=== PATIENT | male | born 1940 | race Caucasian/White ===

== ENCOUNTER → 2016-12-03 | Outpatient (CLI) | payer OTHER | END | disposition home or self-care (01) | LOC: C.LABMFLN 08:39 | PROVIDERS: ATTEND Urology | DX: C61 Malignant neoplasm of prostate (principal) ==

== ENCOUNTER → 2017-06-10 | Outpatient (CLI) | payer OTHER | END | disposition home or self-care (01) | LOC: C.LABMFLN 14:51 | PROVIDERS: ATTEND Urology | DX: C61 Malignant neoplasm of prostate (principal) ==

== ENCOUNTER → 2017-09-09 | Outpatient (CLI) | payer OTHER | END | disposition home or self-care (01) | LOC: C.LABMFLN 10:29 | PROVIDERS: ATTEND Urology | DX: C61 Malignant neoplasm of prostate (principal) ==

== ENCOUNTER → 2018-03-05 | Outpatient (CLI) | payer OTHER | END | disposition home or self-care (01) | LOC: C.LABMFLN 13:12 | PROVIDERS: ATTEND Urology | DX: C61 Malignant neoplasm of prostate (principal) ==

== ENCOUNTER → 2018-05-06 | Outpatient (CLI) | payer OTHER ==
[~2018-05-06] MED LIST: GADAVIST IV PRN
--- NOTE | 2018-05-06 15:07 | DIAGNOSTIC IMAGING REPORT ---
PELVIC COMBO CLINICAL HISTORY: 77 years-old Male presenting with NEOPLASM OF PROSTATE, MALIGNANT. PSA 6.36 ng/mL on 03/05/2018. TECHNIQUE: Multisequence, multiplanar MR imaging of the pelvis was performed before and after the administration of intravenous contrast. Additional postprocessing was performed on a separate [employer] workstation by the radiologist for 3-D volumetric segmentation of the prostate and contouring of region(s) of interest (RUPA) for targeting. IV contrast: 9.5 mL of Gadavist. COMPARISON: Bone scan from 04/12/2018. FINDINGS: Prostate: The patient is status post prostatectomy. No asymmetric or suspicious nodular enhancement at the ureteral anastomosis. Bladder: Bladder wall thickening likely indicating prior chronic outlet obstruction. Bowel: Diverticulosis of the sigmoid colon. Peritoneum: No free fluid in the pelvis. Lymph nodes: No lymphadenopathy in the visualized portion of the pelvis. Vasculature: Iliac vessels patent. Abdominal wall: Normal. Osseous structures: Focal T1 hypointense, T2 hyperintense, enhancing lesion in the right aspect of the sacrum (series 4 image 31; series 11 image 31). No focal lesion is identified in the region of the ischial tuberosity though the ischial tuberosities are incompletely visualized. No other osseous lesion is evident. Degenerative changes of the sacroiliac joints. IMPRESSION: 1. Enhancing osseous lesion in the right sacrum is highly suspicious for osseous metastatic disease. Allowing for incomplete visualization of the ischial tuberosities, no lesion in the left ischium. 2. Postsurgical changes of prostatectomy. No evidence of local recurrence at the ureteral anastomosis. No pelvic lymphadenopathy. 3. Diverticulosis. Electronically signed by: Paulo Demarco M.D. 05/06/2018 3:05 PM Dictated Date/Time: 05/06/2018 2:56 PM
== END | disposition home or self-care (01) ==
LOC: C.MRI 13:33
PROVIDERS: ATTEND Urology
DX: C61 Malignant neoplasm of prostate (principal); K57.90 Diverticulosis of intestine, part unspecified, without perforation or abscess without bleeding

== ENCOUNTER → 2018-05-26 | Outpatient (CLI) | payer OTHER ==
[2018-05-26 18:11] LABS: BASO % 0.5 %; BASO ABS # 0.03 K/uL (0-0.2); EOS % 4.4 %; EOS ABS # 0.26 K/uL (0-0.5); HEMATOCRIT 41.1 % (42-52); HEMOGLOBIN 13.5 g/dL (14.0-18.0); IG# 0.01 K/uL (0.00-0.02); LYMPH % 41.7 %; LYMPH ABS # 2.45 K/uL (1.2-3.4); MEAN CELL VOLUME 92.6 fL (80-100); MEAN CORPUSCULAR HEMOGLOBIN 30.4 pg (25-34); MEAN CORPUSCULAR HGB CONC 32.8 g/dl (32-36); MEAN PLATELET VOLUME 10.8 fL (7.4-10.4); MONO % 8.5 %; NEUT % 44.7 %; NEUT ABS # 2.62 K/uL (1.4-6.5); PLATELET COUNT 201 K/uL (130-400); RED CELL DISTRIBUTION WIDTH CV 13.1 % (11.5-14.5); RED CELL DISTRIBUTION WIDTH SD 44.3 fL (36.4-46.3); WHITE BLOOD COUNT 5.87 K/uL (4.8-10.8)
[2018-05-26 18:39] LABS: ALBUMIN 3.6 gm/dl (3.4-5.0); ALKALINE PHOSPHATASE 60 U/L (45-117); ALT/SGPT 22 U/L (12-78); AST/SGOT 22 U/L (15-37); BLOOD UREA NITROGEN 18 mg/dl (7-18); CALCIUM 8.6 mg/dl (8.5-10.1); CARBON DIOXIDE 25 mmol/L (21-32); CREATININE 1.21 mg/dl (0.60-1.40); GLUCOSE 109 mg/dl (70-99); POTASSIUM 4.2 mmol/L (3.5-5.1); SODIUM 140 mmol/L (136-145); TOTAL PROTEIN 7.5 gm/dl (6.4-8.2)
== END | disposition home or self-care (01) ==
LOC: C.LABMFLN 16:09
PROVIDERS: ATTEND Internal Medicine Hematology & Oncology
DX: C61 Malignant neoplasm of prostate (principal)

== ENCOUNTER 2019-02-23 09:14 | Observation (INO) ==
--- NOTE | 2019-02-18 11:50 | Anesthesiology Consultation ---
Date of Service February 18, 2019 Assessment & Plan (1) Encounter for pre-operative examination: PCP Clearance 02/16/19: Reviewed EKG and labs. "Patient's RCRI is 1 based on the fact that it is intrathoracic surgery. Patient is an acceptable candidate for surgery." Chart Review Chart Review: Acceptable Risk for Surgery and Patient NOT seen in Pre Admission Testing History Surgery Operation Date: 02/23/19 10:50 Proposed Procedures p Robotic Laparoscopic Repair of Para-Esophageal Hernie with Fundoplication, - Parish Felix MD, FACS s Intraoperative Esophagogastroduodenoscopy - Parish Felix MD, FACS Height/Weight Height: 5 ft 9 in Weight: 93.416 kg Allergies Allergy/AdvReac Type Severity Reaction Status Date / Time No Known Allergies Allergy Verified 02/18/19 09:59 Medications Home Medications Medication Instructions Recorded Confirmed Last Taken Full Spectrum Extract 0.75 ml PO QAM 02/18/19 02/18/19 Unknown ascorbic acid (vitamin C) [Vitamin 1 tab PO QAM 02/18/19 02/18/19 Unknown C] bicalutamide [Casodex] 50 mg PO QPM 02/18/19 02/18/19 Unknown calcium carbonate [Calcium 500] 500 mg PO QAM 02/18/19 02/18/19 Unknown cholecalciferol (vitamin D3) 2,000 unit PO QAM 02/18/19 02/18/19 Unknown [Vitamin D3] denosumab [Xgeva] 120 mg SUBCUT MONTHLY 02/18/19 02/18/19 Unknown folic acid 0.8 mg PO QAM 02/18/19 02/18/19 Unknown glucosamine-chondroitin 1 tab PO BID 02/18/19 02/18/19 Unknown leuprolide (3 month) [Lupron Depot 1 dose IM UD 02/18/19 02/18/19 Unknown (3 month)] magnesium oxide 400 mg PO QAM 02/18/19 02/18/19 Unknown multivitamin 1 tab PO QAM 02/18/19 02/18/19 Unknown omega 5-qrw-gvf-fish oil [Fish Oil] 1 cap PO QAM 02/18/19 02/18/19 Unknown potassium 99 mg PO QAM 02/18/19 02/18/19 Unknown red yeast rice 600 mg PO QAM 02/18/19 02/18/19 Unknown selenium 200 mcg PO QAM 02/18/19 02/18/19 Unknown vitamin E 1,000 unit PO QAM 02/18/19 02/18/19 Unknown Past Medical History Medical History Cancer PROSTATE CANCER (SURGERY AND RADIATION) METS TO SACRUM. ON LUPRON, AND CASODEX. Osteoarthritis Paraesophageal hernia Past Surgical History Surgical History History of colonoscopy History of herniorrhaphy INGUINAL History of prostatectomy History of tooth extraction Social History Smoking Status: Former smoker tobacco type: cigarettes Do You Dip or Chew Tobacco: No Smoking End Date: QUIT OVER 50 YEARS AGO Hx Alcohol Use: No Hx Substance Use: No substance use type: does not use Testing Electrocardiogram Date: 02/16/19 Findings: + NSR @ (70) Left axis deviation. iRBBB. Septal infarct, age undetermined. Compared to EKG of 12/04/18, rate is slower. Laboratory Results Laboratory Tests 02/16/19 02/16/19 10:23 10:23 WBC 6.25 Hgb 13.4 L Hct 39.5 L Plt Count 212 Sodium 142 Potassium 4.3 Chloride 108 H Carbon Dioxide 31 BUN 20 H Creatinine 1.07 Glucose 95
[~2019-02-23 09:14] MED LIST changes: -GADAVIST IV PRN; +LR 15ML/HR IV SCH
[2019-02-23] MEDS ORDERED: DEXAMETHASONE SOD INJ 4 MG/ML VIAL IV PRN (10:27)
[2019-02-23] MEDS ORDERED: fentaNYL citrate 100 MCG/2 ML VIAL IV PRN (10:27)
[2019-02-23] MEDS ORDERED: ONDANSETRON INJ 2 MG/ML 2 ML VIAL IV PRN (10:27)
[2019-02-23] MEDS ORDERED: ePHEDrine sulfate 50 MG/ML AMP IV PRN (10:27)
[2019-02-23] MEDS ORDERED: HYDROmorphone INJ 1 MG/ML SYRINGE IV PRN (10:27)
[2019-02-23] MEDS ORDERED: ATROPINE SULFATE 0.1 MG/ML 10ML SYR IV PRN (10:27)
--- NOTE | 2019-02-23 10:40 | History & Physical Bridge Note ---
Date of Service February 23, 2019 History & Physical Bridge Note I have examined the patient, reviewed the History & Physical and in the interval since the performance of the History & Physical I have noted the following changes of clinical significance: no changes noted
[2019-02-23] MEDS ORDERED: PROPOFOL IV EMULSION 10 MG/ML 20 ML VIAL IV ONE (10:50)
[2019-02-23] MEDS ORDERED: ROCURONIUM BROMIDE 10 MG/ML 5 ML VIAL ONE ×5 (10:50→14:22)
[2019-02-23] MEDS ORDERED: LIDOCAINE HCL 2% 2 ML VIAL/AMP(20MG/ML) INFIL ONE (10:50)
[2019-02-23] MEDS ORDERED: fentaNYL citrate 100 MCG/2 ML VIAL ONE (10:50)
[2019-02-23] MEDS ORDERED: MIDAZOLAM HCL 1 MG/ML 2ML VIAL ONE (10:51)
[2019-02-23] MEDS ORDERED: ONDANSETRON INJ 2 MG/ML 2 ML VIAL ONE (10:53)
[2019-02-23] MEDS ORDERED: GLYCOPYRROLATE 0.2 MG/ML VIAL ONE ×2 (10:53→12:21)
[2019-02-23] MEDS ORDERED: NEOSTIGMINE METHYLSULFATE 5 MG/5 ML SYR ONE (10:53)
[2019-02-23] MEDS ORDERED: DEXAMETHASONE SOD INJ 4 MG/ML VIAL ONE (10:53)
[2019-02-23] MEDS ORDERED: BUPIVACAINE LIPOSOME 1.3% 266 MG/20 ML VIAL ONE (10:54)
[2019-02-23] MEDS ORDERED: SODIUM CHLORIDE 0.9% PF 50 ML VIAL ONE (10:54)
[2019-02-23] MEDS ORDERED: BUPIVACAINE 0.5 % 5 MG/1 ML MPF 30ML VIAL ONE (10:54)
[2019-02-23] MEDS ORDERED: HYDROmorphone INJ 2 MG/ML SYR/VIAL ONE (11:24)
[2019-02-23] MEDS ORDERED: PHENYLEPHRINE 100MCG/ML 5ML SYR ONE (12:21)
[2019-02-23] MEDS ORDERED: ePHEDrine sulfate 50 MG/ML AMP ONE ×2 (13:54→14:22)
[2019-02-23] MEDS ORDERED: PHENYLEPHRINE HCL 10 MG/ML VIAL ONE (15:20)
--- NOTE | 2019-02-23 15:39 | Post Operative Brief Note ---
Immediate Post Op Note v1 Date of Surgery February 23, 2019 Pre & Post Diagnosis Operation Date: 02/23/19 10:50 Pre-Op Diagnosis: Paraesophageal Hernia Post-Op Diagnosis: Paraesophageal Hernia Procedure Operation Date: 02/23/19 10:50 Actual Procedures p Robotic Laparoscopic Repair of Paraesophageal Hernia with bioprosthetic patch and Razia Fundoplication(Not Applicable) - Parish Felix MD, FACS s Esophagogastroduodenoscopy(Not Applicable) - Parish Felix MD, FACS Surgeon Parish Felix MD, FACS Chemical Worker Erica CUELLAR Estimated Blood Loss 25 Findings Consistent with Post-Op Diagnosis Drains Gramajo Catheter (adhesive sheath non-invasive catheter placed)
[2019-02-23] MEDS ORDERED: METOCLOPRAMIDE HCL INJ 5 MG/ML 2 ML VIAL IV ONE (16:05)
--- NOTE | 2019-02-23 16:13 | XRay Report ---
XR chest 1V portable CLINICAL HISTORY: s/p lesli fundoplication COMPARISON STUDY: No previous studies for comparison. FINDINGS: Lucency under the hemidiaphragms reflects pneumoperitoneum which is not unexpected. Pneumom ediastinum is also noted. There are mild bibasilar opacities. A small right apical pneumothorax with pleural separation of 1.5 cm is noted. There is mild enlargement of the cardiac silhouette without ev idence for pulmonary edema. Possible small left apical pneumothorax is likely artifactual. IMPRESSION: 1. Pneumoperitoneum and pneumomediastinum which are expected in the early postoperative setting. Mild bibasilar opacities. 2. Small right apical pneumothorax. 3. Possible small left apical pneumothorax which is likely artifactual. Electronically signed by: Dustin Swenson M.D. 02/23/2019 4:12 PM
[2019-02-23] MEDS ORDERED: METOCLOPRAMIDE HCL INJ 5 MG/ML 2 ML VIAL ONE (16:16)
--- NOTE | 2019-02-23 16:45 | Anesthesiology Progress Note ---
Date of Service February 23, 2019 Anesthesia Post Procedure Vital Signs Vital Signs: Temp Pulse Pulse Resp BP BP Pulse Ox 02/23/19 16:45 89 16 133/75 95 02/23/19 16:35 36.6 C 85 16 127/63 95 02/23/19 16:25 83 16 120/69 94 02/23/19 16:15 87 18 122/73 94 02/23/19 16:05 79 18 141/85 H 92 02/23/19 15:59 36.4 C L 79 19 141/85 H 93 02/23/19 10:00 36.7 C 72 18 172/99 H 97 Transfer of Care Handoff Completed per policy Notes Mental Status: alert / awake / arousable and participated in evaluation Patient Amnestic to Procedure: Yes Nausea / Vomiting: adequately controlled Pain: adequately controlled Airway Patency, RR, SpO2: stable & adequate BP & HR: stable & adequate Hydration State: stable & adequate Anesthetic Complications: no major complications apparent and Pt Satisfied with anesthetic care
[2019-02-23] MEDS ORDERED: MoRPHine SULFATE 2 MG/ML CARP IV PRN (17:01)
[2019-02-23] MEDS ORDERED: OXYCODONE HCL IR 5 MG TAB (IMMEDIATE RELEASE) PO PRN (17:01)
[2019-02-23] MEDS: D5W AND 1/2NSS 1,000 ML IV SCH (18:08)
[2019-02-23] MEDS: ONDANSETRON INJ 2 MG/ML 2 ML VIAL IV SCH ×2 (18:22→21:59)
[2019-02-23] MEDS: ACETAMINOPHEN 1,000 MG/100 ML VIAL IV SCH (18:23)
[2019-02-23] MEDS: DOCUSATE SODIUM 100 MG CAP PO SCH (20:28)
[2019-02-23] MEDS ORDERED: BICALUTAMIDE 50 MG TAB PO SCH (21:00)
[2019-02-23] MEDS ORDERED: PNEUMOCOCCAL POLYSACCHARIDES 25 MCG/0.5 ML VIAL/SYR IM ONE (21:00)
[2019-02-23] MEDS ORDERED: PNEUMOCOCCAL ADMINISTRATION CHARGE ONE (21:00)
--- NOTE | 2019-02-23 22:41 | Operative Report ---
DATE OF OPERATION: 02/23/2019 PREOPERATIVE DIAGNOSIS: Large hiatal hernia with gastric torsion. POSTOPERATIVE DIAGNOSIS: Large hiatal hernia with gastric torsion. PROCEDURE PERFORMED: 1. Robot-assisted laparoscopic repair of large hiatal hernia. 2. Floppy Razia fundoplication. 3. On-table esophagoscopy. SURGEON: Parish Felix MD DIRECTOR FOR [employer]: POLO Gimenez (Mr. Lynn was present for the entire case). ANESTHESIA: General anesthesia, endotracheal intubation. INDICATION FOR PROCEDURE AND FINDINGS: Adán Marino is a 78-year-old male who has signs and symptoms consistent with intermittent gastric torsion and has a huge hiatal hernia. I saw him recently in the office and was concerned enough that we scheduled him rather quickly. On 02/23/2019,the patient underwent an uncomplicated robot-assisted laparoscopic repair of his hiatal hernia. He had a huge sac but we managed to get this entire sac out. Care was taken to avoid injury to the phrenic nerves. We were able to repair the hiatal defect easily and it really was under no tension, but I did put a nonabsorbable patch to reinforce this repair. We then did a floppy Razia fundoplication. He tolerated it well. DESCRIPTION OF PROCEDURE: The patient was brought to the operating room and laid in supine position. General anesthesia was induced. Endotracheal intubation was performed. He was prepped and draped in the usual sterile fashion, calling appropriate timeout and giving prophylactic antibiotics. An incision was made a few centimeters above the umbilicus. All of our port sites were infiltrated with Exparel 266 mg mixed with 30 mL of 0.5% bupivacaine and 50 mL of normal saline. Upon making the incision in the midline, we placed a 5-mm thoracoscopic port and entered the pleural cavity under guidance with a 5-mm scope. Upon entering the peritoneal cavity, we then insufflated CO2. We were able to see quite nicely and there were no adhesions. Two 8-mm ports were placed in the midclavicular line bilaterally below the costal margin. Two 5-mm ports were placed laterally and inferiorly. The right 5-mm port was placed for the liver retractor and the left 5-mm port was for our 5-mm thoracic grasper for the robot. An assistance port was then placed in the left periumbilical area. We then placed the patient in reverse Trendelenburg and docked the robot. Upon entering it, we had excellent exposure and could see a very large hiatal defect. We started off by taking down all of the short gastrics. There were marked adhesions and the stomach was twisted and we spent some time trying to finally straighten this out. I then scored the peritoneum and I got into a nice avascular plane and removed the entire sac. We had excellent exposure given the large hiatal defect. We identified the esophagus and the esophagus was not shortened at all. Care was taken to avoid injury to the vagus nerves. The sac was peeled down and we were able to see the hiatal defect perfectly. I then removed the entire sac using the vessel sealer from the robot. This had to be delivered in 2 different specimens and they were so large that we had to wait until the end of the case to take them out through the assistance port by removing the trocar. Endobags were placed on each, but they were left in the lower abdomen. A #1 silk was used in a bzreei-cy-valrw fashion x2 to reapproximate the posterior crura and it came together with no problem. An Ovitex bioprosthetic patch was then selected and an approximately 5 x 3 cm patch was sutured in place with 2-0 Vicryl suture along the posterior crural repair. Care was taken to avoid touching the patch to the esophagus. We then had mobilized so much of the stomach that a floppy Razia was quite easy to do as the stomach was quite large and distended. We did a "shoeshine maneuver" and we had no twisting or folding of the stomach. Three 2-0 silk was used to suture the anterior fundus to the esophagus to the posterior fundus. This came together under no tension. I placed another suture 1 cm above this and then I used a third suture to suture the posterior and anterior fundus to the anterior crura. This was under no tension and looked quite good actually. The robot was then undocked and the patient was placed supine. I then performed an esophagoscopy without difficulty and our repair looked good. It went through the GE junction nicely and upon retroflexion you could see a nice fundoplication. The stomach was very large and I suctioned it out. We then closed the abdomen by placing #1 Maxon into the camera port and the assistance port; however, prior to doing this, we removed the 2 Endobags. This was a bit difficult because of how large, but we got them out. We then closed the 2 larger ports with #1 Maxon for closing the fascia. A 4-0 Monocryl was then used in a running subcuticular fashion to approximate the wound edges. He tolerated it quite well. I attest to the content of the Intraoperative Record and any orders documented therein. Any exceptions are noted below. DEBBIE
[2019-02-24] MEDS: METOCLOPRAMIDE HCL INJ 5 MG/ML 2 ML VIAL IV SCH ×2 (00:13→07:56)
[2019-02-24] MEDS: ONDANSETRON INJ 2 MG/ML 2 ML VIAL IV SCH ×4 (01:06→14:38)
[2019-02-24] MEDS: ACETAMINOPHEN 1,000 MG/100 ML VIAL IV SCH ×2 (01:06→09:51)
[2019-02-24] MEDS: D5W AND 1/2NSS 1,000 ML IV SCH (03:23)
[2019-02-24] MEDS ORDERED: TAMSULOSIN HCL 0.4 MG CAP PO ONE (05:46)
[2019-02-24 06:02] LABS: INR 1.1 (0.9-1.1); Prothrombin Time 11.2 Seconds (9.0-12.0)
--- NOTE | 2019-02-24 07:31 | XRay Report ---
XR chest 1V portable HISTORY: 78 years-old Male pneumothorax follow-up study in a patient with bilateral pneumothoraces COMPARISON: Chest radiograph 02/23/2019 TECHNIQUE: Portable AP view of the chest FINDINGS: Cardiac mediastinal and hilar silhouettes are unchanged. Pneumomediastinum is not definitively seen o n today's study. Lungs are hypoinflated with bronchovascular crowding. Mild subsegmental bibasilar op acities are noted. Pneumoperitoneum redemonstrated. Tiny biapical pneumothoraces redemonstrated. The pneumothorax on the right has decreased in size from comparison, now with pleural separation of appro ximately 3 mm, previously 1.5 cm. Degenerative changes of the shoulders and spine. IMPRESSION: 1. Tiny biapical pneumothoraces, decreased in size on the right from comparison. 2. Hypoinflation with bronchovascular crowding and bibasilar opacities suggestive of atelectasis. 3. Pneumoperitoneum. The above report was generated using voice recognition software. It may contain grammatical, syntax o r spelling errors. Electronically signed by: Dell Lau M.D. 02/24/2019 7:30 AM
--- NOTE | 2019-02-24 08:07 | Anesthesiology Progress Note ---
Date of Service February 24, 2019 Anesthesia Post Procedure Vital Signs Vital Signs: Temp Pulse Pulse Pulse Resp BP BP 02/24/19 07:18 36.7 C 92 H 18 171/94 H 02/24/19 05:19 37.1 C 103 H 16 165/91 H 02/24/19 02:59 37.2 C 106 H 16 163/91 H 02/24/19 01:07 36.6 C 106 H 16 169/99 H 02/23/19 23:10 36.6 C 101 H 16 160/94 H 02/23/19 20:13 36.4 C L 107 H 17 152/91 H 02/23/19 19:26 36.4 C L 99 H 17 168/90 H 02/23/19 18:59 36.5 C 18 161/96 H 02/23/19 17:00 36.5 C 93 H 16 146/82 H 02/23/19 16:45 89 16 133/75 02/23/19 16:35 36.6 C 85 16 127/63 02/23/19 16:25 83 16 120/69 02/23/19 16:15 87 18 122/73 02/23/19 16:05 79 18 141/85 H 02/23/19 15:59 36.4 C L 79 19 141/85 H 02/23/19 10:00 36.5 C 72 18 172/99 H 161/96 H Pulse Ox 02/24/19 07:18 92 02/24/19 05:19 92 02/24/19 02:59 91 02/24/19 01:07 91 02/23/19 23:10 92 02/23/19 20:13 91 02/23/19 19:26 92 02/23/19 18:59 91 02/23/19 17:00 97 02/23/19 16:45 95 02/23/19 16:35 95 02/23/19 16:25 94 02/23/19 16:15 94 02/23/19 16:05 92 02/23/19 15:59 93 02/23/19 10:00 95 Notes Mental Status: alert / awake / arousable and participated in evaluation Patient Amnestic to Procedure: Yes Nausea / Vomiting: adequately controlled Pain: adequately controlled Airway Patency, RR, SpO2: stable & adequate BP & HR: stable & adequate Hydration State: stable & adequate Anesthetic Complications: no major complications apparent and Pt Satisfied with anesthetic care
[2019-02-24] MEDS ORDERED: ENOXAPARIN INJ 40 MG/0.4 ML SYR SQ SCH (09:00)
--- NOTE | 2019-02-24 09:44 | Fluoroscopy Report ---
SINGLE CONTRAST OPTIRAY SWALLOW CLINICAL HISTORY: s/p lesli COMPARISON STUDY: Barium swallow February 15, 2019. FLUOROSCOPY TIME: 2.1 minutes. FLUOROSCOPIC IMAGES: 13. TECHNIQUE: A single contrast swallow was performed utilizing 150 cc of Optiray. FINDINGS: Pneumoperitoneum is noted. There are bibasilar opacities. Tracheal aspiration was noted. Th ere was narrowing at the level of the Lesli wrap. A standing column of contrast within the esophagus was noted. Contrast did eventually pass into the stomach. The stomach is distended. There is possibl e trace contrast within the duodenum. The stomach is suboptimally assessed on this exam. No extralumi nal contrast was identified although sensitivity for detection of leak is diminished as no additional Optiray was provided given aspiration. IMPRESSION: 1. No contrast extravasation to suggest leak although sensitivity for detection of leak diminished g iven tracheal aspiration during this exam. 2. Narrowing at the level of the Lesli wrap which may be related to postoperative edema. Standing co lumn contrast within the esophagus however contrast did eventually pass into the stomach and possibly the duodenum. Gastric distention. Electronically signed by: Dustin Swenson M.D. 02/24/2019 9:42 AM
[2019-02-24] MEDS: DOCUSATE SODIUM 100 MG CAP PO SCH (09:51)
--- NOTE | 2019-02-24 12:39 | Urology Consultation ---
Date of Consultation February 24, 2019 Assessment & Plan (1) Incomplete bladder emptying: A/P 78 yo male with recurrent prostate cancer on ADT, incomplete bladder emptying, bladder neck contracture. Findings reviewed with patient. In 2015 the decision was made to avoid dilation of his bladder neck contracture due to concern over urinary incontinence if this was complete. This remains a potential issue should he be dilated today. I suspect that his bladder neck contracture persists and there is a good chance that if he continued to attempt Gramajo placement bedside cystoscopy and dilation will be required to avoid retention from traumatic catheterization. At this point, seen the lack of urinary bother, hematuria or other significant symptoms I suspect that his emptying is close to baseline. Patient has a strong preference for avoiding Gramajo catheter placement and manipulation of possible due to his concern over the above possible deterioration in his voiding. As noted the risk here is that he might develop worsening of voiding and urinary retention and require cystoscopy and dilation acutely in the emergency contacts. In addition he lives approximately 1 hour from our facility. Patient currently seems to be able to avoid albeit with a significant residual. As noted, his recent imaging suggests a lack of upper tract decompensation. We will therefore see if we can avoid placement of a Gramajo and allow for the patient to be discharged home. Worrisome signs and symptoms of impending urinary and patient is to present to the emergency room if this occurs outside of normal office hours into our office if it we will arrange for a cystoscopy for reevaluation of his bladder neck contracture with Dr. Hylton in the coming weeks and another discussion regarding the risks and benefits of dilation or incision of his bladder neck contracture can be reviewed. Patient vocalizes good understanding of the treatment plan. Thank you for allowing us to participate in this patient's acute care. Please contact our service with any further questions or concerns. History of Present Illness Reason for Consultation: Incomplete bladder emptying, history of prostate cancer with bladder neck contracture. Attending Physician: Parish Felix MD, FACS History of Present Illness 78-year-old male, known to our service, lost to follow-up in the summer 2017 who is currently admitted after repair of a hiatal hernia. Postoperatively due to slow stream and delayed voiding catheterization was attempted and was unsuccessful. Urologic service was called in consultation to assist with his care. Patient is noted to have a history of recurrent prostate cancer after prostatectomy and salvage radiation therapy and he is currently on combination androgen deprivation with slow recurrence of his PSA. He underwent a cystoscopy by Dr. Hylton in 2015 demonstrating an impassable bladder neck contracture. He has undergone imaging as an outpatient including CT scan imaging in November 2018 demonstrating some residual urine within the bladder but no hydronephrosis. Patient has been voiding in the postoperative period with over 500 cc of clear urine passed this morning per nursing staff. He reports he has been voiding approximately 100 to 150 cc in the afternoon as well. His bladder scan today is greater than 400 cc but he reports that he no longer has a sensation of fullness which was present earlier in the postoperative period. He feels that he is chronically obstructed with a slow stream and incomplete emptying and his current symptoms feel relatively close to baseline.His inpatient and outpatient charts are reviewed and his recent PSA of 2.6 is noted. Oncology notes also reviewed. Allergies Allergy/AdvReac Type Severity Reaction Status Date / Time No Known Allergies Allergy Verified 02/23/19 09:41 Home Medications Home Medications Medication Instructions Recorded Confirmed Type Full Spectrum Extract 0.75 ml PO QAM 02/18/19 02/23/19 History ascorbic acid (vitamin C) [Vitamin 1 tab PO QAM 02/18/19 02/23/19 History C] bicalutamide [Casodex] 50 mg PO QPM 02/18/19 02/23/19 History calcium carbonate [Calcium 500] 500 mg PO QAM 02/18/19 02/23/19 History cholecalciferol (vitamin D3) 2,000 unit PO QAM 02/18/19 02/23/19 History [Vitamin D3] denosumab [Xgeva] 120 mg SUBCUT MONTHLY 02/18/19 02/23/19 History folic acid 0.8 mg PO QAM 02/18/19 02/23/19 History glucosamine-chondroitin 1 tab PO BID 02/18/19 02/23/19 History leuprolide (3 month) [Lupron Depot 1 dose IM UD 02/18/19 02/23/19 History (3 month)] magnesium oxide 400 mg PO QAM 02/18/19 02/23/19 History multivitamin 1 tab PO QAM 02/18/19 02/23/19 History omega 8-nfx-clg-fish oil [Fish Oil] 1 cap PO QAM 02/18/19 02/23/19 History potassium 99 mg PO QAM 02/18/19 02/23/19 History red yeast rice 600 mg PO QAM 02/18/19 02/23/19 History selenium 200 mcg PO QAM 02/18/19 02/23/19 History vitamin E 1,000 unit PO QAM 02/18/19 02/23/19 History Patient History Medical History Bladder neck contracture Pelvic irradiation Cancer PROSTATE CANCER (SURGERY AND RADIATION) METS TO SACRUM. ON LUPRON, AND CASODEX. 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 [employer] Required: No Beliefs That Will Affect Care: None Current Living Situation: Spouse Other Information That Helps Us Care for You: No Feels Safe at Home: Yes Safety Concerns: Feels Safe At This Time Smoking Status: Former smoker Tobacco Type: cigarettes Do You Dip or Chew Tobacco: No Smoking End Date: QUIT OVER 50 YEARS AGO Second Hand Exposure: No Tobacco Cessation Education Requested by Patient: No Hx Alcohol Use: No Hx Substance Use: No Review of Systems Constitutional: no fever, no chills and no body aches Eyes: no diplopia Ear, Nose, Mouth, Throat: no ear trauma Respiratory: no hemoptysis Cardiovascular: no syncope Genitourinary: + urinary hesitancy Integumentary: no acne and no boil Neurologic: no paralysis and no numbness Psychiatric: no hopelessness Hematologic / Lymphatic: no lymphadenopathy Physical Exam Constitutional: WD/WN, vitals as above Eyes: eyes not dysmorphic ENMT: Ears: no external ear abnormality Neck: trachea midline; no anterior neck swelling Respiratory: no respiratory distress and does not use accessory muscles Cardiovascular: Vessels: radial pulses present Gastrointestinal (Abdomen): Inspection/Auscultation: abdomen not distended Percussion/Palpation: abdomen soft; abdomen nontender Skin: normal turgor Neurologic: awake; not obtunded Psychiatric: Orientation: oriented x 3 Lymphatic: no lymphadenopathy Results & Data Vital Signs (Past 12 Hours) Vital Signs Temp Pulse Resp BP BP Pulse Ox 02/24/19 11:30 37.3 C 97 H 18 160/98 H 91 02/24/19 10:33 163/94 H 02/24/19 07:18 36.7 C 92 H 18 171/94 H 92 02/24/19 05:19 37.1 C 103 H 16 165/91 H 92 02/24/19 02:59 37.2 C 106 H 16 163/91 H 91 02/24/19 01:07 36.6 C 106 H 16 169/99 H 91 Laboratory Results Laboratory Results - last 48 hr 02/23/19 02/24/19 09:59 05:33 PT 11.2 INR 1.1 Blood Type O Positive Antibody Screen NEGATIVE
[2019-02-24] MEDS ORDERED: ACETAMINOPHEN 325 MG TAB PO SCH (16:00)
--- NOTE | 2019-02-24 23:28 | Discharge Summary ---
DATE OF ADMISSION: 02/23/2019 DATE OF DISCHARGE: 02/24/2019 ADMISSION DIAGNOSIS: Paraesophageal hernia. DISCHARGE DIAGNOSIS: Paraesophageal hernia. HISTORY OF PRESENT ILLNESS: This is a pleasant 78-year-old male who was brought in to the hospital on 02/23/2019 after being seen and evaluated as an outpatient secondary to a large paraesophageal hernia. On date of admission, Dr. Felix took the patient to the operating room and performed a robotic assisted laparoscopic repair of paraesophageal hernia with bioprosthetic patch along with a Razia fundoplication and intraoperative EGD. The surgery was uneventful and the patient was noted to be hemodynamically stable postoperatively. Of note, the patient did have a small right apical and left apical pneumothorax. He also had a repeat chest x-ray done on postop day #1 that showed again tiny biapical pneumothoraces that were not felt to be of any consequence as the patient had adequate oxygenation. On postop day #1, the patient did have a barium swallow that showed no contrast extravasation to suggest a leak. There are findings consistent with a Razia fundoplication. Gastric distention and a slow gastric emptying was noted on this study; however. It should also be noted that during patient's postoperative course, he was noted to have some postoperative urinary retention along with difficulty placing a Gramajo intraoperatively. He was seen by urology and patient was noted to have incomplete bladder emptying and a bladder neck contracture. Urology did feel that the patient was able to void adequately and did not feel there is any utility in placing a Gramajo catheter or any additional interventions. Following the patient's barium swallow, he was tolerating liquid diet and was deemed stable for discharge home. The patient received written and verbal instructions on wound care, activity and diet. I told to remove his dressings in 3 days and shower thereafter, but not to take any tub baths. He was told not to drive or lift objects weighing 10 pounds until seen by Dr. Felix. He was told to consume a liquid diet and not consume any foods such as bread or meat that require chewing. Because of the findings on patient's barium swallow and a feeling of fullness when drinking liquids, he was placed on Reglan and told to take this before meals and at bedtime. He was ultimately deemed stable for discharge home, was discharged home on postop day #1. Our office will call in for a 1 week followup appointment.
== END 2019-02-24 14:38 | disposition home or self-care (01) ==
LOC: ASU 09:14 → 3N 15:50 → INTOOBSV 15:50

== ENCOUNTER 2019-02-25 09:54 | Inpatient (IN) ==
[2019-02-25] MEDS ORDERED: SODIUM CHLORIDE 0.9% 1000ML 1,000 ML IV SCH ×3 (10:00→18:00)
--- NOTE | 2019-02-25 12:02 | XRay Report ---
SINGLE VIEW CHEST CLINICAL HISTORY: Gastric outlet obstruction. FINDINGS: An AP, portable, upright chest radiograph is compared to study dated 02/24/2019. The heart is top normal for projection, noting atherosclerotic calcification of the thoracic aorta. There is elev ation of left hemidiaphragm and left basilar consolidation. Small pleural effusions are suspected. Th ere is likely trace residual right apical pneumothorax. The small left pneumothorax seen previously i s no longer apparent. The skeletal structures are osteopenic. The bony thorax is grossly intact. Dege nerative change is noted throughout the thoracic spine. IMPRESSION: 1. There is likely trace residual right apical pneumothorax. No definite left pneumothorax is seen. 2. There is elevation of the left hemidiaphragm with left basilar consolidation. Correlate clinically for evidence of pneumonia/aspiration pneumonitis. 3. Suspect small pleural effusions. Electronically signed by: Anthony Duvall M.D. 02/25/2019 12:01 PM
--- NOTE | 2019-02-25 12:02 | XRay Report ---
KUB HISTORY: gastric oultlet obstruction COMPARISON: Chest radiograph of same day, CT abdomen and pelvis 12/04/2017. FINDINGS: The bowel gas pattern is non-obstructive. Mild gaseous distention of the stomach. Enteric c ontrast noted about the large bowel. Colonic diverticulosis. Left hemidiaphragmatic elevation. There is no organomegaly. No renal calculi. No ureteral calculi. No pneumoperitoneum or pneumatosis. Degen erative changes of the spine, pelvis and hips. No fracture. IMPRESSION: 1. Mild gaseous distention of the stomach. 2. Nonobstructive bowel gas pattern with enteric contrast about the colon secondary to barium swallow study 02/24/2019 excluding high-grade obstructive process. 3. Colonic diverticulosis. Electronically signed by: Dell Lau M.D. 02/25/2019 12:00 PM
[2019-02-25 12:12] LABS: Basophils # (auto) 0.01 K/uL (0-0.2); Basophils % (auto) 0.1 %; Hemoglobin 14.1 g/dL (14.0-18.0); Immature Granulocytes # (auto) 0.06 K/uL (0.00-0.02); Immature Granulocytes % (auto) 0.3 %; Lymphocytes # (auto) 1.77 K/uL (1.2-3.4); Lymphocytes % (auto) 9.8 %; Mean Corpuscular Volume 87.6 fL (80-100); Mean Platelet Volume 10.3 fL (7.4-10.4); Monocytes # (auto) 1.11 K/uL (0.11-0.59); Monocytes % (auto) 6.2 %; Neutrophils # (auto) 15.08 K/uL (1.4-6.5); Neutrophils % (auto) 83.6 %; Platelet Count 174 K/uL (130-400); RDW Coefficient of Variation 12.8 % (11.5-14.5); RDW Standard Deviation 41.2 fL (36.4-46.3); Red Blood Count 4.45 M/uL (4.7-6.1); White Blood Count 18.03 K/uL (4.8-10.8)
[2019-02-25 12:25] LABS: Mean Corpuscular Hgb Conc 36.2 g/dL (32-36)
[2019-02-25 12:28] LABS: Alanine Aminotransferase 29 U/L (12-78); Albumin Level 3.7 gm/dl (3.4-5.0); Aspartate Aminotransferase 54 U/L (15-37); BUN Creatinine Ratio 10.7 (10-20); Blood Urea Nitrogen 13 mg/dl (7-18); Calcium 8.8 mg/dl (8.5-10.1); Carbon Dioxide 26 mmol/L (21-32); Chloride 104 mmol/L (98-107); Est GFR (African American) 64.8; Est GFR (Non-African American) 55.9; Glucose 107 mg/dl (70-99); Magnesium 2.2 mg/dl (1.8-2.4); Potassium 3.4 mmol/L (3.5-5.1); Sodium 136 mmol/L (136-145)
[2019-02-25 12:31] LABS: Albumin Globulin Ratio 0.8 (0.9-2); Alkaline Phosphatase 51 U/L (45-117); Globulin 4.5 gm/dl (2.5-4.0); Total Protein 8.2 gm/dl (6.4-8.2)
[2019-02-25] MEDS: ONDANSETRON INJ 2 MG/ML 2 ML VIAL IV SCH ×2 (13:04→21:17)
[2019-02-25] MEDS: METOCLOPRAMIDE HCL INJ 5 MG/ML 2 ML VIAL IV SCH ×2 (13:04→17:33)
--- NOTE | 2019-02-25 14:00 | Urology Consultation ---
Date of Consultation February 25, 2019 Assessment & Plan (1) Incomplete bladder emptying: met, castrate resistant prostate ca; urinary retention - discussed options - given his lack of urinary improvement, we have decided to place a catheter - he understands that dilation of his bladder neck may lead to an increase in incontinence Procedure performed at bedside - sterile prep - passage of 6f open ended catheter into the bladder - clear urine returned - sensor wire advanced through the 6F into the bladder - serial/radial dilation to 18F (attempted to pass a 14F catheter after dilation to 16f, but unsuccessful) - placement of a 14f councill tip (cut to create councill) with a return of cl ear urine - patient tolerated procedure well - would keep the catheter for minimum of 3d or longer if primary team feels this is necessary History of Present Illness Attending Physician: Parish Felix MD, FACS History of Present Illness 78y/o male w/ hx of prostate ca ([facility]) - s/p RRP and radiation - rising PSA despite lupron and casodex - known BNC - was voiding adequately prior to his recent hiatal hernia repair - small volume, frequent voids after surgery - unable to pass a catheter during surgery - elected to avoid catheterization yesterday, but now readmitted to the hospital with abdominal discomfort and mild nausea - still not voiding well - q30 min - 100cc at most Allergies Allergy/AdvReac Type Severity Reaction Status Date / Time No Known Allergies Allergy Verified 02/23/19 09:41 Home Medications Home Medications Medication Instructions Recorded Confirmed Type Full Spectrum Extract 0.75 ml PO QAM 02/18/19 02/23/19 History Lupron Depot (3 month) 1 dose IM UD 02/18/19 02/23/19 History Xgeva 120 mg SUBCUT MONTHLY 02/18/19 02/23/19 History ascorbic acid (vitamin C) [Vitamin 1 tab PO QAM 02/18/19 02/23/19 History C] bicalutamide [Casodex] 50 mg PO QPM 02/18/19 02/23/19 History calcium carbonate [Calcium 500] 500 mg PO QAM 02/18/19 02/23/19 History cholecalciferol (vitamin D3) 2,000 unit PO QAM 02/18/19 02/23/19 History [Vitamin D3] folic acid 0.8 mg PO QAM 02/18/19 02/23/19 History glucosamine-chondroitin 1 tab PO BID 02/18/19 02/23/19 History magnesium oxide 400 mg PO QAM 02/18/19 02/23/19 History multivitamin 1 tab PO QAM 02/18/19 02/23/19 History omega 8-gqc-qks-fish oil [Fish Oil] 1 cap PO QAM 02/18/19 02/23/19 History potassium 99 mg PO QAM 02/18/19 02/23/19 History red yeast rice 600 mg PO QAM 02/18/19 02/23/19 History selenium 200 mcg PO QAM 02/18/19 02/23/19 History vitamin E 1,000 unit PO QAM 02/18/19 02/23/19 History metoclopramide HCl [Reglan] 10 mg PO ACHS 30 Days #120 tab 02/24/19 Rx ondansetron HCl [Zofran] 4 mg PO QID PRN #25 tab 02/24/19 Rx tramadol [Ultram] 50 mg PO QID PRN #18 tab 02/24/19 Rx Patient History Medical History Bladder neck contracture Cancer PROSTATE CANCER (SURGERY AND RADIATION) METS TO SACRUM. ON LUPRON, AND CASODEX. Osteoarthritis Paraesophageal hernia Pelvic irradiation Surgical History History of colonoscopy History of herniorrhaphy INGUINAL History of prostatectomy History of tooth extraction Social History Preferred Language: Indonesian Communication Ability: Effective Beliefs That Will Affect Care: None Current Living Situation: Spouse Other Information That Helps Us Care for You: No Feels Safe at Home: Yes Safety Concerns: Feels Safe At This Time Smoking Status: Former smoker Tobacco Type: cigarettes Second Hand Exposure: No Hx Alcohol Use: No Hx Substance Use: No Review of Systems Review of Systems: All systems reviewed & are unremarkable except as noted in HPI & below Constitutional: as per Subjective / HPI Respiratory: no cough and no dyspnea Cardiovascular: no chest pain and no dyspnea Gastrointestinal: + abdominal pain and + nausea Genitourinary: + problem reported Musculoskeletal: no back pain and no neck pain Integumentary: no rash Endocrine: no fatigue Physical Exam Physical Exam: NAD AAOx3 appropriately interactive no resp distress borderline tachycardia abd soft - moderately distended bladder uncircumcised phallus, atrophic testes no edema no adenopathy Results & Data Vital Signs (Past 12 Hours) Vital Signs Temp Pulse Resp BP Pulse Ox 02/25/19 13:19 36.9 C 104 H 18 183/108 H 91 02/25/19 12:00 36.9 C 20 171/104 H 91
[2019-02-25] MEDS ORDERED: Nursing to Pharmacy Communication ONE (15:58)
--- NOTE | 2019-02-25 18:08 | Consultation ---
Date of Consultation February 25, 2019 Assessment & Plan (1) Tachycardia: Pt with noted tachycardia Post op Day 0 through today. HR: high 90'-110. Today noted HR: 110-120. EKG: sinus tachycardia DDX: dehydration, infection, pneumonia, PE Pt 3 hours post Gramajo cath placement with continued tachycardia and HTN, so less likely related to urinary retention. Pt with cough today. WBC: 18 -CTA to r/o PE. Will also allow better visualization of lungs for consolidation -pending sputum culture, pending blood cultures -zosyn -increase IVF to 125ml/hr for 2 bags, then resume at 80ml/hr -follow cbc, bmp (2) HTN (hypertension): Pt reports been told BP runs high previously. Is not on any BP meds BP yesterday 171/94. Pt denies pain currently. Today BP 183/108 -will give dose of hydralazine -add amlodipine -monitor BP (3) Cough: (4) Hypoxia: Pt with noted O2 sats recorded 90-92% on RA prior admission. Today O2 sat 89-90%. Unsure pt's baseline. Denies SOB or CP. CXR: There is likely trace residual right apical pneumothorax. No definite left pneumothorax is seen. There is elevation of the left hemidiaphragm with left basilar consolidation. Correlate clinically for evidence of pneumonia/aspiration pneumonitis. Suspect small pleural effusions. 02/24/19 CXR: Tiny biapical pneumothoraces, decreased in size on the right from comparison. DDX: Pneumonia, PE, reflux -will start zosyn as pt with cough, noted WBC: 18, possible consolidation on CXR -pending sputum culture -pepcid BID IV -pending CTA chest to r/o PE, pneumonia (5) History of repair of hiatal hernia: Post op day #2 laparoscopic repair of large hiatal hernia and Floppy Razia fundoplication by Dr Felix -Dr Felix primary -NPO (6) Dysphagia: Pt developed dysphagia post procedure. Had barium swallow that showed no contrast extravasation to suggest a leak. Gastric distention and a slow gastric emptying was noted. Pt was placed on Reglan. Today pt reports "bubbling sensation" to esophagus when he is supine and resolves with sitting up. Denies any associated pain, CP or SOB. -will continue reglan as per Dr Felix -GI consult (7) Hypokalemia: K: 3.4 Probable secondary to poor oral intake -Replace and monitor (8) Incomplete bladder emptying: Pt was having some urinary retention and yesterday decision was made to avoid Gramajo catheter as might develop worsening of voiding and urinary retention and require cystoscopy and dilation acutely. Pt with continued symptoms and today urology placed Gramajo catheter. -urology following (9) Prostate cancer: S/P prostatectomy on Casodex and Lupron with recent report metastatic disease to sacrum and increasing PSA levels and follows with Dr Diaz. -continue casodex DVT Prophylaxis -SCDs DNR/DNI as per discussion with pt Follows with [facility] for routine care Pt was seen with Dr Alvarez. See addendum Supervising Physician Co-Signing Physician Notes I have seen and examined the patient and have discussed the case with the provider above. I agree with the assessment and plan as stated with the following exceptions. Mr. Marino is in no distress and not tachypneic but occasionally appears slightly winded. He denies any pain and reports a feeling of bubbles in his substernal chest post op when he leans into a supine position. He came back to the hospital today because he was coughing and had difficulty urinating. A Gramajo catheter was placed by urology this afternoon for urinary retention in the setting of a tight bladder neck. He denies any chest pain and his incision sites look clean, dry and without infection. Abdomen is soft and nondistended. Lungs are clear to auscultation except there is no good air movement at the L base. He is mentating normally. Agree with plan as above including empiric treatment of pneumonia with clinical exam findings and 89%-90% oxygen saturation on room air. CT chest revealed no PE. Atelectasis and pneumonia still in the differential. It is possible his BP is up because of his post-operative state, however, after moving him to telemetry he was found to be in atrial fibrillation with RVR. (Initial EKG on the floor revealed sinus tachycardia.) Rates are hanging around [address] Felix who wants him on an amio drip with bolus. This was ordered. Heparin contraindicated at this point per surgery. Findings were discussed with the patient who verbalized understanding of the changes and the plan. Afib is likely 2/2 post op state, however, labs ordered including trop, TSH, BMP, Mag, CBC. Echo ordered for am. Cardiology consult placed. Discussed with railroad commissioner who will follow results and response to amio bolus. DO Antonio History of Present Illness Reason for Consultation: HTN, Tachycardia Attending Physician: Parish Felix MD, FACS History of Present Illness Pt is 78 y/o M with PMH prostate CA s/p prostatectomy on Casodex and Lupron with recent report metastatic disease to sac rum and increasing PSA levels and follows with Dr Diaz. On 02/23/19 pt had laparoscopic repair of large hiatal hernia and Floppy Razia fundoplication by Dr Felix. Medicine requested to see pt today secondary to HTN and tachycardia. Pt was discharged home yesterday on liquid diet. Pt states since procedure having some dysphagia. Prior to d/c pt had barium swallow that showed no contrast extravasation to suggest a leak. Gastric distention and a slow gastric emptying was noted. Pt was placed on Reglan. Pt states today has "bubbling sensation" to esophagus when he is supine and resolves with sitting up. Denies any associated pain, CP or SOB. Today developed white productive cough. Denies SOB. States abdomen feels a little sore with coughing but otherwise denies abdominal pain. Denies vomiting today. Pt was having some urinary retention and yesterday decision was made to avoid Gramajo catheter as might develop worsening of voiding and urinary retention and require cystoscopy and dilation acutely. Pt with continued symptoms and today urology placed Gramajo catheter. Denies fever/chills, diaphoresis, RAJPUT, dizziness, syncope, neck pain, palpitations, hemoptysis, sore throat, otalgia, rhinorrhea, paresthesias, weakness, extremity edema, rashes. Allergies Allergy/AdvReac Type Severity Reaction Status Date / Time No Known Allergies Allergy Verified 02/23/19 09:41 Home Medications Home Medications Medication Instructions Recorded Confirmed Type Lupron Depot (3 month) 1 dose IM UD 02/18/19 02/25/19 History bicalutamide [Casodex] 50 mg PO QPM 02/18/19 02/25/19 History magnesium oxide 400 mg PO QAM 02/18/19 02/25/19 History omega 6-bwl-zuk-fish oil [Fish Oil] 1 cap PO QAM 02/18/19 02/25/19 History red yeast rice 600 mg PO QAM 02/18/19 02/25/19 History vitamin E 1,000 unit PO QAM 02/18/19 02/25/19 History metoclopramide HCl [Reglan] 10 mg PO ACHS 30 Days #120 tab 02/24/19 02/25/19 Rx tramadol [Ultram] 50 mg PO QID PRN #18 tab 02/24/19 02/25/19 Rx denosumab 120 mg SUBCUT UD 02/25/19 02/25/19 History multivitamin 1 tab PO DAILY 02/25/19 02/25/19 History omeprazole 40 mg PO DAILY 02/25/19 02/25/19 History ondansetron HCl [Zofran] 4 mg PO TID PRN 02/25/19 02/25/19 History potassium gluconate 595 mg PO DAILY 02/25/19 02/25/19 History Patient History Medical History Prostate cancer (Chronic) Bladder neck contracture Cancer PROSTATE CANCER (SURGERY AND RADIATION) METS TO SACRUM. ON LUPRON, AND CASODEX. Osteoarthritis Paraesophageal hernia Pelvic irradiation Surgical History History of colonoscopy History of herniorrhaphy INGUINAL History of prostatectomy History of tooth extraction Social History Preferred Language: Vietnamese Communication Ability: Effective Beliefs That Will Affect Care: None Current Living Situation: Spouse Other Information That Helps Us Care for You: No Feels Safe at Home: Yes Safety Concerns: Feels Safe At This Time Smoking Status: Former smoker Tobacco Type: cigarettes Second Hand Exposure: No Hx Alcohol Use: No Hx Substance Use: No Review of Systems Review of Systems: All systems reviewed & are unremarkable except as noted in HPI & below Physical Exam Physical Exam: General: no acute distress, WDWN Head: normocephalic, atraumatic Eyes: conjunctiva non-injected, anicteric ENT: normal inspection external ears, nose, mucous membranes moist Neck: supple, trachea midline Lungs: no respiratory distress, R:16, is noted pt appears has uncomfortable breathing with lying supine with increased respirations which resolves with sitting up. diminished breath sounds left base with faint rales CV: tachycardia 110-120, regular rhythm, no murmur, no pretibial edema Abd: hypoactive BS, +multiple incisions to abdomen most covered with dressings which are dry, soft, no significant tenderness to light palpation Ext: no cyanosis, no erythema, no calf tenderness Neuro: A&O x 3, no focal deficits noted, normal affect Skin: warm, dry Results & Data Vital Signs (Past 12 Hours) Vital Signs Temp Pulse Resp BP Pulse Ox 02/25/19 16:09 110 H 180/106 H 02/25/19 15:36 36.8 C 109 H 16 190/101 H 90 02/25/19 13:19 36.9 C 104 H 18 183/108 H 91 02/25/19 12:00 36.9 C 20 171/104 H 91 Laboratory Results Short CBC 02/25/19 Range/Units 11:59 WBC 18.03 H (4.8-10.8) K/uL Hgb 14.1 (14.0-18.0) g/dL Hct 39.0 L (42-52) % Plt Count 174 (130-400) K/uL BMP 02/25/19 11:59 Sodium 136 Potassium 3.4 L Chloride 104 Carbon Dioxide 26 BUN 13 Creatinine 1.23 Glucose 107 H Calcium 8.8 Liver Function 02/25/19 Range/Units 11:59 Total Bilirubin 1.0 (0.2-1) mg/dl AST 54 H (15-37) U/L ALT 29 (12-78) U/L Alkaline Phosphatase 51 (45-117) U/L Albumin 3.7 (3.4-5.0) gm/dl
[2019-02-25] MEDS ORDERED: OPTIRAY 320 125ml IV PRN (19:57)
[2019-02-25] MEDS ORDERED: AMLODIPINE BESYLATE 5 MG TAB PO ONE (19:59)
--- NOTE | 2019-02-25 20:07 | CT Scan Report ---
CT ANGIOGRAM OF THE CHEST CLINICAL HISTORY: Atypical chest pain. Possible pulmonary embolism. COMPARISON STUDY: Chest x-ray dated 02/25/2019 TECHNIQUE: Following the IV administration of 70 mL of Optiray-320, CT angiogram of the thorax was pe rformed from the thoracic inlet to the lung bases utilizing the pulmonary embolus protocol. Images ar e reviewed in the axial, sagittal, and coronal planes. IV contrast was administered without complicat ion. MIP imaging was performed. A dose lowering technique was utilized adhering to the principles of ALARA. CT DOSE: 270.69 mGy.cm FINDINGS: Hilar lymph nodes are the upper limits of normal in size. There was no evidence of thoracic aortic dilatation. There were no pulmonary artery filling defects to indicate acute pulmonary embolism. There are small bilateral pleural effusions. There is bilateral lower lobe atelectasis/consolidation. There is an 8mm millimeter anterior right pneumothorax. There is trace pneumomediastinum. There is a dilated fluid-filled esophagus. Esophagus measures 33 mm in transverse diameter. The visualized portions of the stomach appears mildly distended. There is free intraperitoneal air. Please correlate with any history of recent surgery. IMPRESSION: 1. No evidence of acute pulmonary embolism 2. Free intraperitoneal air. This was not visualized in the chest x-ray performed the same day. Corre lation with any recent surgical procedures is recommended 3. Small right anterior pneumothorax 4. Trace pneumomediastinum 5. Dilated fluid-filled esophagus 6. Bilateral pleural effusions with associated basilar atelectasis/consolidation Electronically signed by: Deep Farr M.D. 02/25/2019 8:06 PM
[2019-02-25] MEDS ORDERED: CONSULT PHARMACY STA (20:39)
[2019-02-25] MEDS ORDERED: NSS + 20MEQ KCL 20 MEQ/1,000 ML BAG IV SCH (20:39)
[2019-02-25] MEDS ORDERED: HydrALAZINE HCL 20 MG/ML VIAL IV ONE (20:39)
[2019-02-25] MEDS ORDERED: PIPERACILL/TAZOBAC CONSULT ACTIVE PRN (20:50)
[2019-02-25] MEDS ORDERED: PIPERACILLIN/TAZOBACTAM 3.375 GM in DEXTROSE 5% 100 ML IV ONE (21:00)
[2019-02-25] MEDS ORDERED: FAMOTIDINE 20MG/5ML IV PUSH IV SCH (21:00)
[2019-02-25] MEDS: FAMOTIDINE 20 MG in SYRINGE 3 ML IV SCH (21:17)
--- NOTE | 2019-02-25 22:00 | History and Physical Report ---
DATE OF ADMISSION: 02/25/2019 HISTORY OF PRESENT ILLNESS: Mr. Marino is a very nice 78-year-old male who has a huge hiatal hernia with gastric volvulus. I performed robot-assisted laparoscopic repair 2 days ago. I was concerned about him because the stomach had twisted and was in his chest, but the procedure went very well and I was pleased with him; however, I got a barium swallow after surgery and there was some holdup at the GE junction, but the dye did go through, but I was a little bit concerned about the holdup in the stomach. The patient has been able to tolerate liquids. I had a long talk with him and his . He also has difficulty with the history of prostate cancer and prostatectomy and he is followed pretty closely by Dr. Hylton. We had a long talk about this and he was seen by Jeff Greenfield as he had difficulty urinating and it did not empty completely by bladder scan. We elected to send him home, although I had reservations about it and talked about this quite a bit. The patient was quite eager to go home yesterday. He went home and I got a call this morning. He has not been able to sleep all night because he was getting up and back to the bathroom every half an hour. In addition, he is having trouble with cough this morning and some difficulty with swallowing. At 78, he is still a bit frail and I am a bit concerned about sending home and upon returning as a direct admission, his said "you told this could happen". Anyway, his abdomen is nice and soft. A chest x-ray showed possible fluid in the left chest, but elevation of left hemidiaphragm is more likely. The dye was all the way to his colon. He had no dye left in his stomach, he did have some mild distention on the KUB. Abdomen is nice and soft. Incisions are clean. I told him we will keep him n.p.o., but we will see how his labs and x-rays look tomorrow. He looks great on physical exam, but I am concerned about allowing him to go home. For specifics of our H and P, please see my admission note from 2 days ago. DEBBIE
[2019-02-25] MEDS ORDERED: HydrALAZINE HCL 20 MG/ML VIAL IV STA (22:11)
[2019-02-25] MEDS: BICALUTAMIDE 50 MG TAB PO SCH (22:36)
[2019-02-25] MEDS ORDERED: AMIODARONE IV BOLUS / DRIP IV STA (22:54)
[2019-02-25] MEDS ORDERED: AMIODARONE / D5W 150 MG/100 ML BAG IV STA (22:54)
[2019-02-25] MEDS ORDERED: AMIODARONE / D5W 360 MG/200 ML BAG IV SCH (23:00)
[2019-02-25] MEDS ORDERED: POTASSIUM CHLORIDE 20 MEQ TABCR PO STA (23:56)
[2019-02-25] MEDS ORDERED: METOPROLOL TARTRATE 50 MG TAB PO STA (23:56)
--- NOTE | 2019-02-26 00:06 | Hospitalist Progress Note ---
Date of Service February 26, 2019 Subjective Made aware by RN of patient conversion from A. fib to sinus tachycardia upon arrival at PCU around 1130 last night. Patient transferred from medical floor to PCU to facilitate IV Amiodarone infusion for new onset A. fib. SBP 170s, cardiac rate 110s as per RN. AP New onset A. fib, resolved Patient currently in sinus tachycardia. Hold contemplated IV Amiodarone infusion. Initiate Lopressor for BP, rate control. Supplement electrolytes. Will relay to AM provider. Results & Data Vital Signs (Past 12 Hours) Vital Signs Temp Pulse Pulse Pulse Resp BP BP 02/25/19 23:12 37.4 C 150 H 119 H 24 176/109 H 177/94 H 02/25/19 21:26 112 H 178/103 H 02/25/19 20:42 37.3 C 108 H 171/117 H 02/25/19 19:36 37.2 C 113 H 18 185/121 H 02/25/19 16:09 110 H 180/106 H 02/25/19 15:36 36.8 C 109 H 16 190/101 H 02/25/19 13:19 36.9 C 104 H 18 183/108 H Pulse Ox 02/25/19 23:12 91 02/25/19 21:26 02/25/19 20:42 93 02/25/19 19:36 92 02/25/19 16:09 02/25/19 15:36 90 02/25/19 13:19 91
[2019-02-26] MEDS: NSS + 20MEQ KCL 20 MEQ/1,000 ML BAG IV SCH ×2 (00:34→17:22)
[2019-02-26 00:44] LABS: Hematocrit (blood only) 36.4 % (42-52); Hemoglobin 12.7 g/dL (14.0-18.0); Mean Corpuscular Hgb Conc 34.9 g/dL (32-36); Mean Corpuscular Volume 88.3 fL (80-100); Mean Platelet Volume 10.3 fL (7.4-10.4); Platelet Count 155 K/uL (130-400); RDW Coefficient of Variation 12.7 % (11.5-14.5); RDW Standard Deviation 40.9 fL (36.4-46.3); Red Blood Count 4.12 M/uL (4.7-6.1); White Blood Count 15.13 K/uL (4.8-10.8)
[2019-02-26] MEDS ORDERED: PROMETHAZINE HCL 12.5 MG in SODIUM CHLORIDE 0.9% 50 ML IV PRN (00:52)
[2019-02-26 01:03] LABS: BUN Creatinine Ratio 12.3 (10-20); Calcium 8.2 mg/dl (8.5-10.1); Creatinine Clr Calc Pharmacy 71.6 ml/min; Est GFR (African American) 87.4; Est GFR (Non-African American) 75.4; Magnesium 2.1 mg/dl (1.8-2.4); Potassium 3.3 mmol/L (3.5-5.1)
[2019-02-26 01:14] LABS: Troponin I 0.039 ng/ml (0-0.045)
[2019-02-26] MEDS: PIPERACILLIN/TAZOBACTAM 3.375 GM in DEXTROSE 5% 100 ML IV SCH ×3 (01:16→17:46)
[2019-02-26] MEDS: METOCLOPRAMIDE HCL INJ 5 MG/ML 2 ML VIAL IV SCH ×5 (01:16→23:52)
[2019-02-26] MEDS ORDERED: POTASSIUM CHLORIDE 10 MEQ TABCR PO STA (01:36)
[2019-02-26] MEDS ORDERED: METOPROLOL TARTRATE 50 MG TAB PO STA (03:45)
[2019-02-26 03:51] LABS: Appearance Urine Clear (Clear); Bacteria Urine Automated Negative (Negative); Bilirubin Urine Negative (Negative); Blood Urine 2+ (Negative); Color Urine Yellow; Epithelial Cell Urine Auto >30 /lpf (0-5); Glucose Urine UA Negative (Negative); Ketones Urine 1+ (Negative); Leukocyte Esterase Urine 1+ (Negative); Nitrite Urine Negative (Negative); Protein Urine 1+ (Negative); RBC Urine Automated >30 /hpf (0-4); Specific Gravity Urine 1.036 (1.000-1.030); Urobilinogen Urine Negative (Negative); pH Urine 5.5 (4.5-7.5)
[2019-02-26] MEDS ORDERED: AMIODARONE / D5W 360 MG/200 ML BAG IV SCH (04:54)
[2019-02-26 06:44] LABS: Basophils # (auto) 0.01 K/uL (0-0.2); Basophils % (auto) 0.1 %; Hematocrit (blood only) 35.1 % (42-52); Hemoglobin 12.4 g/dL (14.0-18.0); Immature Granulocytes # (auto) 0.04 K/uL (0.00-0.02); Immature Granulocytes % (auto) 0.3 %; Lymphocytes # (auto) 1.63 K/uL (1.2-3.4); Lymphocytes % (auto) 11.6 %; Mean Corpuscular Hgb Conc 35.3 g/dL (32-36); Mean Corpuscular Volume 87.3 fL (80-100); Mean Platelet Volume 10.4 fL (7.4-10.4); Monocytes % (auto) 7.1 %; Neutrophils # (auto) 11.43 K/uL (1.4-6.5); Neutrophils % (auto) 80.9 %; Platelet Count 155 K/uL (130-400); RDW Coefficient of Variation 12.8 % (11.5-14.5); RDW Standard Deviation 41.2 fL (36.4-46.3); Red Blood Count 4.02 M/uL (4.7-6.1); White Blood Count 14.11 K/uL (4.8-10.8)
[2019-02-26 07:18] LABS: Creatinine Clr Calc Pharmacy 69.3 ml/min; Est GFR (African American) 84.2; Est GFR (Non-African American) 72.6; Magnesium 2.2 mg/dl (1.8-2.4); Potassium 3.5 mmol/L (3.5-5.1)
--- NOTE | 2019-02-26 08:25 | Cardiology Consultation ---
Date of Consultation February 26, 2019 Assessment & Plan (1) Paroxysmal atrial fibrillation: Postoperative atrial fibrillation with spontaneous conversion to normal sinus rhythm. Recommend metoprolol 25 mg every 6 hours per will hold on anticoagulation at this time due to brief duration of A. fib as well as recent thoracic surgery. Consider addition of amiodarone with recurrence. Resting 2D transthoracic echocardiogram pending. Repeat basic metabolic panel. We will continue to follow during hospitalization. (2) HTN (hypertension): Uncontrolled. Add metoprolol 25 mg every 6 hours. Continue amlodipine. Monitor. (3) Hypokalemia: Repeat basic metabolic panel. Patient received a total of 100 meq of potassium last night. History of Present Illness Reason for Consultation: Paroxysmal atrial fibrillation Requesting Physician: Dr. Radha Alvarez Attending Physician: Parish Felix MD, [facility] History of Present Illness 78-year-old patient recently underwent Niesen fundoplication for hiatal hernia 02/23/2019. He was discharged home and presented again to the emergency department with tachycardia and atypical chest discomfort. Patient noted to be atrial fibrillation with rapid ventricular response last night. He was transferred to telemetry however spontaneously converted to sinus rhythm. No prior history of atrial fibrillation, congestive heart failure, or cerebrov ascular accident. Blood pressure uncontrolled. Denies any chest discomfort or unusual shortness of breath. Remains in sinus rhythm since last evening. Mild hypokalemia noted. Currently resting comfortably. Resting 2D transthoracic echocardiogram is pending at this time. Allergies Allergy/AdvReac Type Severity Reaction Status Date / Time No Known Allergies Allergy Verified 02/23/19 09:41 Home Medications Home Medications Medication Instructions Recorded Confirmed Type Lupron Depot (3 month) 1 dose IM UD 02/18/19 02/25/19 History bicalutamide [Casodex] 50 mg PO QPM 02/18/19 02/25/19 History magnesium oxide 400 mg PO QAM 02/18/19 02/25/19 History omega 9-kxh-vpq-fish oil [Fish Oil] 1 cap PO QAM 02/18/19 02/25/19 History red yeast rice 600 mg PO QAM 02/18/19 02/25/19 History vitamin E 1,000 unit PO QAM 02/18/19 02/25/19 History metoclopramide HCl [Reglan] 10 mg PO ACHS 30 Days #120 tab 02/24/19 02/25/19 Rx tramadol [Ultram] 50 mg PO QID PRN #18 tab 02/24/19 02/25/19 Rx denosumab 120 mg SUBCUT UD 02/25/19 02/25/19 History multivitamin 1 tab PO DAILY 02/25/19 02/25/19 History omeprazole 40 mg PO DAILY 02/25/19 02/25/19 History ondansetron HCl [Zofran] 4 mg PO TID PRN 02/25/19 02/25/19 History potassium gluconate 595 mg PO DAILY 02/25/19 02/25/19 History Patient History Medical History Prostate cancer (Chronic) Bladder neck contracture Cancer PROSTATE CANCER (SURGERY AND RADIATION) METS TO SACRUM. ON LUPRON, AND CASODEX. Osteoarthritis Paraesophageal hernia Pelvic irradiation Surgical History History of colonoscopy History of herniorrhaphy INGUINAL History of prostatectomy History of tooth extraction Social History Preferred Language: Uzbek Communication Ability: Effective Beliefs That Will Affect Care: None Current Living Situation: Spouse Other Information That Helps Us Care for You: No Feels Safe at Home: Yes Safety Concerns: Feels Safe At This Time Smoking Status: Former smoker Tobacco Type: cigarettes Second Hand Exposure: No Hx Alcohol Use: No Hx Substance Use: No Review of Systems Review of Systems: All systems reviewed & are unremarkable except as noted in HPI & below Physical Exam Physical Exam: General: NAD, AAO x3, well nourished. HEENT: Normocephalic. Atraumatic. Conjunctiva pink, no scleral icterus. Neck: No carotid bruits, the carotid upstrokes are brisk. No JVD. No HJR Heart: Regular normal S-1 and S-2 no S-3 or S-4 gallop. No murmurs or rub appreciated. PMI is not displaced. No RV heave. Lungs: Clear bilateral without rales , rhonchi, or wheeze. Abdomen: Normal bowel sounds. Soft. Nontender. No masses or organomegaly. No abdominal bruits. Extremities: No clubbing, cyanosis, or edema. Pulses: radial=2/4, Dorsalis pedis =2/4, posterior tibial=2/4. Neuro: Cranial nerves grossly intact. No focal motor deficit. Results & Data Vital Signs (Past 12 Hours) Vital Signs Temp Pulse Pulse Pulse Pulse Resp BP 02/26/19 08:07 36.9 C 86 95 H 02/26/19 03:35 36.7 C 103 H 24 186/117 H 02/26/19 00:18 116 H 16 174/113 H 02/25/19 23:35 118 H 16 171/110 H 02/25/19 23:29 119 H 02/25/19 23:12 37.4 C 150 H 119 H 24 176/109 H 02/25/19 21:26 112 H 178/103 H 02/25/19 20:42 37.3 C 108 H 171/117 H BP Pulse Ox 02/26/19 08:07 179/110 H 99 02/26/19 03:35 90 02/26/19 00:18 02/25/19 23:35 92 02/25/19 23:29 02/25/19 23:12 177/94 H 91 02/25/19 21:26 02/25/19 20:42 93 Laboratory Results Laboratory Results - last 24 hr 02/25/19 02/25/19 02/26/19 11:59 11:59 00:35 WBC 18.03 H RBC 4.45 L Hgb 14.1 Hct 39.0 L MCV 87.6 MCH 31.7 MCHC 36.2 H RDW Std Deviation 41.2 RDW Coeff of Ifeoma 12.8 Plt Count 174 MPV 10.3 Immature Gran % (Auto) 0.3 Neut % (Auto) 83.6 Lymph % (Auto) 9.8 [place] % (Auto) 6.2 Eos % (Auto) 0.0 Baso % (Auto) 0.1 Immature Gran # (Auto) 0.06 H Neut # (Auto) 15.08 H Lymph # (Auto) 1.77 [place] # (Auto) 1.11 H Eos # (Auto) 0.00 Baso # (Auto) 0.01 Sodium 136 137 Potassium 3.4 L 3.3 L Chloride 104 106 Carbon Dioxide 26 26 Anion Gap 6.0 5.0 BUN 13 12 Creatinine 1.23 0.96 Est Cr Clr Drug Dosing Not Reportable 71.6 Est GFR ( Amer) 64.8 87.4 Est GFR (Non-Af Amer) 55.9 75.4 BUN/Creatinine Ratio 10.7 12.3 Glucose 107 H 109 H Lactate Calcium 8.8 8.2 L Magnesium 2.2 2.1 Total Bilirubin 1.0 AST 54 H ALT 29 Alkaline Phosphatase 51 Troponin I 0.039 Total Protein 8.2 Albumin 3.7 3.0 L Globulin 4.5 H Albumin/Globulin Ratio 0.8 L Procalcitonin TSH 1.050 Urine Color Urine Appearance Urine pH Ur Specific Beatty Urine Protein Urine Glucose (UA) Urine Ketones Urine Blood Urine Nitrite Urine Bilirubin Urine Urobilinogen Ur Leukocyte Esterase Urine WBC (Auto) Urine RBC (Auto) U Hyaline Cast (Auto) U Epithel Cells (Auto) Urine Bacteria (Auto) Ur Renal Epithelial Cell 02/26/19 02/26/19 02/26/19 00:35 00:35 00:35 WBC 15.13 H RBC 4.12 L Hgb 12.7 L Hct 36.4 L MCV 88.3 MCH 30.8 MCHC 34.9 RDW Std Deviation 40.9 RDW Coeff of Ifeoma 12.7 Plt Count 155 MPV 10.3 Immature Gran % (Auto) Neut % (Auto) Lymph % (Auto) [place] % (Auto) Eos % (Auto) Baso % (Auto) Immature Gran # (Auto) Neut # (Auto) Lymph # (Auto) [place] # (Auto) Eos # (Auto) Baso # (Auto) Sodium Potassium Chloride Carbon Dioxide Anion Gap BUN Creatinine Est Cr Clr Drug Dosing Est GFR ( Amer) Est GFR (Non-Af Amer) BUN/Creatinine Ratio Glucose Lactate 0.8 Calcium Magnesium Total Bilirubin AST ALT Alkaline Phosphatase Troponin I Total Protein Albumin Globulin Albumin/Globulin Ratio Procalcitonin 0.46 TSH Urine Color Urine Appearance Urine pH Ur Specific Beatty Urine Protein Urine Glucose (UA) Urine Ketones Urine Blood Urine Nitrite Urine Bilirubin Urine Urobilinogen Ur Leukocyte Esterase Urine WBC (Auto) Urine RBC (Auto) U Hyaline Cast (Auto) U Epithel Cells (Auto) Urine Bacteria (Auto) Ur Renal Epithelial Cell 02/26/19 02/26/19 02/26/19 03:38 06:25 06:25 WBC 14.11 H RBC 4.02 L Hgb 12.4 L Hct 35.1 L MCV 87.3 MCH 30.8 MCHC 35.3 RDW Std Deviation 41.2 RDW Coeff of Ifeoma 12.8 Plt Count 155 MPV 10.4 Immature Gran % (Auto) 0.3 Neut % (Auto) 80.9 Lymph % (Auto) 11.6 [place] % (Auto) 7.1 Eos % (Auto) 0.0 Baso % (Auto) 0.1 Immature Gran # (Auto) 0.04 H Neut # (Auto) 11.43 H Lymph # (Auto) 1.63 [place] # (Auto) 1.00 H Eos # (Auto) 0.00 Baso # (Auto) 0.01 Sodium 138 Potassium 3.5 Chloride 108 H Carbon Dioxide 24 Anion Gap 6.0 BUN 13 Creatinine 0.99 Est Cr Clr Drug Dosing 69.3 Est GFR ( Amer) 84.2 Est GFR (Non-Af Amer) 72.6 BUN/Creatinine Ratio 13.0 Glucose 104 H Lactate Calcium 8.0 L Magnesium 2.2 Total Bilirubin AST ALT Alkaline Phosphatase Troponin I Total Protein Albumin Globulin Albumin/Globulin Ratio Procalcitonin TSH Urine Color Yellow Urine Appearance Clear Urine pH 5.5 Ur Specific Beatty 1.036 H Urine Protein 1+ H Urine Glucose (UA) Negative Urine Ketones 1+ H Urine Blood 2+ H Urine Nitrite Negative Urine Bilirubin Negative Urine Urobilinogen Negative Ur Leukocyte Esterase 1+ H Urine WBC (Auto) 10-30 H Urine RBC (Auto) >30 H U Hyaline Cast (Auto) 1-5 U Epithel Cells (Auto) >30 H Urine Bacteria (Auto) Negative Ur Renal Epithelial Cell Not Reportable Medications Administered Medications Lupron Depot (3 month) 1 dose IM UD 02/18/19 [History Confirmed 02/25/19] bicalutamide [Casodex] 50 mg PO QPM 02/18/19 [History Confirmed 02/25/19] magnesium oxide 400 mg PO QAM 02/18/19 [History Confirmed 02/25/19] omega 9-bcp-fsi-fish oil [Fish Oil] 1 cap PO QAM 02/18/19 [History Confirmed 02/25/19] red yeast rice 600 mg PO QAM 02/18/19 [History Confirmed 02/25/19] vitamin E 1,000 unit PO QAM 02/18/19 [History Confirmed 02/25/19] metoclopramide HCl [Reglan] 10 mg PO ACHS 30 Days #120 tab 02/24/19 [Rx Confirmed 02/25/19] tramadol [Ultram] 50 mg PO QID PRN #18 tab 02/24/19 [Rx Confirmed 02/25/19] denosumab 120 mg SUBCUT UD 02/25/19 [History Confirmed 02/25/19] multivitamin 1 tab PO DAILY 02/25/19 [History Confirmed 02/25/19] omeprazole 40 mg PO DAILY 02/25/19 [History Confirmed 02/25/19] ondansetron HCl [Zofran] 4 mg PO TID PRN 02/25/19 [History Confirmed 02/25/19] potassium gluconate 595 mg PO DAILY 02/25/19 [History Confirmed 02/25/19] Home Medications Amlodipine Besylate (Norvasc) 5 mg PO QAM SHERIF Stop: 03/28/19 08:59 Bicalutamide (Casodex) 50 mg PO QPM SHERIF Stop: 03/27/19 20:59 Last Admin: 02/25/19 22:36 Dose: 50 mg Documented by: Famotidine 20 mg/ Syringe 5 mls @ 2.5 mls/min IV BID SHERIF Stop: 03/27/19 20:59 Last Admin: 02/25/19 21:17 Dose: 2.5 mls/min Documented by: Piperacillin Sod/Tazobactam (Sod 3.375 gm/ Dextrose) 115 mls @ 28.75 mls/hr IV Q8H COUNTS INCLUDE 234 BEDS AT THE [facility]; Protocol Stop: 03/05/19 01:59 Last Infusion: 02/26/19 05:13 Dose: Infused Documented by: Amiodarone HCl/Dextrose (Nexterone / D5w) 360 mg in 200 mls @ 33.333 mls/hr IV .Q6H COUNTS INCLUDE 234 BEDS AT THE [facility] Last Admin: 02/26/19 00:10 Dose: Not Given Documented by: Potassium Chloride/Sodium Chloride (Normal Saline W/20 Meq Kcl) 20 meq in 1,000 mls @ 60 mls/hr IV .[id number] COUNTS INCLUDE 234 BEDS AT THE [facility] Stop: 03/27/19 23:44 Last Admin: 02/26/19 00:34 Dose: 60 mls/hr Documented by: Promethazine HCl 12.5 mg/ (Sodium Chloride) 50.5 mls @ 202 mls/hr IV Q6H PRN PRN Reason: Nausea And Vomiting Stop: 03/28/19 00:51 Ioversol (Optiray 320 125ml) 70 ml IV ONCE PRN PRN Reason: Interaction Checking Stop: 03/01/19 19:56 Last Admin: 02/25/19 19:58 Dose: 70 ml Documented by: Metoclopramide HCl (Reglan) 10 mg IV Q6H SHERIF Stop: 03/27/19 12:14 Last Admin: 02/26/19 05:16 Dose: 10 mg Documented by: Metoprolol Tartrate (Lopressor) 25 mg PO Q6 SHERIF Stop: 03/28/19 11:59 Miscellaneous Information (Consult) 1 ea N/A UD PRN PRN Reason: Consult Stop: 03/27/19 20:49 (1) HTN (hypertension) Hypertension type: essential hypertension Qualified Code(s): I10 - Essential (primary) hypertension
[2019-02-26] MEDS ORDERED: METOPROLOL TARTRATE 25 MG TAB PO SCH ×2 (09:00→21:00)
[2019-02-26] MEDS: FAMOTIDINE 20 MG in SYRINGE 3 ML IV SCH ×2 (09:29→20:50)
[2019-02-26] MEDS: AMLODIPINE BESYLATE 5 MG TAB PO SCH (09:29)
--- NOTE | 2019-02-26 09:41 | Urology Progress Note ---
Date of Service February 26, 2019 Assessment & Plan (1) Prostate cancer: dilation of bladder neck contracture and Gramajo catheter placement yesterday, I recommend continuing Gramajo catheter for 3 days total, that means we will arrange for outpt f/u and DC of catheter early next week Subjective Patient reports that he subjectively feeling very well right now As tolerated the catheter without issue overnight Review of Systems Review of Systems: All systems reviewed & are unremarkable except as noted in HPI & below Physical Exam Physical Exam: Urine clear Results & Data Vital Signs (Past 12 Hours) Vital Signs Temp Pulse Pulse Pulse Pulse Resp BP 02/26/19 08:07 36.9 C 86 95 H 02/26/19 03:35 36.7 C 103 H 24 186/117 H 02/26/19 00:18 116 H 16 174/113 H 02/25/19 23:35 118 H 16 171/110 H 02/25/19 23:29 119 H 02/25/19 23:12 37.4 C 150 H 119 H 24 176/109 H BP Pulse Ox 02/26/19 08:07 179/110 H 99 02/26/19 03:35 90 02/26/19 00:18 02/25/19 23:35 92 02/25/19 23:29 02/25/19 23:12 177/94 H 91
[2019-02-26] MEDS ORDERED: SODIUM CHLORIDE 0.9% 1000ML 1,000 ML IV SCH (10:00)
[2019-02-26 10:59] LABS: BUN Creatinine Ratio 12.8 (10-20); Calcium 8.3 mg/dl (8.5-10.1); Creatinine Clr Calc Pharmacy 61.8 ml/min; Est GFR (African American) 73.3; Est GFR (Non-African American) 63.3; Potassium 3.7 mmol/L (3.5-5.1)
--- NOTE | 2019-02-26 11:42 | Hospitalist Progress Note ---
Date of Service February 26, 2019 Assessment & Plan (1) Paroxysmal atrial fibrillation: PAF in setting of hypokalemia and hypoxia. Mg, TSH normal. PE ruled out by CTA. Converted back to NSR. Seen in consultation by Cardiology. Echo showed normal LV wall motion and function, normal atrial size. Started on metoprolol. (2) HTN (hypertension): BP elevated. Started on metoprolol and amlodipine. Follow and titrate Rx. (3) Hypoxia: O2 sats as low as 89%. Possible aspiration pneumonia and / or atelectasis. Incentive spirometry. Management of pneumonia as discussed below. (4) Aspiration pneumonia: Had cough and leukocytosis at time of admission. Chest films showed infiltrate at left base. CTA showed postsurgical changes, dilated fluid-filled esophagus, bibasilar atelectasis vs consolidation. Continue IV piperacillin / tazobactam for possible aspiration pneumonia. (5) Hypokalemia: Serum K 3.4 at time of admission. Received replacement. K today = 3.7. Follow. (6) History of repair of hiatal hernia: S/P laparoscopic repair of hiatal hernia 02/23. Postop management per Dr. Felix. (7) Urinary retention: Underlying prostate Ca. Gramajo cath inserted by Urology. (8) DVT prophylaxis: SCD's. Ambulate. (9) Discharge planning issues: Anticipated discharge to home. Medical follow-up with [facility] in [place]. (10) Encounter for consultation: Thank you for this consultation. We will follow the patient with you during their hospital stay. My cell # is [phone]. You can reach a member of the [facility] Medicine Team 11/05 via pager @ [phone]. Subjective Recheck for multiple problems. Patient seen in their room around 1120. Family visiting. Developed AF last night, but converted to NSR. No chest pain or SOB. Occasional cough. Gramajo cath inserted by Urology for urinary retention. Review of Systems: Constitutional- no fever. Cardiac- as noted above. Pulmonary- no cough or SOB. GI- NPO; no nausea, vomiting, diarrhea, melena, hematochezia. - as noted above. Otherwise, as noted above. Physical Exam Constitutional: no acute distress Respiratory: no respiratory distress Auscultation: lungs clear to auscultation bilaterally Cardiovascular: Rate/Rhythm: regular rate and regular rhythm Heart Sounds: no gallop, no murmur and no cardiac rub Vessels: no JVD Extremities: no calf tenderness and no edema Gastrointestinal (Abdomen): normal bowel sounds, soft, nontender, no hepatosplenomegaly Skin: no rashes, warm and dry Psychiatric: Orientation: alert and oriented x 3 Genitourinary: Gramajo cath Results & Data Vital Signs (Past 12 Hours) Vital Signs Temp Pulse Pulse Pulse Resp BP BP 02/26/19 08:07 36.9 C 86 95 H 179/110 H 02/26/19 03:35 36.7 C 103 H 24 186/117 H 02/26/19 00:18 116 H 16 174/113 H Pulse Ox 02/26/19 08:07 99 02/26/19 03:35 90 02/26/19 00:18 Laboratory Results Laboratory Results - last 24 hr 02/26/19 02/26/19 02/26/19 00:35 00:35 00:35 WBC 15.13 H RBC 4.12 L Hgb 12.7 L Hct 36.4 L MCV 88.3 MCH 30.8 MCHC 34.9 RDW Std Deviation 40.9 RDW Coeff of Ifeoma 12.7 Plt Count 155 MPV 10.3 Immature Gran % (Auto) Neut % (Auto) Lymph % (Auto) [place] % (Auto) Eos % (Auto) Baso % (Auto) Immature Gran # (Auto) Neut # (Auto) Lymph # (Auto) [place] # (Auto) Eos # (Auto) Baso # (Auto) Sodium 137 Potassium 3.3 L Chloride 106 Carbon Dioxide 26 Anion Gap 5.0 BUN 12 Creatinine 0.96 Est Cr Clr Drug Dosing 71.6 Est GFR ( Amer) 87.4 Est GFR (Non-Af Amer) 75.4 BUN/Creatinine Ratio 12.3 Glucose 109 H Lactate Calcium 8.2 L Magnesium 2.1 Troponin I 0.039 Albumin 3.0 L Procalcitonin 0.46 TSH 1.050 Urine Color Urine Appearance Urine pH Ur Specific Ehrhardt Urine Protein Urine Glucose (UA) Urine Ketones Urine Blood Urine Nitrite Urine Bilirubin Urine Urobilinogen Ur Leukocyte Esterase Urine WBC (Auto) Urine RBC (Auto) U Hyaline Cast (Auto) U Epithel Cells (Auto) Urine Bacteria (Auto) Ur Renal Epithelial Cell 02/26/19 02/26/19 02/26/19 00:35 03:38 06:25 WBC RBC Hgb Hct MCV MCH MCHC RDW Std Deviation RDW Coeff of Ifeoma Plt Count MPV Immature Gran % (Auto) Neut % (Auto) Lymph % (Auto) [place] % (Auto) Eos % (Auto) Baso % (Auto) Immature Gran # (Auto) Neut # (Auto) Lymph # (Auto) [place] # (Auto) Eos # (Auto) Baso # (Auto) Sodium 138 Potassium 3.5 Chloride 108 H Carbon Dioxide 24 Anion Gap 6.0 BUN 13 Creatinine 0.99 Est Cr Clr Drug Dosing 69.3 Est GFR ( Amer) 84.2 Est GFR (Non-Af Amer) 72.6 BUN/Creatinine Ratio 13.0 Glucose 104 H Lactate 0.8 Calcium 8.0 L Magnesium 2.2 Troponin I Albumin Procalcitonin TSH Urine Color Yellow Urine Appearance Clear Urine pH 5.5 Ur Specific Ehrhardt 1.036 H Urine Protein 1+ H Urine Glucose (UA) Negative Urine Ketones 1+ H Urine Blood 2+ H Urine Nitrite Negative Urine Bilirubin Negative Urine Urobilinogen Negative Ur Leukocyte Esterase 1+ H Urine WBC (Auto) 10-30 H Urine RBC (Auto) >30 H U Hyaline Cast (Auto) 1-5 U Epithel Cells (Auto) >30 H Urine Bacteria (Auto) Negative Ur Renal Epithelial Cell Not Reportable 02/26/19 02/26/19 06:25 10:21 WBC 14.11 H RBC 4.02 L Hgb 12.4 L Hct 35.1 L MCV 87.3 MCH 30.8 MCHC 35.3 RDW Std Deviation 41.2 RDW Coeff of Ifeoma 12.8 Plt Count 155 MPV 10.4 Immature Gran % (Auto) 0.3 Neut % (Auto) 80.9 Lymph % (Auto) 11.6 [place] % (Auto) 7.1 Eos % (Auto) 0.0 Baso % (Auto) 0.1 Immature Gran # (Auto) 0.04 H Neut # (Auto) 11.43 H Lymph # (Auto) 1.63 [place] # (Auto) 1.00 H Eos # (Auto) 0.00 Baso # (Auto) 0.01 Sodium 140 Potassium 3.7 Chloride 110 H Carbon Dioxide 25 Anion Gap 6.0 BUN 14 Creatinine 1.11 Est Cr Clr Drug Dosing 61.8 Est GFR ( Amer) 73.3 Est GFR (Non-Af Amer) 63.3 BUN/Creatinine Ratio 12.8 Glucose 101 H Lactate Calcium 8.3 L Magnesium Troponin I Albumin Procalcitonin TSH Urine Color Urine Appearance Urine pH Ur Specific Ehrhardt Urine Protein Urine Glucose (UA) Urine Ketones Urine Blood Urine Nitrite Urine Bilirubin Urine Urobilinogen Ur Leukocyte Esterase Urine WBC (Auto) Urine RBC (Auto) U Hyaline Cast (Auto) U Epithel Cells (Auto) Urine Bacteria (Auto) Ur Renal Epithelial Cell (1) HTN (hypertension) Hypertension type: essential hypertension Qualified Code(s): I10 - Essential (primary) hypertension
[2019-02-26] MEDS: METOPROLOL TARTRATE 25 MG TAB PO SCH ×3 (12:42→23:52)
--- NOTE | 2019-02-26 14:47 | Progress Note ---
DATE: 02/26/2019 Mr. Marino was seen today with his and son. Mr. Marino is a bit irritated that he is still in the hospital. He would also states he would like to drink some bouillon; however, I told him we would hold off on that until he is evaluated by gastroenterology. I reviewed his CT scan from last night and greatly appreciate Dr. Radha Alvarez and Emilee Perez for evaluating him from a medical standpoint. I also spoke to Dr. Pedrito Campbell today and Dr. Dayday Rubio from a cardiology and urology standpoint. He went into atrial fibrillation last night for a short period of time, but converted on his own. His heart rate is still a bit high in the 90s today, blood pressure is still a bit high. This has not been an ongoing problem with him. Room air saturations are 99%. He has been afebrile. Upon evaluating his labs, his white count was 18,030 yesterday, it is down to 14,111. He still has a cough with some whitish sputum, but it is definitely better. His abdomen is soft, nontender. His lungs really do not sound bad. He has mild decreased on the left with a few rhonchi, but really he does not have any wheezing, and he is moving air well. I am a bit concerned about his gastric emptying and his GE junction. Gastroenterology has been consulted and I think when I scoped him on the table in the operating room 3 days ago, I could easily get the scope into the stomach, I was quite pleased with the appearance of the fundoplication. The patient does have some esophageal dysmotility and did a very loose wrap. The dye does go through to the stomach and out, I just think that this may be a bit slowly. He may need to be dilated and I will discuss this with gastroenterology after evaluating.
[2019-02-26] MEDS: BICALUTAMIDE 50 MG TAB PO SCH (20:49)
[2019-02-26] MEDS: ENALAPRILAT 0.625 MG in SYRINGE 9.5 ML IV PRN (21:51)
[2019-02-27] MEDS: PIPERACILLIN/TAZOBACTAM 3.375 GM in DEXTROSE 5% 100 ML IV SCH ×3 (01:13→17:54)
[2019-02-27] MEDS: ENALAPRILAT 0.625 MG in SYRINGE 9.5 ML IV PRN (04:16)
[2019-02-27] MEDS ORDERED: ENALAPRILAT 0.625 MG in SYRINGE 9.5 ML IV ONE (04:37)
[2019-02-27] MEDS ORDERED: ENALAPRILAT 1.25 MG in DEXTROSE 5% 25 ML IV PRN (04:38)
[2019-02-27 05:45] LABS: Hematocrit (blood only) 34.8 % (42-52); Hemoglobin 12.3 g/dL (14.0-18.0); Mean Corpuscular Hgb Conc 35.3 g/dL (32-36); Mean Corpuscular Volume 88.1 fL (80-100); Mean Platelet Volume 10.4 fL (7.4-10.4); Platelet Count 176 K/uL (130-400); RDW Coefficient of Variation 12.8 % (11.5-14.5); RDW Standard Deviation 41.6 fL (36.4-46.3); Red Blood Count 3.95 M/uL (4.7-6.1); White Blood Count 11.74 K/uL (4.8-10.8)
[2019-02-27 06:06] LABS: BUN Creatinine Ratio 15.7 (10-20); Calcium 7.9 mg/dl (8.5-10.1); Creatinine Clr Calc Pharmacy 72.8 ml/min; Est GFR (African American) 89.6; Est GFR (Non-African American) 77.3; Potassium 3.6 mmol/L (3.5-5.1)
[2019-02-27] MEDS: METOCLOPRAMIDE HCL INJ 5 MG/ML 2 ML VIAL IV SCH ×4 (06:16→23:22)
[2019-02-27] MEDS: METOPROLOL TARTRATE 25 MG TAB PO SCH ×4 (06:16→23:22)
[2019-02-27] MEDS: AMLODIPINE BESYLATE 5 MG TAB PO SCH (07:29)
[2019-02-27] MEDS: POTASSIUM CHLORIDE / WTR 10 MEQ/100 ML PLCT IV SCH ×2 (07:29→08:44)
[2019-02-27] MEDS: NSS + 20MEQ KCL 20 MEQ/1,000 ML BAG IV SCH (07:31)
[2019-02-27] MEDS: FAMOTIDINE 20 MG in SYRINGE 3 ML IV SCH ×2 (08:44→20:11)
--- NOTE | 2019-02-27 09:06 | Gastrointestinal Consultation ---
Date of Consultation February 27, 2019 Assessment & Plan (1) Dysphagia: 78 yo amle who is s/p Razia for a very large hiatal hernia on 02/23 now with dysphagia post-operatively. AF has converted to NSR. BP remains high. Discussed with . Will tenatively plan for EGD with possible dilation tomorrow if patient's BP is improved. - OK to allow him to have sips of clears and ice chips today. - NPO after midnight for EGD tomorrow. (2) History of repair of hiatal hernia: (3) HTN (hypertension): (4) Paroxysmal atrial fibrillation: History of Present Illness Reason for Consultation: dysphagia Attending Physician: Parish Felix MD, [facility] History of Present Illness Mr. Marino is a 78 yo male who recently underwent a robot assisted laparoscopic Razia for a large hiatal hernia with a gastric volvulus on 02/23 by . He was tolerating liquids and went home the following day but returned to the ER on 02/25 with complaints of dysphagia. Barium swallow post-operatively showed mild hang up of contrast at the GE junction but it did completely pass. EGD on the table in the OR showed easy passage of the scope per . We are asked to see him for EGD with ?dilation. His admission was mildly complicated by new onset of AF with RVR. He has since converted to NSR and BP remains high. Being followed by cardiology as well as internal medicine. Allergies Allergy/AdvReac Type Severity Reaction Status Date / Time No Known Allergies Allergy Verified 02/23/19 09:41 Home Medications Home Medications Medication Instructions Recorded Confirmed Type Lupron Depot (3 month) 1 dose IM UD 02/18/19 02/25/19 History bicalutamide [Casodex] 50 mg PO QPM 02/18/19 02/25/19 History magnesium oxide 400 mg PO QAM 02/18/19 02/25/19 History omega 9-juz-xen-fish oil [Fish Oil] 1 cap PO QAM 02/18/19 02/25/19 History red yeast rice 600 mg PO QAM 02/18/19 02/25/19 History vitamin E 1,000 unit PO QAM 02/18/19 02/25/19 History metoclopramide HCl [Reglan] 10 mg PO ACHS 30 Days #120 tab 02/24/19 02/25/19 Rx tramadol [Ultram] 50 mg PO QID PRN #18 tab 02/24/19 02/25/19 Rx denosumab 120 mg SUBCUT UD 02/25/19 02/25/19 History multivitamin 1 tab PO DAILY 02/25/19 02/25/19 History omeprazole 40 mg PO DAILY 02/25/19 02/25/19 History ondansetron HCl [Zofran] 4 mg PO TID PRN 02/25/19 02/25/19 History potassium gluconate 595 mg PO DAILY 02/25/19 02/25/19 History Patient History Medical History Prostate cancer (Chronic) Bladder neck contracture Cancer PROSTATE CANCER (SURGERY AND RADIATION) METS TO SACRUM. ON LUPRON, AND CASODEX. Osteoarthritis Paraesophageal hernia Pelvic irradiation Surgical History History of colonoscopy History of herniorrhaphy INGUINAL History of prostatectomy History of tooth extraction Social History Preferred Language: French Communication Ability: Effective Beliefs That Will Affect Care: None Current Living Situation: Spouse Other Information That Helps Us Care for You: No Feels Safe at Home: Yes Safety Concerns: Feels Safe At This Time Smoking Status: Former smoker Tobacco Type: cigarettes Second Hand Exposure: No Hx Alcohol Use: No Hx Substance Use: No Review of Systems Review of Systems: 12 systems reviewed and negative except as noted Physical Exam Constitutional: WD/WN, vitals as above Respiratory: normal respiratory effort, lungs clear to auscultation Cardiovascular: RRR, no murmur, no edema Gastrointestinal (Abdomen): normal bowel sounds, soft, nontender, no hepatosplenomegaly Results & Data Vital Signs (Past 12 Hours) Vital Signs Temp Pulse Pulse Pulse Resp BP BP 02/27/19 07:37 37.0 C 87 18 177/110 H 02/27/19 04:50 181/116 H 02/27/19 04:05 37.1 C 89 16 177/114 H 02/27/19 00:00 92 H 02/26/19 23:48 36.9 C 87 18 173/106 H Pulse Ox 02/27/19 07:37 94 02/27/19 04:50 02/27/19 04:05 94 02/27/19 00:00 02/26/19 23:48 92 (1) HTN (hypertension) Hypertension type: essential hypertension Qualified Code(s): I10 - Essential (primary) hypertension
--- NOTE | 2019-02-27 10:04 | Progress Note ---
DATE: 02/27/2019 Mr. Marino feels better today. His cough is essentially resolved. Pulse oximetry is 96% on room air. He has been ambulating and he has been using the incentive spirometer. His heart rhythm has been stable. His white count has come down to 11,740. His hemoglobin is stable. His electrolytes are stable except for chloride, which is elevated at 113. I discussed this case with Dr. Rubio and Dr. Haile. We will set him up tomorrow for an upper endoscopy with possible dilatation. Dr. Rubio will manage his Gramajo catheter and I believe we will probably remove it before his discharge. We are tentatively hopeful for discharge on 03/01.
--- NOTE | 2019-02-27 11:21 | Cardiology Progress Note ---
Date of Service February 27, 2019 Assessment & Plan (1) Paroxysmal atrial fibrillation: Postoperative atrial fibrillation with spontaneous conversion to normal sinus rhythm. Recommend metoprolol 25 mg every 6 hours. Hold on anticoagulation at this time due to brief duration of A. fib as well as recent thoracic surgery. Consider addition of amiodarone with recurrence. Resting 2D transthoracic echocardiogram pending. Repeat basic metabolic panel. We will continue to follow during hospitalization. (2) HTN (hypertension): Uncontrolled. Add lisinopril 5 mg daily. Continue metoprolol 25 mg every 6 hours and amlodipine. Monitor. (3) Hypokalemia: Resolved. Follow BMP. Subjective Patient feeling well from a cardiovascular perspective. Brief, 9 beat brian of paroxysmal supraventricular tachycardia recorded on telemetry this morning. Denies palpitations or chest discomfort. Blood pressure remains elevated. Review of Systems Review of Systems: All systems reviewed & are unremarkable except as noted in HPI & below Physical Exam Physical Exam: General: NAD, AAO x3, well nourished. HEENT: Normocephalic. Atraumatic. Conjunctiva pink, no scleral icterus. Neck: No carotid bruits, the carotid upstrokes are brisk. No JVD. No HJR Heart: Regular normal S-1 and S-2 no S-3 or S-4 gallop. No murmurs or rub appreciated. PMI is not displaced. No RV heave. Lungs: Clear bilateral without rales , rhonchi, or wheeze. Abdomen: Normal bowel sounds. Soft. Nontender. No masses or organomegaly. No abdominal bruits. Extremities: No clubbing, cyanosis, or edema. Pulses: radial=2/4. Neuro: Cranial nerves grossly intact. No focal motor deficit. Results & Data Vital Signs (Past 12 Hours) Vital Signs Temp Pulse Pulse Pulse Resp BP BP 02/27/19 08:00 36.8 C 88 16 154/69 H 02/27/19 07:37 37.0 C 87 18 177/110 H 02/27/19 04:50 181/116 H 02/27/19 04:05 37.1 C 89 16 177/114 H 02/27/19 00:00 92 H 02/26/19 23:48 36.9 C 87 18 173/106 H Pulse Ox 02/27/19 08:00 96 02/27/19 07:37 94 02/27/19 04:50 02/27/19 04:05 94 02/27/19 00:00 02/26/19 23:48 92 Laboratory Results Laboratory Results - last 24 hr 02/27/19 02/27/19 05:27 05:27 WBC 11.74 H RBC 3.95 L Hgb 12.3 L Hct 34.8 L MCV 88.1 MCH 31.1 MCHC 35.3 RDW Std Deviation 41.6 RDW Coeff of Ifeoma 12.8 Plt Count 176 MPV 10.4 Sodium 143 Potassium 3.6 Chloride 113 H Carbon Dioxide 22 Anion Gap 8.0 BUN 15 Creatinine 0.94 Est Cr Clr Drug Dosing 72.8 Est GFR ( Amer) 89.6 Est GFR (Non-Af Amer) 77.3 BUN/Creatinine Ratio 15.7 Glucose 83 Calcium 7.9 L (1) HTN (hypertension) Hypertension type: essential hypertension Qualified Code(s): I10 - Essential (primary) hypertension
[2019-02-27] MEDS: LISINOPRIL 5 MG TAB PO SCH (12:04)
--- NOTE | 2019-02-27 20:02 | Hospitalist Progress Note ---
Date of Service February 27, 2019 Assessment & Plan (1) Paroxysmal atrial fibrillation: PAF in setting of hypokalemia and hypoxia. Mg, TSH normal. PE ruled out by CTA. Converted back to NSR. Seen in consultation by Cardiology. Echo showed normal LV wall motion and function, normal atrial size. Started on metoprolol. (2) HTN (hypertension): BP elevated. Started on metoprolol and amlodipine, but BP's remained elevated. Lisinopril added to regimen. Follow and titrate Rx. (3) Hypoxia: O2 sats as low as 89%. Possible aspiration pneumonia and / or atelectasis. Incentive spirometry. Management of pneumonia as discussed below. (4) Aspiration pneumonia: Had cough and leukocytosis at time of admission. Chest films showed infiltrate at left base. CTA showed postsurgical changes, dilated fluid-filled esophagus, bibasilar atelectasis vs consolidation. Continue IV piperacillin / tazobactam for possible aspiration pneumonia. (5) Hypokalemia: Serum K 3.4 at time of admission. Received replacement. K today = 3.6. Ordered KCl 10 mEq x 2 to keep K in mid-normal range. Follow. (6) History of repair of hiatal hernia: S/P laparoscopic repair of hiatal hernia 02/23. Postop management per Dr. Felix. (7) Urinary retention: Underlying prostate Ca. Gramajo cath inserted by Urology. (8) DVT prophylaxis: SCD's. Ambulate. (9) Discharge planning issues: Anticipated discharge to home. Medical follow-up with [facility] in [place]. (10) Encounter for consultation: Thank you for this consultation. We will follow the patient with you during their hospital stay. My cell # is [phone]. You can reach a member of the [facility] Medicine Team 11/05 via pager @ [phone]. Subjective Recheck for multiple problems. Patient seen in their room around 0930. Didn't sleep well last night. BP's elevated. No further AF, but had 9 beat run of nonsustained VT this morning (asymptomatic). Denies pain. Review of Systems: Constitutional- no fever. Cardiac- no chest pain. Pulmonary- no cough or SOB. GI- remains NPO; no nausea, vomiting, diarrhea, melena, hematochezia. - Gramajo cath. Otherwise, as noted above. Physical Exam Constitutional: no acute distress Respiratory: no respiratory distress Auscultation: lungs clear to auscultation bilaterally Cardiovascular: Rate/Rhythm: regular rate and regular rhythm Heart Sounds: no gallop, no murmur and no cardiac rub Vessels: no JVD Extremities: no calf tenderness and no edema Gastrointestinal (Abdomen): normal bowel sounds, soft, nontender, no hepatosplenomegaly Skin: no rashes, warm and dry Psychiatric: Orientation: alert and oriented x 3 Results & Data Vital Signs (Past 12 Hours) Vital Signs Temp Pulse Resp BP BP Pulse Ox 02/27/19 19:19 36.8 C 81 18 173/103 H 93 02/27/19 17:29 36.7 C 84 18 184/111 H 94 02/27/19 15:04 37.0 C 86 18 173/108 H 94 02/27/19 12:00 37.0 C 85 18 190/119 H 171/104 H 02/27/19 08:00 36.8 C 88 16 154/69 H 96 Laboratory Results Laboratory Results - last 24 hr 02/27/19 02/27/19 05:27 05:27 WBC 11.74 H RBC 3.95 L Hgb 12.3 L Hct 34.8 L MCV 88.1 MCH 31.1 MCHC 35.3 RDW Std Deviation 41.6 RDW Coeff of Ifeoma 12.8 Plt Count 176 MPV 10.4 Sodium 143 Potassium 3.6 Chloride 113 H Carbon Dioxide 22 Anion Gap 8.0 BUN 15 Creatinine 0.94 Est Cr Clr Drug Dosing 72.8 Est GFR ( Amer) 89.6 Est GFR (Non-Af Amer) 77.3 BUN/Creatinine Ratio 15.7 Glucose 83 Calcium 7.9 L (1) HTN (hypertension) Hypertension type: essential hypertension Qualified Code(s): I10 - Essential (primary) hypertension
[2019-02-27] MEDS: BICALUTAMIDE 50 MG TAB PO SCH (20:11)
[2019-02-28] MEDS: NSS + 20MEQ KCL 20 MEQ/1,000 ML BAG IV SCH ×2 (00:45→18:11)
[2019-02-28] MEDS: PIPERACILLIN/TAZOBACTAM 3.375 GM in DEXTROSE 5% 100 ML IV SCH ×3 (01:43→18:08)
[2019-02-28] MEDS ORDERED: POTASSIUM CHLORIDE 20 MEQ TABCR PO STA (03:45)
[2019-02-28] MEDS: METOPROLOL TARTRATE 25 MG TAB PO SCH ×2 (04:06→11:42)
[2019-02-28 04:26] LABS: Basophils # (auto) 0.02 K/uL (0-0.2); Basophils % (auto) 0.2 %; Eosinophils # (auto) 0.17 K/uL (0-0.5); Eosinophils % (auto) 1.7 %; Hematocrit (blood only) 35.4 % (42-52); Hemoglobin 12.5 g/dL (14.0-18.0); Immature Granulocytes # (auto) 0.04 K/uL (0.00-0.02); Immature Granulocytes % (auto) 0.4 %; Lymphocytes # (auto) 1.54 K/uL (1.2-3.4); Mean Corpuscular Hgb Conc 35.3 g/dL (32-36); Mean Corpuscular Volume 88.3 fL (80-100); Mean Platelet Volume 10.2 fL (7.4-10.4); Monocytes % (auto) 10.7 %; Neutrophils # (auto) 7.37 K/uL (1.4-6.5); Platelet Count 197 K/uL (130-400); RDW Coefficient of Variation 12.8 % (11.5-14.5); RDW Standard Deviation 41.2 fL (36.4-46.3); Red Blood Count 4.01 M/uL (4.7-6.1); White Blood Count 10.24 K/uL (4.8-10.8)
[2019-02-28 04:41] LABS: Calcium 7.8 mg/dl (8.5-10.1); Creatinine Clr Calc Pharmacy 77.7 ml/min; Est GFR (African American) 95.4; Est GFR (Non-African American) 82.3; Magnesium 2.1 mg/dl (1.8-2.4); Potassium 3.7 mmol/L (3.5-5.1)
[2019-02-28] MEDS: METOCLOPRAMIDE HCL INJ 5 MG/ML 2 ML VIAL IV SCH ×4 (05:25→23:59)
[2019-02-28] MEDS: AMLODIPINE BESYLATE 5 MG TAB PO SCH (08:35)
[2019-02-28] MEDS: LISINOPRIL 5 MG TAB PO SCH (08:36)
[2019-02-28] MEDS: FAMOTIDINE 20 MG in SYRINGE 3 ML IV SCH (08:38)
--- NOTE | 2019-02-28 09:35 | Gastroenterology Progress Note ---
Date of Service February 28, 2019 Assessment & Plan (1) Dysphagia: 78 yo amle who is s/p Razia for a very large hiatal hernia on 02/23 now with dysphagia post-operatively. AF has converted to NSR. BP remains high. Discussed with . Will tenatively plan for EGD with possible dilation tomorrow if patient's BP is improved. - OK to allow him to have sips of clears and ice chips today. - NPO after midnight for EGD tomorrow. (2) History of repair of hiatal hernia: (3) HTN (hypertension): (4) Paroxysmal atrial fibrillation: Supervising Physician Co-Signing Physician Notes I have seen and examined the patient and have discussed the case with the provider above. I agree with the assessment and plan as stated with the following exceptions. Mr. Marino is in no distress and not tachypneic but occasionally appears slightly winded. He denies any pain and reports a feeling of bubbles in his substernal chest post op when he leans into a supine position. He came back to the hospital today because he was coughing and had difficulty urinating. A Gramajo catheter was placed by urology this afternoon for urinary retention in the setting of a tight bladder neck. He denies any chest pain and his incision sites look clean, dry and without infection. Abdomen is soft and nondistended. Lungs are clear to auscultation except there is no good air movement at the L base. He is mentating normally. Agree with plan as above including empiric treatment of pneumonia with clinical exam findings and 89%-90% oxygen saturation on room air. CT chest revealed no PE. Atelectasis and pneumonia still in the differential. It is possible his BP is up because of his post-operative state, however, after moving him to telemetry he was found to be in atrial fibrillation with RVR. (Initial EKG on the floor revealed sinus tachycardia.) Rates are hanging around [address] Felix who wants him on an amio drip with bolus. This was ordered. Heparin contraindicated at this point per surgery. Findings were discussed with the patient who verbalized understanding of the changes and the plan. Afib is likely 2/2 post op state, however, labs ordered including trop, TSH, BMP, Mag, CBC. Echo ordered for am. Cardiology consult placed. Discussed with salon manager who will follow results and response to amio bolus. Antonio, DO Subjective Overall Patient feeling well from a cardiovascular perspective. Brief, 9 beat brian of paroxysmal supraventricular tachycardia recorded on telemetry this morning. Denies palpitations or chest discomfort. Blood pressure remains elevated. Physical Exam Constitutional: WD/WN, vitals as above Respiratory: normal respiratory effort, lungs clear to auscultation Cardiovascular: RRR, no murmur, no edema Gastrointestinal (Abdomen): normal bowel sounds, soft, nontender, no hepatosplenomegaly Results & Data Vital Signs (Past 12 Hours) Vital Signs Temp Pulse Pulse Pulse Resp BP Pulse Ox 02/28/19 08:34 80 178/104 H 02/28/19 07:37 36.9 C 83 18 220/123 H 93 02/28/19 04:17 37.1 C 74 18 164/101 H 98 02/28/19 00:05 76 02/27/19 23:44 36.8 C 78 18 168/100 H 99 (1) HTN (hypertension) Hypertension type: essential hypertension Qualified Code(s): I10 - Essential (primary) hypertension
--- NOTE | 2019-02-28 09:38 | Gastroenterology Progress Note ---
Date of Service February 28, 2019 Assessment & Plan (1) Dysphagia: 78 yo m who is s/p Razia for a very large hiatal hernia on 02/23 now with dysphagia post-operatively. AF has converted to NSR. BP remains high. - Plan for EGD today for evaluation of post-operative dysphagia. (2) History of repair of hiatal hernia: (3) HTN (hypertension): (4) Paroxysmal atrial fibrillation: Subjective Patient is feeling well overall, has really no complaints today. Physical Exam Physical Exam: Awake alert oriented x3 Heart regular Lungs are clear Abdomen soft nontender nondistended No peripheral edema Results & Data Vital Signs (Past 12 Hours) Vital Signs Temp Pulse Pulse Pulse Resp BP Pulse Ox 02/28/19 08:34 80 178/104 H 02/28/19 07:37 36.9 C 83 18 220/123 H 93 02/28/19 04:17 37.1 C 74 18 164/101 H 98 02/28/19 00:05 76 02/27/19 23:44 36.8 C 78 18 168/100 H 99 (1) HTN (hypertension) Hypertension type: essential hypertension Qualified Code(s): I10 - Essential (primary) hypertension
--- NOTE | 2019-02-28 09:50 | Anesthesiology Consultation ---
Date of Service February 28, 2019 The patient underwent a Davinci paraesophageal hernia repair on 02/23/19. He was a Grade 1 view with Greenfield 2 blade. The patient was diagnosed with afib postoperatively which has returned to sinus rhythm. He has also been very hypertensive over the past few days with BP 200s/100s. He was given multiple antihypertensive meds this morning including labetalol in preoperative holding. Assessment & Plan (1) Encounter for pre-operative examination: Chart Review Chart Review: Acceptable Risk for Surgery and Patient NOT seen in Pre Admission Testing Consults Requested none patient followed by cardiology on the floor History Surgery Operation Date: 02/28/19 09:15 Proposed Procedures p Esophagogastroduodenoscopy Dr Juliana Andrews Height/Weight Height: 5 ft 9 in Weight: 91.7 kg Allergies Allergy/AdvReac Type Severity Reaction Status Date / Time No Known Allergies Allergy Verified 02/23/19 09:41 Medications Home Medications Medication Instructions Recorded Confirmed Last Taken Lupron Depot (3 month) 1 dose IM UD 02/18/19 02/25/19 12/09/18 10:00 bicalutamide [Casodex] 50 mg PO QPM 02/18/19 02/25/19 02/22/19 20:00 magnesium oxide 400 mg PO QAM 02/18/19 02/25/19 02/22/19 07:00 omega 4-guh-ewt-fish oil [Fish Oil] 1 cap PO QAM 02/18/19 02/25/19 02/18/19 07:00 red yeast rice 600 mg PO QAM 02/18/19 02/25/19 02/18/19 07:00 vitamin E 1,000 unit PO QAM 02/18/19 02/25/19 02/22/19 07:00 metoclopramide HCl [Reglan] 10 mg PO ACHS 30 Days #120 tab 02/24/19 02/25/19 Unknown tramadol [Ultram] 50 mg PO QID PRN #18 tab 02/24/19 02/25/19 Unknown denosumab 120 mg SUBCUT UD 02/25/19 02/25/19 Unknown multivitamin 1 tab PO DAILY 02/25/19 02/25/19 Unknown omeprazole 40 mg PO DAILY 02/25/19 02/25/19 Unknown ondansetron HCl [Zofran] 4 mg PO TID PRN 02/25/19 02/25/19 Unknown potassium gluconate 595 mg PO DAILY 02/25/19 02/25/19 Unknown Active Medications Generic Name Dose Route Start Last Admin Trade Name Suzanna PRN Reason Stop Dose Admin Amlodipine Besylate 5 mg 02/26/19 09:00 02/28/19 08:35 Norvasc PO 03/28/19 08:59 5 mg QAM SHERIF Administration Bicalutamide 50 mg 02/25/19 21:00 02/27/19 20:11 Casodex PO 03/27/19 20:59 50 mg QPM SHERIF Administration Famotidine 20 mg/ Syringe 5 mls @ 2.5 mls/min 02/25/19 21:00 02/28/19 08:38 IV 03/27/19 20:59 2.5 mls/min BID SHERIF Administration Piperacillin Sod/Tazobactam 115 mls @ 28.75 mls/hr 02/26/19 02:00 02/28/19 05:53 Sod 3.375 gm/ Dextrose IV 03/05/19 01:59 Infused Q8H SHERIF Infusion Protocol Potassium Chloride/Sodium Chloride 20 meq in 1,000 mls @ 60 mls/hr 02/25/19 23:45 02/28/19 09:22 Normal Saline W/20 Meq Kcl IV 03/27/19 23:44 0 mls/hr .[id number] SHERIF Infusion Enalaprilat 1.25 mg/ Dextrose 26 mls @ 100 mls/hr 02/27/19 04:38 02/27/19 17:28 IV 03/29/19 04:44 Infused Q6H PRN Infusion Blood Pressure - High Ioversol 70 ml 02/25/19 19:57 02/25/19 19:58 Optiray 320 125ml IV 03/01/19 19:56 70 ml ONCE PRN Administration Interaction Checking Lisinopril 5 mg 02/27/19 11:30 02/28/19 08:36 Zestril PO 03/29/19 11:29 5 mg QAM SHERIF Administration Metoclopramide HCl 10 mg 02/25/19 12:15 02/28/19 05:25 Reglan IV 03/27/19 12:14 10 mg Q6H SHERIF Administration Metoprolol Tartrate 25 mg 02/28/19 04:00 02/28/19 04:06 Lopressor PO 03/30/19 03:59 25 mg Q6 SHERIF Administration NPO Date Last Intake of Fluids: 02/28/19 Time Last Intake of Fluids: 06:00 Last Intake of Fluids Comment: SIP OF WATER WITH PILLS Date Last Intake of Solids: 02/22/19 Time Last Intake of Solids: 21:00 Past Medical History Medical History Prostate cancer (Chronic) Bladder neck contracture Cancer PROSTATE CANCER (SURGERY AND RADIATION) METS TO SACRUM. ON LUPRON, AND CASODEX. Osteoarthritis Paraesophageal hernia Pelvic irradiation Past Surgical History Surgical History History of colonoscopy History of herniorrhaphy INGUINAL History of prostatectomy History of tooth extraction Social History Smoking Status: Former smoker tobacco type: cigarettes Hx Alcohol Use: No Hx Substance Use: No substance use type: does not use Physical Exam Vital Signs Last Vital Signs Temp 37.0 C 02/28/19 09:29 Pulse 79 02/28/19 09:45 Resp 20 02/28/19 09:45 BP 179/101 H 02/28/19 09:45 Pulse Ox 93 02/28/19 09:45 Testing Laboratory Results 02/28/19 04:02 02/28/19 04:02 Urine Color Yellow 02/26/19 03:38 Urine Appearance Clear (Clear) 02/26/19 03:38 Urine pH 5.5 (4.5-7.5) 02/26/19 03:38 Ur Specific [place] 1.036 (1.000-1.030) H 02/26/19 03:38 Urine Protein 1+ (Negative) H 02/26/19 03:38 Urine Glucose (UA) Negative (Negative) 02/26/19 03:38 Urine Ketones 1+ (Negative) H 02/26/19 03:38 Urine Nitrite Negative (Negative) 02/26/19 03:38 Ur Leukocyte Esterase 1+ (Negative) H 02/26/19 03:38 Urine WBC (Auto) 10-30 /hpf (0-5) H 02/26/19 03:38 Urine RBC (Auto) >30 /hpf (0-4) H 02/26/19 03:38 U Hyaline Cast (Auto) 1-5 /lpf (0-5) 02/26/19 03:38 U Epithel Cells (Auto) >30 /lpf (0-5) H 02/26/19 03:38 Urine Bacteria (Auto) Negative (Negative) 02/26/19 03:38 02/26/19 03:38 Urine Culture - Final Urine,Clean Catch No growth - less than 1,000 colonies/mL. 02/25/19 20:45 Gram Stain - Final Sputum, Expectorated Sputum Culture - Final Enterobacter cloacae 02/25/19 18:21 Blood Culture - Preliminary Blood No growth to date. 02/25/19 18:16 Blood Culture - Preliminary Blood No growth to date.
[2019-02-28] MEDS ORDERED: LIDOCAINE HCL 2% 2 ML VIAL/AMP(20MG/ML) INFIL ONE (09:53)
[2019-02-28] MEDS ORDERED: LABETALOL HCL IV 5 MG/ML 20ML IV ONE (09:53)
[2019-02-28] MEDS ORDERED: PROPOFOL IV EMULSION 10 MG/ML 20 ML VIAL IV ONE ×2 (09:53→10:33)
--- NOTE | 2019-02-28 10:32 | GI REPORT ---
Patient Name: Adán Marino Procedure Date: 02/28/2019 10:06 AM Date of : 1940 Admit Type: Inpatient Age: 78 Gender: Male Attending MD: Hardik Andrews MD Procedure: Upper GI endoscopy Providers: Hardik Andrews MD Referring MD: Parish Felix Md Indications: Dysphagia Medicines: Monitored Anesthesia Care Complications: No immediate complications. Estimated blood loss: None. Estimated Blood Loss: Estimated blood loss: none. Procedure: Pre-Anesthesia Assessment: - Pre-Anesthesia Assessment: - Prior to the procedure, a History and Physical was performed, and patient medications, allergies and sensitivities were reviewed. The patient's tolerance of previous anesthesia was reviewed. Please see [employer] for complete details. - The risks and benefits of the procedure and the sedation options and risks were discussed with the patient. All questions were answered and informed consent was obtained. - Patient identification and proposed procedure were verified prior to the procedure by the physician and the nurse. The procedure was verified in the pre-procedure area in the procedure room. After obtaining informed consent, the endoscope was passed carefully and meticuously under direct vision and only advanced when the lumen was clearly identified, C02 insuflation was utilized throughout the entirity of the procedure. Throughout the procedure, the patient's blood pressure, pulse, and oxygen saturations were monitored continuously. After obtaining informed consent, the endoscope was passed under direct vision. Throughout the procedure, the patient's blood pressure, pulse, and oxygen saturations were monitored continuously. The Scope was introduced through the mouth, and advanced to the body of the stomach. The upper GI endoscopy was accomplished without difficulty. The patient tolerated the procedure well. Findings: Food was found in the lower third of the esophagus. Removed with suction only. Severe esophagitis with bleeding was found 34 cm from the incisors, this was unusual in appearance for simple reflux, and had deep ulcerations with spotty black mucosa and extended down into the examined stomach. The wrap was identified and was only able to be safely transversed with exchange to the GIF-HXP scope with an outer diamter of 5.9 mm. Diffuse severe inflammation with hemorrhage characterized by adherent blood was found in the cardia, in the gastric fundus and in the gastric body. The gastric body contained approximately 1 L of liquid that was aspirated out. Scope not advanced to duodenum out of concern of complication. An examination of the duodenum was not performed. Impression: - Food in the lower third of the esophagus. - Severe esophagitis. - Severe Gastritis with hemorrhage. - Concern for post-operative ischemia and resultant Gastric outlet obstruction. Recommendation: - Return patient to [facility] for [facility] care. - IV PPI BID - Further Care with Thoracic Surgery-will discuss case with Dr. Felix. - Remain NPO Hradik Andrews MD 02/28/2019 10:32:13 AM This report has been signed electronically. Note Initiated On: 02/28/2019 10:06 AM Number of Addenda: 0 I attest to the content of the Intraoperative Record and orders documented therein, exceptions below {[id number]}
--- NOTE | 2019-02-28 11:03 | Anesthesiology Progress Note ---
Date of Service February 28, 2019 Anesthesia Post Procedure Vital Signs Vital Signs: Temp Pulse Pulse Pulse Resp BP BP 02/28/19 11:00 76 16 144/93 H 02/28/19 10:45 76 16 136/85 02/28/19 10:30 76 18 125/79 02/28/19 09:50 78 20 167/101 H 02/28/19 09:45 79 20 179/101 H 02/28/19 09:40 76 20 173/111 H 02/28/19 09:32 79 24 163/94 H 02/28/19 09:29 37.0 C 81 24 170/99 H 02/28/19 08:34 80 178/104 H 02/28/19 07:37 36.9 C 83 18 220/123 H 02/28/19 04:17 37.1 C 74 18 164/101 H 02/28/19 00:05 76 02/27/19 23:44 36.8 C 78 18 168/100 H 02/27/19 19:19 36.8 C 81 18 173/103 H 02/27/19 17:29 36.7 C 84 18 184/111 H 02/27/19 15:04 37.0 C 86 18 173/108 H 02/27/19 12:00 37.0 C 85 18 190/119 H 171/104 H Pulse Ox 02/28/19 11:00 95 02/28/19 10:45 93 02/28/19 10:30 92 02/28/19 09:50 93 02/28/19 09:45 93 02/28/19 09:40 93 02/28/19 09:32 94 02/28/19 09:29 95 02/28/19 08:34 02/28/19 07:37 93 02/28/19 04:17 98 02/28/19 00:05 02/27/19 23:44 99 02/27/19 19:19 93 02/27/19 17:29 94 02/27/19 15:04 94 02/27/19 12:00 Transfer of Care Handoff Completed per policy Notes Mental Status: alert / awake / arousable Patient Amnestic to Procedure: Yes Nausea / Vomiting: adequately controlled Pain: adequately controlled Airway Patency, RR, SpO2: stable & adequate BP & HR: stable & adequate Hydration State: stable & adequate Anesthetic Complications: no major complications apparent and Pt Satisfied with anesthetic care
[2019-02-28] MEDS: PANTOprazole 40 MG in SYRINGE 0 ML IV SCH ×2 (12:10→20:40)
[2019-02-28] MEDS ORDERED: METOPROLOL TARTRATE 1 MG/ML VIAL IV ONE (14:47)
--- NOTE | 2019-02-28 15:17 | Progress Note ---
DATE: 02/28/2019 Mr. Marino was seen today on 02/28/2019. I have discussed this case with Dr. Son, Dr. Hardik Andrews, and nutritional services. I reviewed the pictures from his endoscopy. I believe the patient needs more time. He is to settle down from this acute inflammatory process and I think that a Protonix drip is indicated. I would like to give him time for his acute inflammatory process to decrease. He certainly looks good clinically, in fact looks better now than he did 48 hours ago. He has no white count, no fevers. His lungs sound better in the left base also. Mr. Marino's abdomen is nice and soft. His incisions are clean. We are going to hold him n.p.o. We will insert a PICC line and start hyperalimentation. The patient's stomach has me greatly concerned me sinde surgery and the fact that he had a liter of fluid in there today was worrisome to me as I do not think his stomach is functioning well and I was quite concerned with how dilated than it was at the time of surgery. At any rate, I had a very long discussion with the patient and his . 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 At this point, I do not believe that taking him to the operating room is the best option. 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 I performed an endoscopy at the regular scope without difficulty 5 days ago. I think he has some swelling here. It should be noted that I did a loose bethany. My bigger concern is emptying of his stomach. We have addressed all this and I have explained to the patient and his that it is possible this could progress to a full-thickness perforation which case would be a life-threatening development; however, I do not feel that taking him to the operating room today is going to help that. DEBBIE
--- NOTE | 2019-02-28 19:40 | Hospitalist Progress Note ---
Date of Service February 28, 2019 Assessment & Plan (1) Paroxysmal atrial fibrillation: PAF in setting of hypokalemia and hypoxia. Mg, TSH normal. PE ruled out by CTA. Converted back to NSR. Seen in consultation by Cardiology. Echo showed normal LV wall motion and function, normal atrial size. Started on metoprolol- change to IV formulation in light of EGD findings. (2) HTN (hypertension): BP elevated. Started on metoprolol and amlodipine, but BP's remained elevated. Lisinopril added to regimen. Suspect that patient was not absorbing oral meds well due to poor gastric emptying. Now NPO. IV metoprolol and PRN enalapril ordered. Follow and titrate Rx. (3) Hypoxia: O2 sats as low as 89%. Possible aspiration pneumonia and / or atelectasis. Chest x-ray showed elevated left hemidiaphragm. Incentive spirometry. Management of pneumonia as discussed below. (4) Aspiration pneumonia: Had cough and leukocytosis at time of admission. Chest films showed infiltrate at left base. CTA showed postsurgical changes, dilated fluid-filled esophagus, bibasilar atelectasis vs consolidation. Continue IV piperacillin / tazobactam for possible aspiration pneumonia. (5) Hypokalemia: Serum K 3.4 at time of admission. Received replacement. K today = 3.7. Follow. (6) History of repair of hiatal hernia: S/P laparoscopic repair of hiatal hernia 02/23. Was experiencing dysphagia. EGD demonstrated large amount of food / gastric fluid in esophagus and stomach with associated esophagitis and gastritis. NPO. TPN being initiated. Ongoing postop management per Dr. Felix. (7) Urinary retention: Underlying prostate Ca. Gramajo cath inserted by Urology. (8) DVT prophylaxis: SCD's. Ambulate. (9) Discharge planning issues: Discharge disposition to be determined. Medical follow-up with Becca in [place]. (10) Encounter for consultation: Thank you for this consultation. We will follow the patient with you during their hospital stay. My cell # is [phone]. You can reach a member of the [facility] Medicine Team 11/05 via pager @ [phone]. Subjective Recheck for multiple problems. EGD performed this morning. Patient seen in endoscopy recovery area around 1100. Still a bit sedated. Denies CP, SOB, nausea, vomiting. Review of Systems: Constitutional- no fever. Cardiac- no chest pain. Pulmonary- no cough or SOB. GI- passing flatus, no stool; no N/V - Gramajo cath. Otherwise, as noted above. Physical Exam Constitutional: no acute distress Respiratory: no respiratory distress Auscultation: + diminished lung sounds (left base) Cardiovascular: Rate/Rhythm: regular rate and regular rhythm Heart Sounds: no gallop, no murmur and no cardiac rub Vessels: no JVD Extremities: no calf tenderness and no edema Gastrointestinal (Abdomen): normal bowel sounds, soft, nontender, no hepatosplenomegaly Skin: no rashes, warm and dry Psychiatric: Orientation: alert and oriented x 3 Results & Data Vital Signs (Past 12 Hours) Vital Signs Temp Pulse Pulse Resp BP BP Pulse Ox 02/28/19 19:28 37.0 C 71 18 179/99 H 93 02/28/19 16:51 36.5 C 68 18 171/96 H 94 02/28/19 13:05 73 18 158/88 H 94 02/28/19 12:35 72 16 157/89 H 94 02/28/19 12:20 73 16 167/93 H 96 02/28/19 12:05 78 18 190/102 H 95 02/28/19 11:50 78 16 175/94 H 96 02/28/19 11:35 36.5 C 76 16 181/103 H 95 02/28/19 11:00 76 16 144/93 H 95 02/28/19 10:45 76 16 136/85 93 02/28/19 10:30 76 18 125/79 92 02/28/19 09:50 78 20 167/101 H 93 02/28/19 09:45 79 20 179/101 H 93 02/28/19 09:40 76 20 173/111 H 93 02/28/19 09:32 79 24 163/94 H 94 02/28/19 09:29 37.0 C 81 24 170/99 H 95 02/28/19 08:34 80 178/104 H 02/28/19 07:37 36.9 C 83 18 220/123 H 93 Laboratory Results Laboratory Results - last 24 hr 02/28/19 02/28/19 04:02 04:02 WBC 10.24 RBC 4.01 L Hgb 12.5 L Hct 35.4 L MCV 88.3 MCH 31.2 MCHC 35.3 RDW Std Deviation 41.2 RDW Coeff of Ifeoma 12.8 Plt Count 197 MPV 10.2 Immature Gran % (Auto) 0.4 Neut % (Auto) 72.0 Lymph % (Auto) 15.0 [place] % (Auto) 10.7 Eos % (Auto) 1.7 Baso % (Auto) 0.2 Immature Gran # (Auto) 0.04 H Neut # (Auto) 7.37 H Lymph # (Auto) 1.54 [place] # (Auto) 1.10 H Eos # (Auto) 0.17 Baso # (Auto) 0.02 Sodium 141 Potassium 3.7 Chloride 113 H Carbon Dioxide 21 Anion Gap 7.0 BUN 14 Creatinine 0.88 Est Cr Clr Drug Dosing 77.7 Est GFR ( Amer) 95.4 Est GFR (Non-Af Amer) 82.3 BUN/Creatinine Ratio 16.0 Glucose 92 Calcium 7.8 L Magnesium 2.1 (1) HTN (hypertension) Hypertension type: essential hypertension Qualified Code(s): I10 - Essential (primary) hypertension
[2019-02-28] MEDS ORDERED: TPN/PPN CONSULT PHARMACY PRN (20:15)
[2019-02-28] MEDS: METOPROLOL TARTRATE 1 MG/ML VIAL IV SCH (20:22)
[2019-02-28] MEDS: D5W AND 1/2NSS + 20MEQ KCL 20 MEQ/1,000 ML BAG IV SCH (20:58)
[2019-03-01] MEDS: PIPERACILLIN/TAZOBACTAM 3.375 GM in DEXTROSE 5% 100 ML IV SCH ×3 (03:17→19:34)
[2019-03-01] MEDS: METOPROLOL TARTRATE 1 MG/ML VIAL IV SCH ×4 (03:17→19:41)
[2019-03-01] MEDS: D5W AND 1/2NSS + 20MEQ KCL 20 MEQ/1,000 ML BAG IV SCH ×2 (04:42→16:03)
[2019-03-01 05:32] LABS: Hematocrit (blood only) 36.1 % (42-52); Hemoglobin 12.7 g/dL (14.0-18.0); Mean Corpuscular Hgb Conc 35.2 g/dL (32-36); Mean Corpuscular Volume 88.9 fL (80-100); Mean Platelet Volume 10.2 fL (7.4-10.4); Platelet Count 212 K/uL (130-400); RDW Coefficient of Variation 12.8 % (11.5-14.5); RDW Standard Deviation 41.3 fL (36.4-46.3); Red Blood Count 4.06 M/uL (4.7-6.1); White Blood Count 8.82 K/uL (4.8-10.8)
[2019-03-01] MEDS: METOCLOPRAMIDE HCL INJ 5 MG/ML 2 ML VIAL IV SCH ×4 (05:53→23:28)
[2019-03-01 05:58] LABS: Albumin Level 2.4 gm/dl (3.4-5.0); BUN Creatinine Ratio 11.8 (10-20); Bilirubin Direct 0.3 mg/dl (0-0.2); Calcium 7.2 mg/dl (8.5-10.1); Creatinine Clr Calc Pharmacy 75.7 ml/min; Est GFR (African American) 94.5; Est GFR (Non-African American) 81.5; Magnesium 2.1 mg/dl (1.8-2.4); Potassium 3.7 mmol/L (3.5-5.1)
[2019-03-01 06:01] LABS: Albumin Globulin Ratio 0.5 (0.9-2); Bilirubin,Total 0.8 mg/dl (0.2-1); Globulin 4.6 gm/dl (2.5-4.0)
--- NOTE | 2019-03-01 08:02 | Urology Progress Note ---
Date of Service March 01, 2019 Assessment & Plan (1) Urinary retention: Catheter draining well, not bothersome, will maintain for duration of hospitalization. Will plan for TOV before discharge. Will continue to intermittently follow along. Please page our service with any questions/concerns. (2) Prostate cancer: Subjective 78YO male with hx of prostate cancer, urinary retention. Gramajo remains in place, patent, draining clear yellow urine. Patient reports that Gramajo is not uncomfortable, leaking, or bothersome. Patient reports feeling well today. No fevers/chills. No abdominal pain or distention. Review of Systems Review of Systems: All systems reviewed & are unremarkable except as noted in HPI & below Physical Exam Physical Exam: WN/WD NAD. Resp effort normal. No JVD. Abd soft,nontender. A&O x 3, appropriate affect. : Gramajo in place, patent, draining clear yellow urine. Results & Data Vital Signs (Past 12 Hours) Vital Signs Temp Pulse Pulse Resp BP BP Pulse Ox 03/01/19 03:17 76 174/108 H 03/01/19 03:15 36.6 C 78 18 174/108 H 95 02/28/19 23:34 37.1 C 71 18 162/89 H 94 02/28/19 20:22 76 180/102 H
[2019-03-01] MEDS: PANTOprazole 40 MG in SYRINGE 0 ML IV SCH ×2 (08:15→22:06)
[2019-03-01] MEDS ORDERED: POTASSIUM PHOS 3 MMOL/1 ML INFUSION IV ONE (09:14)
[2019-03-01] MEDS ORDERED: POTASSIUM PHOSPHATE 21 MMOL in SODIUM CHLORIDE 0.9% 500 ML IV ONE (09:30)
--- NOTE | 2019-03-01 12:45 | Cardiology Progress Note ---
Date of Service March 01, 2019 Assessment & Plan (1) Paroxysmal atrial fibrillation: Postoperative atrial fibrillation with spontaneous conversion to normal sinus rhythm. Patient currently n.p.o. Agree with Lopressor 5 mg every 6 hours. Would not recommend anticoagulation at this time. (2) HTN (hypertension): Uncontrolled. Add enalaprilat 1.25 mg every 6 hours. Continue IV metoprolol 5 mg every 6 hours. Repeat basic metabolic panel in a.m. (3) Hypokalemia: Resolved. Follow BMP. Subjective Patient seen and examined the bedside. Appears comfortable. Denies chest or abdominal discomfort. No recurrent dysrhythmias on telemetry. Strict n.p.o. status at this time. Blood pressure remains elevated. Offers no concerns/complaints. Review of Systems Review of Systems: All systems reviewed & are unremarkable except as noted in HPI & below Physical Exam Physical Exam: General: NAD, AAO x3, well nourished. HEENT: Normocephalic. Atraumatic. Conjunctiva pink, no scleral icterus. Neck: No carotid bruits, the carotid upstrokes are brisk. No JVD. No HJR Heart: Regular normal S-1 and S-2 no S-3 or S-4 gallop. No murmurs or rub appreciated. PMI is not displaced. No RV heave. Lungs: Clear bilateral without rales , rhonchi, or wheeze. Abdomen: Normal bowel sounds. Soft. Nontender. No masses or organomegaly. No abdominal bruits. Extremities: No clubbing, cyanosis, or edema. Pulses: radial=2/4, posterior tibial=2/4. Neuro: Cranial nerves grossly intact. No focal motor deficit. Results & Data Vital Signs (Past 12 Hours) Vital Signs Temp Pulse Pulse Resp BP BP Pulse Ox 03/01/19 12:04 36.4 C L 77 18 166/101 H 95 03/01/19 08:23 77 176/100 H 03/01/19 08:01 36.9 C 77 18 176/100 H 96 03/01/19 03:17 76 174/108 H 03/01/19 03:15 36.6 C 78 18 174/108 H 95 Laboratory Results Laboratory Results - last 24 hr 03/01/19 03/01/19 03/01/19 05:14 05:14 05:14 WBC 8.82 RBC 4.06 L Hgb 12.7 L Hct 36.1 L MCV 88.9 MCH 31.3 MCHC 35.2 RDW Std Deviation 41.3 RDW Coeff of Ifeoma 12.8 Plt Count 212 MPV 10.2 Sodium 140 Potassium 3.7 Chloride 110 H Carbon Dioxide 25 Anion Gap 5.0 BUN 11 Creatinine 0.90 Est Cr Clr Drug Dosing 75.7 Est GFR ( Amer) 94.5 Est GFR (Non-Af Amer) 81.5 BUN/Creatinine Ratio 11.8 Glucose 122 H Calcium 7.2 L Phosphorus 1.6 L Magnesium 2.1 Total Bilirubin 0.8 Direct Bilirubin 0.3 H AST 29 ALT 26 Alkaline Phosphatase 56 Total Protein 7.0 Albumin 2.4 L Globulin 4.6 H Albumin/Globulin Ratio 0.5 L (1) HTN (hypertension) Hypertension type: essential hypertension Qualified Code(s): I10 - Essential (primary) hypertension
[2019-03-01] MEDS ORDERED: CUSTOM CENTRAL PN IV SCH (16:00)
[2019-03-01] MEDS: DEXTROSE 10% 1,000 ML IV SCH (16:05)
--- NOTE | 2019-03-01 17:36 | Progress Note ---
DATE: 03/01/2019 Mr. Marino was seen today on 03/01/2019. He looks fine. He is hungry. He has had flatus but has not moved his bowels today. His white count today is WNL and his hemoglobin is stable. His abdomen is nice and soft. I had a long talk with the patient. His PICC line is in place. He just started hyperalimentation. I discussed this case with Dr. Son as well as Dr. Andrews. Our plan at this point is to continue on n.p.o. status except for some sips of water and Dr. Andrews will plan on performing a repeat upper endoscopy on 03/07/2019. [facility]
[2019-03-01] MEDS: ENALAPRILAT 1.25 MG in DEXTROSE 5% 25 ML IV SCH ×2 (19:16→23:23)
--- NOTE | 2019-03-01 20:05 | Hospitalist Progress Note ---
Date of Service March 01, 2019 Assessment & Plan (1) Paroxysmal atrial fibrillation: PAF in setting of hypokalemia and hypoxia. Mg, TSH normal. PE ruled out by CTA. Converted back to NSR. Seen in consultation by Cardiology. Echo showed normal LV wall motion and function, normal atrial size. Started on metoprolol- changed to IV formulation due to NPO status. (2) HTN (hypertension): BP elevated. Started on metoprolol and amlodipine, but BP's remained elevated. Lisinopril added to regimen. Suspect that patient was not absorbing oral meds well due to poor gastric emptying. Now NPO. IV metoprolol and PRN enalapril ordered. Follow and titrate Rx. (3) Hypoxia: O2 sats as low as 89%. Possible aspiration pneumonia and / or atelectasis. Chest x-ray showed elevated left hemidiaphragm. Incentive spirometry. Management of pneumonia as discussed below. (4) Aspiration pneumonia: Had cough and leukocytosis at time of admission. Chest films showed infiltrate at left base. CTA showed postsurgical changes, dilated fluid-filled esophagus, bibasilar atelectasis vs consolidation. Continue IV piperacillin / tazobactam for possible aspiration pneumonia. (5) Hypokalemia: Serum K 3.4 at time of admission. Received replacement. K today = 3.7. Follow. (6) History of repair of hiatal hernia: S/P laparoscopic repair of hiatal hernia 02/23. Was experiencing dysphagia. EGD demonstrated large amount of food / gastric fluid in esophagus and stomach with associated esophagitis and gastritis. NPO. TPN being initiated. Ongoing postop management per Dr. Felix. (7) Urinary retention: Underlying prostate Ca. Gramajo cath inserted by Urology. (8) DVT prophylaxis: SCD's. Ambulate. (9) Discharge planning issues: Discharge disposition to be determined. Medical follow-up with Becca in [place]. (10) Encounter for consultation: Thank you for this consultation. We will follow the patient with you during their hospital stay. My cell # is [phone]. You can reach a member of the [facility] Medicine Team 11/05 via pager @ [phone]. Dr. Anderson will be assuming medical management starting 03/02. Subjective Recheck for multiple problems. Pt seen in his room around 0850. visiting. Feels better. Got some rest last night. No further AF. No chest pain. Rare cough. No SOB. No nausea, vomiting, abdominal pain. Passing flatus, no stool. Ambulating in hallway. Review of Systems: Constitutional- no fever. Cardiac- as noted above Pulmonary- as noted above GI- as noted above - Gramajo cath. Otherwise, as noted above. Physical Exam Constitutional: no acute distress Respiratory: no respiratory distress Auscultation: + diminished lung sounds (left base) Cardiovascular: Rate/Rhythm: regular rate and regular rhythm Heart Sounds: no gallop, no murmur and no cardiac rub Vessels: no JVD Extremities: no calf tenderness and no edema Gastrointestinal (Abdomen): normal bowel sounds, soft, nontender, no hepatosplenomegaly Skin: no rashes, warm and dry Psychiatric: Orientation: alert and oriented x 3 Results & Data Vital Signs (Past 12 Hours) Vital Signs Temp Pulse Pulse Pulse Resp BP BP 03/01/19 19:41 80 150/120 H 03/01/19 19:35 36.5 C 80 20 150/120 H 03/01/19 15:50 36.7 C 70 72 18 182/104 H 03/01/19 14:12 73 167/97 H 03/01/19 14:10 73 167/97 H 03/01/19 12:04 36.4 C L 77 18 166/101 H 03/01/19 08:23 77 176/100 H Pulse Ox 03/01/19 19:41 03/01/19 19:35 96 03/01/19 15:50 94 03/01/19 14:12 03/01/19 14:10 03/01/19 12:04 95 03/01/19 08:23 Laboratory Results Laboratory Results - last 24 hr 03/01/19 03/01/19 03/01/19 05:14 05:14 05:14 WBC 8.82 RBC 4.06 L Hgb 12.7 L Hct 36.1 L MCV 88.9 MCH 31.3 MCHC 35.2 RDW Std Deviation 41.3 RDW Coeff of Ifeoma 12.8 Plt Count 212 MPV 10.2 Sodium 140 Potassium 3.7 Chloride 110 H Carbon Dioxide 25 Anion Gap 5.0 BUN 11 Creatinine 0.90 Est Cr Clr Drug Dosing 75.7 Est GFR ( Amer) 94.5 Est GFR (Non-Af Amer) 81.5 BUN/Creatinine Ratio 11.8 Glucose 122 H Calcium 7.2 L Phosphorus 1.6 L Magnesium 2.1 Total Bilirubin 0.8 Direct Bilirubin 0.3 H AST 29 ALT 26 Alkaline Phosphatase 56 Total Protein 7.0 Albumin 2.4 L Globulin 4.6 H Albumin/Globulin Ratio 0.5 L (1) HTN (hypertension) Hypertension type: essential hypertension Qualified Code(s): I10 - Essential (primary) hypertension
[2019-03-02] MEDS: PIPERACILLIN/TAZOBACTAM 3.375 GM in DEXTROSE 5% 100 ML IV SCH ×3 (01:47→17:52)
[2019-03-02] MEDS: METOPROLOL TARTRATE 1 MG/ML VIAL IV SCH ×4 (01:47→20:27)
[2019-03-02] MEDS: DEXTROSE 10% 1,000 ML IV SCH (05:35)
[2019-03-02] MEDS: ENALAPRILAT 1.25 MG in DEXTROSE 5% 25 ML IV SCH ×3 (05:40→17:51)
[2019-03-02] MEDS ORDERED: DEXTROSE 10% 1,000 ML IV PRN (05:45)
[2019-03-02] MEDS: METOCLOPRAMIDE HCL INJ 5 MG/ML 2 ML VIAL IV SCH ×3 (05:49→17:52)
[2019-03-02 06:53] LABS: Hematocrit (blood only) 36.2 % (42-52); Hemoglobin 12.6 g/dL (14.0-18.0); Mean Corpuscular Hgb Conc 34.8 g/dL (32-36); Mean Corpuscular Volume 89.2 fL (80-100); Mean Platelet Volume 10.4 fL (7.4-10.4); Platelet Count 212 K/uL (130-400); RDW Coefficient of Variation 12.7 % (11.5-14.5); RDW Standard Deviation 41.6 fL (36.4-46.3); Red Blood Count 4.06 M/uL (4.7-6.1); White Blood Count 8.68 K/uL (4.8-10.8)
[2019-03-02 07:23] LABS: BUN Creatinine Ratio 11.8 (10-20); Calcium 7.5 mg/dl (8.5-10.1); Creatinine Clr Calc Pharmacy 81.8 ml/min; Est GFR (African American) 97.7; Est GFR (Non-African American) 84.3; Magnesium 2.2 mg/dl (1.8-2.4); Phosphorus 1.8 mg/dl (2.5-4.9); Potassium 3.7 mmol/L (3.5-5.1)
[2019-03-02] MEDS: PANTOprazole 40 MG in SYRINGE 0 ML IV SCH ×2 (08:11→20:30)
--- NOTE | 2019-03-02 09:28 | Cardiology Progress Note ---
Date of Service March 02, 2019 Assessment & Plan (1) Paroxysmal atrial fibrillation: Postoperative atrial fibrillation with spontaneous conversion to normal sinus rhythm. Patient currently n.p.o. Agree with Lopressor 5 mg every 6 hours. No indication for anticoagulation currently. (2) HTN (hypertension): Improved, however, remains uncontrolled. Continue IV Lopressor in addition to enalaprilat every 6 hours. Consider addition of as needed IV h ydralazine pending clinical response. (3) Hypokalemia: Resolved. Follow BMP. Subjective Patient seen and examined at the bedside. Denies chest discomfort or shortness of breath. No recurrent dysrhythmias on telemetry. Notes mild "twinges" involving his abdomen. Denies nausea or pain. TPN infusing. Blood pressure remains elevated. Review of Systems Review of Systems: All systems reviewed & are unremarkable except as noted in HPI & below Physical Exam Physical Exam: General: NAD, AAO x3, well nourished. HEENT: Normocephalic. Atraumatic. Conjunctiva pink, no scleral icterus. Neck: No carotid bruits, the carotid upstrokes are brisk. No JVD. No HJR Heart: Regular normal S-1 and S-2 no S-3 or S-4 gallop. No murmurs or rub appreciated. PMI is not displaced. No RV heave. Lungs: Clear bilateral without rales , rhonchi, or wheeze. Abdomen: Normal bowel sounds. Soft. Nontender. No masses or organomegaly. No abdominal bruits. Extremities: No clubbing, cyanosis, or edema. Pulses: radial=2/4, posterior tibial=2/4. Neuro: Cranial nerves grossly intact. No focal motor deficit. Results & Data Vital Signs (Past 12 Hours) Vital Signs Temp Pulse Pulse Resp BP BP Pulse Ox 03/02/19 08:21 85 162/106 H 03/02/19 08:17 36.4 C L 85 18 162/106 H 99 03/02/19 05:39 76 181/112 H 03/02/19 01:47 76 174/100 H 03/02/19 01:45 36.9 C 76 20 174/100 H 95 03/01/19 23:48 66 03/01/19 23:13 36.5 C 72 18 154/91 H 93 03/01/19 22:12 171/95 H Laboratory Results Laboratory Results - last 24 hr 03/02/19 03/02/19 03/02/19 00:07 05:48 06:32 WBC RBC Hgb Hct MCV MCH MCHC RDW Std Deviation RDW Coeff of [place] Plt Count MPV Sodium 140 Potassium 3.7 Chloride 110 H Carbon Dioxide 25 Anion Gap 5.0 BUN 10 Creatinine 0.83 Est Cr Clr Drug Dosing 81.8 Est GFR ( Amer) 97.7 Est GFR (Non-Af Amer) 84.3 BUN/Creatinine Ratio 11.8 Glucose 94 POC Glucose 106 H 116 H Calcium 7.5 L Phosphorus 1.8 L Magnesium 2.2 Triglycerides 120 03/02/19 06:32 WBC 8.68 RBC 4.06 L Hgb 12.6 L Hct 36.2 L MCV 89.2 MCH 31.0 MCHC 34.8 RDW Std Deviation 41.6 RDW Coeff of Ifeoma 12.7 Plt Count 212 MPV 10.4 Sodium Potassium Chloride Carbon Dioxide Anion Gap BUN Creatinine Est Cr Clr Drug Dosing Est GFR ( Amer) Est GFR (Non-Af Amer) BUN/Creatinine Ratio Glucose POC Glucose Calcium Phosphorus Magnesium Triglycerides (1) HTN (hypertension) Hypertension type: essential hypertension Qualified Code(s): I10 - Essential (primary) hypertension
--- NOTE | 2019-03-02 10:42 | Progress Note ---
DATE: 03/02/2019 SUBJECTIVE: The patient was seen today. He looks great. He has been afebrile. His blood pressure is still a bit high. His saturations are 99% on room air. His lungs sound better in the left base. He is not wheezing at all. His abdomen is soft. His incisions are healing well, and he is essentially nontender. He is on hyperalimentation. He has had excellent urine output. His Gramajo catheter remains in. His white count today was 8680. Hemoglobin is stable at 12.6. ASSESSMENT AND PLAN: I had a long talk with the patient. Our plan at this point is to proceed with a repeat upper endoscopy on 03/07/[address] Hardik Andrews. I am pleased with him. I think he is going to heal up from this. My bigger concern remains his gastric emptying. I have discussed this with Dr. Son today. We will see how he looks next week and keep him essentially n.p.o. except for sips to clears until 03/07/2019. I am pleased with the fact that he is moving his bowels and his abdomen is benign.
--- NOTE | 2019-03-02 11:14 | Hospitalist Progress Note ---
Date of Service March 02, 2019 Assessment & Plan (1) History of repair of hiatal hernia: S/P laparoscopic repair of hiatal hernia 02/23. EGD demonstrated large amount of food / gastric fluid in esophagus and stomach with associated esophagitis and gastritis. Remains in n.p.o. and now on TPN Ongoing postop management per Dr. Felix. Denies any abdominal symptoms (2) Paroxysmal atrial fibrillation: PAF in setting of hypokalemia and hypoxia. Electrolytes and TSH are normal PE ruled out by CTA. Spontaneous conversion to sinus rhythm Appreciate cardiology input and recommendation Echo showed normal LV wall motion and function, normal atrial size. Started on metoprolol Heart rate is controlled (3) HTN (hypertension): BP was noted to be elevated. Was on oral medications before Has been on intravenous metoprolol and intravenous SAAD inhibitor for BP control May need to add hydralazine (4) Hypoxia: O2 sats as low as 89%. Possible aspiration pneumonia and / or atelectasis. Chest x-ray showed elevated left hemidiaphragm. Incentive spirometry. Management of pneumonia as discussed below. Saturating normally on room air (5) Aspiration pneumonia: Had cough and leukocytosis at time of admission. Chest films showed infiltrate at left base. CTA showed postsurgical changes, dilated fluid-filled esophagus, bibasilar atelectasis vs consolidation. Continue IV piperacillin / tazobactam for possible aspiration pneumonia. White count is improved Continue current antibiotic (6) Hypokalemia: Serum K 3.4 at time of admission. Received replacement. K today = 3.7. Has low phosphate We will give intravenous phosphate and potassium (7) Urinary retention: Underlying prostate Ca. Gramajo cath inserted by Urology. (8) DVT prophylaxis: SCD's. Ambulate. (9) Discharge planning issues: Discharge disposition to be determined. Medical follow-up with Becca in [place]. (10) Encounter for consultation: Thank you for this consultation. We will follow the patient with you during their hospital stay. My cell # is [phone]. You can reach a member of the [facility] Medicine Team 11/05 via pager @ [phone]. Subjective 03/02 The patient was seen and examined in telemetry unit Mr. Marino is a very nice 78-year-old male who had a huge hiatal hernia with gastric volvulus. Status post robotic assisted laparoscopic repair on 02/23/2019. Denies any symptoms as of today His blood pressure noted to be very high without any symptoms He denies any chest pain, palpitation or shortness of breath Review of Systems Review of Systems: All systems reviewed and are unremarkable except as noted. Respiratory: no cough and no dyspnea Gastrointestinal: + bloating Physical Exam Physical Exam: No apparent distress at rest Constitutional: no acute distress Eyes: PERRL, conjunctivae normal, anicteric sclerae ENMT: external ear and nose normal, oropharynx normal Neck: trachea midline, no thyromegaly Respiratory: no respiratory distress Auscultation: + diminished lung sounds (left base) Cardiovascular: Rate/Rhythm: regular rate and regular rhythm Extremities: no edema Gastrointestinal (Abdomen): normal bowel sounds, soft, nontender, no hepatosplenomegaly Skin: no rashes, warm and dry Neurologic: patellar DTR's 2+ bilat, sensation intact Psychiatric: A+Ox3, euthymic affect Lymphatic: no cervical or axillary lymphadenopathy Results & Data Vital Signs (Past 12 Hours) Vital Signs Temp Pulse Pulse Resp BP BP Pulse Ox 03/02/19 08:21 85 162/106 H 03/02/19 08:17 36.4 C L 85 18 162/106 H 99 03/02/19 05:39 76 181/112 H 03/02/19 01:47 76 174/100 H 03/02/19 01:45 36.9 C 76 20 174/100 H 95 03/01/19 23:48 66 03/01/19 23:13 36.5 C 72 18 154/91 H 93 Laboratory Results Short CBC 03/02/19 Range/Units 06:32 WBC 8.68 (4.8-10.8) K/uL Hgb 12.6 L (14.0-18.0) g/dL Hct 36.2 L (42-52) % Plt Count 212 (130-400) K/uL BMP 03/02/19 06:32 Sodium 140 Potassium 3.7 Chloride 110 H Carbon Dioxide 25 BUN 10 Creatinine 0.83 Glucose 94 Calcium 7.5 L Medications Administered Current Inpatient Medications Bicalutamide (Casodex) 50 mg PO QPM [facility] Stop: 03/27/19 20:59 Last Admin: 02/27/19 20:11 Dose: 50 mg Documented by: Heparin Sodium (Porcine) (Heparin Sodium (Porcine)) 5,000 units SQ Q12 [facility] Stop: 04/01/19 10:49 Piperacillin Sod/Tazobactam (Sod 3.375 gm/ Dextrose) 115 mls @ 28.75 mls/hr IV Q8H [facility]; Protocol Stop: 03/05/19 01:59 Last Admin: 03/02/19 09:24 Dose: 30 mls/hr Documented by: Promethazine HCl 12.5 mg/ (Sodium Chloride) 50.5 mls @ 202 mls/hr IV Q6H PRN PRN Reason: Nausea And Vomiting Stop: 03/28/19 00:51 Pantoprazole Sodium 40 mg/ (Syringe) 10 mls @ 5 mls/min IV BID@0900,2100 [facility] Stop: 03/30/19 10:59 Last Admin: 03/02/19 08:11 Dose: 5 mls/min Documented by: Enalaprilat 0.625 mg/ Syringe 10 mls @ 2 mls/min IV Q6H PRN PRN Reason: Blood Pressure - High Stop: 03/30/19 14:44 Enalaprilat 1.25 mg/ Dextrose 26 mls @ 100 mls/hr IV Q6 [facility] Stop: 03/31/19 17:59 Last Infusion: 03/02/19 05:55 Dose: Infused Documented by: Dextrose (D10w) 1,000 mls @ 75 mls/hr IV .[id number] PRN PRN Reason: UNDECIDED Stop: 03/31/19 15:59 Metoclopramide HCl (Reglan) 10 mg IV Q6H [facility] Stop: 03/27/19 12:14 Last Admin: 03/02/19 05:49 Dose: 10 mg Documented by: Metoprolol Tartrate (Lopressor) 5 mg IV Q6H [facility] Stop: 03/30/19 19:59 Last Admin: 03/02/19 08:21 Dose: 5 mg Documented by: Miscellaneous Information (Consult) 1 ea N/A UD PRN PRN Reason: Consult Stop: 03/27/19 20:49 Miscellaneous Information (Pharmacy Tpn/Ppn Consult Active) 1 ea N/A UD PRN PRN Reason: Consult Stop: 03/30/19 20:14 Nutrition (Parenteral) (Custom Central Pn) 1 bag IV TODAY@1600 [facility]; Protocol Stop: 03/02/19 15:59 Last Admin: 03/01/19 16:01 Dose: 1 bag Documented by: (1) HTN (hypertension) Hypertension type: essential hypertension Qualified Code(s): I10 - Essential (primary) hypertension
[2019-03-02] MEDS ORDERED: POTASSIUM PHOSPHATE 21 MMOL in SODIUM CHLORIDE 0.9% 500 ML IV SCH (12:00)
[2019-03-02] MEDS: HEPARIN SOD 5,000 UNIT/0.5 ML VIAL SQ SCH (12:13)
[2019-03-02] MEDS ORDERED: THIAMINE HCL 100 MG in SYRINGE 9 ML IV ONE (15:00)
[2019-03-02] MEDS: HydrALAZINE HCL 20 MG/ML VIAL IV PRN (15:27)
[2019-03-02] MEDS ORDERED: CUSTOM CENTRAL PN IV SCH (16:00)
[2019-03-03] MEDS: HEPARIN SOD 5,000 UNIT/0.5 ML VIAL SQ SCH ×3 (00:02→23:38)
[2019-03-03] MEDS: ENALAPRILAT 1.25 MG in DEXTROSE 5% 25 ML IV SCH ×5 (00:08→23:36)
[2019-03-03] MEDS: METOCLOPRAMIDE HCL INJ 5 MG/ML 2 ML VIAL IV SCH ×5 (00:14→23:44)
[2019-03-03] MEDS: METOPROLOL TARTRATE 1 MG/ML VIAL IV SCH ×5 (02:44→23:57)
[2019-03-03] MEDS: PIPERACILLIN/TAZOBACTAM 3.375 GM in DEXTROSE 5% 100 ML IV SCH ×3 (02:49→16:59)
[2019-03-03] MEDS: HydrALAZINE HCL 20 MG/ML VIAL IV PRN (03:40)
[2019-03-03] MEDS: PANTOprazole 40 MG in SYRINGE 0 ML IV SCH ×2 (07:35→19:21)
[2019-03-03 07:46] LABS: Basophils # (auto) 0.03 K/uL (0-0.2); Basophils % (auto) 0.3 %; Eosinophils # (auto) 0.08 K/uL (0-0.5); Eosinophils % (auto) 0.7 %; Hematocrit (blood only) 38.2 % (42-52); Hemoglobin 13.8 g/dL (14.0-18.0); Immature Granulocytes % (auto) 0.9 %; Lymphocytes # (auto) 1.87 K/uL (1.2-3.4); Lymphocytes % (auto) 16.4 %; Mean Corpuscular Hgb Conc 36.1 g/dL (32-36); Mean Platelet Volume 10.2 fL (7.4-10.4); Monocytes # (auto) 1.13 K/uL (0.11-0.59); Monocytes % (auto) 9.9 %; Neutrophils # (auto) 8.17 K/uL (1.4-6.5); Neutrophils % (auto) 71.8 %; Platelet Count 258 K/uL (130-400); RDW Coefficient of Variation 12.8 % (11.5-14.5); RDW Standard Deviation 41.3 fL (36.4-46.3); Red Blood Count 4.39 M/uL (4.7-6.1); White Blood Count 11.38 K/uL (4.8-10.8)
[2019-03-03 08:18] LABS: BUN Creatinine Ratio 19.2 (10-20); Calcium 7.9 mg/dl (8.5-10.1); Creatinine Clr Calc Pharmacy 83.9 ml/min; Est GFR (African American) 98.7; Est GFR (Non-African American) 85.1; Magnesium 2.1 mg/dl (1.8-2.4); Phosphorus 1.9 mg/dl (2.5-4.9); Potassium 3.7 mmol/L (3.5-5.1)
[2019-03-03] MEDS ORDERED: POTASSIUM PHOS 3 MMOL/1 ML INFUSION IV STA (09:16)
--- NOTE | 2019-03-03 09:21 | Cardiology Progress Note ---
Date of Service March 03, 2019 Assessment & Plan (1) Paroxysmal atrial fibrillation: Postoperative atrial fibrillation with spontaneous conversion to normal sinus rhythm. Patient currently n.p.o. Continue Lopressor 5 mg every 6 hours. No indication for anticoagulation currently. (2) HTN (hypertension): Improved, however, remains uncontrolled. Continue scheduled IV Lopressor and enalaprilat every 6 hours in addition to prn intravenous hydralazine. Subjective Patient seen and examined at the bedside. Denies chest discomfort or shortness of breath. No recurrent dysrhythmias on telemetry. Denies abdominal discomfort, nausea, or vomiting. TPN infusing. Blood pressure mildly improved. Review of Systems Review of Systems: All systems reviewed & are unremarkable except as noted in HPI & below Physical Exam Physical Exam: General: NAD, AAO x3, well nourished. HEENT: Normocephalic. Atraumatic. Conjunctiva pink, no scleral icterus. Neck: No carotid bruits, the carotid upstrokes are brisk. No JVD. No HJR Heart: Regular normal S-1 and S-2 no S-3 or S-4 gallop. No murmurs or rub appreciated. PMI is not displaced. No RV heave. Lungs: Clear bilateral without rales , rhonchi, or wheeze. Abdomen: Normal bowel sounds. Soft. Nontender. No masses or organomegaly. No abdominal bruits. Extremities: No clubbing, cyanosis, or edema. Pulses: radial=2/4, posterior tibial=2/4. Neuro: Cranial nerves grossly intact. No focal motor deficit. Results & Data Vital Signs (Past 12 Hours) Vital Signs Temp Pulse Pulse Resp BP BP Pulse Ox 03/03/19 06:54 37.0 C 77 16 167/93 H 94 03/03/19 06:31 96 H 167/93 H 03/03/19 05:45 188/104 H 03/03/19 03:36 181/104 H 03/03/19 02:50 36.6 C 80 20 185/110 H 94 03/03/19 02:44 87 185/110 H 03/02/19 23:40 37.2 C 81 18 164/99 H 94 03/02/19 23:03 79 03/02/19 21:36 158/92 H (1) HTN (hypertension) Hypertension type: essential hypertension Qualified Code(s): I10 - Essential (primary) hypertension
--- NOTE | 2019-03-03 09:38 | Surgery Progress Note ---
Date of Service March 03, 2019 Assessment & Plan (1) Urinary retention: -will discuss with urology plans for boateng removal and void trial (2) Paroxysmal atrial fibrillation: -plan noted by cardiology for rate control measures (3) History of repair of hiatal hernia: -concern for improper gastric emptying -will keep npo -continue TPN -discussed with GI and plan noted for repeat EGD on 03/07/19 Subjective Pt. notes he is feeling well. He denies CP, SOB, fevers, shakes, chills. He denies abdominal pain. No N/V. he has been ambulating in hallway. Physical Exam Constitutional: well developed and well nourished; no acute distress and not ill appearing Respiratory: normal respiratory effort, lungs clear to auscultation normal respiratory effort; no respiratory distress and no labored breathing Gastrointestinal (Abdomen): Abdomen is soft and not distended. BS are hypoactive. No pain noted with palpation of abdomen. Results & Data Vital Signs (Past 12 Hours) Vital Signs Temp Pulse Pulse Resp BP BP Pulse Ox 03/03/19 06:54 37.0 C 77 16 167/93 H 94 03/03/19 06:31 96 H 167/93 H 03/03/19 05:45 188/104 H 03/03/19 03:36 181/104 H 03/03/19 02:50 36.6 C 80 20 185/110 H 94 03/03/19 02:44 87 185/110 H 03/02/19 23:40 37.2 C 81 18 164/99 H 94 03/02/19 23:03 79
[2019-03-03] MEDS: ACETAMINOPHEN 1,000 MG/100 ML VIAL IV PRN (09:39)
[2019-03-03] MEDS ORDERED: POTASSIUM PHOSPHATE 24 MMOL in SODIUM CHLORIDE 0.9% 500 ML IV ONE (09:45)
--- NOTE | 2019-03-03 11:57 | Hospitalist Progress Note ---
Date of Service March 03, 2019 Assessment & Plan (1) History of repair of hiatal hernia: S/P laparoscopic repair of hiatal hernia 02/23. EGD demonstrated large amount of food / gastric fluid in esophagus and stomach with associated esophagitis and gastritis. Remains in n.p.o. and now on TPN Ongoing postop management per Dr. Felix. Denies any abdominal symptoms Will have EGD on of this month Continue TPN and clears orally (2) Paroxysmal atrial fibrillation: PAF in setting of hypokalemia and hypoxia. Electrolytes and TSH are normal PE ruled out by CTA. Spontaneous conversion to sinus rhythm Appreciate cardiology input and recommendation Echo showed normal LV wall motion and function, normal atrial size. Started on metoprolol Heart rate is controlled (3) HTN (hypertension): BP was noted to be elevated. Was on oral medications before Has been on intravenous metoprolol and intravenous SAAD inhibitor for BP control May need to add hydralazine Blood pressure seems to be under controlled with intravenous beta-cortez and hydralazine PRN (4) Hypoxia: O2 sats as low as 89%. Possible aspiration pneumonia and / or atelectasis. Chest x-ray showed elevated left hemidiaphragm. Incentive spirometry. Management of pneumonia as discussed below. Saturating normally on room air (5) Aspiration pneumonia: Had cough and leukocytosis at time of admission. Chest films showed infiltrate at left base. CTA showed postsurgical changes, dilated fluid-filled esophagus, bibasilar atelectasis vs consolidation. Continue IV piperacillin / tazobactam for possible aspiration pneumonia. White count is improved Continue current antibiotic (6) Hypokalemia: Has other electrolyte abnormalities as well Serum K 3.4 at time of admission. Received replacement. K today = 3.7. Has low phosphate We will give intravenous phosphate and potassium again today (7) Urinary retention: Underlying prostate Ca. Gramajo cath inserted by Urology. (8) DVT prophylaxis: SCD's. Ambulate. (9) Discharge planning issues: Discharge disposition to be determined. Medical follow-up with [facility] in [place]. (10) Encounter for consultation: Thank you for this consultation. We will follow the patient with you during their hospital stay. My cell # is [phone]. You can reach a member of the [facility] Medicine Team 11/05 via pager @ [phone]. Subjective 03/02 The patient was seen and examined in telemetry unit Mr. Marino is a very nice 78-year-old male who had a huge hiatal hernia with gastric volvulus. Status post robotic assisted laparoscopic repair on 02/23/2019. Denies any symptoms as of today His blood pressure noted to be very high without any symptoms He denies any chest pain, palpitation or shortness of breath 03/03 Patient was seen and examined in telemetry unit He complains of a headache Denies any abdominal pain, distention, nausea and vomiting Remains on TPN Review of Systems Review of Systems: All systems reviewed and are unremarkable except as noted below Constitutional: + malaise and + weakness Gastrointestinal: no abdominal pain, no belching, no heartburn, no nausea and no vomiting Physical Exam Physical Exam: Sitting on the bed without any symptoms Constitutional: no acute distress Eyes: PERRL, conjunctivae normal, anicteric sclerae ENMT: external ear and nose normal, oropharynx normal Neck: trachea midline, no thyromegaly Respiratory: no respiratory distress Auscultation: + diminished lung sounds (left base) Cardiovascular: Rate/Rhythm: regular rate and regular rhythm Heart Sounds: no gallop, no murmur and no cardiac rub Vessels: no JVD Extremities: no edema Gastrointestinal (Abdomen): normal bowel sounds, soft, nontender, no hepatosplenomegaly Skin: no rashes, warm and dry Neurologic: patellar DTR's 2+ bilat, sensation intact Psychiatric: A+Ox3, euthymic affect Orientation: alert and oriented x 3 Lymphatic: no cervical or axillary lymphadenopathy Results & Data Vital Signs (Past 12 Hours) Vital Signs Temp Pulse Pulse Resp BP BP Pulse Ox 03/03/19 11:44 88 146/91 H 03/03/19 11:19 36.5 C 88 18 146/91 H 95 03/03/19 06:54 37.0 C 77 16 167/93 H 94 03/03/19 06:31 96 H 167/93 H 03/03/19 05:45 188/104 H 03/03/19 03:36 181/104 H 03/03/19 02:50 36.6 C 80 20 185/110 H 94 03/03/19 02:44 87 185/110 H Laboratory Results Short CBC 05/16/19 Range/Units 07:38 WBC 11.38 H (4.8-10.8) K/uL Hgb 13.8 L (14.0-18.0) g/dL Hct 38.2 L (42-52) % Plt Count 258 (130-400) K/uL BMP 03/03/19 07:38 Sodium 140 Potassium 3.7 Chloride 112 H Carbon Dioxide 20 L BUN 16 D Creatinine 0.81 Glucose 115 H Calcium 7.9 L Medications Administered Current Inpatient Medications Bicalutamide (Casodex) 50 mg PO QPM [facility] Stop: 03/27/19 20:59 Last Admin: 02/27/19 20:11 Dose: 50 mg Documented by: Heparin Sodium (Porcine) (Heparin Sodium (Porcine)) 5,000 units SQ Q12H [facility] Stop: 04/01/19 11:59 Last Admin: 03/03/19 11:45 Dose: 5,000 units Documented by: Hydralazine HCl (Hydralazine Hcl) 10 mg IV Q8 PRN PRN Reason: Hypertension Stop: 04/01/19 14:41 Last Admin: 03/03/19 03:40 Dose: 10 mg Documented by: Piperacillin Sod/Tazobactam (Sod 3.375 gm/ Dextrose) 115 mls @ 28.75 mls/hr IV Q8H [facility]; Protocol Stop: 03/05/19 01:59 Last Admin: 03/03/19 09:10 Dose: 30 mls/hr Documented by: Promethazine HCl 12.5 mg/ (Sodium Chloride) 50.5 mls @ 202 mls/hr IV Q6H PRN PRN Reason: Nausea And Vomiting Stop: 03/28/19 00:51 Pantoprazole Sodium 40 mg/ (Syringe) 10 mls @ 5 mls/min IV BID@0900,2100 [facility] Stop: 03/30/19 10:59 Last Admin: 03/03/19 07:35 Dose: 5 mls/min Documented by: Enalaprilat 0.625 mg/ Syringe 10 mls @ 2 mls/min IV Q6H PRN PRN Reason: Blood Pressure - High Stop: 03/30/19 14:44 Enalaprilat 1.25 mg/ Dextrose 26 mls @ 100 mls/hr IV Q6 SHERIF Stop: 03/31/19 17:59 Last Admin: 03/03/19 11:45 Dose: 100 mls/hr Documented by: Dextrose (D10w) 1,000 mls @ 75 mls/hr IV .[id number] PRN PRN Reason: UNDECIDED Stop: 03/31/19 15:59 Acetaminophen (Ofirmev) 1,000 mg in 100 mls @ 400 mls/hr IV Q8H PRN PRN Reason: Pain Stop: 04/02/19 09:15 Last Infusion: 03/03/19 09:54 Dose: Infused Documented by: Potassium Phosphate 24 mmol/ (Sodium Chloride) 508 mls @ 127 mls/hr IV ONE ONE Stop: 03/03/19 13:44 Last Admin: 03/03/19 09:56 Dose: 6 mmol/hr, 127 mls/hr Documented by: Metoclopramide HCl (Reglan) 10 mg IV Q6H SHERIF Stop: 03/27/19 12:14 Last Admin: 03/03/19 11:44 Dose: 10 mg Documented by: Metoprolol Tartrate (Lopressor) 5 mg IV Q6H SHERIF Stop: 04/02/19 06:04 Last Admin: 03/03/19 11:44 Dose: 5 mg Documented by: Miscellaneous Information (Consult) 1 ea N/A UD PRN PRN Reason: Consult Stop: 03/27/19 20:49 Miscellaneous Information (Pharmacy Tpn/Ppn Consult Active) 1 ea N/A UD PRN PRN Reason: Consult Stop: 03/30/19 20:14 Nutrition (Parenteral) (Custom Central Pn) 1 bag IV TODAY@1600 SHERIF; Protocol Stop: 03/03/19 15:59 Last Admin: 03/02/19 15:28 Dose: 1 bag Documented by: Nutrition (Parenteral) (Custom Central Pn) 1 bag IV TODAY@1600 SHERIF; Protocol Stop: 03/04/19 15:59 (1) HTN (hypertension) Hypertension type: essential hypertension Qualified Code(s): I10 - Essential (primary) hypertension
[2019-03-03] MEDS ORDERED: CUSTOM CENTRAL PN IV SCH (16:00)
[2019-03-04] MEDS: PIPERACILLIN/TAZOBACTAM 3.375 GM in DEXTROSE 5% 100 ML IV SCH ×3 (01:08→17:45)
[2019-03-04] MEDS: ENALAPRILAT 1.25 MG in DEXTROSE 5% 25 ML IV SCH ×3 (05:14→17:44)
[2019-03-04 05:18] LABS: Basophils # (auto) 0.04 K/uL (0-0.2); Basophils % (auto) 0.4 %; Eosinophils # (auto) 0.27 K/uL (0-0.5); Eosinophils % (auto) 2.7 %; Hematocrit (blood only) 37.6 % (42-52); Hemoglobin 13.1 g/dL (14.0-18.0); Immature Granulocytes # (auto) 0.09 K/uL (0.00-0.02); Immature Granulocytes % (auto) 0.9 %; Lymphocytes # (auto) 2.42 K/uL (1.2-3.4); Mean Corpuscular Hgb Conc 34.8 g/dL (32-36); Mean Corpuscular Volume 87.6 fL (80-100); Mean Platelet Volume 10.2 fL (7.4-10.4); Monocytes # (auto) 0.86 K/uL (0.11-0.59); Monocytes % (auto) 8.5 %; Neutrophils # (auto) 6.41 K/uL (1.4-6.5); Neutrophils % (auto) 63.5 %; Platelet Count 278 K/uL (130-400); RDW Standard Deviation 41.6 fL (36.4-46.3); Red Blood Count 4.29 M/uL (4.7-6.1); White Blood Count 10.09 K/uL (4.8-10.8)
[2019-03-04 05:36] LABS: Albumin Level 2.8 gm/dl (3.4-5.0); BUN Creatinine Ratio 24.2 (10-20); Calcium 7.6 mg/dl (8.5-10.1); Est GFR (African American) 99.7; Magnesium 2.1 mg/dl (1.8-2.4); Potassium 3.9 mmol/L (3.5-5.1)
[2019-03-04 05:39] LABS: Albumin Globulin Ratio 0.5 (0.9-2); Bilirubin,Total 0.7 mg/dl (0.2-1); Globulin 5.1 gm/dl (2.5-4.0); Phosphorus 2.2 mg/dl (2.5-4.9); Total Protein 7.9 gm/dl (6.4-8.2)
[2019-03-04] MEDS: METOPROLOL TARTRATE 1 MG/ML VIAL IV SCH ×3 (05:41→17:45)
[2019-03-04] MEDS: METOCLOPRAMIDE HCL INJ 5 MG/ML 2 ML VIAL IV SCH ×3 (05:49→17:53)
[2019-03-04] MEDS: PANTOprazole 40 MG in SYRINGE 0 ML IV SCH ×2 (07:55→21:17)
--- NOTE | 2019-03-04 08:09 | Surgery Progress Note ---
Date of Service March 04, 2019 Assessment & Plan (1) Urinary retention: -boateng removed yesterday and pt. voiding without trouble and no significant PVR (2) Paroxysmal atrial fibrillation: -plans as noted by cardiology (3) History of repair of hiatal hernia: -pt. npo due to concern for gastric outlet obstruciton -plans for repeat EGD on 03/07/19 -there was some noted confusion about code status--pt. does not want to be "kept alive with machines" but if he would suffer a cardiac arrest in hospital he notes that CPR and temporary ventilator support are acceptable, therefore will change to full code -sub-q heparin for DVT prevention Subjective Pt. denies N/V or worsening abdominal pain. He continues to ambulate in hallway. He had boateng removed and has been voiding without difficulty. Discussed with RN and pt. has not had significant PVR on bladder scan. Physical Exam Constitutional: WD/WN, vitals as above well developed and well nourished Respiratory: normal respiratory effort; no respiratory distress and no labored breathing Cardiovascular: Rate/Rhythm: regular rate and regular rhythm Gastrointestinal (Abdomen): soft, non-tender and non-distended; palpation dis not cause pain. Results & Data Vital Signs (Past 12 Hours) Vital Signs Temp Pulse Pulse Resp BP BP Pulse Ox 03/04/19 07:52 36.9 C 86 18 167/96 H 96 03/04/19 05:41 84 157/95 H 03/04/19 05:11 165/105 H 03/04/19 03:47 36.5 C 83 19 159/96 H 93 03/03/19 23:57 86 159/92 H 03/03/19 23:45 74 03/03/19 23:09 36.7 C 81 17 158/98 H 93
--- NOTE | 2019-03-04 10:55 | Urology Progress Note ---
Date of Service March 04, 2019 Assessment & Plan (1) Urinary retention: Voiding yellow urine spontaneously without bother. Continue PVR monitoring as needed. Patient encouraged to monitor for pain or distention. Outpatient URO follow up has been arranged. Thank you for allowing us to participate in the inpatient care of Mr. Marino. Please reconsult our service with additional questions/concerns. (2) Prostate cancer: Subjective 78YO male with urinary retention, history of prostate cancer. Gramajo was removed last night, patient has been voiding yellow urine without bother since. Some increased frequency, but no incontinence. No bladder pain or distention. No hematuria. Overall pleased with his urinary pattern. Remains in good sprits despite his other health issues. Physical Exam Physical Exam: WN/WD NAD. Resp effort normal. No JVD. Abd soft, nontender. A&O x3, appropriate affect. : bladder non-distended. Urine in urinal is clear yellow. Results & Data Vital Signs (Past 12 Hours) Vital Signs Temp Pulse Pulse Resp BP BP Pulse Ox 03/04/19 07:52 36.9 C 86 18 167/96 H 96 03/04/19 05:41 84 157/95 H 03/04/19 05:11 165/105 H 03/04/19 03:47 36.5 C 83 19 159/96 H 93 03/03/19 23:57 86 159/92 H 03/03/19 23:45 74 03/03/19 23:09 36.7 C 81 17 158/98 H 93
--- NOTE | 2019-03-04 12:30 | Cardiology Progress Note ---
Date of Service March 04, 2019 Assessment & Plan (1) HTN (hypertension): Blood pressure improved with IV Lopressor plus enalaprilat. Continue as needed hydralazine. Transition to oral metoprolol and lisinopril when patient able. EGD tentatively scheduled for Thursday. Cardiology will sign off for . Please call with questions. (2) Paroxysmal atrial fibrillation: Isolated episode of postoperative atrial fibrillation 02/26/19 with spontaneous conversion to normal sinus rhythm. Patient currently n.p.o. Continue Lopressor 5 mg every 6 hours. No indication for anticoagulation currently. Subjective Patient seen and examined at the bedside. Feeling well from a cardiovascular standpoint. Denies chest pain or unusual shortness of breath. No dysrhythmias on telemetry. Blood pressure improved with IV medications. Offers no complaints this time. Review of Systems Review of Systems: All systems reviewed & are unremarkable except as noted in HPI & below Physical Exam Physical Exam: General: NAD, AAO x3, well nourished. HEENT: Normocephalic. Atraumatic. Conjunctiva pink, no scleral icterus. Neck: No carotid bruits, the carotid upstrokes are brisk. No JVD. No HJR Heart: Regular normal S-1 and S-2 no S-3 or S-4 gallop. No murmurs or rub appreciated. PMI is not displaced. No RV heave. Lungs: Clear bilateral without rales , rhonchi, or wheeze. Abdomen: Normal bowel sounds. Soft. Nontender. No masses or organomegaly. No abdominal bruits. Extremities: No clubbing, cyanosis, or edema. Pulses: radial=2/4, posterior tibial=2/4. Neuro: Cranial nerves grossly intact. No focal motor deficit. Results & Data Vital Signs (Past 12 Hours) Vital Signs Temp Pulse Pulse Resp BP BP Pulse Ox 03/04/19 12:15 36.8 C 79 18 154/98 H 98 03/04/19 07:52 36.9 C 86 18 167/96 H 96 03/04/19 05:41 84 157/95 H 03/04/19 05:11 165/105 H 03/04/19 03:47 36.5 C 83 19 159/96 H 93 Laboratory Results Laboratory Results - last 24 hr 03/03/19 03/04/19 03/04/19 19:43 00:11 04:53 WBC RBC Hgb Hct MCV MCH MCHC RDW Std Deviation RDW Coeff of Ifeoma Plt Count MPV Immature Gran % (Auto) Neut % (Auto) Lymph % (Auto) Baxter % (Auto) Eos % (Auto) Baso % (Auto) Immature Gran # (Auto) Neut # (Auto) Lymph # (Auto) Baxter # (Auto) Eos # (Auto) Baso # (Auto) Sodium 139 Potassium 3.9 Chloride 111 H Carbon Dioxide 23 Anion Gap 5.0 BUN 19 H Creatinine 0.79 Est Cr Clr Drug Dosing 86.0 Est GFR ( Amer) 99.7 Est GFR (Non-Af Amer) 86.0 BUN/Creatinine Ratio 24.2 H Glucose 105 H POC Glucose 119 H 110 H Calcium 7.6 L Phosphorus 2.2 L Magnesium 2.1 Total Bilirubin 0.7 AST 54 H ALT 56 Alkaline Phosphatase 61 Total Protein 7.9 Albumin 2.8 L Globulin 5.1 H Albumin/Globulin Ratio 0.5 L 03/04/19 03/04/19 03/04/19 04:53 06:21 11:38 WBC 10.09 RBC 4.29 L Hgb 13.1 L Hct 37.6 L MCV 87.6 MCH 30.5 MCHC 34.8 RDW Std Deviation 41.6 RDW Coeff of Ifeoma 13.0 Plt Count 278 MPV 10.2 Immature Gran % (Auto) 0.9 Neut % (Auto) 63.5 Lymph % (Auto) 24.0 Baxter % (Auto) 8.5 Eos % (Auto) 2.7 Baso % (Auto) 0.4 Immature Gran # (Auto) 0.09 H Neut # (Auto) 6.41 Lymph # (Auto) 2.42 Baxter # (Auto) 0.86 H Eos # (Auto) 0.27 Baso # (Auto) 0.04 Sodium Potassium Chloride Carbon Dioxide Anion Gap BUN Creatinine Est Cr Clr Drug Dosing Est GFR ( Amer) Est GFR (Non-Af Amer) BUN/Creatinine Ratio Glucose POC Glucose 100 H 102 H Calcium Phosphorus Magnesium Total Bilirubin AST ALT Alkaline Phosphatase Total Protein Albumin Globulin Albumin/Globulin Ratio (1) HTN (hypertension) Hypertension type: essential hypertension Qualified Code(s): I10 - Essential (primary) hypertension
--- NOTE | 2019-03-04 12:40 | Gastroenterology Progress Note ---
Date of Service March 04, 2019 Assessment & Plan (1) Dysphagia: Plan for EGD on Thursday am at Dr. Felix's request. Hoping for no signs of concerns of ischemia as previously noted. Call with questions Subjective patient walking hallway, no pain, still NPO, on TPN Physical Exam Constitutional: WD/WN, vitals as above Cardiovascular: RRR, no murmur, no edema Gastrointestinal (Abdomen): normal bowel sounds, soft, nontender, no hepatosplenomegaly Results & Data Vital Signs (Past 12 Hours) Vital Signs Temp Pulse Pulse Resp BP BP Pulse Ox 03/04/19 12:15 36.8 C 79 18 154/98 H 98 03/04/19 07:52 36.9 C 86 18 167/96 H 96 03/04/19 05:41 84 157/95 H 03/04/19 05:11 165/105 H 03/04/19 03:47 36.5 C 83 19 159/96 H 93
[2019-03-04] MEDS: HEPARIN SOD 5,000 UNIT/0.5 ML VIAL SQ SCH (12:57)
--- NOTE | 2019-03-04 14:26 | Hospitalist Progress Note ---
Date of Service March 04, 2019 Assessment & Plan (1) History of repair of hiatal hernia: S/P laparoscopic repair of hiatal hernia 02/23. EGD demonstrated large amount of food / gastric fluid in esophagus and stomach with associated esophagitis and gastritis. Remains in n.p.o. and now on TPN Ongoing postop management per Dr. Felix. Denies any abdominal symptoms Will have EGD on of this month Continue TPN and clears orally Denies any symptoms and clinically stable Awaiting EGD on Thursday (2) Paroxysmal atrial fibrillation: PAF in setting of hypokalemia and hypoxia. Electrolytes and TSH are normal PE ruled out by CTA. Spontaneous conversion to sinus rhythm Appreciate cardiology input and recommendation Echo showed normal LV wall motion and function, normal atrial size. Started on metoprolol Heart rate is controlled and remains in sinus rhythm (3) HTN (hypertension): BP was noted to be elevated. Was on oral medications before Has been on intravenous metoprolol and intravenous SAAD inhibitor for BP control May need to add hydralazine Blood pressure seems to be under controlled with intravenous beta-cortez and hydralazine PRN Blood pressure remains on the upper side of normal The headache is resolved (4) Hypoxia: O2 sats as low as 89%. Possible aspiration pneumonia and / or atelectasis. Chest x-ray showed elevated left hemidiaphragm. Incentive spirometry. Management of pneumonia as discussed below. Saturating normally on room air (5) Aspiration pneumonia: Had cough and leukocytosis at time of admission. Chest films showed infiltrate at left base. CTA showed postsurgical changes, dilated fluid-filled esophagus, bibasilar atelectasis vs consolidation. Continue IV piperacillin / tazobactam for possible aspiration pneumonia. White count is improved Continue current antibiotic (6) Hypokalemia: Has other electrolyte abnormalities as well Serum K 3.4 at time of admission. Received replacement. K today = 3.7. Has low phosphate We will give intravenous phosphate and potassium again today Electrolytes will be adjusted in TPN (7) Urinary retention: Underlying prostate Ca. Gramajo cath inserted by Urology. (8) DVT prophylaxis: SCD's. Ambulate. (9) Discharge planning issues: Discharge disposition to be determined. Medical follow-up with Becca in [place]. (10) Encounter for consultation: Thank you for this consultation. We will follow the patient with you during their hospital stay. My cell # is [phone]. You can reach a member of the [facility] Medicine Team 11/05 via pager @ [phone]. Subjective 03/02 The patient was seen and examined in telemetry unit Mr. Marino is a very nice 78-year-old male who had a huge hiatal hernia with gastric volvulus. Status post robotic assisted laparoscopic repair on 02/23/2019. Denies any symptoms as of today His blood pressure noted to be very high without any symptoms He denies any chest pain, palpitation or shortness of breath 03/03 Patient was seen and examined in telemetry unit He complains of a headache Denies any abdominal pain, distention, nausea and vomiting Remains on TPN 03/04 Patient was seen and examined in telemetry unit He does not have any complaints today He has been ambulating without difficulty and the headache is gone Remains on TPN Review of Systems Constitutional: + malaise and + weakness Physical Exam Constitutional: no acute distress Eyes: PERRL, conjunctivae normal, anicteric sclerae ENMT: external ear and nose normal, oropharynx normal Neck: trachea midline, no thyromegaly Respiratory: no respiratory distress Auscultation: + diminished lung sounds (left base) Cardiovascular: Rate/Rhythm: regular rate and regular rhythm Heart Sounds: no gallop, no murmur and no cardiac rub Vessels: no JVD Extremities: no edema Gastrointestinal (Abdomen): normal bowel sounds, soft, nontender, no hepatosplenomegaly Skin: no rashes, warm and dry Neurologic: patellar DTR's 2+ bilat, sensation intact Psychiatric: A+Ox3, euthymic affect Orientation: alert and oriented x 3 Lymphatic: no cervical or axillary lymphadenopathy Results & Data Vital Signs (Past 12 Hours) Vital Signs Temp Pulse Pulse Resp BP BP Pulse Ox 03/04/19 12:57 79 154/98 H 03/04/19 12:15 36.8 C 79 18 154/98 H 98 03/04/19 07:52 36.9 C 86 18 167/96 H 96 03/04/19 05:41 84 157/95 H 03/04/19 05:11 165/105 H 03/04/19 03:47 36.5 C 83 19 159/96 H 93 Laboratory Results Short CBC 03/04/19 Range/Units 04:53 WBC 10.09 (4.8-10.8) K/uL Hgb 13.1 L (14.0-18.0) g/dL Hct 37.6 L (42-52) % Plt Count 278 (130-400) K/uL BMP 03/04/19 04:53 Sodium 139 Potassium 3.9 Chloride 111 H Carbon Dioxide 23 BUN 19 H Creatinine 0.79 Glucose 105 H Calcium 7.6 L Liver Function 03/04/19 Range/Units 04:53 Total Bilirubin 0.7 (0.2-1) mg/dl AST 54 H (15-37) U/L ALT 56 (12-78) U/L Alkaline Phosphatase 61 (45-117) U/L Albumin 2.8 L (3.4-5.0) gm/dl Medications Administered Current Inpatient Medications Bicalutamide (Casodex) 50 mg PO QPM [facility] Stop: 03/27/19 20:59 Last Admin: 02/27/19 20:11 Dose: 50 mg Documented by: Heparin Sodium (Porcine) (Heparin Sodium (Porcine)) 5,000 units SQ Q12H [facility] Stop: 04/01/19 11:59 Last Admin: 03/04/19 12:57 Dose: 5,000 units Documented by: Hydralazine HCl (Hydralazine Hcl) 10 mg IV Q8 PRN PRN Reason: Hypertension Stop: 04/01/19 14:41 Last Admin: 03/03/19 03:40 Dose: 10 mg Documented by: Piperacillin Sod/Tazobactam (Sod 3.375 gm/ Dextrose) 115 mls @ 28.75 mls/hr IV Q8H [facility]; Protocol Stop: 03/05/19 01:59 Last Admin: 03/04/19 10:57 Dose: 28.8 mls/hr Documented by: Promethazine HCl 12.5 mg/ (Sodium Chloride) 50.5 mls @ 202 mls/hr IV Q6H PRN PRN Reason: Nausea And Vomiting Stop: 03/28/19 00:51 Pantoprazole Sodium 40 mg/ (Syringe) 10 mls @ 5 mls/min IV BID@0900,2100 [facility] Stop: 03/30/19 10:59 Last Admin: 03/04/19 07:55 Dose: 5 mls/min Documented by: Enalaprilat 0.625 mg/ Syringe 10 mls @ 2 mls/min IV Q6H PRN PRN Reason: Blood Pressure - High Stop: 03/30/19 14:44 Enalaprilat 1.25 mg/ Dextrose 26 mls @ 100 mls/hr IV Q6 [facility] Stop: 03/31/19 17:59 Last Infusion: 03/04/19 11:25 Dose: Infused Documented by: Dextrose (D10w) 1,000 mls @ 75 mls/hr IV .[id number] PRN PRN Reason: UNDECIDED Stop: 03/31/19 15:59 Acetaminophen (Ofirmev) 1,000 mg in 100 mls @ 400 mls/hr IV Q8H PRN PRN Reason: Pain Stop: 04/02/19 09:15 Last Infusion: 03/03/19 09:54 Dose: Infused Documented by: Metoclopramide HCl (Reglan) 10 mg IV Q6H [facility] Stop: 03/27/19 12:14 Last Admin: 03/04/19 12:57 Dose: 10 mg Documented by: Metoprolol Tartrate (Lopressor) 5 mg IV Q6H [facility] Stop: 04/02/19 06:04 Last Admin: 03/04/19 12:57 Dose: 5 mg Documented by: Miscellaneous Information (Consult) 1 ea N/A UD PRN PRN Reason: Consult Stop: 03/27/19 20:49 Miscellaneous Information (Pharmacy Tpn/Ppn Consult Active) 1 ea N/A UD PRN PRN Reason: Consult Stop: 03/30/19 20:14 Nutrition (Parenteral) (Custom Central Pn) 1 bag IV TODAY@1600 [facility]; Protocol Stop: 03/04/19 15:59 Last Admin: 03/03/19 15:49 Dose: 1 bag Documented by: Nutrition (Parenteral) (Custom Central Pn) 1 bag IV TODAY@1600 [facility]; Protocol Stop: 03/05/19 15:59 (1) HTN (hypertension) Hypertension type: essential hypertension Qualified Code(s): I10 - Essential (primary) hypertension
[2019-03-04] MEDS ORDERED: CUSTOM CENTRAL PN IV SCH (16:00)
[2019-03-05] MEDS: ENALAPRILAT 1.25 MG in DEXTROSE 5% 25 ML IV SCH ×5 (00:02→23:02)
[2019-03-05] MEDS: METOPROLOL TARTRATE 1 MG/ML VIAL IV SCH ×5 (00:02→23:02)
[2019-03-05] MEDS: HEPARIN SOD 5,000 UNIT/0.5 ML VIAL SQ SCH ×3 (00:03→23:02)
[2019-03-05] MEDS: METOCLOPRAMIDE HCL INJ 5 MG/ML 2 ML VIAL IV SCH ×5 (00:19→23:02)
[2019-03-05 06:21] LABS: BUN Creatinine Ratio 24.8 (10-20); Calcium 7.8 mg/dl (8.5-10.1); Creatinine Clr Calc Pharmacy 83.3 ml/min; Est GFR (African American) 98.7; Est GFR (Non-African American) 85.1; Magnesium 2.1 mg/dl (1.8-2.4); Potassium 4.2 mmol/L (3.5-5.1)
[2019-03-05 06:22] LABS: Phosphorus 2.5 mg/dl (2.5-4.9)
[2019-03-05] MEDS: PANTOprazole 40 MG in SYRINGE 0 ML IV SCH ×2 (08:22→20:52)
--- NOTE | 2019-03-05 13:04 | Hospitalist Progress Note ---
Date of Service March 05, 2019 Assessment & Plan (1) History of repair of hiatal hernia: S/P laparoscopic repair of hiatal hernia 02/23. EGD demonstrated large amount of food / gastric fluid in esophagus and stomach with associated esophagitis and gastritis. Remains in n.p.o. and now on TPN Ongoing postop management per Dr. Felix. Denies any abdominal symptoms Will have EGD on of this month Continue TPN and clears orally Denies any symptoms and clinically stable Awaiting EGD on Thursday Remains stable, complains to have minimal pain lower quadrants without any significant findings on exam (2) Paroxysmal atrial fibrillation: PAF in setting of hypokalemia and hypoxia. Electrolytes and TSH are normal PE ruled out by CTA. Spontaneous conversion to sinus rhythm Appreciate cardiology input and recommendation Echo showed normal LV wall motion and function, normal atrial size. Started on metoprolol Heart rate is controlled and remains in sinus rhythm (3) HTN (hypertension): BP was noted to be elevated. Was on oral medications before Has been on intravenous metoprolol and intravenous SAAD inhibitor for BP control May need to add hydralazine Blood pressure seems to be under controlled with intravenous beta-cortez and hydralazine PRN Blood pressure remains on the upper side of normal The headache is resolved Blood pressure remains high, will continue current medications (4) Hypoxia: O2 sats as low as 89%. Possible aspiration pneumonia and / or atelectasis. Chest x-ray showed elevated left hemidiaphragm. Incentive spirometry. Management of pneumonia as discussed below. Saturating normally on room air (5) Aspiration pneumonia: Had cough and leukocytosis at time of admission. Chest films showed infiltrate at left base. CTA showed postsurgical changes, dilated fluid-filled esophagus, bibasilar atelectasis vs consolidation. Continue IV piperacillin / tazobactam for possible aspiration pneumonia. White count is improved Continue current antibiotic (6) Hypokalemia: Has other electrolyte abnormalities as well Serum K 3.4 at time of admission. Received replacement. K today = 3.7. Has low phosphate We will give intravenous phosphate and potassium again today Electrolytes will be adjusted in TPN (7) Urinary retention: Underlying prostate Ca. Gramajo cath inserted by Urology. (8) DVT prophylaxis: SCD's. Ambulate. Has not been sleeping well for the last few days We will try oral trazodone at night (9) Discharge planning issues: Discharge disposition to be determined. Medical follow-up with Becca in [place]. (10) Encounter for consultation: Thank you for this consultation. We will follow the patient with you during their hospital stay. My cell # is [phone]. You can reach a member of the [facility] Medicine Team 11/05 via pager @ [phone]. Subjective 03/02 The patient was seen and examined in telemetry unit Mr. Marino is a very nice 78-year-old male who had a huge hiatal hernia with gastric volvulus. Status post robotic assisted laparoscopic repair on 02/23/2019. Denies any symptoms as of today His blood pressure noted to be very high without any symptoms He denies any chest pain, palpitation or shortness of breath 03/03 Patient was seen and examined in telemetry unit He complains of a headache Denies any abdominal pain, distention, nausea and vomiting Remains on TPN 03/04 Patient was seen and examined in telemetry unit He does not have any complaints today He has been ambulating without difficulty and the headache is gone Remains on TPN 03/05 Patient was seen and examined in the telemetry unit He has not been sleeping well for the last few days and his blood pressure seems to be very high He denies any other symptoms He has been ambulating well in the room Review of Systems Constitutional: + malaise and + weakness Physical Exam Physical Exam: No apparent distress at rest Constitutional: no acute distress Eyes: PERRL, conjunctivae normal, anicteric sclerae ENMT: external ear and nose normal, oropharynx normal Neck: trachea midline, no thyromegaly Respiratory: no respiratory distress Auscultation: + diminished lung sounds (left base) Cardiovascular: Rate/Rhythm: regular rate and regular rhythm Heart Sounds: no gallop, no murmur and no cardiac rub Vessels: no JVD Extremities: no edema Gastrointestinal (Abdomen): Inspection/Auscultation: abdomen normal to inspection and normal bowel sounds; abdomen not distended Percussion /Palpation: + abdomen tender (Minimally in the lower quadrant) and abdomen soft; no guarding and abdomen not rigid Skin: no rashes, warm and dry Neurologic: patellar DTR's 2+ bilat, sensation intact Psychiatric: A+Ox3, euthymic affect Orientation: alert and oriented x 3 Lymphatic: no cervical or axillary lymphadenopathy Results & Data Vital Signs (Past 12 Hours) Vital Signs Temp Pulse Pulse Resp BP BP Pulse Ox 03/05/19 12:27 94 H 162/100 H 03/05/19 11:11 36.4 C L 94 H 18 162/100 H 97 03/05/19 08:06 36.7 C 85 18 142/104 H 95 03/05/19 05:30 98 H 03/05/19 03:01 36.0 C L 91 H 20 168/105 H 96 Laboratory Results BMP 03/05/19 05:22 Sodium 141 Potassium 4.2 Chloride 113 H Carbon Dioxide 21 BUN 20 H Creatinine 0.81 Glucose 108 H Calcium 7.8 L Medications Administered Current Inpatient Medications Bicalutamide (Casodex) 50 mg PO QPM [facility] Stop: 03/27/19 20:59 Last Admin: 02/27/19 20:11 Dose: 50 mg Documented by: Heparin Sodium (Beef Lung) (Heparin Sod 10 Unit/Ml Flush) 5 ml FLUSH PRN PRN PRN Reason: Flush Stop: 04/04/19 01:47 Heparin Sodium (Porcine) (Heparin Sodium (Porcine)) 5,000 units SQ Q12H [facility] Stop: 04/01/19 11:59 Last Admin: 03/05/19 12:27 Dose: 5,000 units Documented by: Hydralazine HCl (Hydralazine Hcl) 10 mg IV Q8 PRN PRN Reason: Hypertension Stop: 04/01/19 14:41 Last Admin: 03/03/19 03:40 Dose: 10 mg Documented by: Promethazine HCl 12.5 mg/ (Sodium Chloride) 50.5 mls @ 202 mls/hr IV Q6H PRN PRN Reason: Nausea And Vomiting Stop: 03/28/19 00:51 Pantoprazole Sodium 40 mg/ (Syringe) 10 mls @ 5 mls/min IV BID@0900,2100 [facility] Stop: 03/30/19 10:59 Last Admin: 03/05/19 08:22 Dose: 5 mls/min Documented by: Enalaprilat 0.625 mg/ Syringe 10 mls @ 2 mls/min IV Q6H PRN PRN Reason: Blood Pressure - High Stop: 03/30/19 14:44 Enalaprilat 1.25 mg/ Dextrose 26 mls @ 100 mls/hr IV Q6 [facility] Stop: 03/31/19 17:59 Last Infusion: 03/05/19 12:55 Dose: Infused Documented by: Dextrose (D10w) 1,000 mls @ 75 mls/hr IV .[id number] PRN PRN Reason: UNDECIDED Stop: 03/31/19 15:59 Acetaminophen (Ofirmev) 1,000 mg in 100 mls @ 400 mls/hr IV Q8H PRN PRN Reason: Pain Stop: 04/02/19 09:15 Last Infusion: 03/03/19 09:54 Dose: Infused Documented by: Metoclopramide HCl (Reglan) 10 mg IV Q6H [facility] Stop: 03/27/19 12:14 Last Admin: 03/05/19 12:27 Dose: 10 mg Documented by: Metoprolol Tartrate (Lopressor) 5 mg IV Q6H [facility] Stop: 04/02/19 06:04 Last Admin: 03/05/19 12:27 Dose: 5 mg Documented by: Miscellaneous Information (Pharmacy Tpn/Ppn Consult Active) 1 ea N/A UD PRN PRN Reason: Consult Stop: 03/30/19 20:14 Nutrition (Parenteral) (Custom Central Pn) 1 bag IV TODAY@1600 [facility]; Protocol Stop: 03/05/19 15:59 Last Admin: 03/04/19 16:19 Dose: 1 bag Documented by: Nutrition (Parenteral) (Custom Central Pn) 1 bag IV TODAY@1600 [facility]; Protocol Stop: 03/06/19 15:59 Trazodone HCl (Desyrel) 50 mg PO HS [facility] Stop: 04/04/19 20:59 (1) HTN (hypertension) Hypertension type: essential hypertension Qualified Code(s): I10 - Essential (primary) hypertension
--- NOTE | 2019-03-05 14:01 | Surgery Progress Note ---
Date of Service March 05, 2019 Assessment & Plan (1) Urinary retention: -boateng removed 03/03/19 and pt. has been able to urinate without trouble and no significant PVR noted on post-void bladder scan (2) Paroxysmal atrial fibrillation: -plans as noted by cardiology for continued use of lopressor for rate control (3) History of repair of hiatal hernia: -pt. npo due to concern for gastric outlet obstruction -no worsening abdominal pain or N/V to suggest worsening status -plans for repeat EGD on 03/07/19 -sub-q heparin for DVT prevention Subjective Pt. has been ambulating and voiding without difficulty. No abdominal pain. No N/V. Physical Exam Constitutional: WD/WN, vitals as above well developed and well nourished; no acute distress and not ill appearing Respiratory: normal respiratory effort, lungs clear to auscultation normal respiratory effort; no respiratory distress and no labored breathing Cardiovascular: Rate/Rhythm: regular rate and regular rhythm Gastrointestinal (Abdomen): Soft, non-tender and non-distended. No pain with palpation. Results & Data Vital Signs (Past 12 Hours) Vital Signs Temp Pulse Pulse Resp BP BP Pulse Ox 03/05/19 12:27 94 H 162/100 H 03/05/19 11:11 36.4 C L 94 H 18 162/100 H 97 03/05/19 08:06 36.7 C 85 18 142/104 H 95 03/05/19 05:30 98 H 03/05/19 03:01 36.0 C L 91 H 20 168/105 H 96
[2019-03-05] MEDS ORDERED: CUSTOM CENTRAL PN IV SCH (16:00)
[2019-03-05] MEDS: TRAZODONE HCL 50 MG TAB PO SCH (23:13)
[2019-03-06] MEDS: METOCLOPRAMIDE HCL INJ 5 MG/ML 2 ML VIAL IV SCH ×3 (06:02→17:57)
[2019-03-06] MEDS: ENALAPRILAT 1.25 MG in DEXTROSE 5% 25 ML IV SCH ×4 (06:02→23:56)
[2019-03-06] MEDS: METOPROLOL TARTRATE 1 MG/ML VIAL IV SCH ×4 (06:04→23:57)
[2019-03-06] MEDS: PANTOprazole 40 MG in SYRINGE 0 ML IV SCH ×2 (07:45→21:42)
[2019-03-06 07:58] LABS: BUN Creatinine Ratio 22.8 (10-20); Calcium 8.1 mg/dl (8.5-10.1); Creatinine Clr Calc Pharmacy 77.4 ml/min; Est GFR (African American) 96.3; Est GFR (Non-African American) 83.1; Magnesium 2.2 mg/dl (1.8-2.4); Phosphorus 2.6 mg/dl (2.5-4.9); Potassium 4.3 mmol/L (3.5-5.1)
--- NOTE | 2019-03-06 10:12 | Surgery Progress Note ---
Date of Service March 06, 2019 Assessment & Plan (1) Urinary retention: -boateng removed 03/03/19 with no subsequent voiding difficulty or significant PVR on bladder scanning (2) Paroxysmal atrial fibrillation: -rate control measures as noted by cardiology -no need for anticoagulation (3) History of repair of hiatal hernia: -continue npo statua as previously noted -abdominal exam remains benign -plans for repeat EGD on 03/07/19 (tomorrow) -sub-q heparin for DVT prevention Subjective Pt. continues to ambulate without difficulty and is voiding without difficulty. No abdominal pain. No N/V. Physical Exam Respiratory: normal respiratory effort, lungs clear to auscultation Musculoskeletal: soft and non-tender to palpation Results & Data Vital Signs (Past 12 Hours) Vital Signs Temp Pulse Pulse Resp BP Pulse Ox 03/06/19 06:43 37.0 C 82 16 141/90 H 94 03/06/19 06:04 82 03/06/19 03:38 36.5 C 88 18 152/108 H 94 03/05/19 23:02 82 03/05/19 23:01 36.8 C 83 18 159/97 H 96
[2019-03-06] MEDS: HEPARIN SOD 5,000 UNIT/0.5 ML VIAL SQ SCH ×2 (12:05→23:57)
--- NOTE | 2019-03-06 12:23 | Hospitalist Progress Note ---
Date of Service March 06, 2019 Assessment & Plan (1) History of repair of hiatal hernia: S/P laparoscopic repair of hiatal hernia 02/23. EGD demonstrated large amount of food / gastric fluid in esophagus and stomach with associated esophagitis and gastritis. Remains in n.p.o. and now on TPN Ongoing postop management per Dr. Felix. Denies any abdominal symptoms Will have EGD on of this month Continue TPN and clears orally Remains stable for EGD on Thursday (2) Paroxysmal atrial fibrillation: PAF in setting of hypokalemia and hypoxia. Electrolytes and TSH are normal PE ruled out by CTA. Spontaneous conversion to sinus rhythm Appreciate cardiology input and recommendation Echo showed normal LV wall motion and function, normal atrial size. Started on metoprolol Heart rate is controlled and remains in sinus rhythm No acute symptoms (3) HTN (hypertension): BP was noted to be elevated. Was on oral medications before Has been on intravenous metoprolol and intravenous SAAD inhibitor for BP control May need to add hydralazine Blood pressure seems to be under controlled with intravenous beta-cortez and hydralazine PRN Blood pressure remains on the upper side of normal The headache is resolved Blood pressure remains high, will continue current medications Seems to be under control (4) Hypoxia: O2 sats as low as 89%. Possible aspiration pneumonia and / or atelectasis. Chest x-ray showed elevated left hemidiaphragm. Incentive spirometry. Management of pneumonia as discussed below. Saturating normally on room air (5) Aspiration pneumonia: Had cough and leukocytosis at time of admission. Chest films showed infiltrate at left base. CTA showed postsurgical changes, dilated fluid-filled esophagus, bibasilar atelectasis vs consolidation. Continue IV piperacillin / tazobactam for possible aspiration pneumonia. White count is improved Continue current antibiotic (6) Hypokalemia: Has other electrolyte abnormalities as well Serum K 3.4 at time of admission. Received replacement. K today = 3.7. Has low phosphate We will give intravenous phosphate and potassium again today Electrolytes will be adjusted in TPN Remains normal (7) Urinary retention: Underlying prostate Ca. Gramajo cath inserted by Urology. (8) DVT prophylaxis: SCD's. Ambulate. Has not been sleeping well for the last few days We will try oral trazodone at night (9) Discharge planning issues: Discharge disposition to be determined. Medical follow-up with [facility] in [place]. (10) Encounter for consultation: Thank you for this consultation. We will follow the patient with you during their hospital stay. My cell # is [phone]. You can reach a member of the [facility] Medicine Team 11/05 via pager @ [phone]. Subjective 03/02 The patient was seen and examined in telemetry unit Mr. Marino is a very nice 78-year-old male who had a huge hiatal hernia with gastric volvulus. Status post robotic assisted laparoscopic repair on 02/23/2019. Denies any symptoms as of today His blood pressure noted to be very high without any symptoms He denies any chest pain, palpitation or shortness of breath 03/03 Patient was seen and examined in telemetry unit He complains of a headache Denies any abdominal pain, distention, nausea and vomiting Remains on TPN 03/04 Patient was seen and examined in telemetry unit He does not have any complaints today He has been ambulating without difficulty and the headache is gone Remains on TPN 03/05 Patient was seen and examined in the telemetry unit He has not been sleeping well for the last few days and his blood pressure seems to be very high He denies any other symptoms He has been ambulating well in the room 03/06 Patient was seen and examined in telemetry unit He has been stable for the last few days without any symptoms He slept a little bit last night He has been ambulating well in the room Review of Systems Review of Systems: All systems reviewed and are unremarkable except as noted below Constitutional: Hemodynamically stable without any acute symptoms Physical Exam Physical Exam: No apparent distress at rest Constitutional: no acute distress Eyes: PERRL, conjunctivae normal, anicteric sclerae ENMT: external ear and nose normal, oropharynx normal Neck: trachea midline, no thyromegaly Respiratory: no respiratory distress Auscultation: + diminished lung sounds (left base) Cardiovascular: Rate/Rhythm: regular rate and regular rhythm Heart Sounds: no gallop, no murmur and no cardiac rub Vessels: no JVD Extremities: no edema Gastrointestinal (Abdomen): normal bowel sounds, soft, nontender, no hepatosplenomegaly Inspection/Auscultation: abdomen normal to inspection and normal bowel sounds; abdomen not distended Percussion/Palpation: + abdomen tender (Minimally in the lower quadrant) and abdomen soft; no guarding and abdomen not rigid Skin: no rashes, warm and dry Neurologic: patellar DTR's 2+ bilat, sensation intact Psychiatric: A+Ox3, euthymic affect Orientation: alert and oriented x 3 Lymphatic: no cervical or axillary lymphadenopathy Results & Data Vital Signs (Past 12 Hours) Vital Signs Temp Pulse Pulse Resp BP BP Pulse Ox 03/06/19 12:04 86 156/101 H 03/06/19 11:41 36.6 C 86 18 156/101 H 95 03/06/19 06:43 37.0 C 82 16 141/90 H 94 03/06/19 06:04 82 03/06/19 03:38 36.5 C 88 18 152/108 H 94 Laboratory Results BMP 03/06/19 07:06 Sodium 139 Potassium 4.3 Chloride 109 H Carbon Dioxide 24 BUN 20 H Creatinine 0.86 Glucose 90 Calcium 8.1 L Medications Administered Current Inpatient Medications Bicalutamide (Casodex) 50 mg PO QPM [facility] Stop: 03/27/19 20:59 Last Admin: 02/27/19 20:11 Dose: 50 mg Documented by: Heparin Sodium (Beef Lung) (Heparin Sod 10 Unit/Ml Flush) 5 ml FLUSH PRN PRN PRN Reason: Flush Stop: 04/04/19 01:47 Heparin Sodium (Porcine) (Heparin Sodium (Porcine)) 5,000 units SQ Q12H [facility] Stop: 04/01/19 11:59 Last Admin: 03/06/19 12:05 Dose: 5,000 units Documented by: Hydralazine HCl (Hydralazine Hcl) 10 mg IV Q8 PRN PRN Reason: Hypertension Stop: 04/01/19 14:41 Last Admin: 03/03/19 03:40 Dose: 10 mg Documented by: Promethazine HCl 12.5 mg/ (Sodium Chloride) 50.5 mls @ 202 mls/hr IV Q6H PRN PRN Reason: Nausea And Vomiting Stop: 03/28/19 00:51 Pantoprazole Sodium 40 mg/ (Syringe) 10 mls @ 5 mls/min IV BID@0900,2100 [facility] Stop: 03/30/19 10:59 Last Admin: 03/06/19 07:45 Dose: 5 mls/min Documented by: Enalaprilat 0.625 mg/ Syringe 10 mls @ 2 mls/min IV Q6H PRN PRN Reason: Blood Pressure - High Stop: 03/30/19 14:44 Enalaprilat 1.25 mg/ Dextrose 26 mls @ 100 mls/hr IV Q6 [facility] Stop: 03/31/19 17:59 Last Infusion: 03/06/19 12:20 Dose: Infused Documented by: Dextrose (D10w) 1,000 mls @ 83 mls/hr IV .Q12H3M PRN PRN Reason: UNDECIDED Stop: 03/31/19 15:59 Last Infusion: 03/05/19 19:00 Dose: Infused Documented by: Acetaminophen (Ofirmev) 1,000 mg in 100 mls @ 400 mls/hr IV Q8H PRN PRN Reason: Pain Stop: 04/02/19 09:15 Last Infusion: 03/03/19 09:54 Dose: Infused Documented by: Metoclopramide HCl (Reglan) 10 mg IV Q6H [facility] Stop: 03/27/19 12:14 Last Admin: 03/06/19 12:03 Dose: 10 mg Documented by: Metoprolol Tartrate (Lopressor) 5 mg IV Q6H [facility] Stop: 04/02/19 06:04 Last Admin: 03/06/19 12:04 Dose: 5 mg Documented by: Miscellaneous Information (Pharmacy Tpn/Ppn Consult Active) 1 ea N/A UD PRN PRN Reason: Consult Stop: 03/30/19 20:14 Nutrition (Parenteral) (Custom Central Pn) 1 bag IV TODAY@1600 [facility]; Protocol Stop: 03/06/19 15:59 Last Admin: 03/05/19 15:26 Dose: 1 bag Documented by: Nutrition (Parenteral) (Custom Central Pn) 1 bag IV TODAY@1600 [facility]; Protocol Stop: 03/07/19 15:59 Trazodone HCl (Desyrel) 50 mg PO HS [facility] Stop: 04/04/19 20:59 Last Admin: 03/05/19 23:13 Dose: 50 mg Documented by: (1) HTN (hypertension) Hypertension type: essential hypertension Qualified Code(s): I10 - Essential (primary) hypertension
[2019-03-06] MEDS ORDERED: CUSTOM CENTRAL PN IV SCH (16:00)
[2019-03-06] MEDS: TRAZODONE HCL 50 MG TAB PO SCH (21:42)
[2019-03-07] MEDS: METOCLOPRAMIDE HCL INJ 5 MG/ML 2 ML VIAL IV SCH ×5 (00:09→23:55)
[2019-03-07] MEDS: ENALAPRILAT 1.25 MG in DEXTROSE 5% 25 ML IV SCH ×4 (05:34→23:54)
[2019-03-07] MEDS: METOPROLOL TARTRATE 1 MG/ML VIAL IV SCH ×4 (05:34→23:54)
[2019-03-07 06:19] LABS: Calcium 7.7 mg/dl (8.5-10.1); Creatinine Clr Calc Pharmacy 81.5 ml/min; Est GFR (African American) 97.7; Est GFR (Non-African American) 84.3; Magnesium 2.2 mg/dl (1.8-2.4); Phosphorus 2.4 mg/dl (2.5-4.9); Potassium 4.2 mmol/L (3.5-5.1)
[2019-03-07] MEDS: PANTOprazole 40 MG in SYRINGE 0 ML IV SCH ×2 (08:37→21:22)
--- NOTE | 2019-03-07 10:53 | Gastroenterology Progress Note ---
Date of Service March 07, 2019 Assessment & Plan (1) History of repair of hiatal hernia: 78 year old male w/ history of Razia for hernia repair. NPO for EGD today. Please see report of EGD once completed for any additional reocmmendations or plans Present on Admission?: Yes Supervising Physician Co-Signing Physician Notes I performed a history and physical examination of the patient, including specifically on physical exam - soft, nontender abdomen. I have discussed the patient's management with Lea. Please refer to the nurse practitioner's note for the documented findings and plan of care. Spoke to and he is planned for surgical intervention. Meanwhile, keep patient NPO. Recall GI if needed. Subjective Pt was seen and evaluated, chart reviewed No complaints Is NPO for EGD No nausea, vomiting No CP, SOB Review of Systems Constitutional: no fever, no chills and no fatigue Respiratory: no cough, no dyspnea and no pain on inspiration Cardiovascular: no chest pain, no radiating jaw, neck or arm pain, no dyspnea on exertion and no palpitations Gastrointestinal: no abdominal pain, no nausea, no vomiting, no cramping and no blood in stools Physical Exam Constitutional: WD/WN, vitals as above Respiratory: normal respiratory effort; no respiratory distress, does not use accessory muscles and no cough Cardiovascular: Rate/Rhythm: regular rate and regular rhythm Gastrointestinal (Abdomen): Inspection/Auscultation: abdomen normal to inspection and normal bowel sounds Percussion/Palpation: abdomen soft; no guarding and abdomen not rigid Skin: no rashes, warm and dry Results & Data Vital Signs (Past 12 Hours) Vital Signs Temp Pulse Pulse Resp BP BP Pulse Ox 03/07/19 07:35 36.8 C 82 16 136/92 95 03/07/19 07:29 72 03/07/19 05:34 85 145/87 H 03/07/19 02:59 36.5 C 85 18 145/87 H 95 03/07/19 00:00 36.9 C 79 18 148/94 H 94 03/06/19 23:57 85 148/94 H
[2019-03-07] MEDS ORDERED: PROPOFOL IV EMULSION 10 MG/ML 20 ML VIAL IV ONE (11:40)
[2019-03-07] MEDS ORDERED: LIDOCAINE HCL 2% 2 ML VIAL/AMP(20MG/ML) INFIL ONE (11:40)
--- NOTE | 2019-03-07 11:55 | Anesthesiology Consultation ---
Date of Service March 07, 2019 Assessment & Plan (1) Encounter for pre-operative examination: Chart Review Chart Review: Acceptable Risk for Surgery and Patient NOT seen in Pre Admission Testing Consults Requested none ASA ASA3 Proposed Anesthesia Risk / Benefits Reviewed With: PT / POA / Parent / Guardian, Accepts Plan and Informed Consent Obtained History Surgery Operation Date: 02/28/19 09:15 Proposed Procedures p Esophagogastroduodenoscopy Dr Juliana Andrews Operation Date: 03/07/19 08:30 Proposed Procedures p Esophagogastroduodenoscopy Dr Nella Carmen MD Height/Weight Height: 5 ft 9 in Weight: 90.3 kg Allergies Allergy/AdvReac Type Severity Reaction Status Date / Time No Known Allergies Allergy Verified 02/23/19 09:41 Medications Home Medications Medication Instructions Recorded Confirmed Last Taken Lupron Depot (3 month) 1 dose IM UD 02/18/19 02/25/19 12/09/18 10:00 bicalutamide [Casodex] 50 mg PO QPM 02/18/19 02/25/19 02/22/19 20:00 magnesium oxide 400 mg PO QAM 02/18/19 02/25/19 02/22/19 07:00 omega 1-vhk-tim-fish oil [Fish Oil] 1 cap PO QAM 02/18/19 02/25/19 02/18/19 07:00 red yeast rice 600 mg PO QAM 02/18/19 02/25/19 02/18/19 07:00 vitamin E 1,000 unit PO QAM 02/18/19 02/25/19 02/22/19 07:00 metoclopramide HCl [Reglan] 10 mg PO ACHS 30 Days #120 tab 02/24/19 02/25/19 Unknown tramadol [Ultram] 50 mg PO QID PRN #18 tab 02/24/19 02/25/19 Unknown denosumab 120 mg SUBCUT UD 02/25/19 02/25/19 Unknown multivitamin 1 tab PO DAILY 02/25/19 02/25/19 Unknown omeprazole 40 mg PO DAILY 02/25/19 02/25/19 Unknown ondansetron HCl [Zofran] 4 mg PO TID PRN 02/25/19 02/25/19 Unknown potassium gluconate 595 mg PO DAILY 02/25/19 02/25/19 Unknown Active Medications Generic Name Dose Route Start Last Admin Trade Name Freq PRN Reason Stop Dose Admin Bicalutamide 50 mg 02/25/19 21:00 02/27/19 20:11 Casodex PO 03/27/19 20:59 50 mg QPM [facility] Administration Heparin Sodium (Porcine) 5,000 units 03/02/19 12:00 03/06/19 23:57 Heparin Sodium (Porcine) SQ 04/01/19 11:59 5,000 units Q12H [facility] Administration Hydralazine HCl 10 mg 03/02/19 14:42 03/03/19 03:40 Hydralazine Hcl IV 04/01/19 14:41 10 mg Q8 PRN Administration Hypertension Pantoprazole Sodium 40 mg/ 10 mls @ 5 mls/min 02/28/19 11:00 03/07/19 08:37 Syringe IV 03/30/19 10:59 5 mls/min BID@0900,2100 [facility] Administration Enalaprilat 1.25 mg/ Dextrose 26 mls @ 100 mls/hr 03/01/19 18:00 03/07/19 06:00 IV 03/31/19 17:59 Infused Q6 [facility] Infusion Dextrose 1,000 mls @ 83 mls/hr 03/02/19 05:45 03/05/19 19:00 D10w IV 03/31/19 15:59 Infused .Q12H3M PRN Infusion UNDECIDED Acetaminophen 1,000 mg in 100 mls @ 400 mls/hr 03/03/19 09:16 03/03/19 09:54 Ofirmev IV 04/02/19 09:15 Infused Q8H PRN Infusion Pain Metoclopramide HCl 10 mg 02/25/19 12:15 03/07/19 05:34 Reglan IV 03/27/19 12:14 10 mg Q6H [facility] Administration Metoprolol Tartrate 5 mg 03/03/19 06:05 03/07/19 05:34 Lopressor IV 04/02/19 06:04 5 mg Q6H [facility] Administration Nutrition (Parenteral) 1 bag 03/06/19 16:00 03/06/19 15:26 Custom Central Pn IV 03/07/19 15:59 1 bag TODAY@1600 [facility] Administration Protocol Trazodone HCl 50 mg 03/05/19 21:00 03/06/19 21:42 Desyrel PO 04/04/19 20:59 50 mg HS [facility] Administration NPO Date Last Intake of Fluids: 02/28/19 Time Last Intake of Fluids: 06:00 Last Intake of Fluids Comment: SIP OF WATER WITH PILLS Date Last Intake of Solids: 02/22/19 Time Last Intake of Solids: 21:00 Past Medical History Medical History Prostate cancer (Chronic) Bladder neck contracture Cancer PROSTATE CANCER (SURGERY AND RADIATION) METS TO SACRUM. ON LUPRON, AND CASODEX. Osteoarthritis Paraesophageal hernia Pelvic irradiation Exercise / Class Metabolic Activity II 4-5 Yardwork/Stairs/Walk up hill Past Surgical History Surgical History History of colonoscopy History of herniorrhaphy INGUINAL History of prostatectomy History of tooth extraction Past Anesthesia History No Hx of Anesthesia Complications and No Family Hx of Anesthesia Complications History of PONV No Hx of PONV and No Hx of Motion Sickness Social History Smoking Status: Former smoker tobacco type: cigarettes Hx Alcohol Use: No Hx Substance Use: No substance use type: does not use Physical Exam Vital Signs Last Vital Signs Temp 36.8 C 03/07/19 07:35 Pulse 82 03/07/19 07:35 Resp 16 03/07/19 07:35 BP 136/92 03/07/19 07:35 Pulse Ox 95 03/07/19 07:35 ENMT Mouth: + dentures Thyromental Distance: > or= 3.5 Finger Breadths Mallampati Class: II Neck normal visual inspection Respiratory normal respiratory effort Auscultation: lungs clear to auscultation bilaterally Cardiovascular Rate/Rhythm: regular rate and regular rhythm Psychiatric Orientation: alert
--- NOTE | 2019-03-07 13:17 | GI REPORT ---
Patient Name: Adán Marino Procedure Date: 03/07/2019 12:15 PM Date of : 1940 Admit Type: Inpatient Age: 78 Gender: Male Attending MD: Chelo Carmen MD Procedure: Upper GI endoscopy Providers: Chelo Carmen MD Referring MD: Parish Felix Md Indications: Dysphagia Medicines: Monitored Anesthesia Care Complications: No immediate complications. Estimated Blood Loss: Estimated blood loss: none. Procedure: Pre-Anesthesia Assessment: - Prior to the procedure, a History and Physical was performed, and patient medications and allergies were reviewed. The patient is competent. The risks and benefits of the procedure and the sedation options and risks were discussed with the patient. All questions were answered and informed consent was obtained. Patient identification and proposed procedure were verified by the physician and the nurse in the procedure room. Mental Status Examination: alert and oriented. Airway Examination: normal oropharyngeal airway and neck mobility. Respiratory Examination: clear to auscultation. CV Examination: normal. ASA Grade Assessment: III - A patient with severe systemic disease. After reviewing the risks and benefits, the patient was deemed in satisfactory condition to undergo the procedure. The anesthesia plan was to use monitored anesthesia care (MAC). Immediately prior to administration of medications, the patient was re-assessed for adequacy to receive sedatives. The heart rate, respiratory rate, oxygen saturations, blood pressure, adequacy of pulmonary ventilation, and response to care were monitored throughout the procedure. The physical status of the patient was re-assessed after the procedure. After obtaining informed consent, the endoscope was passed under direct vision. Throughout the procedure, the patient's blood pressure, pulse, and oxygen saturations were monitored continuously. The Endoscope was introduced through the mouth, and advanced to the second part of duodenum. The upper GI endoscopy was accomplished without difficulty. The patient tolerated the procedure well. Findings: One severe stenosis was found at the gastroesophageal junction. The stenosis was traversed after maneuvering the scope in a spiral fashion. The esophagus was fluid filled and dilated. There was underlying inflammation in the lower third of the esophagus related to stasis. Evidence of a Razia fundoplication was found in the gastric fundus. The wrap appeared very tight. This was traversed. There seems to be significant hypoperfusion changes in the fundus surrounding the wrap. A large amount of fluid was found in the gastric body. Fluid aspiration was performed. 1000ml aspirated. Incomplete gastric volvulus/ external compression with incomplete obstruction was present in the gastric antrum proximal to the pyloric ring. This could be only traversed after significant maneuvering of the scope. The pyloric ring was normal. The duodenal bulb and second portion of the duodenum were normal. 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 - A Razia fundoplication was found. The wrap appears very tight. - A large amount of fluid in the stomach. Fluid aspiration performed. - Gastric volvulus/ external compression in the antrum. - Normal duodenal bulb and second portion of the duodenum. Recommendation: - Return patient to [facility] for ongoing care. - Refer to surgery to release the wrap and evaluate the stomach. - Continue IV PPI. Chelo Carmen MD 03/07/2019 1:17:01 PM This report has been signed electronically. Note Initiated On: 03/07/2019 12:15 PM Number of Addenda: 0 I attest to the content of the Intraoperative Record and orders documented therein, exceptions below {[id number]}
--- NOTE | 2019-03-07 13:18 | Anesthesiology Progress Note ---
Date of Service March 07, 2019 Anesthesia Post Procedure Vital Signs Vital Signs: Temp Pulse Pulse Resp BP BP Pulse Ox 03/07/19 13:10 84 16 138/90 97 03/07/19 12:56 85 16 129/78 96 03/07/19 12:41 89 16 102/61 95 03/07/19 11:58 36.4 C L 87 16 162/106 H 97 03/07/19 07:35 36.8 C 82 16 136/92 95 03/07/19 07:29 72 03/07/19 05:34 85 145/87 H 03/07/19 02:59 36.5 C 85 18 145/87 H 95 03/07/19 00:00 36.9 C 79 18 148/94 H 94 03/06/19 23:57 85 148/94 H 03/06/19 19:40 37.0 C 83 19 138/87 93 03/06/19 17:57 87 129/83 03/06/19 15:14 36.6 C 87 18 129/83 95 Transfer of Care Handoff Completed per policy Notes Mental Status: alert / awake / arousable Patient Amnestic to Procedure: Yes Nausea / Vomiting: adequately controlled Pain: adequately controlled Airway Patency, RR, SpO2: stable & adequate BP & HR: stable & adequate Hydration State: stable & adequate Anesthetic Complications: no major complications apparent
--- NOTE | 2019-03-07 14:02 | Hospitalist Progress Note ---
Date of Service March 07, 2019 Assessment & Plan (1) History of repair of hiatal hernia: S/P laparoscopic repair of hiatal hernia 02/23. EGD demonstrated large amount of food / gastric fluid in esophagus and stomach with associated esophagitis and gastritis. Remains in n.p.o. and now on TPN Ongoing postop management per Dr. Felix. Denies any abdominal symptoms Will have EGD on of this month Continue TPN and clears orally Remains stable for EGD on Thursday EGD showed esophageal stenosis, large amount of food in the stomach, gastric volvulus/external compression in the antrum and normal duodenum GI advised to have surgical release of the wrap (2) Paroxysmal atrial fibrillation: PAF in setting of hypokalemia and hypoxia. Electrolytes and TSH are normal PE ruled out by CTA. Spontaneous conversion to sinus rhythm Appreciate cardiology input and recommendation Echo showed normal LV wall motion and function, normal atrial size. Started on metoprolol Heart rate is controlled and remains in sinus rhythm No acute symptoms (3) HTN (hypertension): BP was noted to be elevated. Was on oral medications before Has been on intravenous metoprolol and intravenous SAAD inhibitor for BP control May need to add hydralazine Blood pressure seems to be under controlled with intravenous beta-cortez and hydralazine PRN Blood pressure remains on the upper side of normal The headache is resolved Blood pressure remains high, will continue current medications Seems to be under control (4) Hypoxia: O2 sats as low as 89%. Possible aspiration pneumonia and / or atelectasis. Chest x-ray showed elevated left hemidiaphragm. Incentive spirometry. Management of pneumonia as discussed below. Saturating normally on room air (5) Aspiration pneumonia: Had cough and leukocytosis at time of admission. Chest films showed infiltrate at left base. CTA showed postsurgical changes, dilated fluid-filled esophagus, bibasilar atelectasis vs consolidation. Continue IV piperacillin / tazobactam for possible aspiration pneumonia. White count is improved Continue current antibiotic Esophageal stenosis secondary to tight wrap Remains risk of aspiration (6) Hypokalemia: Has other electrolyte abnormalities as well Serum K 3.4 at time of admission. Received replacement. K today = 3.7. Has low phosphate We will give intravenous phosphate and potassium again today Electrolytes will be adjusted in TPN Remains normal (7) Urinary retention: Underlying prostate Ca. Gramajo cath inserted by Urology. (8) DVT prophylaxis: SCD's. Ambulate. Has not been sleeping well for the last few days We will try oral trazodone at night (9) Discharge planning issues: Discharge disposition to be determined. Medical follow-up with [facility] in [place]. (10) Encounter for consultation: Thank you for this consultation. We will follow the patient with you during their hospital stay. My cell # is [phone]. You can reach a member of the [facility] Medicine Team 11/05 via pager @ [phone]. Subjective 03/02 The patient was seen and examined in telemetry unit Mr. Marino is a very nice 78-year-old male who had a huge hiatal hernia with gastric volvulus. Status post robotic assisted laparoscopic repair on 02/23/2019. Denies any symptoms as of today His blood pressure noted to be very high without any symptoms He denies any chest pain, palpitation or shortness of breath 03/03 Patient was seen and examined in telemetry unit He complains of a headache Denies any abdominal pain, distention, nausea and vomiting Remains on TPN 03/04 Patient was seen and examined in telemetry unit He does not have any complaints today He has been ambulating without difficulty and the headache is gone Remains on TPN 03/05 Patient was seen and examined in the telemetry unit He has not been sleeping well for the last few days and his blood pressure seems to be very high He denies any other symptoms He has been ambulating well in the room 03/06 Patient was seen and examined in telemetry unit He has been stable for the last few days without any symptoms He slept a little bit last night He has been ambulating well in the room 03/07 The patient was seen and examined in telemetry unit He is a status post EGD this morning Noted to have esophageal stenosis at the wrap Review of Systems Constitutional: + malaise and + weakness Physical Exam Physical Exam: No acute distress prior to the EGD Constitutional: no acute distress Eyes: PERRL, conjunctivae normal, anicteric sclerae ENMT: external ear and nose normal, oropharynx normal Neck: trachea midline, no thyromegaly Respiratory: no respiratory distress Auscultation: + diminished lung sounds (left base) Cardiovascular: Rate/Rhythm: regular rate and regular rhythm Heart Sounds: no gallop, no murmur and no cardiac rub Vessels: no JVD Extremities: no edema Gastrointestinal (Abdomen): normal bowel sounds, soft, nontender, no hepatosplenomegaly Inspection/Auscultation: abdomen normal to inspection and normal bowel sounds; abdomen not distended Percussion/Palpation: + abdomen tender (Minimally in the lower quadrant) and abdomen soft; no guarding and abdomen not rigid Skin: no rashes, warm and dry Neurologic: patellar DTR's 2+ bilat, sensation intact Psychiatric: A+Ox3, euthymic affect Orientation: alert and oriented x 3 Lymphatic: no cervical or axillary lymphadenopathy Results & Data Vital Signs (Past 12 Hours) Vital Signs Temp Pulse Pulse Resp BP BP Pulse Ox 03/07/19 13:10 84 16 138/90 97 03/07/19 12:56 85 16 129/78 96 03/07/19 12:41 89 16 102/61 95 03/07/19 11:58 36.4 C L 87 16 162/106 H 97 03/07/19 07:35 36.8 C 82 16 136/92 95 03/07/19 07:29 72 03/07/19 05:34 85 145/87 H 03/07/19 02:59 36.5 C 85 18 145/87 H 95 (1) HTN (hypertension) Hypertension type: essential hypertension Qualified Code(s): I10 - Essential (primary) hypertension
[2019-03-07] MEDS: HEPARIN SOD 5,000 UNIT/0.5 ML VIAL SQ SCH (14:17)
[2019-03-07] MEDS ORDERED: CUSTOM CENTRAL PN IV SCH (16:00)
--- NOTE | 2019-03-07 19:18 | Progress Note ---
DATE: 03/07/2019 Mr. Marino was seen today on 03/07/2019. Mr. Marino looks great. He underwent an upper endoscopy and I discussed this case in detail with Dr. Carmen. While he is a bit tight at his GE junction, I think the esophagus and the mucosa looks better. My bigger concern is it appears he has a volvulus in the stomach. I am not really sure how to explain other than the fact that he did have a tremendous amount of adhesions where the omentum had gone up into the hiatal hernia along the right side of the stomach and I took this down, but it was still tethered to the stomach, although I took down a great deal of the greater curvature during the case. It all appeared viable and he appears stable. I had a long talk with the patient and Dr. Carmen. I am going to go back in and fix this robotically. I have tentatively scheduled for 03/09/2019. I will also free up the wrap a bit, although I do not know if that is the main problem after my discussion with Dr. Carmen. At any rate, I think this is the reason that his stomach has been filled. His pylorus was also inspected. Dr. Carmen and I both feel the stomach is his problem and we are going to fix this on the . I discussed this in detail with the patient. I will discuss this in more detail with the patient and his tomorrow.
[2019-03-07] MEDS: TRAZODONE HCL 50 MG TAB PO SCH (21:22)
[2019-03-08] MEDS: HEPARIN SOD 5,000 UNIT/0.5 ML VIAL SQ SCH ×3 (00:02→23:10)
[2019-03-08] MEDS: ENALAPRILAT 1.25 MG in DEXTROSE 5% 25 ML IV SCH ×4 (05:36→23:09)
[2019-03-08] MEDS: METOPROLOL TARTRATE 1 MG/ML VIAL IV SCH ×4 (05:36→23:09)
[2019-03-08] MEDS: METOCLOPRAMIDE HCL INJ 5 MG/ML 2 ML VIAL IV SCH ×4 (05:37→23:10)
[2019-03-08 06:24] LABS: BUN Creatinine Ratio 23.9 (10-20); Calcium 7.9 mg/dl (8.5-10.1); Creatinine Clr Calc Pharmacy 83.5 ml/min; Est GFR (African American) 98.7; Est GFR (Non-African American) 85.1; Phosphorus 2.6 mg/dl (2.5-4.9); Potassium 4.2 mmol/L (3.5-5.1)
--- NOTE | 2019-03-08 07:49 | Anesthesiology Progress Note ---
Date of Service March 08, 2019 Anesthesia Post Procedure Vital Signs Vital Signs: Temp Pulse Pulse Resp BP BP BP 03/08/19 07:28 36.9 C 76 16 146/88 H 03/08/19 05:36 86 138/78 03/08/19 05:00 95 H 18 102/68 03/08/19 02:59 36.7 C 74 18 134/85 03/08/19 00:57 77 03/08/19 00:04 36.7 C 85 18 133/75 03/07/19 23:54 88 152/106 H 03/07/19 19:40 36.6 C 89 16 152/106 H 03/07/19 18:23 93 H 160/105 H 03/07/19 15:30 36.7 C 93 H 16 160/105 H 03/07/19 14:16 82 151/98 H 03/07/19 13:10 84 16 138/90 03/07/19 12:56 85 16 129/78 03/07/19 12:41 89 16 102/61 03/07/19 11:58 36.4 C L 87 16 162/106 H Pulse Ox 03/08/19 07:28 94 03/08/19 05:36 03/08/19 05:00 96 03/08/19 02:59 99 03/08/19 00:57 03/08/19 00:04 95 03/07/19 23:54 03/07/19 19:40 94 03/07/19 18:23 03/07/19 15:30 97 03/07/19 14:16 03/07/19 13:10 97 03/07/19 12:56 96 03/07/19 12:41 95 03/07/19 11:58 97 Notes Mental Status: alert / awake / arousable Patient Amnestic to Procedure: Yes Nausea / Vomiting: adequately controlled Pain: adequately controlled Airway Patency, RR, SpO2: stable & adequate BP & HR: stable & adequate Hydration State: stable & adequate Anesthetic Complications: no major complications apparent
[2019-03-08] MEDS: PANTOprazole 40 MG in SYRINGE 0 ML IV SCH ×2 (09:52→20:20)
--- NOTE | 2019-03-08 14:25 | Anesthesiology Consultation ---
Date of Service March 08, 2019 Assessment & Plan (1) Encounter for pre-operative examination: Chart Review Chart Review: Acceptable Risk for Surgery and Patient NOT seen in Pre Admission Testing Consults Requested none History Surgery Operation Date: 02/28/19 09:15 Proposed Procedures p Esophagogastroduodenoscopy Dr Juliana Andrews Operation Date: 03/07/19 08:30 Proposed Procedures p Esophagogastroduodenoscopy Dr Carmen - Chelo Carmen MD Operation Date: 03/09/19 07:30 Proposed Procedures p Reoperative Robotic Assisted Laparoscopic Expiration and Repair of Fundoplication - Parish Felix MD, FACS Height/Weight Height: 1.75 m Weight: 87.4 kg Allergies Allergy/AdvReac Type Severity Reaction Status Date / Time No Known Allergies Allergy Verified 02/23/19 09:41 Medications Home Medications Medication Instructions Recorded Confirmed Last Taken Lupron Depot (3 month) 1 dose IM UD 02/18/19 02/25/19 12/09/18 10:00 bicalutamide [Casodex] 50 mg PO QPM 02/18/19 02/25/19 02/22/19 20:00 magnesium oxide 400 mg PO QAM 02/18/19 02/25/19 02/22/19 07:00 omega 5-mse-qsi-fish oil [Fish Oil] 1 cap PO QAM 02/18/19 02/25/19 02/18/19 07:00 red yeast rice 600 mg PO QAM 02/18/19 02/25/19 02/18/19 07:00 vitamin E 1,000 unit PO QAM 02/18/19 02/25/19 02/22/19 07:00 metoclopramide HCl [Reglan] 10 mg PO ACHS 30 Days #120 tab 02/24/19 02/25/19 Unknown tramadol [Ultram] 50 mg PO QID PRN #18 tab 02/24/19 02/25/19 Unknown denosumab 120 mg SUBCUT UD 02/25/19 02/25/19 Unknown multivitamin 1 tab PO DAILY 02/25/19 02/25/19 Unknown omeprazole 40 mg PO DAILY 02/25/19 02/25/19 Unknown ondansetron HCl [Zofran] 4 mg PO TID PRN 02/25/19 02/25/19 Unknown potassium gluconate 595 mg PO DAILY 02/25/19 02/25/19 Unknown Active Medications Generic Name Dose Route Start Last Admin Trade Name Suzanna PRN Reason Stop Dose Admin Bicalutamide 50 mg 02/25/19 21:00 02/27/19 20:11 Casodex PO 03/27/19 20:59 50 mg QPM SHERIF Administration Heparin Sodium (Beef Lung) 5 ml 03/05/19 01:48 03/08/19 08:52 Heparin Sod 10 Unit/Ml Flush FLUSH 04/04/19 01:47 5 ml PRN PRN Administration Flush Heparin Sodium (Porcine) 5,000 units 03/02/19 12:00 03/08/19 12:59 Heparin Sodium (Porcine) SQ 04/01/19 11:59 5,000 units Q12H SHERIF Administration Hydralazine HCl 10 mg 03/02/19 14:42 03/03/19 03:40 Hydralazine Hcl IV 04/01/19 14:41 10 mg Q8 PRN Administration Hypertension Pantoprazole Sodium 40 mg/ 10 mls @ 5 mls/min 02/28/19 11:00 03/08/19 09:52 Syringe IV 03/30/19 10:59 5 mls/min BID@0900,2100 SHERIF Administration Enalaprilat 1.25 mg/ Dextrose 26 mls @ 100 mls/hr 03/01/19 18:00 03/08/19 13:16 IV 03/31/19 17:59 Infused Q6 SHERIF Infusion Dextrose 1,000 mls @ 83 mls/hr 03/02/19 05:45 03/05/19 19:00 D10w IV 03/31/19 15:59 Infused .Q12H3M PRN Infusion UNDECIDED Acetaminophen 1,000 mg in 100 mls @ 400 mls/hr 03/03/19 09:16 03/03/19 09:54 Ofirmev IV 04/02/19 09:15 Infused Q8H PRN Infusion Pain Metoclopramide HCl 10 mg 02/25/19 12:15 03/08/19 12:59 Reglan IV 03/27/19 12:14 10 mg Q6H SHERIF Administration Metoprolol Tartrate 5 mg 03/03/19 06:05 03/08/19 12:59 Lopressor IV 04/02/19 06:04 5 mg Q6H SHERIF Administration Nutrition (Parenteral) 1 bag 03/07/19 16:00 03/07/19 15:27 Custom Central Pn IV 03/08/19 15:59 1 bag TODAY@1600 SHERIF Administration Protocol Trazodone HCl 50 mg 03/05/19 21:00 03/07/19 21:22 Desyrel PO 04/04/19 20:59 50 mg HS SHERIF Administration NPO Date Last Intake of Fluids: 02/23/19 Time Last Intake of Fluids: 06:00 Last Intake of Fluids Comment: SIP OF WATER WITH PILLS Date Last Intake of Solids: 02/23/19 Time Last Intake of Solids: 21:00 Past Medical History Medical History Prostate cancer (Chronic) Atrial fibrillation Episode of Afib post op on 02/26. Converted spontaneously to NSR. 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 ON LUPRON, AND CASODEX. Osteoarthritis Paraesophageal hernia Pelvic irradiation Exercise / Class Metabolic Activity II 4-5 Yardwork/Stairs/Walk up hill Past Surgical History Surgical History H/O endoscopy EGD 02/28/19 and 03/07/19 History of colonoscopy History of herniorrhaphy INGUINAL History of prostatectomy History of tooth extraction Past Anesthesia History No Hx of Anesthesia Complications and No Family Hx of Anesthesia Complications History of PONV No Hx of PONV and No Hx of Motion Sickness Social History Smoking Status: Former smoker tobacco type: cigarettes Hx Alcohol Use: No Hx Substance Use: No substance use type: does not use Physical Exam Vital Signs Last Vital Signs Temp 36.3 C L 03/08/19 11:25 Pulse 82 03/08/19 12:59 Resp 16 03/08/19 11:25 BP 144/84 H 03/08/19 12:59 Pulse Ox 96 03/08/19 11:25 Testing Electrocardiogram Date: 02/25/19 Findings: + ST @ (112 bpm) Sinus tachycardia Left axis deviation Poor R wave progression, consider anterior FL vs. lead placement vs. LVH Abnormal ECG When compared with ECG of 25-FEB-2019 22:40, (unconfirmed) Sinus rhythm has replaced Atrial fibrillation Confirmed by Kenney Ca ([id number]) on 02/26/2019 6:43:51 PM Chest X-Ray Date: 02/25/19 FINDINGS: An AP, portable, upright chest radiograph is compared to study dated 02/24/2019. The heart is top normal for projection, noting atherosclerotic calcification of the thoracic aorta. There is elevation of left hemidiaphragm and left basilar consolidation. Small pleural effusions are suspected. There is likely trace residual right apical pneumothorax. The small left pneumothorax seen previously is no longer apparent. The skeletal structures are osteopenic. The bony thorax is grossly intact. Degenerative change is noted throughout the thoracic spine. IMPRESSION: 1. There is likely trace residual right apical pneumothorax. No definite left pneumothorax is seen. 2. There is elevation of the left hemidiaphragm with left basilar consolidation. Correlate clinically for evidence of pneumonia/aspiration pneumonitis. 3. Suspect small pleural effusions. Echocardiogram Date: 02/26/19 EF: 60-65% LV Function: normal Other Findings: + diastolic dysfunction (Gr I) Valvular Disease: + MR (Mild) The LV is normal in size There is normal LV wall thickness LV systolic function is normal The LV wall motion is normal
--- NOTE | 2019-03-08 14:57 | Surgery Progress Note ---
Date of Service March 08, 2019 Subjective "What time are we operating tomorrow"? I had a long discussion with the patient and his this a.m. I explained our findings of the upper endoscopy and I believe that returning to the operating room tomorrow for a robot-assisted laparoscopic expiration and evaluation of not only a Razia fundoplication but also torsion of the stomach. I ceci pictures and had a long discussion about risks and benefits and other options. They understand and would like to proceed. Results & Data Vital Signs (Past 12 Hours) Vital Signs Temp Pulse Pulse Resp BP BP BP 03/08/19 12:59 82 144/84 H 03/08/19 11:25 36.3 C L 86 16 144/84 H 03/08/19 08:00 74 03/08/19 07:28 36.9 C 76 16 146/88 H 03/08/19 05:36 86 138/78 03/08/19 05:00 95 H 18 102/68 03/08/19 02:59 36.7 C 74 18 134/85 Pulse Ox 03/08/19 12:59 03/08/19 11:25 96 03/08/19 08:00 03/08/19 07:28 94 03/08/19 05:36 03/08/19 05:00 96 03/08/19 02:59 99
--- NOTE | 2019-03-08 15:00 | Hospitalist Progress Note ---
Date of Service March 08, 2019 Assessment & Plan (1) History of repair of hiatal hernia: S/P laparoscopic repair of hiatal hernia 02/23. EGD demonstrated large amount of food / gastric fluid in esophagus and stomach with associated esophagitis and gastritis. Remains in n.p.o. and now on TPN Ongoing postop management per Dr. Felix. Denies any abdominal symptoms Will have EGD on of this month Continue TPN and clears orally EGD showed esophageal stenosis, large amount of food in the stomach, gastric volvulus/external compression in the antrum and normal duodenum GI advised to have surgical release of the wrap Going to have reoperative robotic assisted laparoscopic exploration and repair of fundoplication tomorrow by Dr. Felix (2) Paroxysmal atrial fibrillation: PAF in setting of hypokalemia and hypoxia. Electrolytes and TSH are normal PE ruled out by CTA. Spontaneous conversion to sinus rhythm Appreciate cardiology input and recommendation Echo showed normal LV wall motion and function, normal atrial size. Started on metoprolol Denies any acute symptoms (3) HTN (hypertension): BP was noted to be elevated. Was on oral medications before Has been on intravenous metoprolol and intravenous SAAD inhibitor for BP control May need to add hydralazine Blood pressure seems to be under controlled with intravenous beta-cortez and hydralazine PRN Blood pressure remains on the upper side of normal The headache is resolved Blood pressure remains high, will continue current medications Seems to be under control-around 140/84 (4) Hypoxia: O2 sats as low as 89%. Possible aspiration pneumonia and / or atelectasis. Chest x-ray showed elevated left hemidiaphragm. Incentive spirometry. Management of pneumonia as discussed below. Saturating normally on room air (5) Aspiration pneumonia: Had cough and leukocytosis at time of admission. Chest films showed infiltrate at left base. CTA showed postsurgical changes, dilated fluid-filled esophagus, bibasilar atelectasis vs consolidation. Continue IV piperacillin / tazobactam for possible aspiration pneumonia. White count is improved Continue current antibiotic Esophageal stenosis secondary to tight wrap Remains risk of aspiration (6) Hypokalemia: Has other electrolyte abnormalities as well Serum K 3.4 at time of admission. Received replacement. K today = 3.7. Has low phosphate We will give intravenous phosphate and potassium again today Electrolytes will be adjusted in TPN Remains normal (7) Urinary retention: Underlying prostate Ca. Gramajo cath inserted by Urology. (8) DVT prophylaxis: SCD's. Ambulate. Has not been sleeping well for the last few days We will try oral trazodone at night Has been sleeping well for the last 2 nights (9) Discharge planning issues: Discharge disposition to be determined. Medical follow-up with [facility]cca in [place]. (10) Encounter for consultation: Thank you for this consultation. We will follow the patient with you during their hospital stay. My cell # is [phone]. You can reach a member of the [facility] Medicine Team 11/05 via pager @ [phone]. Subjective 03/02 The patient was seen and examined in telemetry unit Mr. Marino is a very nice 78-year-old male who had a huge hiatal hernia with gastric volvulus. Status post robotic assisted laparoscopic repair on 02/23/2019. Denies any symptoms as of today His blood pressure noted to be very high without any symptoms He denies any chest pain, palpitation or shortness of breath 03/03 Patient was seen and examined in telemetry unit He complains of a headache Denies any abdominal pain, distention, nausea and vomiting Remains on TPN 03/04 Patient was seen and examined in telemetry unit He does not have any complaints today He has been ambulating without difficulty and the headache is gone Remains on TPN 03/05 Patient was seen and examined in the telemetry unit He has not been sleeping well for the last few days and his blood pressure seems to be very high He denies any other symptoms He has been ambulating well in the room 03/06 Patient was seen and examined in telemetry unit He has been stable for the last few days without any symptoms He slept a little bit last night He has been ambulating well in the room 03/07 The patient was seen and examined in telemetry unit He is a status post EGD this morning Noted to have esophageal stenosis at the wrap 03/08 The patient was seen and examined in telemetry unit He is anxious for the proposed surgery going to be tomorrow by Dr. Yarbrough Denies any symptoms Pt was seen and evaluated, chart reviewed No complaints Is NPO for EGD No nausea, vomiting No CP, SOB Review of Systems Constitutional: + malaise and + weakness Physical Exam Physical Exam: No apparent distress at rest Constitutional: no acute distress Eyes: PERRL, conjunctivae normal, anicteric sclerae ENMT: external ear and nose normal, oropharynx normal Neck: trachea midline, no thyromegaly Respiratory: no respiratory distress Auscultation: + diminished lung sounds (left base) Cardiovascular: Rate/Rhythm: regular rate and regular rhythm Heart Sounds: no gallop, no murmur and no cardiac rub Vessels: no JVD Extremities: no edema Gastrointestinal (Abdomen): normal bowel sounds, soft, nontender, no hepatospl enomegaly Inspection/Auscultation: abdomen normal to inspection and normal bowel sounds; abdomen not distended Percussion/Palpation: + abdomen tender (Minimally in the lower quadrant) and abdomen soft; no guarding and abdomen not rigid Skin: no rashes, warm and dry Neurologic: patellar DTR's 2+ bilat, sensation intact Psychiatric: A+Ox3, euthymic affect Orientation: alert and oriented x 3 Lymphatic: no cervical or axillary lymphadenopathy Results & Data Vital Signs (Past 12 Hours) Vital Signs Temp Pulse Pulse Resp BP BP BP 03/08/19 12:59 82 144/84 H 03/08/19 11:25 36.3 C L 86 16 144/84 H 03/08/19 08:00 74 03/08/19 07:28 36.9 C 76 16 146/88 H 03/08/19 05:36 86 138/78 03/08/19 05:00 95 H 18 102/68 03/08/19 02:59 36.7 C 74 18 134/85 Pulse Ox 03/08/19 12:59 03/08/19 11:25 96 03/08/19 08:00 03/08/19 07:28 94 03/08/19 05:36 03/08/19 05:00 96 03/08/19 02:59 99 Laboratory Results BMP 03/08/19 05:32 Sodium 140 Potassium 4.2 Chloride 111 H Carbon Dioxide 23 BUN 19 H Creatinine 0.81 Glucose 108 H Calcium 7.9 L Medications Administered Current Inpatient Medications Bicalutamide (Casodex) 50 mg PO QPM SHERIF Stop: 03/27/19 20:59 Last Admin: 02/27/19 20:11 Dose: 50 mg Documented by: Heparin Sodium (Beef Lung) (Heparin Sod 10 Unit/Ml Flush) 5 ml FLUSH PRN PRN PRN Reason: Flush Stop: 04/04/19 01:47 Last Admin: 03/08/19 08:52 Dose: 5 ml Documented by: Heparin Sodium (Porcine) (Heparin Sodium (Porcine)) 5,000 units SQ Q12H SHERIF Stop: 04/01/19 11:59 Last Admin: 03/08/19 12:59 Dose: 5,000 units Documented by: Hydralazine HCl (Hydralazine Hcl) 10 mg IV Q8 PRN PRN Reason: Hypertension Stop: 04/01/19 14:41 Last Admin: 03/03/19 03:40 Dose: 10 mg Documented by: Promethazine HCl 12.5 mg/ (Sodium Chloride) 50.5 mls @ 202 mls/hr IV Q6H PRN PRN Reason: Nausea And Vomiting Stop: 03/28/19 00:51 Pantoprazole Sodium 40 mg/ (Syringe) 10 mls @ 5 mls/min IV BID@0900,2100 SHERIF Stop: 03/30/19 10:59 Last Admin: 03/08/19 09:52 Dose: 5 mls/min Documented by: Enalaprilat 0.625 mg/ Syringe 10 mls @ 2 mls/min IV Q6H PRN PRN Reason: Blood Pressure - High Stop: 03/30/19 14:44 Enalaprilat 1.25 mg/ Dextrose 26 mls @ 100 mls/hr IV Q6 SHERIF Stop: 03/31/19 17:59 Last Infusion: 03/08/19 13:16 Dose: Infused Documented by: Dextrose (D10w) 1,000 mls @ 83 mls/hr IV .Q12H3M PRN PRN Reason: UNDECIDED Stop: 03/31/19 15:59 Last Infusion: 03/05/19 19:00 Dose: Infused Documented by: Acetaminophen (Ofirmev) 1,000 mg in 100 mls @ 400 mls/hr IV Q8H PRN PRN Reason: Pain Stop: 04/02/19 09:15 Last Infusion: 03/03/19 09:54 Dose: Infused Documented by: Metoclopramide HCl (Reglan) 10 mg IV Q6H SHERIF Stop: 03/27/19 12:14 Last Admin: 03/08/19 12:59 Dose: 10 mg Documented by: Metoprolol Tartrate (Lopressor) 5 mg IV Q6H SHERIF Stop: 04/02/19 06:04 Last Admin: 03/08/19 12:59 Dose: 5 mg Documented by: Miscellaneous Information (Pharmacy Tpn/Ppn Consult Active) 1 ea N/A UD PRN PRN Reason: Consult Stop: 03/30/19 20:14 Nutrition (Parenteral) (Custom Central Pn) 1 bag IV TODAY@1600 SHERIF; Protocol Stop: 03/08/19 15:59 Last Admin: 03/07/19 15:27 Dose: 1 bag Documented by: Nutrition (Parenteral) (Custom Central Pn) 1 bag IV TODAY@1600 SHERIF; Protocol Stop: 03/09/19 15:59 Trazodone HCl (Desyrel) 50 mg PO HS [facility] Stop: 04/04/19 20:59 Last Admin: 03/07/19 21:22 Dose: 50 mg Documented by: (1) HTN (hypertension) Hypertension type: essential hypertension Qualified Code(s): I10 - Essential (primary) hypertension
[2019-03-08] MEDS ORDERED: CUSTOM CENTRAL PN IV SCH (16:00)
[2019-03-08] MEDS: TRAZODONE HCL 50 MG TAB PO SCH (20:20)
[2019-03-09] MEDS: METOPROLOL TARTRATE 1 MG/ML VIAL IV SCH ×4 (05:23→23:37)
[2019-03-09] MEDS: METOCLOPRAMIDE HCL INJ 5 MG/ML 2 ML VIAL IV SCH ×3 (05:23→21:33)
[2019-03-09] MEDS: ENALAPRILAT 1.25 MG in DEXTROSE 5% 25 ML IV SCH ×4 (05:24→23:37)
[2019-03-09] MEDS ORDERED: ONDANSETRON INJ 2 MG/ML 2 ML VIAL ONE (06:48)
[2019-03-09] MEDS ORDERED: LIDOCAINE HCL 2% 2 ML VIAL/AMP(20MG/ML) INFIL ONE (06:48)
[2019-03-09] MEDS ORDERED: PROPOFOL IV EMULSION 10 MG/ML 20 ML VIAL IV ONE (06:48)
[2019-03-09] MEDS ORDERED: ROCURONIUM BROMIDE 10 MG/ML 5 ML VIAL ONE (06:48)
[2019-03-09] MEDS ORDERED: MIDAZOLAM HCL 1 MG/ML 2ML VIAL ONE (06:49)
[2019-03-09] MEDS ORDERED: fentaNYL citrate 100 MCG/2 ML VIAL ONE ×2 (06:49→11:24)
--- NOTE | 2019-03-09 07:02 | History & Physical Bridge Note ---
Date of Service March 09, 2019 History & Physical Bridge Note I have examined the patient, reviewed the History & Physical and in the interval since the performance of the History & Physical I have noted the following changes of clinical significance: no changes noted
[2019-03-09] MEDS ORDERED: BUPIVACAINE 0.5 % 5 MG/1 ML MPF 30ML VIAL ONE (07:26)
[2019-03-09] MEDS ORDERED: SODIUM CHLORIDE 0.9% PF 50 ML VIAL ONE (07:26)
[2019-03-09] MEDS ORDERED: BUPIVACAINE LIPOSOME 1.3% 266 MG/20 ML VIAL ONE (07:26)
[2019-03-09] MEDS ORDERED: MEPERIDINE HCL 25 MG/ML CARP IV PRN (07:30)
[2019-03-09] MEDS ORDERED: ePHEDrine sulfate 50 MG/ML AMP IV PRN (07:30)
[2019-03-09] MEDS ORDERED: ATROPINE SULFATE 0.1 MG/ML 10ML SYR IV PRN (07:30)
[2019-03-09] MEDS ORDERED: fentaNYL citrate 100 MCG/2 ML VIAL IV PRN (07:30)
[2019-03-09] MEDS ORDERED: HYDROmorphone INJ 1 MG/ML SYRINGE IV PRN (07:30)
[2019-03-09] MEDS ORDERED: LABETALOL HCL IV 5 MG/ML 20ML IV PRN (07:30)
[2019-03-09] MEDS ORDERED: ONDANSETRON INJ 2 MG/ML 2 ML VIAL IV PRN (07:30)
[2019-03-09] MEDS ORDERED: PHENYLEPHRINE 100MCG/ML 5ML SYR IV PRN (07:30)
[2019-03-09] MEDS ORDERED: PHENYLEPHRINE 100MCG/ML 5ML SYR ONE ×3 (07:42→10:15)
[2019-03-09] MEDS ORDERED: CEFAZOLIN 250 MG/ML 1 GM VIAL ONE (07:56)
[2019-03-09] MEDS ORDERED: CEFAZOLIN 2000MG 2,000 MG/15 ML SYR IV ONE (08:37)
[2019-03-09] MEDS ORDERED: PHENYLEPHRINE HCL 10 MG/ML VIAL ONE (10:15)
--- NOTE | 2019-03-09 13:48 | Operative Report ---
Post Operative Report Pre & Post Diagnosis Operation Date: 02/28/19 09:15 Pre-Op Diagnosis: dysphagia Post-Op Diagnosis: erosive esophagitis gastritis Operation Date: 03/07/19 08:30 Pre-Op Diagnosis: DYSPHAGIA Post-Op Diagnosis: PYLORIC OBSTRUCTION Operation Date: 03/09/19 07:30 Pre-Op Diagnosis: GASTRIC OUTLET OBSTRUCTION Post-Op Diagnosis: GASTRIC OUTLET OBSTRUCTION Procedure Operation Date: 02/28/19 09:15 Actual Procedures p Esophagogastroduodenoscopy(Not Applicable) - Hardik Andrews Operation Date: 03/07/19 08:30 Actual Procedures p Esophagogastroduodenoscopy - Chelo Carmen MD Operation Date: 03/09/19 07:30 Actual Procedures p Reoperative Robotic Assisted Laparoscopic Exploration and Repair of Fundoplication, - Parish Felix MD, FACS s Esophagogastroduodenoscopy(Not Applicable) - Chelo Carmen MD Surgeon Chelo Carmen MD 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 Any exceptions are noted below.
--- NOTE | 2019-03-09 14:22 | Post Operative Brief Note ---
Immediate Post Op Note v1 Date of Surgery March 09, 2019 Pre & Post Diagnosis Operation Date: 02/28/19 09:15 Pre-Op Diagnosis: dysphagia Post-Op Diagnosis: erosive esophagitis gastritis Operation Date: 03/07/19 08:30 Pre-Op Diagnosis: DYSPHAGIA Post-Op Diagnosis: PYLORIC OBSTRUCTION Operation Date: 03/09/19 07:30 Pre-Op Diagnosis: GASTRIC OUTLET OBSTRUCTION Post-Op Diagnosis: GASTRIC OUTLET OBSTRUCTION Procedure Operation Date: 02/28/19 09:15 Actual Procedures p Esophagogastroduodenoscopy(Not Applicable) - Hardik Andrews Operation Date: 03/07/19 08:30 Actual Procedures p Esophagogastroduodenoscopy - Chelo Carmen MD Operation Date: 03/09/19 07:30 Actual Procedures p Reoperative Robotic Assisted Laparoscopic Exploration and Takedown of Fundoplication, Extensive lysis of adhesions and repair antral torsion Gastropexy - Parish Felix MD, FACS s Esophagogastroduodenoscopy(Not Applicable) - Chelo Carmen MD Surgeon Parish Felix MD, FACS Assistant Research Scientist Claribel Sr Estimated Blood Loss 100 Findings Consistent with Post-Op Diagnosis Drains Gramajo Catheter ([place] CATHETER APPLIED)
[2019-03-09] MEDS ORDERED: SUGAMMADEX SODIUM 200 MG/2 ML VIAL IV ONE (14:44)
--- NOTE | 2019-03-09 15:27 | XRay Report ---
XR chest 1V portable CLINICAL HISTORY: SOB / Post-op COMPARISON STUDY: 02/25/2019 FINDINGS: Central catheter positioned in the superior vena cava. Subcutaneous emphysema primarily in the low cervical region. Very small pneumomediastinum. Trace subdiaphragmatic free air on the right. This may be postoperative. Persistent atelectatic change and or volume loss left base. IMPRESSION: 1. Postoperative changes as described including subcutaneous emphysema. Central catheter in superior vena cava. Trace subdiaphragmatic free air as well as pneumomediastinum most likely postoperative The above report was generated using voice recognition software. It may contain grammatical, syntax or spelling errors. Electronically signed by: Ugo Ingram M.D. 03/09/2019 3:25 PM
[2019-03-09] MEDS ORDERED: CUSTOM CENTRAL PN IV SCH (16:00)
--- NOTE | 2019-03-09 16:03 | Anesthesiology Progress Note ---
Date of Service March 09, 2019 Anesthesia Post Procedure Vital Signs Vital Signs: Temp Pulse Pulse Resp BP BP BP 03/09/19 15:55 81 23 129/76 03/09/19 15:45 80 23 119/74 03/09/19 15:35 81 23 118/73 03/09/19 15:25 82 24 118/77 03/09/19 15:19 110 H 126/77 03/09/19 15:15 84 24 122/74 03/09/19 15:05 103 H 25 H 125/76 03/09/19 14:54 36.3 C L 105 H 18 122/74 03/09/19 06:26 36.8 C 77 18 145/86 H 03/09/19 05:25 36.7 C 90 18 140/92 03/09/19 05:23 78 140/92 03/09/19 03:11 36.9 C 84 18 132/80 03/08/19 23:37 78 03/08/19 23:22 36.7 C 84 18 153/100 H 03/08/19 23:09 84 153/100 H 03/08/19 19:49 36.9 C 80 18 142/79 H Pulse Ox 03/09/19 15:55 96 03/09/19 15:45 95 03/09/19 15:35 95 03/09/19 15:25 98 03/09/19 15:19 03/09/19 15:15 93 03/09/19 15:05 94 03/09/19 14:54 93 03/09/19 06:26 95 03/09/19 05:25 99 03/09/19 05:23 03/09/19 03:11 96 03/08/19 23:37 03/08/19 23:22 97 03/08/19 23:09 03/08/19 19:49 96 Transfer of Care Handoff Completed per policy Notes Mental Status: alert / awake / arousable Patient Amnestic to Procedure: Yes Nausea / Vomiting: adequately controlled Pain: adequately controlled Airway Patency, RR, SpO2: stable & adequate BP & HR: stable & adequate Hydration State: stable & adequate Anesthetic Complications: no major complications apparent Notes: Awake, doing well, no complaints. VSS. Will keep patient on 2L NC.
[2019-03-09] MEDS ORDERED: TRAMADOL HCL 50 MG TABLET PO PRN (16:19)
[2019-03-09] MEDS ORDERED: ONDANSETRON 4 MG TAB PO PRN (16:19)
[2019-03-09] MEDS: PANTOprazole 40 MG in SYRINGE 0 ML IV SCH ×2 (16:22→21:32)
[2019-03-09] MEDS: HEPARIN SOD 5,000 UNIT/0.5 ML VIAL SQ SCH ×2 (16:22→23:37)
[2019-03-09] MEDS ORDERED: METOCLOPRAMIDE HCL 10 MG TABLET PO SCH (16:30)
[2019-03-09] MEDS: ACETAMINOPHEN 1,000 MG/100 ML VIAL IV PRN (17:02)
--- NOTE | 2019-03-09 18:17 | GI REPORT ---
Patient Name: Adán Marino Procedure Date: 03/09/2019 10:07 AM Date of : 1940 Admit Type: Inpatient Age: 78 Gender: Male Attending MD: Chelo Carmen MD Procedure: Upper GI endoscopy Providers: Chelo Carmen MD Referring MD: Parish Felix Md Indications: Dysphagia, Follow-up of gastric outlet obstruction Medicines: General Anesthesia Complications: No immediate complications. Estimated Blood Loss: Estimated blood loss: none. Procedure: Pre-Anesthesia Assessment: - The procedure was done to assist thoracic surgery intraoperatively during explaratoy Laparoscopy after prior Razia fundoplication complicatied by gastric volvulus. - Prior to the procedure, a History and Physical was performed, and patient medications, allergies and sensitivities were reviewed. The patient's tolerance of previous anesthesia was reviewed. Informed consent was obtained. Patient identification and proposed procedure were verified prior to the procedure by the physician and the nurse. The procedure was verified in the procedure room. Airway Examination: orotracheal intubation. The endoscope was passed under direct vision. Throughout the procedure, the patient's blood pressure, pulse, and oxygen saturations were monitored continuously. The Endoscope was introduced through the mouth, and advanced to the third part of duodenum. The upper GI endoscopy was accomplished without difficulty. The patient tolerated the procedure well. Findings: During the initial endoscopy, stenosis was found at the fundoplication area due to tight wrap, this improved after surgical repair and scope passed. Gastric volvulus was present in the gastric antrum. This improved after surgical gastropesxy. The duodenal bulb and second portion of the duodenum were normal. Impression: - Esophageal stenosis at the fundoplication, this improved after surgical correction. - Gastric volvulus, this improved after surgical correction. - Normal duodenal bulb and second portion of the duodenum. - No specimens collected. Recommendation: - Refer to surgical team for further recommendation. - Recall GI if needed. Chelo Carmen MD 03/09/2019 6:16:35 PM This report has been signed electronically. Note Initiated On: 03/09/2019 10:07 AM Number of Addenda: 0 I attest to the content of the Intraoperative Record and orders documented therein, exceptions below {[id number]}
[2019-03-09] MEDS ORDERED: Nursing to Pharmacy Communication ONE ×2 (18:30→18:48)
[2019-03-09] MEDS: MoRPHine SULFATE 2 MG/ML CARP IV PRN ×2 (18:47→23:37)
--- NOTE | 2019-03-09 20:37 | Hospitalist Progress Note ---
Date of Service March 09, 2019 Assessment & Plan (1) History of repair of hiatal hernia: S/P laparoscopic repair of hiatal hernia 02/23. S/P Reoperative robot-assisted laparoscopic takedown of Razia fundoplication by Dr. Felix S/P Repair of gastric volvulus with gastropexy and Removal of bioprosthetic mesh done today by Dr. Felix Keep NPO for now management as per thoracic surgery team (2) Paroxysmal atrial fibrillation: PAF in setting of hypokalemia and hypoxia. Electrolytes and TSH are normal PE ruled out by CTA. Spontaneous conversion to sinus rhythm Cardiology on board Echo showed normal LV wall motion and function, normal atrial size. Continue IV metoprolol q6h while NPO (3) HTN (hypertension): BP has been fluctuated Continue IV metoprolol and IV enalapril for now Consider to add hydralazine IV if BP elevates Monitor BP (4) Hypoxia: Possible aspiration pneumonia and / or atelectasis. Chest x-ray showed elevated left hemidiaphragm. Continue Incentive spirometry. Resolved (5) Aspiration pneumonia: Had cough and leukocytosis at time of admission. Chest films showed infiltrate at left base. CTA showed postsurgical changes, dilated fluid-filled esophagus, bibasilar atelectasis vs consolidation. Received IV piperacillin / tazobactam Clinically stable (6) Hypokalemia: K stable Monitor BMP (7) Urinary retention: Underlying prostate Ca. Gramajo cath inserted by Urology. (8) DVT prophylaxis: On Heparin subq (9) Discharge planning issues: Discharge disposition as per thoracic surgery Medical follow-up with Becca in [place]. (10) Encounter for consultation: Thank you for this consultation. We will follow the patient with you during their hospital stay. My cell # is [phone]. You can reach a member of the [facility] Medicine Team 11/05 via pager @ [phone]. Subjective Pt was seen and examined Lying in bed with no distress Pt just came back from the OR about 2 hrs ago He said that he feels like someone punched him in the gut Denies any chest pain, palpitation, SOB and dizziness Physical Exam Physical Exam: General- No acute distress Head- atraumatic Eyes- PERRL, EOMI, ENT- oropharynx clear Neck- supple, no JVD Lungs- Diminished BS Heart- regular rhythm; no murmur Abdomen- normal bowel sounds, soft, nontender Extremities- no calf tenderness Neuro- alert, oriented x 3; PERRL, EOMI; no facial palsy; no dysarthria Skin- warm & dry Results & Data Vital Signs (Past 12 Hours) Vital Signs Temp Pulse Pulse Resp BP BP BP 03/09/19 19:00 88 16 137/87 03/09/19 18:30 83 16 137/89 03/09/19 17:30 36.4 C L 88 18 144/90 H 03/09/19 17:23 85 155/91 H 03/09/19 17:05 36.5 C 89 18 155/91 H 03/09/19 16:45 36.5 C 82 16 138/81 03/09/19 16:30 81 18 133/86 03/09/19 16:20 36.3 C L 79 80 16 133/87 03/09/19 15:55 81 23 129/76 03/09/19 15:45 80 23 119/74 03/09/19 15:35 81 23 118/73 03/09/19 15:25 82 24 118/77 03/09/19 15:19 110 H 126/77 03/09/19 15:15 84 24 122/74 03/09/19 15:05 103 H 25 H 125/76 03/09/19 14:54 36.3 C L 105 H 18 122/74 Pulse Ox 03/09/19 19:00 96 03/09/19 18:30 96 03/09/19 17:30 96 03/09/19 17:23 03/09/19 17:05 97 03/09/19 16:45 95 03/09/19 16:30 95 03/09/19 16:20 93 03/09/19 15:55 96 03/09/19 15:45 95 03/09/19 15:35 95 03/09/19 15:25 98 03/09/19 15:19 03/09/19 15:15 93 03/09/19 15:05 94 03/09/19 14:54 93 (1) HTN (hypertension) Hypertension type: essential hypertension Qualified Code(s): I10 - Essential (primary) hypertension
--- NOTE | 2019-03-09 22:53 | Operative Report ---
DATE OF OPERATION: 03/09/2019 PREOPERATIVE DIAGNOSES: 1. Apparent antral volvulus. 2. Status post repair of large hiatal hernia. POSTOPERATIVE DIAGNOSES: 1. Gastric volvulus. 2. Status post repair of hiatal hernia. PROCEDURE PERFORMED: 1. Reoperative robot-assisted laparoscopic takedown of Razia fundoplication. 2. Repair of gastric volvulus with gastropexy. 3. Removal of bioprosthetic mesh. SURGEON: Parish Felix MD [employer]: Claribel HEATON ANESTHESIA: General anesthesia, endotracheal intubation. PROCEDURE AND FINDINGS: This is a very nice 78-year-old male who had a huge hiatal hernia and had episodes and radiographic findings that were quite suggestive of gastric volvulus. I discussed this in detail with the patient's in the office and took him to the operating room on 02/23/2019 and performed a robot-assisted laparoscopic repair of large paraesophageal hernia with bioprosthetic patch with a floppy Razia fundoplication. I also did an esophago-duodenoscopy while he was asleep. He did well with this and had no problems overnight as well the next day showed some holdup at the GE junction, but his stomach emptied nicely and he was discharged. He came back the following day complaining of being quite full and really unable to take any more fluids. I readmitted him and he underwent an upper endoscopy by Dr. Hardik Andrews which showed that he was quite tight at the GE junction and also had a stomach which was quite large. I kept the patient n.p.o. and put him on peripheral hyperalimentation. We were concerned about the appearance of the distal esophagus in the stomach as it appeared there may be some ischemia. On 03/07/2019 twelve days after his surgery Dr. Carmen performed an upper endoscopy and felt that there was twisting of the GE junction as well as the antral volvulus. For this reason, I brought the patient back to the operating room today on 03/09/2019 and performed a reoperative robot-assisted laparoscopic repair. It was a bit difficult case due to his adhesions. Initially I was quite concerned about the GE junction. For this reason, I took down the fundoplication and the repair looked fine. I also took out the mesh, but again this did not look bad and I left the hiatal repair intact. Upon inspecting the stomach it was clear that the fundus was quite large; however, it appeared that we did have a gastric torsion. The fundus was so large and floppy and it had been in the chest after we reduced it that it had caused what appeared to be an organoaxial rotation, so that we had twisting of the GE junction as well as the antrum. After taking down multiple adhesions and freeing up the entire stomach I performed a gastropexy. Dr. Carmen performed actually 2 upper endoscopies. The first endoscopy was improved, but I had not taken down all the adhesions or performed a gastropexy. He came back later and when holding the stomach in the stomach's new position it appeared we had relieved the torsions. After the gastropexy, I then closed. He tolerated it well. DESCRIPTION OF PROCEDURE: The patient was brought to operating room and laid in supine position. General anesthesia induced, endotracheal intubation performed. After prepping and draping in usual sterile fashion, calling appropriate timeout and prepping his abdomen I went through the assistant professor of criminal justice's port first in the left periumbilical area. This was anesthetized with Exparel. Exparel 266 mg was mixed with 30 mL of 0.5% Marcaine and 50 mL normal saline injected into each of the 6 port sites. Upon going into the assistant professor of criminal justice's port it could be seen that we were in the abdomen and carbon dioxide was insufflated. There were some adhesions which were taken down. I replaced the two 8 mm ports in the subcostal margin. I also placed a camera port in the midline above the umbilicus and two 5 mm ports laterally, 1 for the liver retractor and 1 for the 5 mm thoracic grasper, which were used for retraction. Upon going in, I took down the omental attachments to the abdominal wall and I was surprised at how exuberant they were already especially on the left side. At any rate, the stomach was quite distended. I took down all the adhesions and this was done very well with the robot after I docked the robot. Upon coming down, I took down adhesions it could be seen that the repair seemed fine. It did not appear to be ischemic. I took down the repair more behind it and after cutting the silk sutures I then was able to pull the fundus down fairly easily and got behind the esophagus. I removed the patch, but the repair looked fine. I was quite concerned about the GE junction, I was a bit surprised that it appeared so stenotic and ischemic after I had performed an upper endoscopy at the time of surgery 2 weeks before and had not seen this. At any rate, I then saw the antrum was quite tethered down and I began taking down the greater curvature all the way down to the antrum. Care was taken to avoid injury to the gastroepiploic artery. There were multiple adhesions which I took down to help free up this twist of the antrum. I spent a great deal of time and was very careful in performing this dissection. Dr. Carmen came in and performed an upper endoscopy. Preston through the case after we had taken down the fundoplication removed the patch and still saw twisting. He also saw the antral volvulus. For this reason, after freeing it up, I then had Dr. Carmen come back and after I had tacked the stomach to the anterior peritoneal wall and this had relieved the torsion to a great deal as well as the GE junction. For this reason, I placed several sutures to hold this up and was quite pleased at the conclusion of the case. We had negligible blood loss. I closed the assistant professor of criminal justice's port and the camera port with a #1 PDS and 4-0 Monocryl was then used in running continuous fashion to close the skin edges after I had undocked the robot, removed all of the ports. I was quite pleased with this case, although it was very difficult due to adhesions. He tolerated it well, was extubated in the room with negligible blood loss. I attest to the content of the Intraoperative Record and any orders documented therein. Any exceptions are noted below. DEBBIE
[2019-03-10] MEDS: MoRPHine SULFATE 2 MG/ML CARP IV PRN ×2 (04:29→07:33)
[2019-03-10] MEDS: ENALAPRILAT 1.25 MG in DEXTROSE 5% 25 ML IV SCH ×4 (05:40→23:29)
[2019-03-10] MEDS: METOPROLOL TARTRATE 1 MG/ML VIAL IV SCH ×4 (05:40→23:29)
--- NOTE | 2019-03-10 07:11 | XRay Report ---
XR chest 1V portable HISTORY: 78 years-old Male post-op postoperative exam. COMPARISON: Chest radiograph 03/09/2019 3:19 PM TECHNIQUE: Portable AP view of the chest FINDINGS: Cardiac silhouette is enlarged, unchanged. Subcutaneous emphysema over the supraclavicular distributi ons has slightly decreased. Stable positioning of the right-sided PICC. Suggestion of decreasing pneu momediastinum. Pneumoperitoneum also appear slightly decreased. No overt pulmonary edema. Left infrah ilar and left lung base opacities are noted with suggestion of trace effusions. No definite pneumotho rax identified. Bones appear grossly intact. IMPRESSION: 1. Cardiomegaly without overt pulmonary edema. 2. Persistent left basilar opacities. 3. Slightly decreased subcutaneous emphysema, pneumomediastinum and pneumoperitoneum. 4. No definite pneumothorax identified. The above report was generated using voice recognition software. It may contain grammatical, syntax o r spelling errors. Electronically signed by: Dell Lau M.D. 03/10/2019 7:09 AM
[2019-03-10 07:19] LABS: BUN Creatinine Ratio 25.7 (10-20); Calcium 7.3 mg/dl (8.5-10.1); Creatinine Clr Calc Pharmacy 64.7 ml/min; Est GFR (African American) 77.5; Est GFR (Non-African American) 66.9; Magnesium 2.1 mg/dl (1.8-2.4); Phosphorus 2.1 mg/dl (2.5-4.9); Potassium 4.1 mmol/L (3.5-5.1)
[2019-03-10] MEDS: METOCLOPRAMIDE HCL INJ 5 MG/ML 2 ML VIAL IV SCH ×4 (07:34→21:01)
[2019-03-10] MEDS: PANTOprazole 40 MG in SYRINGE 0 ML IV SCH ×2 (07:34→21:01)
--- NOTE | 2019-03-10 08:38 | Progress Note ---
DATE: 03/10/2019 Mr. Marino was 1 day status post a reoperative robot-assisted laparoscopic repair of a gastric volvulus, takedown of his Razia fundoplication. He complains of abdominal pain which is unchanged since his surgery. It appeared to be local along the abdominal wall. His abdomen is soft. He has quiet bowel sounds. Lab work is pending on him today. His x-ray today shows improvement of his subcutaneous emphysema which is not surprising, although his gastric bubble still was large. I think his diaphragm is down even a bit from yesterday; however, he really has not walked, we need to get him up right. We will check a swallow on him tomorrow. I would like to get him up moving today, but I am hopeful that his stomach will empty well. Otherwise, his incisions look good and he looks good. He is on room air with stable vital signs. Only, his pressure is a bit high.
[2019-03-10] MEDS ORDERED: OMEGA-3 (PURIFIED FISH OIL) 1 GM CAP PO SCH (09:00)
[2019-03-10] MEDS ORDERED: MAGNESIUM OXIDE 400 MG TAB PO SCH (09:00)
[2019-03-10] MEDS ORDERED: TOCOPHERYL, DL-ALPHA 400 UNITS CAP PO SCH (09:00)
[2019-03-10] MEDS ORDERED: NON-FORMULARY MEDICATION (Omeprazole 40 MG) PO SCH (09:00)
[2019-03-10] MEDS ORDERED: MULTIVITAMIN TAB PO SCH (09:00)
[2019-03-10] MEDS ORDERED: NON-FORMULARY MEDICATION (Red Yeast Rice 600 MG) PO SCH (09:00)
[2019-03-10] MEDS ORDERED: TOCOPHERYL, DL-ALPHA 100 UNITS CAP PO SCH (09:00)
[2019-03-10] MEDS ORDERED: NON-FORMULARY MEDICATION (Potassium Gluconate 595 MG) PO SCH (09:00)
--- NOTE | 2019-03-10 10:02 | Urology Progress Note ---
Date of Service March 10, 2019 Assessment & Plan (1) Urinary retention: 78yo M with known prostate CA, BNC, UR s/p extensive abdominal surgery with boateng reinserted postoperatively yesterday. Progressing as expected post operatively. Pt tolerating catheter well (12fr straight). No hematuria or signs of trauma from insertion. Plan to maintain boateng catheter for maximal drainage, no plans for removal at this time. Will continue to follow peripherally while inpatient. Subjective 7yo M with hx prostate cancer s/p radical retropubic prostatectomy and radiation on lupron and casodex, known BNC, known to Dr. Hylton, with urinary retention issues off and on during his complicated hospitalization s/p robotic assisted laproscopic repair, floppy lesli fundoplication on 02/[address] Felix. Pt underwent extensive procedure on 03/09 for repair of tight GE junction and gastric torsion. On 02/25, Dr. Rubio performed a bedside cystoscopy and bladder neck dilation with placement of 14f catheter for urinary retention and unsuccessful boateng cath attempts. Cath maintained for 3days as recommended. Pt then able to void on his own from what I can tell. I assisted with Dr. Felix's repeat procedure on 03/09 due to staffing needs. RN had difficulty placing catheter preop - resistance at meatus with 16fr straight cath. Dr. Rubio made aware at that time, urethral meatus was not his issue prior. Recommend using hemostats to gently open urethra. Using usual sterile fashion, I attempted to place 14fr straight cath, meeting resistance quickly upon entering meatus, approx 2cm in. able to easily pass hemostat through meatus. I then was successfully able to pass 12fr catheter with minimal resistance, with spontaneous return of yellow urine. No hematuria or signs of trauma noted. NPO, pt on TPN. Able to get OOB to chair breifly today, became fatigued and back to bed when I evaluated him. Sleeping but easily arousable. Good urine output overnight. Pt denies any discomfort with boateng catheter in place. Draining clear yellow, no clots or hematuria. No suprapubic pain. Review of Systems Constitutional: + malaise and + weakness; no fever, no chills and no sweats Eyes: no blind spots and no diplopia Ear, Nose, Mouth, Throat: no ear pain and no tinnitus Respiratory: no cough Cardiovascular: no chest pain and no chest pain at rest Gastrointestinal: no belching, no nausea and no vomiting Genitourinary: no hematuria, no flank pain and no testicle pain Musculoskeletal: no back pain and no neck pain Integumentary: no acne and no boil Neurologic: + generalized weakness; no falls, no paralysis, no numbness and no paresthesia Psychiatric: no problem reported Physical Exam Constitutional: + not well developed, + not well nourished and no acute distress Eyes: no nystagmus ENMT: Ears: no hearing impairment and no TM abnormality Neck: + trachea not midline Respiratory: no respiratory distress and no retractions Cardiovascular: Rate/Rhythm: regular rate Vessels: no JVD Gastrointestinal (Abdomen): Inspection/Auscultation: abdomen not distended Percussion/Palpation: + abdomen tender (as expected post surgically) and abdomen soft Skin: no rashes, warm and dry Neurologic: awake; not confused Psychiatric: Orientation: alert and oriented x 3 Eye Contact: good eye contact Genitourinary: no CVA tenderness boateng draining clear yellow Results & Data Vital Signs (Past 12 Hours) Vital Signs Temp Pulse Pulse Resp BP BP Pulse Ox 03/10/19 08:00 89 03/10/19 06:51 36.9 C 91 H 26 H 166/89 H 94 03/10/19 05:40 98 H 162/95 H 03/10/19 05:39 98 H 22 162/95 H 93 03/10/19 03:12 37 C 92 H 28 H 156/94 H 93 03/09/19 23:37 91 H 138/82 03/09/19 23:30 37.1 C 91 H 24 138/82 96 03/09/19 23:24 86 Laboratory Results Laboratory Results - last 48 hr 03/08/19 03/08/19 03/08/19 11:19 17:54 23:27 Sodium Potassium Chloride Carbon Dioxide Anion Gap BUN Creatinine Est Cr Clr Drug Dosing Est GFR ( Amer) Est GFR (Non-Af Amer) BUN/Creatinine Ratio Glucose POC Glucose 113 H 108 H 105 H Calcium Phosphorus Magnesium 03/09/19 03/09/19 03/09/19 05:46 18:12 23:50 Sodium Potassium Chloride Carbon Dioxide Anion Gap BUN Creatinine Est Cr Clr Drug Dosing Est GFR ( Amer) Est GFR (Non-Af Amer) BUN/Creatinine Ratio Glucose POC Glucose 113 H 179 H 122 H Calcium Phosphorus Magnesium 03/10/19 03/10/19 05:55 06:26 Sodium 139 Potassium 4.1 Chloride 110 H Carbon Dioxide 24 Anion Gap 5.0 BUN 27 H Creatinine 1.06 Est Cr Clr Drug Dosing 64.7 Est GFR ( Amer) 77.5 Est GFR (Non-Af Amer) 66.9 BUN/Creatinine Ratio 25.7 H Glucose 134 H POC Glucose 140 H Calcium 7.3 L Phosphorus 2.1 L Magnesium 2.1
[2019-03-10] MEDS: ACETAMINOPHEN 1,000 MG/100 ML VIAL IV PRN ×2 (11:19→21:01)
[2019-03-10] MEDS: HEPARIN SOD 5,000 UNIT/0.5 ML VIAL SQ SCH ×2 (12:41→23:29)
[2019-03-10] MEDS ORDERED: SODIUM PHOSPHATE 15 MMOL in SODIUM CHLORIDE 0.9% 250 ML IV ONE (13:30)
[2019-03-10] MEDS ORDERED: CUSTOM CENTRAL PN IV SCH (16:00)
[2019-03-10] MEDS: HydrALAZINE HCL 20 MG/ML VIAL IV PRN (16:23)
[2019-03-10] MEDS ORDERED: SODIUM CHLORIDE 0.65% NA SOLN 45 ML (OCEAN) PRN (17:55)
--- NOTE | 2019-03-10 19:13 | Hospitalist Progress Note ---
Date of Service March 10, 2019 Assessment & Plan (1) History of repair of hiatal hernia: S/P laparoscopic repair of hiatal hernia 02/23. S/P Reoperative robot-assisted laparoscopic takedown of Razia fundoplication by Dr. Felix on 03/09 S/P Repair of gastric volvulus with gastropexy and Removal of bioprosthetic mesh done today by Dr. Felix on 03/09 Keep NPO for now Pain slightly improves Will get barium swallow in am management as per thoracic surgery team (2) Paroxysmal atrial fibrillation: PAF in setting of hypokalemia and hypoxia. Heart rate has been btw 90 to 100's Electrolytes and TSH are normal PE ruled out by CTA. Spontaneous conversion to sinus rhythm Cardiology on board Echo showed normal LV wall motion and function, normal atrial size. Continue IV metoprolol q6h while NPO (3) HTN (hypertension): BP elevated today Continue IV metoprolol Will consider to increase IV enalapril if BP remains high Monitor BP (4) Hypoxia: Possible aspiration pneumonia and / or atelectasis. Chest x-ray showed elevated left hemidiaphragm. Continue Incentive spirometry. Resolved (5) Aspiration pneumonia: Had cough and leukocytosis at time of admission. Chest films showed infiltrate at left base. CTA showed postsurgical changes, dilated fluid-filled esophagus, bibasilar atelectasis vs consolidation. Received IV piperacillin / tazobactam Clinically stable (6) Urinary retention: Underlying prostate Ca. Boateng cath inserted by Urology. Urology recommended to Keep boateng cath for now (7) Electrolyte imbalance: Phosp 2.1 today Phos replaced today Continue TPN Monitor electrolytes (8) DVT prophylaxis: On Heparin subq (9) Discharge planning issues: Discharge disposition as per thoracic surgery Medical follow-up with [facility] in [place]. (10) Encounter for consultation: Thank you for this consultation. We will follow the patient with you during their hospital stay. My cell # is [phone]. You can reach a member of the [facility] Medicine Team 11/05 via pager @ [phone]. Subjective Pt was seen and examined Lying in bed with no distress Pt said that early today he had nasal congestion with post nasal drip He said that he has been using the nasal saline he said that now his breathing feels much better he said that he is abdominal pain slightly improves Denies any chest pain, palpitation, dizziness and SOB Physical Exam Physical Exam: General- No acute distress Head- atraumatic Eyes- PERRL, EOMI, ENT- oropharynx clear Neck- supple, no JVD Lungs- Diminished BS Heart- regular rhythm; no murmur Abdomen- normal bowel sounds, soft, +tender with palpation Extremities- no calf tenderness Neuro- alert, oriented x 3; PERRL, EOMI; no facial palsy; no dysarthria Skin- warm & dry Results & Data Vital Signs (Past 12 Hours) Vital Signs Temp Pulse Pulse Resp BP BP Pulse Ox 03/10/19 18:08 102 H 178/98 H 03/10/19 17:43 90 03/10/19 16:06 36.8 C 19 176/100 H 93 03/10/19 12:39 90 190/99 H 03/10/19 10:48 36.7 C 99 H 22 190/99 H 92 03/10/19 08:00 89 (1) HTN (hypertension) Hypertension type: essential hypertension Qualified Code(s): I10 - Essential (primary) hypertension
[2019-03-10] MEDS: ENALAPRILAT 0.625 MG in SYRINGE 9.5 ML IV PRN (20:59)
[2019-03-11] MEDS: HydrALAZINE HCL 20 MG/ML VIAL IV PRN (03:24)
[2019-03-11] MEDS: ENALAPRILAT 0.625 MG in SYRINGE 9.5 ML IV PRN (04:11)
[2019-03-11] MEDS: METOPROLOL TARTRATE 1 MG/ML VIAL IV SCH (05:35)
[2019-03-11] MEDS: ENALAPRILAT 1.25 MG in DEXTROSE 5% 25 ML IV SCH ×2 (05:35→11:55)
[2019-03-11 07:37] LABS: Calcium 7.7 mg/dl (8.5-10.1); Creatinine Clr Calc Pharmacy 96.8 ml/min; Est GFR (African American) 104.8; Est GFR (Non-African American) 90.4; Potassium 3.5 mmol/L (3.5-5.1)
[2019-03-11 07:47] LABS: Phosphorus 1.4 mg/dl (2.5-4.9)
[2019-03-11] MEDS ORDERED: POTASSIUM PHOS 3 MMOL/1 ML INFUSION IV STA (07:54)
[2019-03-11] MEDS: PANTOprazole 40 MG in SYRINGE 0 ML IV SCH ×2 (08:01→20:05)
[2019-03-11] MEDS: METOCLOPRAMIDE HCL INJ 5 MG/ML 2 ML VIAL IV SCH ×4 (08:02→20:05)
[2019-03-11] MEDS ORDERED: POTASSIUM PHOSPHATE 21 MMOL in SODIUM CHLORIDE 0.9% 500 ML IV ONE (08:30)
--- NOTE | 2019-03-11 09:16 | Fluoroscopy Report ---
FL barium swallow CLINICAL HISTORY: s/p repair gastric volvulus - assess gastric empty COMPARISON STUDY: 02/24/2019 FLUOROSCOPY TIME: 3 minutes and 30 seconds.. NUMBER OF FLUOROSCOPIC IMAGES: 25 FINDINGS: The study was initially performed with Optiray 300. There is no extravasation. Images were then acquired utilizing barium There is fixed narrowing at the level of the esophagogastric junction. There is a small hiatal hernia . There is disordered esophageal motility. There is marked dilatation of the gastric cardia and proximal fundus. The distal fundus and gastric a ntrum appear collapsed. There is no gastric outlet obstruction. The duodenal bulb appears normal. Con trast is visualized within small bowel. There is subcutaneous gas and free intraperitoneal air, likel y postsurgical. IMPRESSION: 1. Small hiatal hernia 2. Smooth narrowing of the esophagogastric junction 3. Dilated gastric cardia and proximal fundus of the stomach 4. No evidence of gastric outlet obstruction. Electronically signed by: Deep Farr M.D. 03/11/2019 9:14 AM
--- NOTE | 2019-03-11 11:20 | Urology Progress Note ---
Date of Service March 11, 2019 Assessment & Plan (1) Urinary retention: 78yo M known CaP, BNC, UR s/p extensive abdominal surgeries with boateng reinserted on 03/09. Doing well from standpoint. Plan to maintain boateng catheter for now, likely will maintain until outpatient folowup with Dr. Hylton as scheduled for 03/30/18 at 1:40PM (added to discharge instructions). Will continue to follow peripherally while inpatient. Subjective 78yo M known CaP, BNC, UR s/p extensive abdominal surgeries with boateng reinserted on 03/09. Underwent barium swallow study this AM, so far seems to be tolerating clear liquids without issue. Family at bedside this AM. No new issues or concerns from standpoint. Just mostly complaining of generalized fatigue. Tolerating catheter well - draining clear yellow. Denies n/v/f/c. Review of Systems Review of Systems: All systems reviewed & are unremarkable except as noted in HPI & below Physical Exam Physical Exam: A&Ox3 RRR No LE edema boateng intact, draining clear yellow. Results & Data Vital Signs (Past 12 Hours) Vital Signs Temp Pulse Pulse Resp BP BP Pulse Ox 03/11/19 07:30 36.5 C 102 H 18 185/97 H 95 03/11/19 05:31 103 H 18 178/102 H 95 03/11/19 04:10 107 H 16 173/96 H 93 03/11/19 03:19 36.6 C 95 H 16 192/113 H 94 03/11/19 00:04 92 H Laboratory Results Laboratory Results - last 48 hr 03/09/19 03/09/19 03/10/19 18:12 23:50 05:55 Sodium Potassium Chloride Carbon Dioxide Anion Gap BUN Creatinine Est Cr Clr Drug Dosing Est GFR ( Amer) Est GFR (Non-Af Amer) BUN/Creatinine Ratio Glucose POC Glucose 179 H 122 H 140 H Calcium Phosphorus Magnesium 03/10/19 03/10/19 03/10/19 06:26 10:59 17:59 Sodium 139 Potassium 4.1 Chloride 110 H Carbon Dioxide 24 Anion Gap 5.0 BUN 27 H Creatinine 1.06 Est Cr Clr Drug Dosing 64.7 Est GFR ( Amer) 77.5 Est GFR (Non-Af Amer) 66.9 BUN/Creatinine Ratio 25.7 H Glucose 134 H POC Glucose 126 H 114 H Calcium 7.3 L Phosphorus 2.1 L Magnesium 2.1 03/11/19 06:47 Sodium 135 L Potassium 3.5 Chloride 107 Carbon Dioxide 21 Anion Gap 7.0 BUN 17 Creatinine 0.70 D Est Cr Clr Drug Dosing 96.8 Est GFR ( Amer) 104.8 Est GFR (Non-Af Amer) 90.4 BUN/Creatinine Ratio 24.0 H Glucose 136 H POC Glucose Calcium 7.7 L Phosphorus 1.4 L* Magnesium
[2019-03-11] MEDS: HEPARIN SOD 5,000 UNIT/0.5 ML VIAL SQ SCH ×2 (11:56→23:04)
[2019-03-11] MEDS ORDERED: METOPROLOL TARTRATE 1 MG/ML VIAL IV SCH (12:00)
[2019-03-11] MEDS: METOPROLOL TARTRATE 25 MG TAB PO SCH ×2 (13:55→20:04)
[2019-03-11] MEDS: LISINOPRIL 10 MG TAB PO SCH (13:55)
[2019-03-11] MEDS ORDERED: CUSTOM CENTRAL PN IV SCH (16:00)
--- NOTE | 2019-03-11 19:08 | Hospitalist Progress Note ---
Date of Service March 11, 2019 Assessment & Plan (1) History of repair of hiatal hernia: S/P laparoscopic repair of hiatal hernia 02/23. S/P Reoperative robot-assisted laparoscopic takedown of Razia fundoplication by Dr. Felix on 03/09 S/P Repair of gastric volvulus with gastropexy and Removal of bioprosthetic mesh done today by Dr. Felix on 03/09 Barium swallow done this morning showed smooth narrowing of the esophagogastric junction. Dilated gastric cardia and proximal fundus of the stomach. No evidence of gastric outlet obstruction. Starting on clear liquid diet Pain slightly improves management as per thoracic surgery team (2) Paroxysmal atrial fibrillation: PAF in setting of hypokalemia and hypoxia. Heart rate has been btw 90 to 100's Electrolytes and TSH are normal PE ruled out by CTA. Spontaneous conversion to sinus rhythm Cardiology on board Echo showed normal LV wall motion and function, normal atrial size. IV metoprolol changed to oral (3) HTN (hypertension): BP elevated today Starting on oral metoprolol and lisinopril Monitor BP (4) Hypoxia: Possible aspiration pneumonia and / or atelectasis. Chest x-ray showed elevated left hemidiaphragm. Continue Incentive spirometry. Resolved (5) Aspiration pneumonia: Had cough and leukocytosis at time of admission. Chest films showed infiltrate at left base. CTA showed postsurgical changes, dilated fluid-filled esophagus, bibasilar atelectasis vs consolidation. Received IV piperacillin / tazobactam Clinically stable (6) Urinary retention: Underlying prostate Ca. Boateng cath inserted by Urology. Urology recommended to Keep boateng cath for now (7) Electrolyte imbalance: Phosp 1.4 today Phos replaced today Continue TPN Monitor electrolytes (8) DVT prophylaxis: On Heparin subq (9) Discharge planning issues: Discharge disposition as per thoracic surgery Medical follow-up with [facility] in [place]. (10) Encounter for consultation: Thank you for this consultation. We will follow the patient with you during their hospital stay. My cell # is [phone]. You can reach a member of the [facility] Medicine Team 11/05 via pager @ [phone]. Subjective Pt was seen and examined Lying in bed with no distress Pt said that he feels a little better He started on diet today He has been walking in the hallway Denies any chest pain, palpitation and SOB Physical Exam Physical Exam: General- No acute distress Head- atraumatic Eyes- PERRL, EOMI, ENT- oropharynx clear Neck- supple, no JVD Lungs- Diminished BS Heart- regular rhythm; no murmur Abdomen- normal bowel sounds, soft, +tender with palpation Extremities- no calf tenderness Neuro- alert, oriented x 3; PERRL, EOMI; no facial palsy; no dysarthria Skin- warm & dry Results & Data Vital Signs (Past 12 Hours) Vital Signs Temp Pulse Resp BP BP Pulse Ox 03/11/19 15:40 37.0 C 100 H 18 179/107 H 94 03/11/19 13:56 103 H 174/100 H 03/11/19 11:38 36.4 C L 109 H 18 162/99 H 96 03/11/19 07:30 36.5 C 102 H 18 185/97 H 95 (1) HTN (hypertension) Hypertension type: essential hypertension Qualified Code(s): I10 - Essential (primary) hypertension
[2019-03-11] MEDS ORDERED: ZOLPIDEM TARTRATE 5 MG TAB PO PRN (19:11)
--- NOTE | 2019-03-11 20:22 | Progress Note ---
DATE: 03/11/2019 Mr. Marino was seen today. I reviewed his Gastrografin and then barium swallow with Dr. Farr in the fluoroscopy suite and then saw the patient later and had a long discussion with the patient and his . His stomach remains dilated; however, he has no hold up going through the GE junction or the antrum, although it still appears to be a bit narrowed. He has tolerated clear liquids. He is ambulating in the hallway. I discussed this with Dr. Rubio. We will remove his Gramajo catheter tomorrow; we have cut his hyperalimentation back today. We will discontinue it tomorrow and have him ambulate more and if things look, I may let him go home in the next 48 hours.
[2019-03-12] MEDS: HydrALAZINE HCL 20 MG/ML VIAL IV PRN (03:47)
[2019-03-12] MEDS: METOCLOPRAMIDE HCL INJ 5 MG/ML 2 ML VIAL IV SCH ×4 (07:56→20:19)
[2019-03-12] MEDS: PANTOprazole 40 MG in SYRINGE 0 ML IV SCH (08:39)
[2019-03-12] MEDS: METOPROLOL TARTRATE 25 MG TAB PO SCH (08:39)
[2019-03-12] MEDS: LISINOPRIL 10 MG TAB PO SCH (08:40)
--- NOTE | 2019-03-12 09:13 | Progress Note ---
DATE: 03/12/2019 Mr. aMrino was seen today on 03/12/2019. He looks great. He states that he has to watch himself because he is able to take in as much as he would like. He states that the first time in years, he has not had difficulty swallowing. He moved his bowels. His pulse has been very good. I have been quite pleased with him from a surgery standpoint. We are going to remove his Gramajo catheter and stop his hyperalimentation today. I am also going to give him a soft diet. I am quite pleased with how much better he looks.
[2019-03-12 09:42] LABS: BUN Creatinine Ratio 22.2 (10-20); Creatinine Clr Calc Pharmacy 84.2 ml/min; Est GFR (African American) 99.7; Magnesium 1.9 mg/dl (1.8-2.4); Phosphorus 1.9 mg/dl (2.5-4.9); Potassium 3.6 mmol/L (3.5-5.1)
[2019-03-12] MEDS ORDERED: METOPROLOL TARTRATE 25 MG TAB PO ONE (09:45)
[2019-03-12] MEDS: HEPARIN SOD 5,000 UNIT/0.5 ML VIAL SQ SCH ×2 (11:38→23:53)
[2019-03-12] MEDS ORDERED: Nursing to Pharmacy Communication ONE (13:05)
[2019-03-12] MEDS ORDERED: POTASSIUM PHOS 3 MMOL/1 ML INFUSION IV STA (16:51)
[2019-03-12] MEDS ORDERED: POTASSIUM PHOSPHATE 21 MMOL in SODIUM CHLORIDE 0.9% 500 ML IV ONE (17:00)
--- NOTE | 2019-03-12 18:05 | Hospitalist Progress Note ---
Date of Service March 12, 2019 Assessment & Plan (1) History of repair of hiatal hernia: S/P laparoscopic repair of hiatal hernia 02/23. S/P Reoperative robot-assisted laparoscopic takedown of Razia fundoplication by Dr. Felix on 03/09 S/P Repair of gastric volvulus with gastropexy and Removal of bioprosthetic mesh done today by Dr. Felix on 03/09 Barium swallow done this morning showed smooth narrowing of the esophagogastric junction. Dilated gastric cardia and proximal fundus of the stomach. No evidence of gastric outlet obstruction. Tolerated clear liquid diet Diet advanced to soft today had a small BM today TPN discontinued management as per thoracic surgery team (2) Paroxysmal atrial fibrillation: PAF in setting of hypokalemia and hypoxia. Heart rate improved today Electrolytes and TSH are normal PE ruled out by CTA. Spontaneous conversion to sinus rhythm Cardiology on board Echo showed normal LV wall motion and function, normal atrial size. Increased metoprolol to 50mg BID today Monitor in tele (3) HTN (hypertension): BP elevated today metoprolol increased to 50mg BID Consider to increase Lisinopril to 20mg if BP remains elevating on discharge Monitor BP (4) Hypoxia: Possible aspiration pneumonia and / or atelectasis. Chest x-ray showed elevated left hemidiaphragm. Continue Incentive spirometry. Resolved (5) Aspiration pneumonia: Had cough and leukocytosis at time of admission. Chest films showed infiltrate at left base. CTA showed postsurgical changes, dilated fluid-filled esophagus, bibasilar atelectasis vs consolidation. Received IV piperacillin / tazobactam Clinically stable (6) Urinary retention: Underlying prostate Ca. Boateng cath inserted by Urology. Urology recommended to Keep boateng cath for now Plan to discharge home with boateng (7) Electrolyte imbalance: Phosp 1.9 today Phos replaced today TPN discontinued Monitor electrolytes (8) DVT prophylaxis: On Heparin subq (9) Discharge planning issues: Discharge disposition as per thoracic surgery Medical follow-up with Becca in [place]. (10) Encounter for consultation: Thank you for this consultation. We will follow the patient with you during their hospital stay. My cell # is [phone]. You can reach a member of the [facility] Medicine Team 11/05 via pager @ [phone]. Subjective Pt was seen and examined Lying in bed with no distress has been walking in the hallway Tolerated clear liquid diet he had a small BM today He said that he does not have any pain today Denies any palpitation, dizziness and SOB Physical Exam Physical Exam: General- No acute distress Head- atraumatic Eyes- PERRL, EOMI, ENT- oropharynx clear Neck- supple, no JVD Lungs- No wheezing, No crackles Heart- regular rhythm; no murmur Abdomen- normal bowel sounds, soft, +tender with palpation Extremities- no calf tenderness Neuro- alert, oriented x 3; PERRL, EOMI; no facial palsy; no dysarthria Skin- warm & dry Results & Data Vital Signs (Past 12 Hours) Vital Signs Temp Pulse Pulse Resp BP BP Pulse Ox 03/12/19 16:00 36.4 C L 89 20 156/100 H 95 03/12/19 15:18 86 03/12/19 10:47 36.6 C 100 H 17 164/101 H 95 03/12/19 08:00 89 03/12/19 07:01 36.4 C L 97 H 18 173/105 H 95 (1) HTN (hypertension) Hypertension type: essential hypertension Qualified Code(s): I10 - Essential (primary) hypertension
[2019-03-12] MEDS: PANTOprazole 40 MG TAB PO SCH (20:19)
[2019-03-12] MEDS: METOPROLOL TARTRATE 50 MG TAB PO SCH (20:19)
[2019-03-12] MEDS: TRAZODONE HCL 50 MG TAB PO SCH (21:50)
[2019-03-13 06:19] LABS: BUN Creatinine Ratio 22.2 (10-20); Calcium 7.5 mg/dl (8.5-10.1); Creatinine Clr Calc Pharmacy 81.3 ml/min; Est GFR (African American) 97.2; Est GFR (Non-African American) 83.9; Potassium 3.9 mmol/L (3.5-5.1)
[2019-03-13 06:20] LABS: Phosphorus 1.9 mg/dl (2.5-4.9)
[2019-03-13] MEDS: METOPROLOL TARTRATE 50 MG TAB PO SCH (07:46)
[2019-03-13] MEDS: LISINOPRIL 10 MG TAB PO SCH (07:46)
[2019-03-13] MEDS: PANTOprazole 40 MG TAB PO SCH (07:46)
[2019-03-13] MEDS: METOCLOPRAMIDE HCL INJ 5 MG/ML 2 ML VIAL IV SCH ×3 (07:47→16:48)
[2019-03-13] MEDS ORDERED: SODIUM PHOSPHATE 3 MMOL/1 ML INFUSION IV STA (07:50)
[2019-03-13] MEDS ORDERED: SODIUM PHOSPHATE 24 MMOL in SODIUM CHLORIDE 0.9% 500 ML IV ONE (08:15)
--- NOTE | 2019-03-13 09:09 | XRay Report ---
XR chest 2V routine HISTORY: f/u surgery COMPARISON: Chest 03/10/2019. FINDINGS: No pneumothorax. Small left pleural effusion and left basilar densities have improved. Hear t is normal in size. A right PICC terminates at the distal SVC. The right lung is clear. Pneumomedias tinum persists. IMPRESSION: 1. Small left pleural effusion and left basilar densities have improved. 2. Pneumomediastinum persists. This favors postoperative change. Electronically signed by: Dick Saavedra M.D. 03/13/2019 9:07 AM
[2019-03-13] MEDS: HEPARIN SOD 5,000 UNIT/0.5 ML VIAL SQ SCH (10:59)
--- NOTE | 2019-03-13 12:02 | Urology Progress Note ---
Date of Service March 13, 2019 Subjective pt ready to go home . Had boateng placed with dilation . Will d/c boateng and pt to follow up as outpatient Results & Data Vital Signs (Past 12 Hours) Vital Signs Temp Pulse Pulse Resp BP BP Pulse Ox 03/13/19 11:06 36.9 C 83 20 152/95 H 97 03/13/19 10:48 36.9 C 87 22 128/81 173/105 H 96 03/13/19 08:00 85 03/13/19 06:44 36.9 C 87 22 128/81 96 03/13/19 04:12 36.5 C 93 H 20 126/79 95
--- NOTE | 2019-03-13 17:54 | Hospitalist Progress Note ---
Date of Service March 13, 2019 Assessment & Plan (1) History of repair of hiatal hernia: S/P laparoscopic repair of hiatal hernia 02/23. S/P Reoperative robot-assisted laparoscopic takedown of Razia fundoplication by Dr. Felix on 03/09 S/P Repair of gastric volvulus with gastropexy and Removal of bioprosthetic mesh done today by Dr. Felix on 03/09 Barium swallow done this morning showed smooth narrowing of the esophagogastric junction. Dilated gastric cardia and proximal fundus of the stomach. No evidence of gastric outlet obstruction. Diet advanced to soft and tolerated well TPN discontinued Follow up with thoracic surgery outpatient (2) Paroxysmal atrial fibrillation: PAF in setting of hypokalemia and hypoxia. Heart rate improved today Electrolytes and TSH are normal PE ruled out by CTA. Spontaneous conversion to sinus rhythm Cardiology on board Echo showed normal LV wall motion and function, normal atrial size. Continue metoprolol to 50mg BID today (3) HTN (hypertension): BP improves Continue Metoprolol 50mg BID and Lisinopril 10mg Consider to titrate lisinopril if BP high outpatient Continue monitor BP (4) Hypoxia: Possible aspiration pneumonia and / or atelectasis. Chest x-ray showed elevated left hemidiaphragm. Continue Incentive spirometry. Resolved (5) Aspiration pneumonia: Had cough and leukocytosis at time of admission. Chest films showed infiltrate at left base. CTA showed postsurgical changes, dilated fluid-filled esophagus, bibasilar atelectasis vs consolidation. Received IV piperacillin / tazobactam Clinically stable (6) Urinary retention: Underlying prostate Ca. Boateng cath inserted by Urology. Boateng removed today by urology Follow up with urology as an outpatient (7) Electrolyte imbalance: Phosp 1.9 today Phos replaced today TPN discontinued Monitor electrolytes (8) DVT prophylaxis: On Heparin subq (9) Discharge planning issues: Discharge disposition as per thoracic surgery Medical follow-up with Becca [facility] in 1 week (10) Encounter for consultation: Thank you for this consultation. We will follow the patient with you during their hospital stay. My cell # is [phone]. You can reach a member of the [facility] Medicine Team 11/05 via pager @ [phone]. Subjective Pt was seen and examined Sitting in chair with no distress with at bedside He has been walking in the hallway He had his boateng cath removes and urinates today about 250cc Pt said that he feels fine Denies any chest pain, palpitation, dizziness and SOB Physical Exam Physical Exam: General- No acute distress Head- atraumatic Eyes- PERRL, EOMI, ENT- oropharynx clear Neck- supple, no JVD Lungs- No wheezing, No crackles Heart- regular rhythm; no murmur Abdomen- normal bowel sounds, soft, no tenderness Extremities- no calf tenderness Neuro- alert, oriented x 3; PERRL, EOMI; no facial palsy; no dysarthria Skin- warm & dry Results & Data Vital Signs (Past 12 Hours) Vital Signs Temp Pulse Pulse Resp BP BP Pulse Ox 03/13/19 15:36 36.7 C 91 H 20 142/91 H 96 03/13/19 15:15 87 03/13/19 11:06 36.9 C 83 20 152/95 H 97 03/13/19 10:48 36.9 C 87 22 128/81 173/105 H 96 03/13/19 08:00 85 03/13/19 06:44 36.9 C 87 22 128/81 96 (1) HTN (hypertension) Hypertension type: essential hypertension Qualified Code(s): I10 - Essential (primary) hypertension
--- NOTE | 2019-03-14 00:34 | Discharge Summary ---
DISCHARGE DIAGNOSES: 1. Intra-abdominal gastric volvulus. 2. Status post hiatal hernia repair robotically with Razia fundoplication. 3. History of prostate carcinoma. 4. Hypertension. 5. Paroxysmal atrial fibrillation. HOSPITAL COURSE: Adán Marino is a delightful 78-year-old male who had a huge hiatal hernia with a gastric volvulus and he had signs and symptoms consistent with intermittent torsion and dysphagia. I admitted him to the hospital and on 02/23/2019 performed an uncomplicated repair of a huge hiatal hernia. We did a robot-assisted laparoscopic repair. I did a floppy Razia fundoplication. Interestingly enough, my on-table esophagoscopy looked fine. The patient was discharged home on postoperative day 1 only to return the following day with a complaint of gastric discomfort. He had some difficulty with swallowing and had a cough and I was a bit concerned about this and kept him in the hospital. I then had him seen by gastroenterology and Dr. Hardik Andrews performed esophagoduodenoscopy 3 days after we had him in the hospital. I reviewed the findings with Dr. Andrews. His GE junction was quite tight which was surprising to me and he had difficulty getting to the pylorus. We kept the patient on hyperalimentation and let him settle down as there was also apparent ischemia with some areas of his distal esophagus and his stomach which were concerning for ischemia. Clinically, the patient did very well. We kept him on hyperalimentation, kept him n.p.o. and a week later, Dr. Carmen scoped him and noted the patient had a very tight GE junction opening and also antral volvulus. I took the patient back to the operating room on 03/09/2019 and performed a reoperative robotic evaluation and it turns the patient had a gastric volvulus. I took down the hiatal hernia repair and the patch initially as I was concerned about how tight this was and we realized that the esophagus was twisted as was the volvulus. We performed a gastropexy. The patient did very well postoperatively. He did have some abdominal pain which was incisional in nature and this resolved quite nicely. We repeated a swallow with an upper GI 2 days after his procedure and it went through the GE junction fine. There was a little bit of hold up as his esophagus was rather large, but then this went through quite nicely through the stomach and he felt great. He was eating a regular diet and stated the first time in years he has been able to swallow without difficulty, and he has to watch himself with how much he took in. We weaned off and eventually stopped his hyperalimentation. He still has some issues. He had paroxysmal atrial fibrillation which was limited. He was seen by Dr. Campbell for this. He also had an indwelling Gramajo. We elected to leave this in. He will be followed up by Dr. Hylton in the office this week. We will send him home with a leg bag. He is also followed by Dr. Arguelles for his prostate cancer. All in all, I have been quite pleased with how well he did. I was quite concerned about him until we realized that this was due to a gastric volvulus. It is a bit unusual to see after a hiatal hernia repair. At any rate, he was discharged home and all of his incisions were clean. He will require no wound care. We did have a long discussion about his diet. As I have taken down the hiatal hernia repair, I think he can eat a soft diet. I will see him back in the office in 4 days. His x-ray today looked quite good with a decrease in the fluid in his left base. His lungs sounded clear today. He is having no pain which was quite reassuring.
--- NOTE | 2019-03-17 16:16 | Operative Report ---
DATE OF OPERATION: 03/09/2019 PROCEDURE: 1. Reoperative robot-assisted laparoscopic takedown of Razia fundoplication. 2. Repair of gastric volvulus with gastropexy. 3. Removal of bioprosthetic mesh. This is an addendum. FLORINA Gomez, assisted me throughout the entire case and was there from beginning to the end. She was at the patient's bedside while I was at the console and was instrumental in passing instruments. Mrs. Sr helped close the incisions at the conclusion of the case. I attest to the content of the Intraoperative Record and any orders documented therein. Any exceptions are noted below. MTDMaster
== END 2019-03-13 18:45 | disposition home or self-care (01) | DRG 326 ==
LOC: 3W 11:30 → 2N 20:23 → 2S 23:54

== ENCOUNTER 2020-05-03 17:09 | Observation (INO) ==
--- NOTE | 2020-05-03 17:55 | Emergency Department Note ---
History of Present Illness General Chief complaint: Referred by Doctor Stated complaint: REF BY DOC Time Seen by Provider: 05/03/20 17:28 Source: patient Mode of arrival: ambulatory Limitations: no limitations History of Present Illness Provider complaint: Esophageal constriction This is a 79-year-old male who presents to the ED with a chief complaint of weight loss and an abnormal upper GI series today at [facility]. Dr. Clark, the patient's GI specialist ordered the test. Because there is significant stricture in the esophagus, the patient is going to have an EGD done tomorrow. The GI specialist wanted the patient to come into the hospital for IV fluids and some work-up and to stay overnight for the procedure. The patient has a history of hiatal hernia in the past as well as metastatic prostate cancer currently. The patient has been losing weight over the past year. His symptoms have significantly worsened over the past week. Anytime he eats anything solid over the past 24 hours it causes him to vomit. Home Medications Home Medications Medication Instructions Recorded Confirmed Type Lupron Depot (3 month) 1 dose IM UD 02/18/19 07/28/19 History bicalutamide [Casodex] 50 mg PO QPM 02/18/19 07/28/19 History magnesium oxide 400 mg PO QAM 02/18/19 07/28/19 History omega 4-rbm-ftj-fish oil [Fish Oil] 1 cap PO QAM 02/18/19 07/28/19 History red yeast rice 600 mg PO QAM 02/18/19 07/28/19 History vitamin E 1,000 unit PO QAM 02/18/19 07/28/19 History denosumab 120 mg SUBCUT UD 02/25/19 07/28/19 History multivitamin 1 tab PO DAILY 02/25/19 07/28/19 History omeprazole 40 mg PO DAILY 02/25/19 07/28/19 History ondansetron HCl [Zofran] 4 mg PO TID PRN 02/25/19 07/28/19 History potassium gluconate 595 mg PO DAILY 02/25/19 07/28/19 History Allergies Allergy/AdvReac Type Severity Reaction Status Date / Time No Known Allergies Allergy Verified 07/28/19 11:28 Past Med/Surg History Medical History Atrial fibrillation Episode of Afib post op on 02/26. Converted spontaneously to NSR. Being followed by gin feeder Bladder neck contracture Cancer PROSTATE CANCER (SURGERY AND RADIATION) METS TO SACRUM. ON LUPRON, AND CASODEX. Osteoarthritis Paraesophageal hernia Pelvic irradiation Prostate cancer (Chronic) Surgical History H/O endoscopy EGD 02/28/19 and 03/07/19 History of colonoscopy History of herniorrhaphy INGUINAL History of prostatectomy History of tooth extraction Social History Preferred Language: Syriac Communication Ability: Effective Cellars Supervisor Required: No Beliefs That Will Affect Care: None Current Living Situation: Spouse Feels Safe at Home: Yes Smoking Status: Former smoker Tobacco Type: cigarettes ; Second Hand Exposure: No ; Hx Alcohol Use: No Hx Substance Use: No Review of Systems A total of 10 systems reviewed and were otherwise negative Physical Exam Vital Signs Vital Signs - 24 hr 05/03/20 17:22 05/03/20 17:54 05/03/20 18:50 Temperature 36.7 C Temperature Source Oral Pulse Rate 66 Pulse Rate [Apical] 63 Pulse Rhythm Regular Pulse Rhythm [Apical] Regular Pulse Strength Normal Pulse Strength [Apical] Normal Respiratory Rate 18 18 Respiratory Effort / Characteristics Non-Labored Non-Labored Spontaneous Respiratory Depth Normal Normal Respiratory Pattern Regular Regular Blood Pressure 113/81 Blood Pressure [Right Arm] 122/78 Blood Pressure Mean 91 Blood Pressure Mean [Right Arm] 92 Blood Pressure Position Lying Blood Pressure Position [Right Arm] Sitting Pulse Oximetry 98 98 Oxygen Delivery Method Room Air Room Air Room Air Sepsis Recent Fever Within 48 Hours No Sepsis New/Unexplained Change in Mental Status No Sepsis Action Taken by Nursing No Action Required CONSTITUTIONAL/VITAL SIGNS: Reviewed / noted above. GENERAL: Non-toxic in appearance. INTEGUMENTARY: Warm, dry, and [place]. HEAD: Normocephalic. EYES: without scleral icterus or trauma. ENT/OROPHARYNX: clear and moist. LYMPHADENOPATHY/NECK: Is supple without lymphadenopathy or meningismus. RESPIRATORY: Lungs clear and equal. CARDIOVASCULAR: Regular rate and rhythm. GI/ABDOMEN: Soft and nontender. No organomegaly or pulsatile mass. No rebound or guarding. Normal bowel sounds. EXTREMITIES: Warm and well perfused. BACK: No CVA tenderness. NEUROLOGICAL: Intact without focal deficits. PSYCHIATRIC: normal affect. MUSCULOSKELETAL: Normally developed with good muscle tone. TRIAGE NURSING DOCUMENTATION REVIEWED. Course Administered Medications Discontinued Medications Sodium Chloride (Nss 1000ml) 1,000 mls @ 999 mls/hr IV .Q1H1M SHERIF Stop: 05/03/20 19:00 Last Admin: 05/03/20 18:50 Dose: 999 mls/hr Documented by: [id number] Medical Decision Making Differential Diagnosis Differential considered: pancreatitis, hepatitis, acute cholecystitis, AAA, UTI, pyelonephritis, kidney stones, appendicitis, diverticulitis, shingles, bowel obstruction, mesenteric ischemia, intussusception,hernia, esophageal stric ture. Medical Records Attestation: I reviewed the patient's medical records. Home Medications Current Medication List: was personally reviewed by me Laboratory Data Attestation: I reviewed the patient's lab results. Result diagrams: 05/03/20 18:14 05/03/20 18:14 Lab Results 05/03/20 05/03/20 05/03/20 Range/Units 18:14 18:14 18:14 WBC 7.81 (4.8-10.8) K/uL RBC 3.55 L (4.7-6.1) M/uL Hgb 11.5 L (14.0-18.0) g/dL Hct 34.0 L (42-52) % MCV 95.8 (80-100) fL MCH 32.4 (25-34) pg MCHC 33.8 (32-36) g/dL RDW Std Deviation 43.0 (36.4-46.3) fL RDW Coeff of Ifeoma 12.4 (11.5-14.5) % Plt Count 191 (130-400) K/uL MPV 11.0 H (7.4-10.4) fL Immature Gran % (Auto) 0.3 % Neut % (Auto) 55.2 % Lymph % (Auto) 32.8 % Waldo % (Auto) 9.9 % Eos % (Auto) 1.4 % Baso % (Auto) 0.4 % Neut # (Auto) 4.32 (1.4-6.5) K/uL Lymph # (Auto) 2.56 (1.2-3.4) K/uL Waldo # (Auto) 0.77 H (0.11-0.59) K/uL Eos # (Auto) 0.11 (0-0.5) K/uL Baso # (Auto) 0.03 (0-0.2) K/uL Immature Gran # (Auto) 0.02 (0.00-0.02) K/uL PT 11.1 (9.0-12.0) Seconds INR 1.1 (0.9-1.1) Sodium 142 (136-145) mmol/L Potassium 3.0 L (3.5-5.1) mmol/L Chloride 105 (98-107) mmol/L Carbon Dioxide 32 (21-32) mmol/L Anion Gap 5.0 (3-11) BUN 22 H (7-18) mg/dl Creatinine 1.23 (0.6-1.4) mg/dl Est Cr Clr Drug Dosing 47.1 ml/min Est GFR ( Amer) 64.3 Est GFR (Non-Af Amer) 55.5 BUN/Creatinine Ratio 18.0 (10-20) Glucose 100 H (70-99) mg/dl Calcium 11.8 H (8.5-10.1) mg/dl Total Bilirubin 0.5 (0.2-1) mg/dl AST 17 (15-37) U/L ALT 18 (12-78) U/L Alkaline Phosphatase 55 (45-117) U/L Total Protein 7.1 (6.4-8.2) gm/dl Albumin 3.3 L (3.4-5.0) gm/dl Globulin 3.8 (2.5-4.0) gm/dl Albumin/Globulin Ratio 0.9 (0.9-2) MDM Narrative This is a 79-year-old male who presents to the ED with a chief complaint of weight loss and an abnormal upper GI series today at [facility]. Dr. Clark, the patient's GI specialist ordered the test. Because there is significant stricture in the esophagus, the patient is going to have an EGD done tomorrow. The GI specialist wanted the patient to come into the hospital for IV fluids and some work-up and to stay overnight for the procedure. The patient has a history of hiatal hernia in the past as well as metastatic prostate cancer currently. The patient has been losing weight over the past year. His symptoms have significantly worsened over the past week. Anytime he eats anything solid over the past 24 hours it causes him to vomit. The patient's vital signs are normal. His exam was unremarkable. Impression & Plan Esophageal stricture, Vomiting, Recent weight loss Discharge Plan Visit Data Chief Complaint: Referred by Doctor Stated Complaint: REF BY DOC ED Provider: Sree López Discharge Problem: Esophageal stricture, Vomiting, Recent weight loss Patient Disposition: Being Evaluated by Hospitalist Condition: Fair Forms Stand Alone Forms: My [facility], Virtual Emergency Department, Important Visit Information Prescriptions Prescriptions: No Action vitamin E 1,000 unit Capsule 1,000 unit PO QAM RF: 0 bicalutamide [Casodex] 50 mg Tablet 50 mg PO QPM RF: 0 magnesium oxide 400 mg magnesium Capsule 400 mg PO QAM RF: 0 omega 3-xea-hjm-fish oil [Fish Oil] 1,000 mg (120 mg-180 mg) Capsule 1 cap PO QAM RF: 0 red yeast rice 600 mg Tablet 600 mg PO QAM RF: 0 Lupron Depot (3 month) 11.25 mg Syringe Kit 1 dose IM UD RF: 0 multivitamin Tablet 1 tab PO DAILY RF: 0 ondansetron HCl [Zofran] 4 mg Tablet 4 mg PO TID PRN (Reason: Nausea) RF: 0 omeprazole 40 mg Capsule,Delayed Release(Dr/Ec) 40 mg PO DAILY RF: 0 potassium gluconate 595 mg (99 mg) Tablet 595 mg PO DAILY RF: 0 denosumab 120 mg/1.7 mL (70 mg/mL) Solution 120 mg SUBCUT UD RF: 0 Referrals Referrals: Renzo Hudson D.O. [Primary Care Provider] -
[2020-05-03] MEDS ORDERED: SODIUM CHLORIDE 0.9% 1000ML 1,000 ML IV SCH (18:00)
[2020-05-03 18:26] LABS: Basophils # (auto) 0.03 K/uL (0-0.2); Basophils % (auto) 0.4 %; Eosinophils # (auto) 0.11 K/uL (0-0.5); Eosinophils % (auto) 1.4 %; Hemoglobin 11.5 g/dL (14.0-18.0); Immature Granulocytes # (auto) 0.02 K/uL (0.00-0.02); Immature Granulocytes % (auto) 0.3 %; Lymphocytes # (auto) 2.56 K/uL (1.2-3.4); Lymphocytes % (auto) 32.8 %; Mean Corpuscular Hemoglobin 32.4 pg (25-34); Mean Corpuscular Hgb Conc 33.8 g/dL (32-36); Mean Corpuscular Volume 95.8 fL (80-100); Monocytes # (auto) 0.77 K/uL (0.11-0.59); Monocytes % (auto) 9.9 %; Neutrophils # (auto) 4.32 K/uL (1.4-6.5); Neutrophils % (auto) 55.2 %; Platelet Count 191 K/uL (130-400); RDW Coefficient of Variation 12.4 % (11.5-14.5); Red Blood Count 3.55 M/uL (4.7-6.1); White Blood Count 7.81 K/uL (4.8-10.8)
--- NOTE | 2020-05-03 18:29 | XRay Report ---
XR chest 1V portable CLINICAL HISTORY: weakness COMPARISON STUDY: 04/12/2019 FINDINGS: The heart is the upper limits of normal in size. There is no failure. There is no focal pul monary consolidation. There are no pleural effusions. A retrocardiac opacity, likely represents contr ast within a hiatal hernia.[ IMPRESSION: No active disease in the chest. ACT 112: Negative or not required by law. Electronically signed by: Deep Farr M.D. 05/03/2020 6:28 PM
[2020-05-03 18:36] LABS: INR 1.1 (0.9-1.1); Prothrombin Time 11.1 Seconds (9.0-12.0)
[2020-05-03 18:43] LABS: Albumin Level 3.3 gm/dl (3.4-5.0); Calcium 11.8 mg/dl (8.5-10.1); Creatinine Clr Calc Pharmacy 47.1 ml/min; Est GFR (African American) 64.3; Est GFR (Non-African American) 55.5
[2020-05-03 18:45] LABS: Albumin Globulin Ratio 0.9 (0.9-2); Bilirubin,Total 0.5 mg/dl (0.2-1); Globulin 3.8 gm/dl (2.5-4.0); Total Protein 7.1 gm/dl (6.4-8.2)
[2020-05-03] MEDS ORDERED: TRAMADOL HCL 50 MG HOME PACK PO ONE (19:19)
--- NOTE | 2020-05-03 19:32 | History & Physical Report ---
Date of Service May 03, 2020 Assessment & Plan (1) Esophageal stricture: Patient being admitted under obs for esophageal stricture Patient will require esophageal dilatation tomorrow. will consult GI. Likely playing a role in patient's weight loss (2) Vomiting: likely secondary to problem one (3) Recent weight loss: as staed above (4) HTN (hypertension): BP appears stable. will hold for now and monitor. (5) Prostate cancer: resume home meds on abiraterone 250 mg PO TID. patient brought home supply will also resume prednisone in AM as patient has mets. And is chronically on steroids: 5 mg PO BID DVT: likely short hospital stay. History of Present Illness Chief Complaint: weight loss Primary Care Provider: Renzo Hudson 79 yo male is here for EGD. Patient reports that since February of 2019, he has been gradually losing weight. He also reports that he has not been tolerating meals and for the past few weeks, is only tolerating a liquid diet. He states that this is accompanined by reflux, and sometimes, vomiting. Patient denies any hematemeisis. He reports he has never had an esophageal dilatation in the past. He is following with [facility] who recommends he comes to the hosptial for an esophageal dilatation. Allergies Allergy/AdvReac Type Severity Reaction Status Date / Time No Known Allergies Allergy Verified 05/03/20 19:41 Home Medications Home Medications Medication Instructions Recorded Confirmed Type Lupron Depot (3 month) 1 dose IM .Q3 MONTHS 02/18/19 05/03/20 History omega 3-qhy-vmg-fish oil [Fish Oil] 1 cap PO .HOLD 02/18/19 05/03/20 History vitamin E 1,000 unit PO QAM 02/18/19 05/03/20 History denosumab 120 mg SUBCUT .Q3 MONTHS 02/25/19 05/03/20 History multivitamin 1 tab PO DAILY 02/25/19 05/03/20 History omeprazole 40 mg PO QAM 02/25/19 05/03/20 History abiraterone 250 mg PO TID 05/03/20 05/03/20 History metoprolol tartrate 25 mg PO BID 05/03/20 05/03/20 History prednisone 5 mg PO BID 05/03/20 05/03/20 History Past Med/Surg History Medical History Atrial fibrillation Episode of Afib post op on 02/26. Converted spontaneously to NSR. 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 ON LUPRON, AND CASODEX. Osteoarthritis Paraesophageal hernia Pelvic irradiation Prostate cancer (Chronic) Surgical History H/O endoscopy EGD 02/28/19 and 03/07/19 History of colonoscopy History of herniorrhaphy INGUINAL History of prostatectomy History of tooth extraction Social History Preferred Language: Korean Communication Ability: Effective Payment Poster Required: No Beliefs That Will Affect Care: None Current Living Situation: Spouse Current Living Situation Comment: Lives at home with Feels Safe at Home: Yes Safety Concerns: Feels Safe At This Time Smoking Status: Former smoker Tobacco Type: cigarettes ; Do You Dip or Chew Tobacco: No ; Second Hand Exposure: No ; Tobacco Cessation Education Requested by Patient: No Hx Alcohol Use: No Hx Substance Use: No Review of Systems Review of Systems: All systems reviewed & are unremarkable except as noted in HPI & below Physical Exam Constitutional: WD/WN, vitals as above well developed Eyes: PERRL, conjunctivae normal, anicteric sclerae ENMT: external ear and nose normal, oropharynx normal Neck: trachea midline, no thyromegaly Respiratory: normal respiratory effort, lungs clear to auscultation Cardiovascular: RRR, no murmur, no edema Gastrointestinal (Abdomen): normal bowel sounds, soft, nontender, no hepatosplenomegaly Skin: no rashes, warm and dry Neurologic: PERRL, EOMI, accommodation nl, no face palsy, no dysarthria Psychiatric: A+Ox3, euthymic affect Lymphatic: no cervical or axillary lymphadenopathy Results & Data Results & Data ([facility]) Vital Signs (Past 12 Hours) Vital Signs Temp Pulse Pulse Resp BP BP Pulse Ox 05/03/20 18:50 63 18 122/78 98 05/03/20 17:22 36.7 C 66 18 113/81 98 PG Care Time/CCT Total # of Minutes Spent Total Time Spent with Patient: Total time spent is greater than 50% in coordination of care (as documented) at patient's floor/unit and/or counseling patient: Coding Level of Care Code 25959 OBS Care - Level 3 Diagnoses Esophageal stricture K22.2 Vomiting R11.10 Recent weight loss R63.4 HTN (hypertension) I10 Hypertension type: essential hypertension Prostate cancer C61 (1) HTN (hypertension) Hypertension type: essential hypertension Qualified Code(s): I10 - Essential (primary) hypertension
[2020-05-03] MEDS ORDERED: MAGNESIUM HYDROXIDE SUSP 30 ML UDC PO PRN (19:33)
[2020-05-03] MEDS ORDERED: ONDANSETRON INJ 2 MG/ML 2 ML VIAL IV PRN (19:33)
[2020-05-03] MEDS ORDERED: ACETAMINOPHEN 325 MG TAB PO PRN (19:33)
[2020-05-03] MEDS ORDERED: BICALUTAMIDE 50 MG TAB PO SCH (21:00)
[2020-05-03] MEDS: ABIRATERONE PO SCH (23:26)
[2020-05-04] MEDS: ABIRATERONE PO SCH ×3 (08:12→21:12)
[2020-05-04] MEDS ORDERED: HYDROCORTISONE SOD 50 MG in SYRINGE 0 ML IV ONE (08:30)
[2020-05-04 09:14] LABS: Calcium 10.6 mg/dl (8.5-10.1); Creatinine Clr Calc Pharmacy 55.2 ml/min; Est GFR (African American) 77.9; Est GFR (Non-African American) 67.2; Phosphorus 2.5 mg/dl (2.5-4.9)
[2020-05-04] MEDS ORDERED: POTASSIUM CHLORIDE 20 MEQ TABCR PO STA (09:42)
[2020-05-04] MEDS ORDERED: PANTOprazole 40 MG in SYRINGE 0 ML IV SCH (11:00)
[2020-05-04] MEDS: NSS + 20MEQ KCL 20 MEQ/1,000 ML BAG IV SCH ×2 (11:01→17:13)
--- NOTE | 2020-05-04 11:26 | Electrocardiogram Report ---
Test Reason : Blood Pressure : / mmHG Vent. Rate : 062 BPM Atrial Rate : 062 BPM P-R Int : 128 ms QRS Dur : 098 ms QT Int : 378 ms P-R-T Axes : -11 -33 073 degrees QTc Int : 383 ms Normal sinus rhythm Left axis deviation Abnormal ECG When compared with ECG of 25-FEB-2019 23:46, Vent. rate has decreased BY 50 BPM T wave amplitude has decreased in Anterior leads Confirmed by Kenney Ca ([id number]) on 05/04/2020 11:26:11 AM Referred By: Renzo Hudson Confirmed By:Cesar Ca
--- NOTE | 2020-05-04 14:47 | Anesthesiology Consultation ---
Date of Service May 04, 2020 Assessment & Plan (1) Encounter for pre-operative examination: History Surgery Operation Date: 05/04/20 11:40 Proposed Procedures p Esophagogastroduodenoscopy - Dalton Clark Height/Weight Height: 5 ft 8 in Weight: 69.5 kg Allergies Allergy/AdvReac Type Severity Reaction Status Date / Time No Known Allergies Allergy Verified 05/03/20 19:41 Medications Home Medications Medication Instructions Recorded Confirmed Last Taken Lupron Depot (3 month) 1 dose IM .Q3 MONTHS 02/18/19 05/03/20 12/09/18 10:00 omega 3-uug-cdk-fish oil [Fish Oil] 1 cap PO .HOLD 02/18/19 05/03/20 02/18/19 07:00 vitamin E 1,000 unit PO QAM 02/18/19 05/03/20 02/22/19 07:00 denosumab 120 mg SUBCUT .Q3 MONTHS 02/25/19 05/03/20 Unknown multivitamin 1 tab PO DAILY 02/25/19 05/03/20 Unknown omeprazole 40 mg PO QAM 02/25/19 05/03/20 05/03/20 abiraterone 250 mg PO TID 05/03/20 05/03/20 05/03/20 16:00 metoprolol tartrate 25 mg PO BID 05/03/20 05/03/20 05/03/20 AM DOSE prednisone 5 mg PO BID 05/03/20 05/03/20 05/03/20 AM DOSE Active Medications Generic Name Dose Route Start Last Admin Trade Name Freq PRN Reason Stop Dose Admin Potassium Chloride/Sodium Chloride 20 meq in 1,000 mls @ 150 mls/hr 05/04/20 08:45 05/04/20 11:01 Normal Saline W/20 Meq Kcl IV 06/03/20 08:44 150 mls/hr .Q6H40M SHERIF Administration Pantoprazole Sodium 40 mg/ 10 mls @ 5 mls/min 05/04/20 11:00 05/04/20 11:01 Syringe IV 06/03/20 10:59 5 mls/min DAILY@1100 SHERIF Administration Abiraterone: Non- 1 ea 05/03/20 22:15 05/04/20 08:12 Formulary Patient's PO 06/02/20 22:14 1 tabs Own Med TID SHERIF Administration Past Medical History Medical History Atrial fibrillation Episode of Afib post op on 02/26. Converted spontaneously to NSR. 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 ON LUPRON, AND CASODEX. Osteoarthritis Paraesophageal hernia Pelvic irradiation Prostate cancer (Chronic) Past Surgical History Surgical History H/O endoscopy EGD 02/28/19 and 03/07/19 History of colonoscopy History of herniorrhaphy INGUINAL History of prostatectomy History of tooth extraction Social History Smoking Status: Former smoker tobacco type: cigarettes Do You Dip or Chew Tobacco: No Hx Alcohol Use: No Hx Substance Use: No substance use type: does not use Physical Exam Vital Signs Last Vital Signs Temp 36.8 C 05/04/20 07:38 Pulse 67 05/04/20 07:38 Resp 18 05/04/20 07:38 BP 166/88 H 05/04/20 07:38 Pulse Ox 95 05/04/20 07:38 Testing Laboratory Results 05/03/20 18:14 05/04/20 08:29 PT 11.1 Seconds (9.0-12.0) 05/03/20 18:14 INR 1.1 (0.9-1.1) 05/03/20 18:14 Electrocardiogram Date: 05/03/20 Normal sinus rhythm Left axis deviation Abnormal ECG When compared with ECG of 25-FEB-2019 23:46, Vent. rate has decreased BY 50 BPM T wave amplitude has decreased in Anterior leads Confirmed by Kenney Ca ([id number]) on 05/04/2020 11:26:11 AM Chest X-Ray Date: 05/03/20 Findings: + NAD Echocardiogram Date: 02/27/20 EF: 60-65% LV Function: normal grade 1 diastoiic dysfunction.
--- NOTE | 2020-05-04 15:52 | Consultation Report ---
DATE OF CONSULTATION: 05/04/2020 GASTROINTESTINAL CONSULT NOTE REASON FOR EVALUATION: Esophageal stricture and weight loss. HISTORY OF PRESENT ILLNESS: The patient is a 79-year-old who was hospitalized yesterday following an upper GI, which showed a significant narrowing with near obstruction of the GE junction. The esophagus was dilated and there was some stasis of secretions in the esophagus. The patient states that he has been unable to eat very much and has been losing weight dating back to 02/2019. He did have a large hiatal hernia with gastric torsion operated on 02/[address] Felix at [facility]. This was followed by repeat torsion and on 03/09, he was reoperated on and had a repair of torsion, gastropexy and removal of some mesh. The patient reports that ever since then, he has been having difficulty swallowing. He has been losing weight. He was referred for an upper endoscopy, but prior to the endoscopy being performed, out of caution, an upper GI was done to try to assess the anatomy. It showed severe narrowing of the GE junction with only a trace of liquid passing through the GE junction and the orifice was measured at 1.7 mm. Out of concern for aspiration, he was hospitalized, so he could be endoscoped in the OR while being intubated to protect his airway. The EGD was scheduled for this afternoon, but due to scheduling issues as there are significant cases being performed in the operating room, it does not appear that any space would be available for several more hours or over the weekend. PAST MEDICAL HISTORY: He has had prostate cancer with sacral metastases with pelvic irradiation. He has atrial fibrillation. He has had an inguinal hernia repair and prostatectomy. MEDICATIONS: Lupron, fish oil, vitamin E, denosumab subcutaneously every 3 months, multiple vitamin, omeprazole, abiraterone, metoprolol, prednisone. ALLERGIES: None. SOCIAL HISTORY: The patient lives with his spouse. Feels safe at home. He is a former smoker, no alcohol. REVIEW OF SYSTEMS: As noted above. PHYSICAL EXAMINATION: GENERAL: The patient appears slightly thin but in no acute distress. VITAL SIGNS: Blood pressure is 122/78, pulse 63 and regular. LUNGS: Clear. HEART: Showed normal S1 and S2. Regular rate and rhythm. IMPRESSION AND PLAN: The patient has severe stricturing of the distal esophagus following 2 operative procedures for a large hiatal hernia and gastric torsion. As the patient is at risk for aspirating and it is unlikely that he would be able to be endoscoped and evaluated here over the next 48-72 hours, I had a discussion with the patient and he agrees to being transferred to a facility where he can get evaluated more expediently and where there is a thoracic surgeon available should one be needed.
[2020-05-04] MEDS ORDERED: IOVERSOL 100ml IV PRN (16:27)
--- NOTE | 2020-05-04 16:57 | CT Scan Report ---
CHEST CT WITH CONTRAST; CT ABDOMEN AND PELVIS WITH IV CONTRAST ONLY CT DOSE: 500.37 mGy.cm HISTORY: Follow up study in a patient with hiatal hernia. History of prostate cancer. h/o hiatal her evleyn w/ torsion TECHNIQUE: Multiaxial CT images of the chest, abdomen and pelvis were performed following the IV admi nistration of 94 cc of Optiray 320. A dose lowering technique was utilized adhering to the principl es of JERALD. COMPARISON: CT chest, abdomen and pelvis and bone scan 11/22/2019, barium swallow study 07/21/2019. FINDINGS: CT CHEST: Unremarkable thyroid. Heart is normal in size without pericardial effusion. Extensive coronary artery calcifications. No thoracic aortic aneurysm or dissection. Descending thoracic aortic tortuosity. Th e opacified pulmonary arterial tree is unremarkable. Mild narrowing of the upper thoracic esophagus o n image 40 series 6. Trace left pleural effusion. No pneumothorax. Linear subsegmental left greater than right bibasilar o pacities suggest probable atelectasis. No overt pulmonary edema, airspace consolidation typical for p neumonia or suspicious pulmonary nodule or mass. Resolution of the previously described tree-in-bud n odules of the left lower lobe. Decreased mucous plugging of the basal left lower lobe. Soft tissues a re unremarkable. Degenerative changes of the shoulders and spine. Sclerosis involves the T6 vertebral body convex right curvature of the midthoracic spine. Unchanged n onspecific sclerosis involves the posterior right seventh rib. CT ABDOMEN/PELVIS: No pneumatosis or pneumoperitoneum. The spleen and adrenal glands are unremarkable. Mild generalized pancreatic atrophy. 10 mm cyst of the left hepatic lobe is unchanged. No suspicious hepatic lesions i dentified. Gallbladder is mildly contracted. Patency of the hepatic and portal veins. Streak artifact from retained enteric contrast in the colon. Layering high density material is also noted within the gastric lumen. Right kidney is mostly obscured. No obstructive uropathy. 3.5 cm cyst of the posterior interpolar lef t kidney. Mild urinary bladder distention. Prior prostatectomy. 2.7 x 1.8 cm area of soft tissue dens ity along the left lateral aspect of urinary bladder is decreased in size, previously measuring 5.6 x 3.6 cm. Decreased soft tissue density along the left aspect of the urinary bladder neck. Decreased s ize of the soft tissue lesions within the presacral tissues with largest focus measuring 2.2 x 1.5 cm image 270 series 7, previously measured at 3.8 x 2.8 cm. Decreased size of the previously described pathologic pelvic lymph nodes. There are several periaortic lymph nodes which measure up to 9 mm, pre viously measured at 12 mm. Postoperative changes of prior Razia fundoplication. Dilation of the esophagus with debris and contr ast layering throughout the esophagus redemonstrated. There is smooth tapering at the gastroesophagea l junction. No recurrent hiatal hernia identified. No bowel obstruction or bowel wall thickening. Mod erate fecal retention. Soft tissues are unremarkable. Degenerative changes of the spine, pelvis and h ips. Heterogeneous mixed sclerosis and lucent changes of the pubic symphysis. Anterolisthesis L4 on L 5 is likely on a degenerative basis. Lumbar levoscoliosis. IMPRESSION: 1. Postoperative changes of prior Razia fundoplication. Dilation of the esophagus is redemonstrated with smooth luminal narrowing at the gastroesophageal junction. These findings appear similar from co mparison barium swallow studies suggestive of an intact wrap with esophageal dysmotility. No recurren t hiatal hernia identified. 2. No bowel obstruction or bowel wall thickening. 3. Prior prostatectomy with decreased size of the pathologic lymph nodes of the abdomen and pelvis. M ultiple soft tissue lesions of the pelvis have also decreased in size compatible with positive treatm ent response. 4. New indeterminate sclerosis involves the T6 vertebral body. Follow-up bone scan recommended to exc lude developing osseous metastatic disease. 5. Additional findings as above. ACT 112: Negative or not required by law. Electronically signed by: Dell Lau M.D. 05/04/2020 4:56 PM
--- NOTE | 2020-05-04 20:05 | Discharge Summary ---
Date of Service May 04, 2020 Admission HPI Per Admitting Provider 79yo male with stage 4 prostate cancer and h/o hiatal hernia with gastric torsion s/p hiatal hernia repair and Razia Fundoplication in 02/2019. Unfortunately he had recurrent torsion and needed a second thoracic surgery a short time later, also in February 2019. The patient reports that since February of 2019 he has been gradually losing weight. He has lost 50-60 pounds of weight since that time. He also reports that he has not been tolerating meals and for the past few weeks is only tolerating a liquid diet. During the same time period he has had regurgitation of meals and/or vomiting. Denies any hematemesis. The patient underwent a barium swallow at [facility] today which showed a dilated esophagus, pooling of secretions in the esophagus, and a very narrow GE junction. Fluid did fill the stomach through a very narrow opening and ultimately into the small bowel. He was subsequently admitted for IV hydration and EGD was recommended by [facility]. Principal Diagnosis esophageal stenosis/stricture Discharge Exam Constitutional + thin; + not well developed, + not well nourished, no acute distress and no altered mental status ENMT Ears: no external ear abnormality Nose: no external nose abnormality Mouth: + tongue abnormality (?thrush plaques?) Throat: no posterior oropharynx abnormality Respiratory normal respiratory effort, lungs clear to auscultation Cardiovascular Rate/Rhythm: regular rate and regular rhythm Heart Sounds: normal S1 and normal S2; no murmur Vessels: posterior tibial pulses present and dorsalis pedis pulses present; no JVD Extremities: no edema Gastrointestinal (Abdomen) normal bowel sounds, soft, nontender, no hepatosplenomegaly Inspection/Auscultation: abdomen not distended Psychiatric Orientation: alert and oriented x 3 Discharge Data Allergies Allergy/AdvReac Type Severity Reaction Status Date / Time No Known Allergies Allergy Verified 05/03/20 19:41 Consultations Gastroenterology - Dalton Clark MD Ordered Studies CT abd pelvis IV con only Urgent CT chest w con Urgent IMPRESSION: 1. Postoperative changes of prior Razia fundoplication. Dilation of the esophagus is redemonstrated with smooth luminal narrowing at the gastroesophageal junction. These findings appear similar from comparison barium swallow studies suggestive of an intact wrap with esophageal dysmotility. No recurrent hiatal hernia identified. 2. No bowel obstruction or bowel wall thickening. 3. Prior prostatectomy with decreased size of the pathologic lymph nodes of the abdomen and pelvis. Multiple soft tissue lesions of the pelvis have also decreased in size compatible with positive treatment response. 4. New indeterminate sclerosis involves the T6 vertebral body. Follow-up bone scan recommended to exclude developing osseous metastatic disease. Hospital Course (1) Esophageal stricture: Following his barium swallow at [facility] on 05/03/20 the concern was for a severe esophageal stricture/stenosis. This was the likely cause of his feeding intolerance, weight loss, vomiting, etc. He was subsequently admitted at [facility] with the intent of having an EGD under general anesthesia by [facility]. Unfortunately the EGD was canceled due to lack of OR space on 05/04/20. [id number] [facility] was concerned that the patient could have a recurrent gastric torsion in addition to esophageal stenosis. CT chest/abdomen was obtained, and GI felt he would be best served at a tertiary care center where thoracic surgery was available. [facility] was contacted, and Drs Karolyn (internal medicine) and Kanu (thoracic surgery) felt he should indeed be transferred for GI & surgical evaluation of his upper GI issues. (2) History of Razia fundoplication: 02/23/2019 - large hiatal hernia with gastric torsion s/p robotically- assisted hiatal hernia repair & Razia Fundoplication - Dr. Parish Felix at [facility]. 03/09/2019 - recurrent gastric torsion - s/p reoperative robot-assisted laparoscopic takedown of Razia fundoplication, repair of gastric volvulus with gastropexy, and removal of bioprosthetic mesh. Dr Parish Felix, [facility]. (3) Prostate cancer: Stage 4 with bone mets along with pelvic mets to the prostate bed & soft tissues of the pelvis. Patient initiated on Zytiga with prednisone in November 2019. Also is on Lupron injections along with monthly Xgeva injections. He previously was on Casodex but this has been stopped. Follows with the [facility] at [facility] [place]. Due to chronic prednisone use he did receive stress-dose steroids while here. (4) Hypercalcemia: Peak 11.8, improved to 10.6 on 05/04/20. Intact PTH <6. 25-OH Vitamin D level >100. phos was normal. Hydrated for the hypercalcemia only during this stay. (5) HTN (hypertension): (6) Severe protein-calorie malnutrition: 50-60 pounds of weight loss since 2019. Likely combination of feeding intolerance from GI issues, prostate cancer, etc. (7) Hypokalemia: Supplemented IV while here. (8) Atrial fibrillation: History of - paroxysmal only. Does not take anticoagulation. Total Time Total Time Spent Total Time Spent (In Minutes): 60 Total Time Includes: Examination of the Patient, Discharge Planning, Medication Reconciliation and Communication With Other Providers Discharge Plan Discharge Items Patient Disposition: Transfer Acute Care Hospital Reason For Visit: DYSPHAGIA Discharge Diagnosis: dysphagia, feeding intolerance, and weight loss 2nd to esophageal stenosis/stricture Condition on Discharge: Fair Activity: Resume your previous activity Non-emergency contact: Primary Care Provider, Surgeon and Security Assistant Call non-emergency contact if: you have any medication questions Follow-up/Referrals: Renzo Hudson D.O. [Primary Care Provider] - Diet: Nothing by Mouth Addtl Attending Provider Instructions: Follow-up to be determined after hospitalization at [facility] Pending Studies at Discharge: No Stand-Alone Forms: My [facility] Skilled Items Patient informed of condition?: Yes DNR: No Discharge Level of Care: Other Communicable Disease: No Discharge Prognosis: Stable Lines: Peripheral IV Urinary Catheter: No Medications and DC Order Prescriptions: Continued vitamin E 1,000 unit Capsule 1,000 unit PO QAM RF: 0 omega 7-ody-uda-fish oil [Fish Oil] 1,000 mg (120 mg-180 mg) Capsule 1 cap PO .HOLD RF: 0 Lupron Depot (3 month) 11.25 mg Syringe Kit 1 dose IM .Q3 MONTHS RF: 0 prednisone 5 mg tablet 5 mg PO BID RF: 0 metoprolol tartrate 25 mg tablet 25 mg PO BID RF: 0 abiraterone 250 mg tablet 250 mg PO TID RF: 0 multivitamin Tablet 1 tab PO DAILY RF: 0 omeprazole 40 mg Capsule,Delayed Release(Dr/Ec) 40 mg PO QAM RF: 0 denosumab 120 mg/1.7 mL (70 mg/mL) Solution 120 mg subcut .Q3 MONTHS RF: 0 Discharge Orders: Discharge Order (Routine); Ordered 05/04/20 Ordered By: Evan Young Admission Data Admit Date/Time: 05/03/20 19:33 Attending Provider: Evan Young Admit Provider: Reddy Jane Primary Care Provider: Renzo Hudson Other Providers: Reddy Jane ; Dalton Clark Coding Level of Care Code D/C Day Management >30 mins Diagnoses Esophageal stricture K22.2 History of Razia fundoplication Z98.890 Prostate cancer C61 Hypercalcemia E83.52 HTN (hypertension) I10 Hypertension type: essential hypertension Severe protein-calorie malnutrition E43 Hypokalemia E87.6 Atrial fibrillation I48.91
[2020-05-05] MEDS ORDERED: HYDROCORTISONE SOD 25 MG in SYRINGE 0 ML IV SCH (09:00)
== END 2020-05-05 00:31 | disposition short-term general hospital (02) ==
LOC: ED 17:09 → 2N 17:09 → SUATTDRO 19:33 → 2N 20:25

== ENCOUNTER 2023-01-22 13:33 | Inpatient (IN) ==
[2023-01-22] MEDS ORDERED: LACTATED RINGER'S 1,000 ML IV ONE (13:42)
[2023-01-22] MEDS ORDERED: ACETAMINOPHEN 325 MG TAB PO PRN (13:42)
--- NOTE | 2023-01-22 14:53 | History & Physical Report ---
Date of Service January 22, 2023 Assessment & Plan (1) TERRI (acute kidney injury): Plan: Pre-renal +/- b/l hydronephrosis due to pelvic masses UA LR 1L bolus now, then 150ml/hr overnight to see how much is reversible with pre- renal etiology Consult urology regarding hydronephrosis - NPO until evaluated by urology (2) Bilateral hydronephrosis: Plan: On recent PET/CT - discussed with urology and no need to repeat this (3) Metastatic malignant neoplasm to prostate: Plan: Currently undergoing chemotherapy with the [facility] (4) HTN (hypertension): Plan: Continue metoprolol Plan VTE Prophylaxis - deferred given planned procedure tomorrow Diet - regular, NPO at midnight Disposition - admit to med/surg Admission and Anticipated Discharge Date Admission Date: January 22, 2023 History of Present Illness Chief Complaint: Abnormal outpatient labs Primary Care Provider: Renzo Hudson Adán Marino is an 82 year old male with metastatic prostate cancer who presents as a direct admission from the [facility] due to acute kidney injury on outpatient labs when he was expecting to have chemotherapy today. He denies any fever, chills, dysuria, CVA tenderness or change in urine smell. He does report darker and more concentrated urine. He has not eating or drinking much due to chemotherapy and prolonged emptying time for this stomach which is currently being managed by gastroenterology. He denies any dysphagia or odynophagia. He has a history of esophageal stricture but reports having a recent outpatient EGD and not requiring dilation. No constipation or diarrhea. Allergies Allergy/AdvReac Type Severity Reaction Status Date / Time No Known Allergies Allergy Verified 05/03/20 19:41 Home Medications Medication Instructions Recorded Confirmed Type leuprolide (3 month) 11.25 mg (3 1 dose IM .Q3 MONTHS 02/18/19 01/22/23 History month) intramuscular syringe kit (Lupron Depot) vitamin E 670 mg (1,000 unit) 1,000 unit PO QAM 02/18/19 01/22/23 History capsule denosumab 120 mg/1.7 mL (70 mg/mL) 120 mg subcut .Q3 MONTHS 02/25/19 01/22/23 History subcutaneous solution multivitamin 1 tab PO DAILY 02/25/19 01/22/23 History omeprazole 40 mg capsule,delayed 40 mg PO QAM 02/25/19 01/22/23 History release metoprolol tartrate 25 mg tablet 25 mg PO BID 05/03/20 01/22/23 History tramadol 50 mg tablet 50 mg PO Q6H PRN Pain 01/22/23 01/22/23 History Past Med/Surg History Medical History (Updated 01/22/23 @ 23:38 by Evan Esquivel MD) Atrial fibrillation Episode of Afib post op on 02/26. Converted spontaneously to NSR. Being followed by specification consultant Bladder neck contracture Cancer PROSTATE CANCER (SURGERY AND RADIATION) METS TO SACRUM. ON LUPRON, AND CASODEX. 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: No Beliefs That Will Affect Care: None Current Living Situation: Spouse Current Living Situation Comment: Lives at home with Other Information That Helps Us Care for You: No Feels Safe at Home: Yes Safety Concerns: Feels Safe At This Time Assistive Devices: Cane, Denture - Upper, Denture - Lower, Glasses and Walker Review of Systems Review of Systems: All systems reviewed & are unremarkable except as noted in HPI & below Physical Exam Constitutional: WD/WN, vitals as above Respiratory: normal respiratory effort, lungs clear to auscultation Cardiovascular: RRR, no murmur, no edema Gastrointestinal (Abdomen): Inspection/Auscultation: abdomen normal to inspection; abdomen not distended Percussion/Palpation: + abdomen tender (mild suprapubic) and abdomen soft; no guarding and abdomen not rigid Musculoskeletal: no cyanosis or clubbing, extremities motor strength 5/5 Skin: no rashes, warm and dry Neurologic: moves all extremities and awake; not confused Psychiatric: A+Ox3, euthymic affect Code Status & VTE Plan Code Status DNR/DNI VTE Prophylaxis Plan VTE Prophylaxis will be ordered: Yes PG Care Time/CCT Total # of Minutes Spent Total Time Spent with Patient: Total time spent is greater than 50% in coordination of care (as documented) at patient's floor/unit and/or counseling patient: Coding Level of Care Code 04252 INT INP/OBS CARE 2MIN Diagnoses TERRI (acute kidney injury) N17.9 Bilateral hydronephrosis N13.30 Metastatic malignant neoplasm to prostate C79.82 HTN (hypertension) I10
[2023-01-22 15:39] LABS: Partial Thromboplastin Ratio 0.9; Partial Thromboplastin Time 24.1 Seconds (21.0-31.0); Prothrombin Time 10.8 Seconds (9.0-12.0)
--- NOTE | 2023-01-22 15:53 | Urology Consultation ---
Date of Consultation January 22, 2023 Assessment & Plan (1) TERRI (acute kidney injury): (2) Bilateral hydronephrosis: (3) Prostate cancer: Plan 82-year-old male admitted today from the cancer center for TERRI. Patient with history of metastatic prostate cancer. Recent PET imaging from 01/14/23 shows moderate bilateral hydroureteronephrosis. This is new from 09/19/2022 and may be due to obstructing kenia disease and pelvic implants. He is afebrile. Labs show a creatinine of 3.73 and no leukocytosis. UA not suggestive of infection. We discussed option for bilateral ureteral stent placement given his TERRI and bilateral hydronephrosis on recent imaging. Ureteral stents were discussed as well as postoperative issues and pain management. We also discussed that if we are unable to place ureteral stents, may need to consider transfer to tertiary center for nephrostomy tubes. Risks and benefits were discussed. All questions were answered. Patient is agreeable to proceeding with cystoscopy, bilateral retrograde pyelogram, bilateral ureteral stent placement with Dr. Baez tomorrow 01/23/23. Will make NPO at midnight for procedure tomorrow. Urology will follow. Greater than 60 minutes spent on chart review, assessment, planning, documentation, and coordination of care. Supervising Physician Co-Signing Physician Notes Discussed patient with MICAELA. Agree with plan. Will attempt bilateral stent placement tomorrow morning. May be unsuccessful due to likely obstruction from metastatic disease. If stents are unable to be placed, will need to be transferred for bilateral nephrostomy tubes. History of Present Illness Reason for Consultation: b/l hydro, TERRI Attending Physician: Evan Esquivel MD History of Present Illness 82-year-old male with metastatic prostate cancer admitted from the cancer center today for TERRI, bilateral hydronephrosis. Afebrile and hemodynamically stable. Labs show no leukocytosis, hemoglobin 10.6, creatinine 3.73. UA shows negative blood, negative leuks, negative bacteria. PET scan 01/14/23- 1. Status post prostatectomy. 2. There is extensive Pylarify avid kenia metastatic disease seen throughout the chest, abdomen, and pelvis as detailed above as well as Pylarify avid pelvic implants. This has progressed as compared to the 09/19/[address]22 CT scans. 3. There is extensive/multifocal osteoblastic metastatic disease. These lesions are similar in distribution to the 09/19/2022 examinations and are significantly Pylarify avid. 4. There is moderate bilateral hydroureteronephrosis. This is new from 09/19/2022 and may be due to obstructing kenia disease and pelvic implants. 5. Cardiomegaly. 6. The lungs are clear. Patient examined at bedside this afternoon. Awake, sitting in bedside chair on arrival. No acute distress. at bedside. Denies any significant pain or discomfort at present. Does note some mild bilateral back pain. No fevers or chills. Denies nausea or vomiting. Voiding without issue. Chart reviewed - Initially diagnosed with prostate cancer in 2000. He reports a history of prostatectomy. Allergies Allergy/AdvReac Type Severity Reaction Status Date / Time No Known Allergies Allergy Verified 05/03/20 19:41 Home Medications Medication Instructions Recorded Confirmed Type leuprolide (3 month) 11.25 mg (3 1 dose IM .Q3 MONTHS 02/18/19 01/22/23 History month) intramuscular syringe kit (Lupron Depot) vitamin E 670 mg (1,000 unit) 1,000 unit PO QAM 02/18/19 01/22/23 History capsule denosumab 120 mg/1.7 mL (70 mg/mL) 120 mg subcut .Q3 MONTHS 02/25/19 01/22/23 History subcutaneous solution multivitamin 1 tab PO DAILY 02/25/19 01/22/23 History omeprazole 40 mg capsule,delayed 40 mg PO QAM 02/25/19 01/22/23 History release metoprolol tartrate 25 mg tablet 25 mg PO BID 05/03/20 01/22/23 History tramadol 50 mg tablet 50 mg PO Q6H PRN Pain 01/22/23 01/22/23 History Patient History Medical History Atrial fibrillation Episode of Afib post op on 02/26. Converted spontaneously to NSR. 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 ON LUPRON, AND CASODEX. 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 [employer] Member Other Ranks Required: No Beliefs That Will Affect Care: None Current Living Situation: Spouse Current Living Situation Comment: Lives at home with Other Information That Helps Us Care for You: No Feels Safe at Home: Yes Safety Concerns: Feels Safe At This Time Assistive Devices: Cane, Denture - Upper, Denture - Lower, Glasses and Walker Review of Systems Review of Systems: All systems reviewed & are unremarkable except as noted in HPI & below Physical Exam Constitutional: well developed and well nourished; no acute distress Neck: normal visual inspection Respiratory: normal respiratory effort; no respiratory distress and no labored breathing Musculoskeletal: Head/Neck/Chest: normocephalic Skin: No visible rashes or lesions to exposed skin areas Neurologic: moves all extremities and awake Psychiatric: A+Ox3, euthymic affect Results & Data Vital Signs (Past 12 Hours) Vital Signs Temp Pulse Resp BP Pulse Ox O2 Del Method 01/22/23 15:34 173/105 H 01/22/23 14:44 36.8 C 76 18 182/102 H 97 Room Air PG Care Time/CCT Total # of Minutes Spent Total Time Spent with Patient: Total time spent is greater than 50% in coordination of care (as documented) at patient's floor/unit and/or counseling patient: Coding Level of Care Code 96825 INT INP/OBS CARE 2/55MIN Diagnoses TERRI (acute kidney injury) N17.9 Bilateral hydronephrosis N13.30 Prostate cancer C61
[2023-01-22] MEDS: LACTATED RINGER'S 1,000 ML IV SCH (17:01)
--- NOTE | 2023-01-22 17:17 | Anesthesiology Consultation ---
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 initiated History Surgery Operation Date: 01/23/23 07:30 Proposed Procedures p Cystoscopy Bilateral Retrograde Pyelograms with Bilateral Stent Placements - Wisam Baez DO Height/Weight Height: 5 ft 8 in Weight: 75.9 kg Allergies Allergy/AdvReac Type Severity Reaction Status Date / Time No Known Allergies Allergy Verified 05/03/20 19:41 Medications Home Medications Medication Instructions Recorded Confirmed Last Taken leuprolide (3 month) 11.25 mg (3 1 dose IM .Q3 MONTHS 02/18/19 01/22/23 01/14/23 month) intramuscular syringe kit (Lupron Depot) vitamin E 670 mg (1,000 unit) 1,000 unit PO QAM 02/18/19 01/22/23 01/22/23 06:30 capsule denosumab 120 mg/1.7 mL (70 mg/mL) 120 mg subcut .Q3 MONTHS 02/25/19 01/22/23 01/14/23 subcutaneous solution multivitamin 1 tab PO DAILY 02/25/19 01/22/23 01/22/23 06:30 omeprazole 40 mg capsule,delayed 40 mg PO QAM 02/25/19 01/22/23 01/22/23 06:30 release metoprolol tartrate 25 mg tablet 25 mg PO BID 05/03/20 01/22/23 01/22/23 06:30 Active Medications Generic Name Dose Route Start Last Admin Trade Name Freq PRN Reason Stop Dose Admin Lactated Ringer's 1,000 mls @ 150 mls/hr 01/22/23 17:00 01/22/23 17:01 Lr IV 02/21/23 16:59 150 mls/hr .[id number] SHERIF Administration Past Medical History Medical History Atrial fibrillation Episode of Afib post op on 02/26. Converted spontaneously to NSR. 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 ON LUPRON, AND CASODEX. Osteoarthritis Paraesophageal hernia Pelvic irradiation Prostate cancer Past Surgical History Surgical History H/O endoscopy EGD 02/28/19 and 03/07/19 History of colonoscopy History of herniorrhaphy INGUINAL History of prostatectomy History of tooth extraction Social History Smoking Status: Former smoker tobacco type: cigarettes Do You Dip or Chew Tobacco: No Hx Alcohol Use: No Hx Substance Use: No substance use type: does not use Physical Exam Vital Signs Last Vital Signs Temp 98.2 F 01/22/23 14:44 Pulse 76 01/22/23 14:44 Resp 18 01/22/23 14:44 BP 173/105 H 01/22/23 15:34 Pulse Ox 97 01/22/23 14:44 O2 Del Method Room Air 01/22/23 14:44 Testing Laboratory Results PT 10.8 Seconds (9.0-12.0) 01/22/23 14:57 INR 1.0 (0.9-1.1) 01/22/23 14:57 APTT 24.1 Seconds (21.0-31.0) 01/22/23 14:57 Electrocardiogram Date: 05/03/20 Normal sinus rhythm, rate 62 bpm Left axis deviation Abnormal ECG When compared with ECG of 25-FEB-2019 23:46, Vent. rate has decreased BY 50 BPM T wave amplitude has decreased in Anterior leads Confirmed by Kenney Ca ([id number]) on 05/04/2020 11:26:11 AM Echocardiogram Date: 02/26/19 EF 60-65% Mild MR/TR Grade 1 diastolic dysfunction
[2023-01-22] MEDS: traMADol HCL 50 MG TABLET PO PRN (19:43)
[2023-01-22] MEDS: METOPROLOL TARTRATE 25 MG TAB PO SCH (19:50)
[2023-01-22 23:04] LABS: Appearance Urine Clear (Clear); Bacteria Urine Automated Negative (Negative); Bilirubin Urine Negative (Negative); Blood Urine Negative (Negative); Cast Urine Automated 0 /lpf (0-5); Color Urine Yellow; Glucose Urine UA Negative (Negative); Ketones Urine 1+ (Negative); Leukocyte Esterase Urine Negative (Negative); Nitrite Urine Negative (Negative); Protein Urine Trace (Negative); RBC Urine Automated 0-4 /hpf (0-4); Specific Gravity Urine 1.014 (1.000-1.030); Urobilinogen Urine Negative (Negative)
[2023-01-23] MEDS: LACTATED RINGER'S 1,000 ML IV SCH ×4 (01:16→14:19)
[2023-01-23] MEDS: traMADol HCL 50 MG TABLET PO PRN (06:32)
[2023-01-23] MEDS ORDERED: PROPOFOL IV EMULSION 10 MG/ML 20 ML VIAL IV ONE (06:51)
[2023-01-23] MEDS ORDERED: LIDOCAINE 2% MPF LOCAL 5 ML VIAL ONE (06:51)
[2023-01-23] MEDS ORDERED: ONDANSETRON INJ 2 MG/ML 2 ML VIAL ONE (06:51)
[2023-01-23] MEDS ORDERED: fentaNYL citrate PF 100 MCG/2 ML VIAL ONE (06:51)
--- NOTE | 2023-01-23 07:00 | History & Physical Bridge Note ---
Date of Service January 23, 2023 History & Physical Bridge Note I have examined the patient, reviewed the History & Physical and in the interval since the performance of the History & Physical I have noted the following changes of clinical significance: no changes noted
[2023-01-23] MEDS: METOPROLOL TARTRATE 25 MG TAB PO SCH ×2 (07:08→20:02)
[2023-01-23] MEDS: PANTOprazole 40 MG TAB PO SCH (07:09)
[2023-01-23] MEDS ORDERED: fentaNYL citrate PF 100 MCG/2 ML VIAL IV PRN (07:34)
[2023-01-23] MEDS ORDERED: ATROPINE SULFATE 0.1 MG/ML 10ML SYR IV PRN (07:34)
[2023-01-23] MEDS ORDERED: ePHEDrine sulfate 50 MG/ML AMP IV PRN (07:34)
[2023-01-23] MEDS ORDERED: ONDANSETRON INJ 2 MG/ML 2 ML VIAL IV PRN (07:34)
[2023-01-23] MEDS ORDERED: ceFAZolin 2,000 MG/15 ML IV PUSH IV ONE (07:39)
[2023-01-23] MEDS ORDERED: DIATRIZOATE MEGLUMINE 30% 100ML VIAL INSTIL ONE (08:11)
--- NOTE | 2023-01-23 08:24 | Operative Report ---
PG Post Operative Report Pre & Post Diagnosis Operation Date: 01/23/23 07:30 Pre-Op Diagnosis: hydronephrosis Post-Op Diagnosis: hydronephrosis I identified the patient and participated in the time-out.: Yes Procedure Operation Date: 01/23/23 07:30 Actual Procedures p Cystoscopy with urethral dialation and left ureteral dilation, Bilateral Retrograde Pyelograms, Bilateral Stent Placements(Bilateral) - Wisam Baez DO Surgeon Wisam Baez, II, DO Lead Tank Mechanic None Estimated Blood Loss 1 Findings Consistent with Post-Op Diagnosis Stents placed in good position. Likely external compression of ureter. Significant stricture of the bulbar urethra. Mild bladder neck contracture. Moderate narrowing of the left UO. Specimens None Drains 6 Fr x 24 bilateral 22 Fr [place] Tip catheter. Anesthesia Type MAC Complications none Disposition Disposition: Recovery Room Indications Patient with obstruction. Risks and benefits discussed at length. Description of Procedure Patient was consented and brought back to the operating room. Patient was placed under anesthesia in the supine position and moved to the dorsal lithotomy position. Patient was prepped and draped in the regular sterile fashion. A time out was completed. A 30degree Cystoscope was placed into the urethra and a severe stricture was discovered in the bulbar urethra. A wire was placed and the area was dilated. Once dilated the scope was advanced to the bladder and the entire bladder was examined. The UO's were identified. The UO was cannulized with a catheter and a retrograde pyelogram was completed bilaterally. A wire was then placed. On the left moderate narrowing of the UO was noted. Bilaterally there was narrowing likely due to external compression in the mid ureter. Left was more prominent then the right. With the wires in place, a 6 Fr Double J stents were placed. They were confirmed with fluoroscopy. With the stents in place, the bladder was emptied. The wire was maintianed in the bladder. The scope was removed. A 22 Fr [place] tip catheter was placed over the wire. Good drainage was received. The patient was cleaned, aroused from anesthesia, and transferred to the pacu in stable condition having tolerated the procedure well with no complications. I was present and participated in all aspects of the procedure. The patient will be monitored in the PACU until transferred. Maintain catheter for approx 10-14 days. Will monitor post operatively. I attest to the content of the Intraoperative Record and any orders documented therein. Any exceptions are noted below.
--- NOTE | 2023-01-23 08:36 | Anesthesiology Progress Note ---
Date of Service January 23, 2023 Anesthesia Post Procedure Vital Signs Vital Signs: Temp Pulse Pulse Resp BP Pulse Ox O2 Del Method 01/23/23 08:30 65 14 158/91 H 98 Room Air 01/23/23 08:22 97.0 F L 65 16 154/90 H 98 Oxymask 01/23/23 07:29 98.6 F 79 18 171/103 H 96 Room Air 01/23/23 07:07 98.6 F 75 16 167/79 H 94 Room Air 01/22/23 21:40 98.6 F 79 14 178/95 H 95 Room Air 01/22/23 18:09 182/98 H 01/22/23 15:34 173/105 H 01/22/23 14:44 98.2 F 76 18 182/102 H 97 Room Air O2 Flow Rate 01/23/23 08:30 01/23/23 08:22 6 01/23/23 07:29 01/23/23 07:07 01/22/23 21:40 01/22/23 18:09 01/22/23 15:34 01/22/23 14:44 Pain Intensity Lower Back: Pain Intensity: 5 Transfer of Care Handoff Completed per policy Notes Mental Status: alert / awake / arousable and participated in evaluation Patient Amnestic to Procedure: Yes Nausea / Vomiting: adequately controlled Pain: adequately controlled Airway Patency, RR, SpO2: stable & adequate BP & HR: stable & adequate Hydration State: stable & adequate Anesthetic Complications: no major complications apparent and Pt Satisfied with anesthetic care
[2023-01-23 10:03] LABS: Basophils # (auto) 0.01 K/uL (0-0.2); Basophils % (auto) 0.1 %; Hematocrit (blood only) 27.6 % (42.0-52.0); Hemoglobin 9.2 g/dl (14.0-18.0); Immature Granulocytes # (auto) 0.05 K/uL (0.01-0.20); Immature Granulocytes % (auto) 0.5 %; Lymphocytes # (auto) 1.19 K/uL (1.2-3.4); Lymphocytes % (auto) 12.5 %; Mean Corpuscular Hemoglobin 30.9 pg (25.0-34.0); Mean Corpuscular Hgb Conc 33.3 g/dL (32.0-36.0); Mean Corpuscular Volume 92.6 fL (80.0-100.0); Mean Platelet Volume 11.3 fL (9.4-12.4); Monocytes # (auto) 0.56 K/uL (0.11-0.59); Monocytes % (auto) 5.9 %; Platelet Count 207 K/uL (130-400); RDW Coefficient of Variation 12.5 % (11.5-14.5); RDW Standard Deviation 42.2 fL (36.4-46.3); Red Blood Count 2.98 M/uL (4.70-6.10); White Blood Count 9.51 K/ul (4.8-10.8)
[2023-01-23 10:18] LABS: BUN Creatinine Ratio 17.7 (10-20); Calcium 10.1 mg/dl (8.6-10.3); Creatinine Clr Calc Pharmacy 16.5 ml/min; Est GFR (African American) 18.8 ml/min; Est GFR (Non-African American) 16.2 ml/min; Potassium 4.4 mmol/L (3.5-5.1)
--- NOTE | 2023-01-23 10:44 | Fluoroscopy Report ---
FL retrograde includes kub CLINICAL HISTORY: B/L COMPARISON STUDY: CT of the abdomen and pelvis September 19, 2022. PET/CT January 14, 2023. FLUOROSCOPY TIME: 29 seconds. Air kerma: 5.09 mGy FLUOROSCOPIC IMAGES: 7 FINDINGS: Fluoroscopy was provided during bilateral retrograde pyelograms with placement of bilateral ureteral stents. Stents are appropriately positioned. Bilateral hydronephrosis is again noted. Narro wing and apparent irregularity of the mid to distal right ureter is noted as well as focal narrowing within the distal left ureter. 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 IMPRESSION: Fluoroscopy provided during bilateral retrograde pyelograms with placement of bilateral ureteral stents. ACT 112: Negative or not required by law. Electronically signed by: Dustin Swenson M.D. 01/23/2023 10:42 AM
--- NOTE | 2023-01-23 14:20 | Hospitalist Progress Note ---
Date of Service January 23, 2023 Assessment & Plan (1) TERRI (acute kidney injury): Plan: Acute Kidney Injury B/L Hydronephrosis secondary to metastatic prostate cancer Likely multifactorial: Pre and Post renal Cr:3.7>>3.3 S/P cystoscopy with urethral dilatation and left ureteral dilation, bilateral retrograde pyelograms, bilateral stent placement by on 01/23/23 Continue IV fluids Avoid nephrotoxic agents as able Monitor renal function Consider nephrology evaluation if needed Appreciate urology input Continue [place] catheter for now HTN Currently uncontrolled likely situational Continue metoprolol Added amlodipine Monitor BP Metastatic malignant neoplasm to prostate: [facility] Needs follow-up with oncology upon discharge DVT Px SCDs Code Status Full Code Admission and Anticipated Discharge Date Admission Date: January 22, 2023 Subjective Patient is seen and examined at bedside Patient had ureteral stents placement this morning Has minimal hematuria Patient reports chronic lower back pain which she attributes to metastatic prostate cancer Denies any chest pain, dyspnea, dizziness, nausea, abdominal pain No other complaints Review of Systems Review of Systems: All systems reviewed & are unremarkable except as noted in Subjective Physical Exam Physical Exam: Physical Exam: Vitals signs as noted above General Appearance:Moderately built and nourished, no apparent distress Head: normocephalic, Atraumatic Eyes: normal inspection, EOMI Neck: supple, Trachea midline Respiratory/Chest: Normal breath sounds, CTA, No accessory muscle use Cardiovascular: S1, S2, No murmur Abdomen/GI:Soft, Non tender, Bowel sounds present Extremities/Musculoskeletal:normal inspection, no edema Neurologic/Psych:AAOX3, grossly no focal neurological deficits, Hearing impairment Skin: normal color, warm Results & Data Results & Data Vital Signs (Past 12 Hours) Vital Signs Temp Pulse Pulse Resp BP BP Pulse Ox 01/23/23 11:59 36.8 C 67 18 167/91 H 93 01/23/23 11:02 36.8 C 67 18 164/93 H 93 01/23/23 10:00 74 16 199/109 H 94 01/23/23 09:33 62 16 170/95 H 94 01/23/23 09:26 36.7 C 63 16 177/92 H 100 01/23/23 08:40 36.4 C L 63 16 157/98 H 96 01/23/23 08:30 65 14 158/91 H 98 01/23/23 08:22 36.1 C L 65 16 154/90 H 98 01/23/23 07:29 37 C 79 18 171/103 H 96 01/23/23 07:07 37.0 C 75 16 167/79 H 94 O2 Del Method O2 Flow Rate 01/23/23 11:59 Room Air 01/23/23 11:02 Room Air 01/23/23 10:00 Room Air 01/23/23 09:33 Room Air 01/23/23 09:26 Room Air 01/23/23 08:40 Room Air 01/23/23 08:30 Room Air 01/23/23 08:22 Oxymask 6 01/23/23 07:29 Room Air 01/23/23 07:07 Room Air Laboratory Results Short CBC 01/23/23 Range/Units 09:32 WBC 9.51 (4.8-10.8) K/ul Hgb 9.2 L (14.0-18.0) g/dl Hct 27.6 L (42.0-52.0) % Plt Count 207 (130-400) K/uL BMP 01/23/23 09:32 Sodium 141 Potassium 4.4 Chloride 105 Carbon Dioxide 28 BUN 59 H Creatinine 3.34 H D Glucose 110 H Calcium 10.1 Urine 01/22/23 Range/Units 22:30 Urine Color Yellow Urine Appearance Clear (Clear) Urine pH 6.0 (4.5-7.5) Ur Specific [place] 1.014 (1.000-1.030) Urine Protein Trace H (Negative) Urine Glucose (UA) Negative (Negative)
[2023-01-23] MEDS: amLODIPine BESYLATE 5 MG TAB PO SCH (14:25)
[2023-01-24 06:20] LABS: Hematocrit (blood only) 31.4 % (42.0-52.0); Hemoglobin 10.5 g/dl (14.0-18.0); Mean Corpuscular Hemoglobin 30.4 pg (25.0-34.0); Mean Corpuscular Hgb Conc 33.4 g/dL (32.0-36.0); Mean Platelet Volume 11.3 fL (9.4-12.4); Platelet Count 221 K/uL (130-400); RDW Coefficient of Variation 12.3 % (11.5-14.5); Red Blood Count 3.45 M/uL (4.70-6.10); White Blood Count 10.81 K/ul (4.8-10.8)
[2023-01-24 06:28] LABS: BUN Creatinine Ratio 15.9 (10-20); Calcium 9.3 mg/dl (8.6-10.3); Est GFR (African American) 22.3 ml/min; Est GFR (Non-African American) 19.3 ml/min; Magnesium 2.2 mg/dl (1.7-2.4); Potassium 3.8 mmol/L (3.5-5.1)
[2023-01-24] MEDS: traMADol HCL 50 MG TABLET PO PRN ×3 (07:47→20:25)
[2023-01-24] MEDS: amLODIPine BESYLATE 5 MG TAB PO SCH (08:57)
[2023-01-24] MEDS: METOPROLOL TARTRATE 25 MG TAB PO SCH ×2 (08:57→19:53)
[2023-01-24] MEDS: PANTOprazole 40 MG TAB PO SCH (08:58)
[2023-01-24] MEDS ORDERED: amLODIPine BESYLATE 5 MG TAB PO ONE (09:27)
[2023-01-24] MEDS: LACTATED RINGER'S 1,000 ML IV SCH (12:41)
--- NOTE | 2023-01-24 16:13 | Hospitalist Progress Note ---
Date of Service January 24, 2023 Assessment & Plan (1) TERRI (acute kidney injury): Plan: Acute Kidney Injury B/L Hydronephrosis secondary to metastatic prostate cancer Likely multifactorial: Pre and Post renal Cr:3.7>>3.3>2.9 S/P cystoscopy with urethral dilatation and left ureteral dilation, bilateral retrograde pyelograms, bilateral stent placement by on 01/23/23 Avoid nephrotoxic agents as able Monitor renal function Consider nephrology evaluation if needed Appreciate urology input Continue Gramajo catheter Continue IV fluids Renal function slowly improving HTN Currently uncontrolled likely situational Continue metoprolol Added amlodipine--increase to 5 mg daily Monitor BP Hydralazine as needed Metastatic malignant neoplasm to prostate: [facility] Needs follow-up with oncology upon discharge DVT Px SCDs Code Status Full Code Disposition PT OT prior to discharge Admission and Anticipated Discharge Date Admission Date: January 22, 2023 Subjective Patient is seen and examined at bedside Has minimal blood-tinged urine Reports chronic back pain Denies any chest pain, dyspnea, dizziness, nausea, abdominal pain No other complaints Discussed with patient's family at bedside Review of Systems Review of Systems: All systems reviewed & are unremarkable except as noted in Subjective Physical Exam Physical Exam: Physical Exam: Vitals signs as noted above General Appearance:Moderately built and nourished, no apparent distress Head: normocephalic, Atraumatic Eyes: normal inspection, EOMI Neck: supple, Trachea midline Respiratory/Chest: Normal breath sounds, CTA, No accessory muscle use Cardiovascular: S1, S2, No murmur Abdomen/GI:Soft, Non tender, Bowel sounds present Extremities/Musculoskeletal:normal inspection, no edema Neurologic/Psych:AAOX3, grossly no focal neurological deficits, Hearing impairment Skin: normal color, warm Results & Data Results & Data Vital Signs (Past 12 Hours) Vital Signs Temp Pulse Resp BP BP Pulse Ox O2 Del Method 01/24/23 13:33 171/97 H 01/24/23 12:35 36.9 C 81 18 168/104 H 96 Room Air 01/24/23 10:27 168/110 H 01/24/23 10:21 177/108 H 01/24/23 07:45 36.9 C 81 16 185/107 H 96 Room Air Laboratory Results Short CBC 01/24/23 Range/Units 05:35 WBC 10.81 H (4.8-10.8) K/ul Hgb 10.5 L (14.0-18.0) g/dl Hct 31.4 L (42.0-52.0) % Plt Count 221 (130-400) K/uL [facility] 01/24/23 05:35 Sodium 140 Potassium 3.8 Chloride 101 Carbon Dioxide 30 BUN 46 H Creatinine 2.90 H D Glucose 112 H Calcium 9.3
[2023-01-24] MEDS: hydrALAZINE 10 MG TAB PO PRN ×2 (16:43→20:25)
[2023-01-25] MEDS: traMADol HCL 50 MG TABLET PO PRN ×3 (02:52→18:52)
[2023-01-25] MEDS: LACTATED RINGER'S 1,000 ML IV SCH ×2 (02:52→18:49)
[2023-01-25 06:40] LABS: Hematocrit (blood only) 31.9 % (42.0-52.0); Hemoglobin 10.9 g/dl (14.0-18.0); Mean Corpuscular Hemoglobin 30.4 pg (25.0-34.0); Mean Corpuscular Hgb Conc 34.2 g/dL (32.0-36.0); Mean Corpuscular Volume 88.9 fL (80.0-100.0); Mean Platelet Volume 11.3 fL (9.4-12.4); Platelet Count 229 K/uL (130-400); RDW Coefficient of Variation 12.1 % (11.5-14.5); RDW Standard Deviation 39.5 fL (36.4-46.3); Red Blood Count 3.59 M/uL (4.70-6.10); White Blood Count 12.37 K/ul (4.8-10.8)
[2023-01-25 06:56] LABS: BUN Creatinine Ratio 15.6 (10-20); Calcium 8.8 mg/dl (8.6-10.3); Creatinine Clr Calc Pharmacy 23.2 ml/min; Est GFR (African American) 28.5 ml/min; Est GFR (Non-African American) 24.6 ml/min; Potassium 3.9 mmol/L (3.5-5.1)
[2023-01-25] MEDS: METOPROLOL TARTRATE 25 MG TAB PO SCH ×2 (08:25→20:11)
[2023-01-25] MEDS: amLODIPine BESYLATE 5 MG TAB PO SCH (08:25)
[2023-01-25] MEDS: PANTOprazole 40 MG TAB PO SCH (08:26)
--- NOTE | 2023-01-25 09:26 | XRay Report ---
XR chest 1V portable CLINICAL HISTORY: leukocytosis COMPARISON STUDY: Chest CT September 19, 2022. PET/CT January 14, 2023. FINDINGS: There is mild elevation of the left hemidiaphragm. No consolidation is identified to sugges t pneumonia. Linear left lower lung density represents atelectasis. There is no pneumothorax or pleur al effusion. Cardiac size is normal. Mediastinal contours are normal. There is no evidence for pulmon melisa edema. IMPRESSION: 1. No acute cardiopulmonary findings. 2. Linear left lower lung density consistent with atelectasis. ACT 112: Negative or not required by law. Electronically signed by: Dustin Swenson M.D. 01/25/2023 9:25 AM
[2023-01-25 09:58] LABS: Appearance Urine Cloudy (Clear); Bilirubin Urine 1+ (Negative); Blood Urine 3+ (Negative); Color Urine Amber; Glucose Urine UA Negative (Negative); Ketones Urine Trace (Negative); Leukocyte Esterase Urine 1+ (Negative); Nitrite Urine Negative (Negative); Protein Urine 3+ (Negative); Specific Gravity Urine 1.015 (1.000-1.030); Urobilinogen Urine Negative (Negative)
[2023-01-25 10:11] LABS: RBC Urine >30 /hpf (0-4)
[2023-01-25 10:13] LABS: Bacteria Urine 1+ (Negative); Epithelial Cell Urine 0-5 /lpf (0-5)
[2023-01-25] MEDS: CIPROFLOXACIN / D5W 200 MG/100 ML BAG IV SCH (12:40)
--- NOTE | 2023-01-25 17:19 | Hospitalist Progress Note ---
Date of Service January 25, 2023 Assessment & Plan (1) TERRI (acute kidney injury): Plan: Acute Kidney Injury B/L Hydronephrosis secondary to metastatic prostate cancer Likely multifactorial: Pre and Post renal Cr:3.7>>3.3>2.9>2.37 S/P cystoscopy with urethral dilatation and left ureteral dilation, bilateral retrograde pyelograms, bilateral stent placement by on 01/23/23 Avoid nephrotoxic agents as able Monitor renal function Consider nephrology evaluation if needed Appreciate urology input Continue Gramajo catheter Continue IV fluids Renal function slowly improving Hb stable Suspected UTI Urine culture pending Empirically started on Cipro HTN Currently uncontrolled likely situational Continue metoprolol Added amlodipine--increase to 5 mg daily Monitor BP Hydralazine as needed Metastatic malignant neoplasm to prostate: Currently undergoing [facility] Needs follow-up with oncology upon discharge DVT Px SCDsRe:Hematuria Code Status Full Code Disposition PT OT prior to discharge Admission and Anticipated Discharge Date Admission Date: January 22, 2023 Subjective Patient is seen and examined at bedside States feeling well today Still has blood-tinged urine Noted leukocytosis on labs Offers no complaints today Renal function improving Denies any chest pain, dyspnea, dizziness, nausea, abdominal pain Review of Systems Review of Systems: All systems reviewed & are unremarkable except as noted in Subjective Physical Exam Physical Exam: Physical Exam: Vitals signs as noted above General Appearance:Moderately built and nourished, no apparent distress Head: normocephalic, Atraumatic Eyes: normal inspection, EOMI Neck: supple, Trachea midline Respiratory/Chest: Normal breath sounds, CTA, No accessory muscle use Cardiovascular: S1, S2, No murmur Abdomen/GI:Soft, Non tender, Bowel sounds present Extremities/Musculoskeletal:normal inspection, no edema Neurologic/Psych:AAOX3, grossly no focal neurological deficits, Hearing impairment Skin: normal color, warm Results & Data Results & Data Vital Signs (Past 12 Hours) Vital Signs Temp Pulse Resp BP Pulse Ox O2 Del Method 01/25/23 15:45 37.2 C 88 16 147/87 H 95 Room Air 01/25/23 07:48 37.4 C 92 H 18 152/91 H 94 Room Air Laboratory Results Short CBC 01/25/23 Range/Units 05:55 WBC 12.37 H (4.8-10.8) K/ul Hgb 10.9 L (14.0-18.0) g/dl Hct 31.9 L (42.0-52.0) % Plt Count 229 (130-400) K/uL BMP 01/25/23 05:55 Sodium 138 Potassium 3.9 Chloride 99 Carbon Dioxide 29 BUN 37 H Creatinine 2.37 H D Glucose 111 H Calcium 8.8 Urine 01/25/23 Range/Units 09:45 Urine Color [place] Urine Appearance Cloudy A (Clear) Urine pH 7.0 (4.5-7.5) Ur Specific [place] 1.015 (1.000-1.030) Urine Protein 3+ H (Negative) Urine Glucose (UA) Negative (Negative)
[2023-01-26] MEDS: CIPROFLOXACIN / D5W 200 MG/100 ML BAG IV SCH ×2 (00:28→12:09)
[2023-01-26] MEDS: traMADol HCL 50 MG TABLET PO PRN ×4 (01:24→21:33)
[2023-01-26 08:46] LABS: Basophils # (auto) 0.03 K/uL (0-0.2); Basophils % (auto) 0.3 %; Eosinophils # (auto) 0.16 K/uL (0-0.50); Eosinophils % (auto) 1.7 %; Hematocrit (blood only) 29.8 % (42.0-52.0); Immature Granulocytes # (auto) 0.08 K/uL (0.01-0.20); Immature Granulocytes % (auto) 0.9 %; Lymphocytes # (auto) 1.45 K/uL (1.2-3.4); Lymphocytes % (auto) 15.6 %; Mean Corpuscular Hemoglobin 30.4 pg (25.0-34.0); Mean Corpuscular Hgb Conc 33.6 g/dL (32.0-36.0); Mean Corpuscular Volume 90.6 fL (80.0-100.0); Mean Platelet Volume 11.5 fL (9.4-12.4); Monocytes # (auto) 0.78 K/uL (0.11-0.59); Monocytes % (auto) 8.4 %; Neutrophils # (auto) 6.77 K/uL (1.40-6.50); Neutrophils % (auto) 73.1 %; Platelet Count 245 K/uL (130-400); RDW Coefficient of Variation 12.5 % (11.5-14.5); RDW Standard Deviation 41.4 fL (36.4-46.3); Red Blood Count 3.29 M/uL (4.70-6.10); White Blood Count 9.27 K/ul (4.8-10.8)
[2023-01-26] MEDS: METOPROLOL TARTRATE 25 MG TAB PO SCH ×2 (08:46→21:34)
[2023-01-26] MEDS: PANTOprazole 40 MG TAB PO SCH (08:46)
[2023-01-26] MEDS: amLODIPine BESYLATE 5 MG TAB PO SCH (08:46)
[2023-01-26 09:13] LABS: BUN Creatinine Ratio 14.9 (10-20); Calcium 8.4 mg/dl (8.6-10.3); Creatinine Clr Calc Pharmacy 24.9 ml/min; Est GFR (Non-African American) 26.8 ml/min; Potassium 3.8 mmol/L (3.5-5.1)
--- NOTE | 2023-01-26 10:06 | Urology Progress Note ---
Date of Service January 26, 2023 Assessment & Plan (1) Bilateral hydronephrosis: (2) Urinary retention: (3) Metastatic malignant neoplasm to prostate: Plan Patient postop day 3 status post cystoscopy with urethral dilation and left ureteral dilation, bilateral retrograde pyelograms, bilateral stent placements. He is afebrile, hemodynamically stable. Labs reviewedcreatinine downtrending (2.21 today), no leukocytosis. Urine culture is prelim no growth. Follow culture. He is tolerating bilateral ureteral stents without bother. Plan to maintain Gramajo catheter for approximately 10 to 14 days. Will arrange outpatient follow-up with urology for voiding trial and ongoing management. Continue supportive care, antibiotics and medical management per primary team. will sign off. Admission and Anticipated Discharge Date Admission Date: January 22, 2023 Subjective Patient seen and examined at bedside this morning. He is awake and resting in bed in no apparent distress. No acute issues overnight. He denies flank or abdominal pain. Gramajo patent and draining yellow urine with blood tinged sediment in tubing. No nausea or vomiting. No fever or chills. Review of Systems Constitutional: as per Subjective / HPI Gastrointestinal: as per Subjective / HPI Genitourinary: + as per Subjective / HPI Physical Exam Constitutional: well developed and well nourished; no acute distress Neck: normal visual inspection Respiratory: normal respiratory effort; no respiratory distress and no labored breathing Musculoskeletal: Head/Neck/Chest: normocephalic Skin: No visible rashes or lesions to exposed skin areas Neurologic: moves all extremities and awake Psychiatric: A+Ox3, euthymic affect Genitourinary: Gramajo patent and draining yellow urine with blood tinged sediment in tubing Results & Data Vital Signs (Past 12 Hours) Vital Signs Temp Pulse Resp BP Pulse Ox O2 Del Method 01/26/23 08:14 Room Air 01/26/23 08:08 37.0 C 79 18 145/83 H 94 Room Air PG Care Time/CCT Total # of Minutes Spent Total Time Spent with Patient: Total time spent is greater than 50% in coordination of care (as documented) at patient's floor/unit and/or counseling patient: Coding Level of Care Code 19150 SUB INP/OBS CARE 1/25MIN Diagnoses Bilateral hydronephrosis N13.30 Urinary retention R33.9 Metastatic malignant neoplasm to prostate C79.82
[2023-01-26] MEDS: LACTATED RINGER'S 1,000 ML IV SCH ×2 (11:18→21:37)
--- NOTE | 2023-01-26 11:30 | Ultrasound Report ---
ULTRASOUND KIDNEYS AND BLADDER CLINICAL HISTORY: Acute renal insufficiency.. COMPARISON STUDY: Abdominal CT dated 09/19/2022. TECHNIQUE: Real-time, grayscale, and color flow sonography of the kidneys and bladder is performed. I mages are reviewed in the transverse and longitudinal planes. FINDINGS: Kidneys: The kidneys are normal in size and echotexture. The right kidney measures 11.7 cm in length and the left kidney measures 10.1 cm in length. There is mild to moderate bilateral hydronephrosis, r ight greater than left. Bilateral ureteral stents are in place. No shadowing renal calculi are identi fied. A 4.6 cm exophytic cyst is again seen arising from left kidney appear There is no sonographic e vidence of contour deforming renal mass lesion. No perinephric fluid is identified. Bladder: The bladder is decompressed and could not be evaluated. IMPRESSION: 1. Bilateral hydronephrosis as above with bilateral ureteral stents in place. 2. The bladder was decompressed and could not be evaluated. ACT 112: Negative or not required by law. Electronically signed by: Anthony Duvall M.D. 01/26/2023 11:29 AM
--- NOTE | 2023-01-26 19:04 | Hospitalist Progress Note ---
Date of Service January 26, 2023 Assessment & Plan (1) TERRI (acute kidney injury): Plan: Acute Kidney Injury B/L Hydronephrosis secondary to metastatic prostate cancer Likely multifactorial: Pre and Post renal --Renal USD:Bilateral hydronephrosis as above with bilateral ureteral stents in place. The bladder was decompressed and could not be evaluated. Cr:3.7>>3.3>2.9>2.37>2.2 S/P cystoscopy with urethral dilatation and left ureteral dilation, bilateral retrograde pyelograms, bilateral stent placement by on 01/23/23 Avoid nephrotoxic agents as able Monitor renal function Consider nephrology evaluation if needed Appreciate urology input Continue Gramajo catheter Continue IV fluids Renal function slowly improving Hb stable Continue Gramajo for 10 to 14 days Needs follow-up with urology upon discharge Suspected UTI Urine culture--no growth so far Empirically started on Cipro HTN Currently uncontrolled likely situational Continue metoprolol Added amlodipine--increase to 5 mg daily Monitor BP Hydralazine as needed Metastatic malignant neoplasm to prostate: Currently [facility] Needs follow-up with oncology upon discharge DVT Px SCDsRe:Hematuria Code Status Full Code Disposition PT OT prior to discharge Admission and Anticipated Discharge Date Admission Date: January 22, 2023 Subjective Patient is seen and examined at bedside Hematuria resolving Renal function slowly improving Patient offers no new complaints Denies any chest pain, dyspnea, dizziness, nausea, abdominal pain Review of Systems Review of Systems: All systems reviewed & are unremarkable except as noted in Subjective Physical Exam Physical Exam: Physical Exam: Vitals signs as noted above General Appearance:Moderately built and nourished, no apparent distress Head: normocephalic, Atraumatic Eyes: normal inspection, EOMI Neck: supple, Trachea midline Respiratory/Chest: Normal breath sounds, CTA, No accessory muscle use Cardiovascular: S1, S2, No murmur Abdomen/GI:Soft, Non tender, Bowel sounds present Extremities/Musculoskeletal:normal inspection, no edema Neurologic/Psych:AAOX3, grossly no focal neurological deficits, Hearing impairment Skin: normal color, warm Results & Data Results & Data Vital Signs (Past 12 Hours) Vital Signs Temp Pulse Resp BP Pulse Ox O2 Del Method 01/26/23 15:18 36.7 C 78 18 127/82 94 Room Air 01/26/23 08:14 Room Air 01/26/23 08:08 37.0 C 79 18 145/83 H 94 Room Air Laboratory Results Short CBC 01/26/23 Range/Units 07:15 WBC 9.27 (4.8-10.8) K/ul Hgb 10.0 L (14.0-18.0) g/dl Hct 29.8 L (42.0-52.0) % Plt Count 245 (130-400) K/uL BMP 01/26/23 07:15 Sodium 136 Potassium 3.8 Chloride 99 Carbon Dioxide 29 BUN 33 H Creatinine 2.21 H Glucose 97 Calcium 8.4 L
[2023-01-27] MEDS: CIPROFLOXACIN / D5W 200 MG/100 ML BAG IV SCH (00:16)
[2023-01-27] MEDS: traMADol HCL 50 MG TABLET PO PRN ×2 (05:59→13:27)
[2023-01-27] MEDS: LACTATED RINGER'S 1,000 ML IV SCH (07:48)
[2023-01-27 08:13] LABS: BUN Creatinine Ratio 14.7 (10-20); Calcium 7.7 mg/dl (8.6-10.3); Est GFR (African American) 34.2 ml/min; Est GFR (Non-African American) 29.5 ml/min; Potassium 3.5 mmol/L (3.5-5.1)
[2023-01-27] MEDS: METOPROLOL TARTRATE 25 MG TAB PO SCH (08:24)
[2023-01-27] MEDS: amLODIPine BESYLATE 5 MG TAB PO SCH (08:24)
[2023-01-27] MEDS: PANTOprazole 40 MG TAB PO SCH (08:24)
--- NOTE | 2023-01-27 13:05 | Hospitalist Progress Note ---
Date of Service January 27, 2023 Assessment & Plan (1) TERRI (acute kidney injury): Plan: Acute Kidney Injury B/L Hydronephrosis secondary to metastatic prostate cancer Likely multifactorial: Pre and Post renal --Renal USD:Bilateral hydronephrosis as above with bilateral ureteral stents in place. The bladder was decompressed and could not be evaluated. Cr:3.7>>3.3>2.9>2.37>2.2>2.0 S/P cystoscopy with urethral dilatation and left ureteral dilation, bilateral retrograde pyelograms, bilateral stent placement by on 01/23/23 Avoid nephrotoxic agents as able Monitor renal function Consider nephrology evaluation if needed Appreciate urology input Continue Gramajo catheter Received IV fluids Renal function improved Hb stable Continue Gramajo for 10 to 14 days Needs follow-up with urology upon discharge Advised to get BMP in 3 to 4 weeks and follow-up with PCP upon discharge UTI ruled out Urine culture--no growth so far Discontinue Cipro HTN Currently uncontrolled likely situational Continue metoprolol Added amlodipine--increase to 5 mg daily Monitor BP Hydralazine as needed Metastatic malignant neoplasm to prostate: Currently undergoing [facility] Needs follow-up with oncology upon discharge DVT Px SCDsRe:Hematuria Code Status Full Code Disposition home Admission and Anticipated Discharge Date Admission Date: January 22, 2023 Subjective Patient is seen and examined at bedside States feeling much better today No Hematuria today Ambulated well in hallways with no issues Denies any chest pain, dyspnea, dizziness, nausea, abdominal pain Discussed with patient's family at bedside Cr improving Plan to discharge home today Review of Systems Review of Systems: All systems reviewed & are unremarkable except as noted in Subjective Physical Exam Physical Exam: Physical Exam: Vitals signs as noted above General Appearance:Moderately built and nourished, no apparent distress Head: normocephalic, Atraumatic Eyes: normal inspection, EOMI Neck: supple, Trachea midline Respiratory/Chest: Normal breath sounds, CTA, No accessory muscle use Cardiovascular: S1, S2, No murmur Abdomen/GI:Soft, Non tender, Bowel sounds present Extremities/Musculoskeletal:normal inspection, no edema Neurologic/Psych:AAOX3, grossly no focal neurological deficits, Hearing impairment Skin: normal color, warm Results & Data Results & Data Vital Signs (Past 12 Hours) Vital Signs Temp Pulse Resp BP Pulse Ox O2 Del Method 01/27/23 08:05 Room Air 01/27/23 07:48 36.9 C 84 16 134/84 94 Room Air Laboratory Results BMP 01/27/23 07:26 Sodium 135 L Potassium 3.5 Chloride 100 Carbon Dioxide 28 BUN 30 H Creatinine 2.04 H Glucose 100 H Calcium 7.7 L
--- NOTE | 2023-01-27 13:22 | Discharge Summary ---
Date of Service January 27, 2023 Admission HPI Per Admitting Provider Adán Marino is an 82 year old male with metastatic prostate cancer who presents as a direct admission from the [facility] due to acute kidney injury on outpatient labs when he was expecting to have chemotherapy today. He denies any fever, chills, dysuria, CVA tenderness or change in urine smell. He does report darker and more concentrated urine. He has not eating or drinking much due to chemotherapy and prolonged emptying time for this stomach which is currently being managed by gastroenterology. He denies any dysphagia or odynophagia. He has a history of esophageal stricture but reports having a recent outpatient EGD and not requiring dilation. No constipation or diarrhea. Admission Exam Per Admitting Provider Physical Exam Constitutional: WD/WN, vitals as above Respiratory: normal respiratory effort, lungs clear to auscultation Cardiovascular: RRR, no murmur, no edema Gastrointestinal (Abdomen): Inspection/Auscultation: abdomen normal to inspection; abdomen not distended Percussion/Palpation: + abdomen tender (mild suprapubic) and abdomen soft; no guarding and abdomen not rigid Musculoskeletal: no cyanosis or clubbing, extremities motor strength 5/5 Skin: no rashes, warm and dry Neurologic: moves all extremities and awake; not confused Psychiatric: A+Ox3, euthymic affect Principal Diagnosis Acute Kidney Injury Obstructive Uropathy Hypertension Prostate Cancer Discharge Data Allergies Allergy/AdvReac Type Severity Reaction Status Date / Time No Known Allergies Allergy Verified 05/03/20 19:41 Consultations 01/22/23 14:49 Consult Urology Routine Procedures Performed Operation Date: 01/23/23 07:30 Actual Procedures p Cystoscopy with urethral dialation and left ureteral dilation, Bilateral Retrograde Pyelograms, Bilateral Stent Placements(Bilateral)(Bilateral) - Wisam Baez, DO Laboratory Results WBC 9.27 K/ul (4.8-10.8) 01/26/23 07:15 RBC 3.29 M/uL (4.70-6.10) L 01/26/23 07:15 Hgb 10.0 g/dl (14.0-18.0) L 01/26/23 07:15 Hct 29.8 % (42.0-52.0) L 01/26/23 07:15 MCV 90.6 fL (80.0-100.0) 01/26/23 07:15 MCH 30.4 pg (25.0-34.0) 01/26/23 07:15 MCHC 33.6 g/dL (32.0-36.0) 01/26/23 07:15 RDW Std Deviation 41.4 fL (36.4-46.3) 01/26/23 07:15 RDW Coeff of Ifeoma 12.5 % (11.5-14.5) 01/26/23 07:15 Plt Count 245 K/uL (130-400) 01/26/23 07:15 MPV 11.5 fL (9.4-12.4) 01/26/23 07:15 Immature Gran % (Auto) 0.9 % 01/26/23 07:15 Neut % (Auto) 73.1 % 01/26/23 07:15 Lymph % (Auto) 15.6 % 01/26/23 07:15 [place] % (Auto) 8.4 % 01/26/23 07:15 Eos % (Auto) 1.7 % 01/26/23 07:15 Baso % (Auto) 0.3 % 01/26/23 07:15 Neut # (Auto) 6.77 K/uL (1.40-6.50) H 01/26/23 07:15 Lymph # (Auto) 1.45 K/uL (1.2-3.4) 01/26/23 07:15 [place] # (Auto) 0.78 K/uL (0.11-0.59) H 01/26/23 07:15 Eos # (Auto) 0.16 K/uL (0-0.50) 01/26/23 07:15 Baso # (Auto) 0.03 K/uL (0-0.2) 01/26/23 07:15 Immature Gran # (Auto) 0.08 K/uL (0.01-0.20) 01/26/23 07:15 PT 10.8 Seconds (9.0-12.0) 01/22/23 14:57 INR 1.0 (0.9-1.1) 01/22/23 14:57 APTT 24.1 Seconds (21.0-31.0) 01/22/23 14:57 PTT Ratio 0.9 01/22/23 14:57 Sodium 135 mmol/L (136-145) L 01/27/23 07:26 Potassium 3.5 mmol/L (3.5-5.1) 01/27/23 07:26 Chloride 100 mmol/L (98-107) 01/27/23 07:26 Carbon Dioxide 28 mmol/L (21-32) 01/27/23 07:26 Anion Gap 7 (3-11) 01/27/23 07:26 BUN 30 mg/dl (6-23) H 01/27/23 07:26 Creatinine 2.04 mg/dl (0.6-1.4) H 01/27/23 07:26 Est Cr Clr Drug Dosing 27.0 ml/min 01/27/23 07:26 Est GFR ( Amer) 34.2 ml/min 01/27/23 07:26 Est GFR (Non-Af Amer) 29.5 ml/min 01/27/23 07:26 BUN/Creatinine Ratio 14.7 (10-20) 01/27/23 07:26 Glucose 100 mg/dl (70-99(Fasting)) H 01/27/23 07:26 Calcium 7.7 mg/dl (8.6-10.3) L 01/27/23 07:26 Magnesium 2.2 mg/dl (1.7-2.4) 01/24/23 05:35 Procalcitonin 0.07 ng/ml (0-0.5) 01/26/23 07:15 Urine Color Kiara 01/25/23 09:45 Urine Appearance Cloudy (Clear) A 01/25/23 09:45 Urine pH 7.0 (4.5-7.5) 01/25/23 09:45 Ur Specific [place] 1.015 (1.000-1.030) 01/25/23 09:45 Urine Protein 3+ (Negative) H 01/25/23 09:45 Urine Glucose (UA) Negative (Negative) 01/25/23 09:45 Urine Ketones Trace (Negative) H 01/25/23 09:45 Urine Blood 3+ (Negative) H 01/25/23 09:45 Urine Nitrite Negative (Negative) 01/25/23 09:45 Urine Bilirubin 1+ (Negative) H 01/25/23 09:45 Urine Urobilinogen Negative (Negative) 01/25/23 09:45 Ur Leukocyte Esterase 1+ (Negative) H 01/25/23 09:45 Urine WBC (Auto) 1-5 /hpf (0-5) 01/22/23 22:30 Urine RBC (Auto) 0-4 /hpf (0-4) 01/22/23 22:30 U Hyaline Cast (Auto) 0 /lpf (0-5) 01/22/23 22:30 U Epithel Cells (Auto) 5-10 /lpf (0-5) H 01/22/23 22:30 Urine Bacteria (Auto) Negative (Negative) 01/22/23 22:30 Urine RBC >30 /hpf (0-4) H 01/25/23 09:45 Urine WBC 5-10 /hpf (0-5) H 01/25/23 09:45 Ur Epithelial Cells 0-5 /lpf (0-5) 01/25/23 09:45 Urine Bacteria 1+ (Negative) H 01/25/23 09:45 SARS-CoV-2, RNA, NAAT NEGATIVE (NEGATIVE) 01/22/23 15:45 Impressions Retrograde Pyelogram 01/23/23 07:30 FL retrograde includes kub CLINICAL HISTORY: B/L COMPARISON STUDY: CT of the abdomen and pelvis September 19, 2022. PET/CT January 14, 2023. FLUOROSCOPY TIME: 29 seconds. Air kerma: 5.09 mGy FLUOROSCOPIC IMAGES: 7 FINDINGS: Fluoroscopy was provided during bilateral retrograde pyelograms with placement of bilateral ureteral stents. Stents are appropriately positioned. Bilateral hydronephrosis is again noted. Narrowing and apparent irregularity of the mid to distal right ureter is noted as well as focal narrowing within the distal left ureter. 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 IMPRESSION: Fluoroscopy provided during bilateral retrograde pyelograms with placement of bilateral ureteral stents. ACT 112: Negative or not required by law. Electronically signed by: Dustin Swenson M.D. 01/23/2023 10:42 AM Chest X-Ray 01/25/23 08:06 XR chest 1V portable CLINICAL HISTORY: leukocytosis COMPARISON STUDY: Chest CT September 19, 2022. PET/CT January 14, 2023. FINDINGS: There is mild elevation of the left hemidiaphragm. No consolidation is identified to suggest pneumonia. Linear left lower lung density represents atelectasis. There is no pneumothorax or pleural effusion. Cardiac size is normal. Mediastinal contours are normal. There is no evidence for pulmonary edema. IMPRESSION: 1. No acute cardiopulmonary findings. 2. Linear left lower lung density consistent with atelectasis. ACT 112: Negative or not required by law. Electronically signed by: Dustin Swenson M.D. 01/25/2023 9:25 AM Renal Ultrasound 01/26/23 09:24 ULTRASOUND KIDNEYS AND BLADDER CLINICAL HISTORY: Acute renal insufficiency.. COMPARISON STUDY: Abdominal CT dated 09/19/2022. TECHNIQUE: Real-time, grayscale, and color flow sonography of the kidneys and bladder is performed. Images are reviewed in the transverse and longitudinal planes. FINDINGS: Kidneys: The kidneys are normal in size and echotexture. The right kidney measures 11.7 cm in length and the left kidney measures 10.1 cm in length. There is mild to moderate bilateral hydronephrosis, right greater than left. Bilateral ureteral stents are in place. No shadowing renal calculi are identified. A 4.6 cm exophytic cyst is again seen arising from left kidney appear There is no sonographic evidence of contour deforming renal mass lesion. No perinephric fluid is identified. Bladder: The bladder is decompressed and could not be evaluated. IMPRESSION: 1. Bilateral hydronephrosis as above with bilateral ureteral stents in place. 2. The bladder was decompressed and could not be evaluated. ACT 112: Negative or not required by law. Electronically signed by: Anthony Duvall M.D. 01/26/2023 11:29 AM Ordered Studies 01/23/23 07:30 FL retrograde includes kub Routine 01/26/23 09:24 US renal/blad retro comp Routine Hospital Course (1) TERRI (acute kidney injury): Acute Kidney Injury B/L Hydronephrosis secondary to metastatic prostate cancer Likely multifactorial: Pre and Post renal --Renal USD:Bilateral hydronephrosis as above with bilateral ureteral stents in place. The bladder was decompressed and could not be evaluated. Cr:3.7>>3.3>2.9>2.37>2.2>2.0 S/P cystoscopy with urethral dilatation and left ureteral dilation, bilateral retrograde pyelograms, bilateral stent placement by on 01/23/23 Avoid nephrotoxic agents as able Monitor renal function Consider nephrology evaluation if needed Appreciate urology input Continue Gramajo catheter Received IV fluids Renal function improved Hb stable Continue Gramajo for 10 to 14 days Needs follow-up with urology upon discharge Advised to get BMP in 3 to 4 weeks and follow-up with PCP upon discharge UTI ruled out Urine culture--no growth so far Discontinue Cipro HTN Currently uncontrolled likely situational Continue metoprolol Added amlodipine--increase to 5 mg daily Monitor BP Hydralazine as needed Metastatic malignant neoplasm to prostate: [facility] Needs follow-up with oncology upon discharge DVT Px SCDsRe:Hematuria Code Status Full Code Disposition home Total Time Total Time Spent Total Time Spent (In Minutes): 56 minutes Discharge Plan Discharge Items Patient Disposition: Home - Self-Care Reason For Visit: ACUTE RENAL FAILURE Discharge Diagnosis: Acute Kidney Injury Obstructive Uropathy Hypertension Prostate Cancer Activity: Per Instructions section Exercise/Sports: Gradually increase as tolerated Non-emergency contact: Primary Care Provider, Oncologist and Urologist Call non-emergency contact if: you have any medication questions, your symptoms worsen, your pain is concerning for you and you have a fever Follow-up/Referrals: Renzo Hudson D.O. [Primary Care Provider] - Diet: Regular Diet Texture: Easy to Chew Addtl Attending Provider Instructions: Follow-up with your primary care physician Dr. Hudson in 1 week as advised Follow-up with your urologist Dr. Baez in 1 to 2 weeks Follow-up with your oncologist for further management of your prostate cancer. --- Obtain blood test (basic metabolic panel) in 1 week and follow-up with your physician for further instructions and evaluation of your kidney function --Start taking amlodipine 5 mg daily for better control of your blood pressure. -- Continue to use Gramajo catheter for approximately 10 to 14 days as recommended by your urologist Seek immediate medical attention if your symptoms reoccur or worsen Please take all medications as instructed on discharge list below. Please call if you have any questions or problems. You can reach a [facility] hospitalist on duty at [facility] 24 hours a day by calling [phone] Pending Studies at Discharge: No Stand-Alone Forms: My [facility] [employer], Smoking Cessation Medications and DC Order Prescriptions: New amlodipine [Norvasc] 5 mg Tablet 5 mg PO QAM Qty: 30 0RF Continued vitamin E 1,000 unit Capsule 1,000 unit PO QAM Lupron Depot (3 month) 11.25 mg Syringe Kit 1 dose IM .Q3 MONTHS Rx Instructions: UNKNOWN DOSE STRENGTH metoprolol tartrate 25 mg tablet 25 mg PO BID multivitamin Tablet 1 tab PO DAILY omeprazole 40 mg Capsule,Delayed Release(Dr/Ec) 40 mg PO QAM denosumab 120 mg/1.7 mL (70 mg/mL) Solution 120 mg subcut .Q3 MONTHS Rx Instructions: DUE 06/2020 tramadol 50 mg Tablet 50 mg PO Q6H PRN (Reason: Pain) Discharge Orders: Discharge Order (Routine); Ordered 01/27/23 Ordered By: Mert Stein Admission Data Admit Date/Time: 01/22/23 14:09 Attending Provider: Mert Stein Admit Provider: Evan Esquivel Primary Care Provider: Renzo Hudson Other Providers: Jabier Krause
== END 2023-01-27 14:41 | disposition home or self-care (01) | DRG 988 ==
LOC: 3N 14:09 → SUATTDRO 14:09